=== PATIENT | female | born 1960 | race Caucasian/White ===

== ENCOUNTER → 2019-03-03 13:21 | Outpatient (BNVA) | payer MEDICARE, MEDICAID, SELFPAY | PROVIDERS: Family Provider Nurse Practitioner Family; PCP Nurse Practitioner Family; Visit Provider Specialist | DX: S62.307A Unspecified fracture of fifth metacarpal bone, left hand, initial encounter for closed fracture (principal); X58.XXXA Exposure to other specified factors, initial encounter | CPT/HCPCS: 73130 ==

== ENCOUNTER 2019-10-30 15:08 | Outpatient (CLI) | payer MEDICARE, MEDICAID, SELFPAY ==
--- NOTE | 2019-10-30 15:14 | XR_ITS ---
WS: [id number] Right knee, 3 views, 10/30/2019 Clinical Data: PAIN IN RIGHT KNEE Comparison: Bilateral knees, 01/04/2017 Findings: No fractures or dislocations are seen. The joint spaces are normal. The patella is intact. The soft t issues are unremarkable. XR/XR knee RT 3V* [id number] Impression: Negative right knee.
== END 2019-10-30 15:09 | disposition home or self-care (01) ==
LOC: RAD 15:12
PROVIDERS: PCP Nurse Practitioner Family; Visit Provider Anesthesiology Pain Medicine
DX: M25.561 Pain in right knee (principal)
CPT/HCPCS: 73562

== ENCOUNTER 2020-02-02 09:10 | Outpatient (CLI) | payer MEDICARE, MEDICAID, SELFPAY ==
--- NOTE | 2020-02-02 09:18 | US_ITS ---
WS: [id number] ULTRASOUND ABDOMEN LIMITED CLINICAL INFORMATION: FATTY CHANGE OF LIVER COMPARISON: None. FINDINGS: Liver Size: Normal. Craniocaudal length: 12.6 cm. Echogenicity: Normal. Surface nodularity: None. Mass (size and location): None. Bile ducts Intrahepatic ducts: Normal. Common bile duct diameter: 1.0 cm. Post cholecystectomy physiologic dilatation. Gallbladder Cholecystectomy.. Pancreas Not well visualized Right kidney: Mild dilatation of the right proximal ureter Hydronephrosis: None. Size: 10.1 cm x 4.3 cm x 5.6 cm. Abdominal aorta and IVC Visualized portions are normal. Ascites: None. US/US gall bladder [id number] IMPRESSION: 1. Normal liver. 2. Prior cholecystectomy. 3. Slightly dilated right ureter. CT abdomen and pelvis renal stone protocol c ould be obtained to further evaluate for obstructing calculus if indicated.
[2020-02-02 11:12] LABS: Basophils # 0.1 10^3/uL (0.0-0.1); Basophils % 0.8 %; Eosinophils # 0.3 10^3/uL (0.0-0.8); Eosinophils % 4.3 %; Hemoglobin 12.1 g/dL (11.5-15.3); Lymphocytes # 2.3 10^3/uL (0.8-4.8); Lymphocytes % 28.5 %; Mean Corpuscular HGB Conc 31.8 g/dL (30.0-36.0); Mean Corpuscular Hemoglobin 30.3 pg (28.0-34.0); Mean Platelet Volume 10.5 fL (7.4-10.4); Monocytes # 0.9 10^3/uL (0.2-0.9); Monocytes % 11.3 %; Neutrophils # 4.39 10^3/uL (1.8-7.7); Neutrophils % 54.8 %; Nucleated Red Blood Cells % 0 %; Platelet Count 370 10^3/cmm (130-400); Red Cell Distribution Width 13.9 % (12.1-15.1)
[2020-02-02 11:43] LABS: Alanine Aminotransferase 19 U/L (0-33); Albumin Level 4.3 g/dL (3.5-5.2); Alkaline Phosphatase 113 IU/L (35-105); Anion Gap 12.5 (5-19); Aspartate Amino Transferase 16 U/L (0-32); Blood Urea Nitrogen 5 mg/dL (8-23); Calcium 9.2 mg/dL (8.5-10.5); Carbon Dioxide 27 mmol/L (22-29); Chloride 106 mmol/L (98-107); Chol HDL Ratio 2.58 mg/dL (0.0-4.40); Cholesterol 170 mg/dL (0-200); Ferritin 38 ng/mL (15-150); Globulin 2.9 g/dL (1.3-4.6); Glomerular Filtration Rate 85.1 mL/min (90-130); Glucose 80 mg/dL (65-115); HDL Cholesterol 66 mg/dL (60-100); Iron 65 ug/dL (37-145); LDL Cholesterol Calculated 85 mg/dL (50-129); LDL HDL Ratio 1.29 RATIO (0.00-3.22); Osmolality Calculated 288 mOsm/kg (285-295); Potassium 4.5 mmol/L (3.5-5.1); Sodium 141 mmol/L (136-145); Thyroid Stimulating Hormone 1.34 uIU/mL (0.27-4.20); Total Bilirubin 0.2 mg/dL (0.15-1.2); Total Iron Binding Capacity 361 mcg/dl; Total Protein 7.2 g/dL (6.6-8.7); Transferrin 302 mg/dL (200-360); Triglycerides 95 mg/dL (0-150); Unsaturated Iron Binding 296 ug/dL (112-347)
[2020-02-02 12:52] LABS: Hepatitis A Antibody IgM Non-Reactive (Nonreactive); Hepatitis B Core IgM Non-Reactive (Nonreactive); Hepatitis B Surface Antigen Non-Reactive (Nonreactive); Hepatitis C Virus Antibody Non-Reactive (Nonreactive)
[2020-02-02 13:11] LABS: Tumor Marker Alpha Fetoprotein 3.7 ng/mL (0-8.3)
[2020-02-03 12:03] LABS: Alpha 1 Antitrypsin 151 mg/dL (83-199); Ceruloplasmin 40 mg/dL (18-53)
[2020-02-05 23:08] LABS: Tissue Transglutaminase IgA Ab <1 U/mL; Tissue transglutaminase Ab.IgG 1 U/mL
[2020-02-06 02:44] LABS: Immunoglobulin A 133 mg/dL (70-320)
[2020-02-08 16:13] LABS: Gliadin Ab.IgA 3 U (<20); Gliadin Ab.IgG 2 U (<20)
== END 2020-02-02 09:11 | disposition home or self-care (01) ==
PROVIDERS: PCP Nurse Practitioner Family; Visit Provider Nurse Practitioner
DX: K76.0 Fatty (change of) liver, not elsewhere classified (principal); N28.82 Megaloureter; Z90.49 Acquired absence of other specified parts of digestive tract
CPT/HCPCS: 36415; 76705; 80053; 80061; 80074; 82103; 82105; 82390; 82728; 82784; 83516; 83540; 83550; 84443; 84466; 85025; 85610

== ENCOUNTER 2020-02-10 14:35 | Outpatient (CLI) | payer MEDICARE, MEDICAID, SELFPAY ==
--- NOTE | 2020-02-10 | MR_ITS ---
WS: [id number] MRI RIGHT KNEE NONCONTRAST TECHNIQUE: Axial PD, coronal PD fat sat, coronal PD, sagittal PD, and sagittal PD fat-sat images obta ined. CLINICAL INFORMATION: RT KNEE PAIN COMPARISON: None. FINDINGS: Distal quadriceps and patella tendons are intact. Mild prepatellar soft tissue edema. Normal anterior and posterior cruciate ligaments. Normal medial and lateral meniscus. No acute appearing meniscal te ars. Normal bone marrow signal in the distal femur and tibial plateau. Moderate chondromalacia patella worse in the medial patella facet. Normal popliteal fossa. Mild joint space narrowing medial and lateral joint compartments. Moderate joint space narrowing patellofemoral articulation. Medial and lateral collateral ligaments are intact. MR/MR knee RT wo con* [id number] IMPRESSION: 1. Normal anterior and posterior cruciate ligaments. 2. Normal medial and lateral meniscus. No acute appearing meniscal tears. 3. 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 4. Moderate tricompartmental arthritis worse involving the medial joint compar tment and patellofemoral articulation. 5. Medial and lateral collateral ligaments appear intact.
== END 2020-02-10 14:36 | disposition home or self-care (01) ==
LOC: RADWPI 14:39
PROVIDERS: PCP Nurse Practitioner Family; Visit Provider Anesthesiology Pain Medicine
DX: M25.561 Pain in right knee (principal); M22.41 Chondromalacia patellae, right knee; M13.861 Other specified arthritis, right knee
CPT/HCPCS: 73721

== ENCOUNTER → 2020-03-02 15:31 | Outpatient (BNVA) | payer MEDICARE, MEDICAID, SELFPAY | PROVIDERS: PCP Nurse Practitioner Family; Referring Provider Nurse Practitioner; Visit Provider Orthopaedic Surgery | DX: M17.0 Bilateral primary osteoarthritis of knee (principal); M25.862 Other specified joint disorders, left knee; M25.861 Other specified joint disorders, right knee; M25.562 Pain in left knee; M25.561 Pain in right knee | CPT/HCPCS: 73560; 73565 ==

== ENCOUNTER 2020-08-20 10:43 | Outpatient (CLI) | payer MEDICARE, MEDICAID, SELFPAY ==
--- NOTE | 2020-08-20 10:46 | MM_ITS ---
WS: [id number] Bilateral screening digital mammogram, 08/20/2020 Clinical Data: SCREENING Comparison: 01/04/2016. Findings: The breast parenchymal pattern shows heterogeneous density. No spiculated masses or clustered calcifi cations are seen. There are no secondary signs of carcinoma. MM/[place] [id number] Impression: 1. Negative bilateral mammogram unchanged. 2. Recommend annual screening mammograms. BIRADS: 1-Negative FOLLOW UP: 1 Year Follow-up The CAD maturity checker was used.
== END 2020-08-20 10:44 | disposition home or self-care (01) ==
PROVIDERS: PCP Nurse Practitioner Family; Visit Provider Nurse Practitioner Family
DX: Z12.31 Encounter for screening mammogram for malignant neoplasm of breast (principal)
CPT/HCPCS: 77067

== ENCOUNTER 2020-09-14 09:06 | Outpatient (CLI) | payer MEDICARE, MEDICAID, SELFPAY ==
[2020-09-14 09:37] VITALS: BMI 33.8
--- NOTE | 2020-09-14 09:38 | ECG_ITS ---
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 Interpretive Statements NAME OF STUDY: LEXISCAN SESTAMIBI STRESS TEST INDICATION: Chest Pain PROCEDURE: At the baseline, the EKG revealed normal sinus rhythm with a poor R wave progression. Some nonspecific ST changes. The baseline blood pressure was 173/88 mm Hg with a heart rate of 69 beats/min. Lexiscan was infused over a period of 20 seconds. A total of 0.4 milligrams of Lexiscan was infused. The stress phase was continued for a total of 5 minutes. Heart rate at the end of the stress phase was 86 with a blood pressure 168/81. The EKG at the peak infusion revealed nonspecific ST-T changes.. Sestamibi was injected 20 seconds after the Lexiscan infusion. Blood pressure at the end of the recovery phase was 164/84 with a heart rate of 80 per minute. CONCLUSION: 1. No significant EKG changes with the LexiScan infusion 2. No LexiScan induced chest pain or cardiac arrhythmia 3. Normal blood pressure and heart rate response 4. Sestamibi/sestamibi perfusion scan pending; see separate report. Electronically Signed On 09-14-2020 14:13:46 CDT by Dawn Stacy M.D. [id number]
--- NOTE | 2020-09-14 09:39 | NMCV_ITS ---
NM samuel perf SPECT r/s* [id number] Aziza Katz Age: 60 Gender: F : 1960 Exam Date: 09/14/2020 10:19 Ordering Phys: Nikki Coronado Technologist: [place] Jose Exam Location: [facility] Indications: CHEST PAIN STRESS TEST Please see separate stress test report in [facility] for full findings IMAGE PROTOCOL Rest/Stress 1 Lexiscan Day Radiopharmaceutical Dose (mCi) Administration Site Administered by Rest: Tc-99m 10.9 IV [place] Rendon Sestamibi Stress:Tc-99m 32.8 IV Sestamibi Rest: 14-Sep-2020 60 Discovery 630 Stress: 14-Sep-2020 30 Discovery 630 0.4mg Lexiscan. Images obtained in supine and prone position. SPECT RESULTS Technical Quality: Excellent Raw Data Analysis: Breast attenuation Image Corrections: No attenuation or motion correction applied Summed Stress Score: 0 Summed Rest Score: 3 Summed Difference Score: 0 PERFUSION FINDINGS Fairly uniform myocardial tracer uptake. No significant perfusion abnormalities. FUNCTIONAL RESULTS (calculated via Gated SPECT) Stress Image LV EF (%): 86 Stress EDV (mL):66 TID: 1.03 Stress ESV (mL):9 FUNCTIONAL FINDINGS: Segmental wall motion analysis revealing no gross wall motion normalities IMPRESSIONS 1. Unremarkable myocardial perfusion imaging. 2. Normal LV ejection fraction of 86%. 3. LV wall motion analysis revealing no gross wall motion normalities. 4. Normal LV volume. No significant coronary ischemia, based on the above findings Dr Dawn Stacy MD [facility] (Electronically Signed) Final Date: 14 September 2020 14:03 S
[2020-09-14] MEDS: regadenoson 0.4 Mg/5 ml Syringe IVP (11:07)
[2020-09-14 11:19] VITALS: BP 168/84; PULSE 80
== END 2020-09-14 09:07 | disposition home or self-care (01) ==
LOC: CDL 09:11
PROVIDERS: PCP Nurse Practitioner Family; Visit Provider Nurse Practitioner Family
DX: R07.9 Chest pain, unspecified (principal)
CPT/HCPCS: 78452; 93017; A9500; J2785

== ENCOUNTER 2021-03-08 19:10 | Inpatient (IN) | payer MEDICARE, MEDICAID, SELFPAY ==
[2021-03-08 19:13] VITALS: BP 99/67; PULSE 112; RESP 18; TEMP 38.6; O2SAT 89; BMI 27.4
--- NOTE | 2021-03-08 19:40 | XRR_ITS ---
PROCEDURE INFORMATION: Exam: XR Left Foot Exam date and time: 03/08/2021 7:40 PM Age: 61 years old Clinical indication: Injury or trauma; Fall; Blunt trauma; Foot; Left TECHNIQUE: Imaging protocol: XR Left foot. Views: 3 or more views. COMPARISON: No relevant prior studies available. FINDINGS: Bones/joints: No acute fracture. No dislocation. Normal bone mineralization. No joint effusion. Joint spaces are maintained. Small bunion at the head of the left 1st metatarsal. Soft tissues: No soft tissue swelling. No radiopaque foreign body. Calcification in the soft tissues of the distal lower leg of uncertain etiology. XR/XR foot LT min 3V* [id number] IMPRESSION: 1. No acute fracture. Followup imaging recommended in 7-14 days if clinical concern for fracture persists. 2. Small bunion at the head of the left 1st metatarsal.
--- NOTE | 2021-03-08 19:40 | XRR_ITS ---
PROCEDURE INFORMATION: Exam: XR Right Foot Exam date and time: 03/08/2021 7:40 PM Age: 61 years old Clinical indication: Injury or trauma; Fall; Blunt trauma; Foot; Right TECHNIQUE: Imaging protocol: XR Right foot. Views: 3 or more views. COMPARISON: CR XR knees AP WB w RT lmt ORTH 03/02/2020 3:37 PM FINDINGS: Bones/joints: Mild soft tissue swelling medial to the navicular bone and talus. No acute fracture. No dislocation. Normal bone mineralization. No joint effusion. Joint spaces are maintained. Soft tissues: No radiopaque foreign body. Few calcifications in the soft tissues of the soft tissues of the distal lower leg of uncertain etiology. XR/XR foot RT min 3V* [id number] IMPRESSION: 1. No acute fracture. Followup imaging recommended in 7-14 days if clinical concern for fracture persists. 2. Mild soft tissue swelling medial to the navicular bone and talus.
--- NOTE | 2021-03-08 19:40 | XRR_ITS ---
PROCEDURE INFORMATION: Exam: XR Right Ankle Exam date and time: 03/08/2021 7:40 PM Age: 61 years old Clinical indication: Injury or trauma; Fall; Blunt trauma; Ankle; Right TECHNIQUE: Imaging protocol: XR Right ankle. Views: 3 or more views. COMPARISON: No relevant prior studies available. FINDINGS: Bones/joints: No acute fracture. No dislocation. Normal bone mineralization. No joint effusion. Joint spaces are maintained. Soft tissues: No soft tissue swelling. No radiopaque foreign body. Few calcifications in the soft tissues of the soft tissues of the distal lower leg of uncertain etiology. XR/XR ankle RT min 3V* [id number] IMPRESSION: No acute fracture. Followup imaging recommended in 7-14 days if clinical concern for fracture persists.
--- NOTE | 2021-03-08 19:40 | XRR_ITS ---
PROCEDURE INFORMATION: Exam: XR Chest Exam date and time: 03/08/2021 7:40 PM Age: 61 years old Clinical indication: Shortness of breath; Additional info: SOB fall TECHNIQUE: Imaging protocol: XR of the chest. Views: 1 view. COMPARISON: CT abdomen pelvis wo con [id number] 11/14/2018 10:55 AM FINDINGS: Lungs: Interval development of right upper lobe and right lower lobe alveolar airspace disease. Findings are most suspicious for pneumonia. Pulmonary contusion is considered less likely but not completely ruled out given history of trauma. Pleural spaces: No pleural effusion. No pneumothorax. Heart/Mediastinum: The cardiac silhouette and mediastinal contours are unremarkable. Vasculature: Vascular calcifications in the aorta. Bones/joints: Degenerative changes in the spine and shoulders. No acute fracture. XR/XR chest 1V portable [id number] IMPRESSION: 1. Interval development of right upper lobe and right lower lobe alveolar airspace disease. Findings are most suspicious for pneumonia. Pulmonary contusion is considered less likely but not completely ruled out given history of trauma. Recommend clinical correlation. CT scan of the chest with contrast may be obtained for further evaluation if it will change clinical management. Follow-up chest imaging recommended in 4 weeks to ensure resolution of these findings. 2. Incidental/nonacute findings are listed in the report.
--- NOTE | 2021-03-08 20:29 | CTR_ITS ---
PROCEDURE INFORMATION: Exam: CTA Chest With Contrast Exam date and time: 03/08/2021 8:29 PM Age: 61 years old Clinical indication: Fever and other: Hypoxia; Additional info: Hypoxia fever TECHNIQUE: Imaging protocol: Computed tomographic angiography of the chest with contrast. 3D rendering (Not supervised by radiologist): MIP and/or 3D reconstructed images were created by the technologist. Radiation optimization: All CT scans at this facility use at least one of these dose optimization techniques: automated exposure control; mA and/or kV adjustment per patient size (includes targeted exams where dose is matched to clinical indication); or iterative reconstruction. Contrast material: OMNI 350; Contrast volume: 65 ml; Contrast route: INTRAVENOUS (IV); COMPARISON: 1. CR (CHEST, ) 03/08/2021 7:[address] abdomen pelvis wo con [id number] 11/14/2018 10:55 AM RADIATION DOSE METRICS: Total DLP (mGy-cm): 512.07 FINDINGS: Pulmonary arteries: No filling defects in the pulmonary arteries to suggest pulmonary embolism. Aorta: Moderate atherosclerotic changes in the visualized arteries. No evidence for aortic aneurysm or aortic dissection. Great vessels off aortic arch: Noncalcified plaque with 80% stenosis at the origin of the left common carotid artery. Trachea: Tracheobronchial structures are patent. Lungs: Dense alveolar opacification in the central right upper lobe and right middle lobe and in the central and peripheral right lower lobe suspicious for pneumonia. Findings are most pronounced in the right upper lobe. No pulmonary parenchymal nodules or masses. Pleural spaces: No pneumothorax. No pleural effusion. Heart: The heart is normal in size. Mild atherosclerotic calcification in the coronary arteries. Esophagus: The esophagus is unremarkable. Mediastinal space: No mediastinal hematoma. No pneumomediastinum. Lymph nodes: No lymphadenopathy. Liver: The visualized liver is unremarkable. Gallbladder and bile ducts: Stable findings consistent with a previous cholecystectomy. Stable dilatation of the visualized biliary ducts, not unexpected in a patient who has had a prior cholecystectomy. Pancreas: The visualized pancreas is unremarkable. No pancreatic ductal dilatation. Spleen: The visualized spleen is unremarkable. Adrenal glands: The visualized right and left adrenal glands are unremarkable. Kidneys and ureters: The visualized left kidney is unremarkable. Bones/joints: Multilevel degenerative changes of varying severity in the visualized spine. Soft tissues: No acute abnormality in the extrathoracic soft tissues. CT/CT angio chest PE protcl [id number] IMPRESSION: 1. Dense alveolar opacification in the central right upper lobe and right middle lobe and in the central and peripheral right lower lobe suspicious for pneumonia. Findings are most pronounced in the right upper lobe. Recommend followup chest imaging to insure resolution of these findings. 2. No evidence for pulmonary embolism. 3. Atherosclerotic disease. 80% stenosis at the origin of the left common carotid artery. 4. Incidental/nonacute findings are listed in the report.
[2021-03-08 20:30] VITALS: RESP 22; O2SAT 92
[2021-03-08] MEDS: ondansetron 2 mg/ML SDV 2 mL 4 MG IVP (20:30)
[2021-03-08] MEDS: morphine 4 mg/mL SDV 1 mL IVP ×2 (20:30→21:47)
--- NOTE | 2021-03-08 20:53 | ED_ITS ---
HPI - Fall General: Chief Complaint: Fall Stated Complaint: FALL Time Seen by Provider: 03/08/21 19:16 History of Present Illness: HPI Narrative: 61-year-old female comes in with bilateral foot and ankle pain. She notes that she tripped out of the door of her camper night before last, catching her big left toe and entrapping her right ankle in the step. She has pain, significantly decreased ability to bear weight, some swelling and bruising to her left foot and right ankle and foot. Of note as she presents, she is febrile, and on oxygen as she was found to have a low pulse ox by EMS. She had exposure to 2 family members with COVID-19 this past weekend. She denies shortness of breath. She has had a bit of a cough. MD complaint: fall Onset (ago): day(s) Fall from: down stairs (#) Fall witnessed: no Place fall occurred: home and other Loss of consciousness: None Prolonged down time: no Symptoms prior to fall: none Context: tripped/slipped Location of injury - extremities: Left: ankle and Bilateral: foot Severity: moderate Quality: stabbing and aching Associated symptoms-after fall: Reports difficulty walking, neck pain and weakness; Denies abdominal pain, chest pain, confusion, headache(s), lightheadedness or short of breath Review of Systems Card: Denies: chest pain or lightheadedness GI: Denies: abdominal pain Musc: Reports: neck pain Neuro: Reports: difficulty walking; Denies: headache(s) or confusion PFS ED PFSH: Social History Smoking and tobacco status: current every day smoker cigarettes Packs smoked per day: 0.5 Years cigarettes smoked: 30 Alcohol intake: never Physical Exam Const: COMMON NORMALS: patient oriented x3 and alert GENERAL APPEARANCE: cooperative and ill appearing Eye: COMMON NORMALS: Equal, round and reactive pupils present and EOMs intact bilaterally PUPIL: Yes Equal, round and reactive pupils present Chest: COMMONS NORMALS: normal inspection of the chest Resp: COMMON NORMALS: clear to auscultation bilaterally EFFORT & INSPECTION: Yes tachypneic and No respiratory distress AUSCULTATION: clear to auscultation bilaterally and diminished lung sounds Cardio: COMMON NORMALS: regular rhythm RATE: tachycardic RHYTHM: regular rhythm GI: COMMON NORMALS: Normal to inspection, nondistended, normoactive bowel sounds present and Soft to palpation PALPATION: Yes Soft to palpation Extremity: NARRATIVE EXTREMITY EXAM: Exam of the right lower extremity reveals ecchymosis to the right ankle and inferiorly to the hindfoot. There is minimal swelling. There is tenderness over the medial and lateral malleoli as well as the base of the fifth metatarsal. Examination the left lower extremity reveals forefoot tenderness, medially, along the MTP. There is mild discoloration with minimal swelling present Neuro: COMMON NORMALS: patient oriented x3 SENSORIUM/ORIENTATION: Yes alert Course Consultations: Consultation #1: [email or web address] Vital Signs: Vital signs: Vital Signs Temperature 101.4 F H 03/08/21 19:13 Pulse Rate 112 H 03/08/21 19:13 Respiratory Rate 22 H 03/08/21 21:47 Blood Pressure 99/67 03/08/21 19:13 Pulse Oximetry 96 03/08/21 21:47 MDM - Fall MDM Narrative: Medical decision making narrative: X-rays are negative for fracture. However, the patient is tachycardic, mildly hypotensive now, and requiring oxygen at 3 L satting 92 to 94%. Chest x-ray shows right upper lobe and lower lobe pneumonia. She has had contact with COVID-19 positive family members, and is febrile here. CTA of the chest has been ordered along with laboratory, and fluid bolus. Fluid bolus nears 30 mg/kg, but is not overdone due to problems with fluid overload and hypoxia iin COVID patients. She will be admitted for hypoxic respiratory failure with COVID-19 and pneumonia. She has been given Levaquin after blood cultures for the pneumonia, given its more one-sided denser appearance. Lab Data: Labs: Lab Results 03/08/21 03/08/21 03/08/21 20:15 20:15 20:50 WBC 28.6 10^3/uL H 10 ^3/uL (4.0-10.0) RBC 4.30 10^6/uL 10^6 /uL (4.1-5.3) Hgb 13.0 g/dL g/dL (11.5-15.3) Hct 38.4 % % (37.0-47.0) MCV 89.3 fl fl (81-99) MCH 30.2 pg pg (28.0-34.0) MCHC 33.9 g/dL g/dL (30.0-36.0) RDW 13.4 % % (12.1-15.1) Plt Count 227 10^3/cmm 10^3 /cmm (130-400) MPV 11.4 fL H fL (7.4-10.4) Lymph % (Auto) Not Reportable Humphreys % (Auto) Not Reportable Lymph # (Auto) Not Reportable Humphreys # (Auto) Not Reportable Total Counted 100 (0-100) Atypical Lymphs % 0.0 % % (0-5) Absolute Neutrophi ls 24.9 10^3/cmm H 1 0^3/cmm (1.4-6.5) Segmented Neutroph ils 54 % % Abs Segm Neuts (Ma n) 15.4 10/cmm H 10/ cmm (1.6-7.1) Band Neutrophils 33.0 % % Abs Band Neuts (Ma n) 9.4 10^3/cmm H 10 ^3/cmm (0.0-1.2) Absolute Lymphocyt es 1.7 10^3/cmm 10^3 /cmm (1.2-3.4) Lymphocytes (Manua l) 6 % % Monocytes (Manual) 0.0 % % Absolute Monocytes 0.0 10^3/cmm L 10 ^3/cmm (0.1-0.6) Eosinophils (Manua l) 0 % % Absolute Eosinophi ls 0.0 10^3/cmm 10^3 /cmm (0.0-0.7) Basophils (Manual) 0.0 % % Absolute Basophils 0.0 10^3/cmm 10^3 /cmm (0.0-0.2) Metamyelocytes 7.0 % % Platelet Estimate Normal (Normal) Target Cells Trace D-Dimer Sodium Potassium Chloride Carbon Dioxide Anion Gap BUN Creatinine GFR Calculation Glucose Calculated Osmolal ity Lactic Acid Calcium Total Bilirubin AST ALT Alkaline Phosphata se C-Reactive Protein NT-Pro-B Natriuret Pep Total Protein Albumin Globulin Procalcitonin Coronavirus 229E ( PCR) Not detected (NOT DETECT) SARS-CoV-2 (PCR) Detected A (NOT DETECT) SARS-CoV-2 Ag (Rap id) Positive H (Negative) 03/08/21 03/08/21 03/08/21 20:50 20:50 20:50 WBC RBC Hgb Hct MCV MCH MCHC RDW Plt Count MPV Lymph % (Auto) Humphreys % (Auto) Lymph # (Auto) Humphreys # (Auto) Total Counted Atypical Lymphs % Absolute Neutrophi ls Segmented Neutroph ils Abs Segm Neuts (Ma n) Band Neutrophils Abs Band Neuts (Ma n) Absolute Lymphocyt es Lymphocytes (Manua l) Monocytes (Manual) Absolute Monocytes Eosinophils (Manua l) Absolute Eosinophi ls Basophils (Manual) Absolute Basophils Metamyelocytes Platelet Estimate Target Cells D-Dimer 3.49 ug/mIFEU H u g/mIFEU (0-0.59) Sodium 132 mmol/L L mmol /L (136-145) Potassium 4.4 mmol/L mmol/L (3.5-5.1) Chloride 96 mmol/L L mmol/ L (98-107) Carbon Dioxide 20 mmol/L L mmol/ L (22-29) Anion Gap 20.4 H (5-19) BUN 26 mg/dL H mg/dL (8-23) Creatinine 2.0 mg/dL H mg/dL (0.5-0.9) GFR Calculation 25.2 mL/min L mL/ min (90-130) Glucose 102 mg/dL mg/dL (65-115) Calculated Osmolal ity 279 mOsm/kg L mOs m/kg (285-295) Lactic Acid 2.0 mmol/L mmol/L (0.5-2.2) Calcium 8.4 mg/dL L mg/dL (8.5-10.5) Total Bilirubin 0.5 mg/dL mg/dL (0.15-1.2) AST 61 U/L H U/L (0-32) ALT 73 U/L H U/L (0-33) Alkaline Phosphata se 201 IU/L H IU/L (35-105) C-Reactive Protein 509.2 mg/L H mg/L (0.0-4.9) NT-Pro-B Natriuret Pep 528 pg/mL H pg/mL (0-125) Total Protein 7.0 g/dL g/dL (6.6-8.7) Albumin 3.7 g/dL g/dL (3.5-5.2) Globulin 3.3 g/dL g/dL (1.3-4.6) Procalcitonin 25.34 ng/mL H ng/ mL (0-0.5) Coronavirus 229E ( PCR) SARS-CoV-2 (PCR) SARS-CoV-2 Ag (Rap id) Discharge Plan Discharge Patient Disposition: Admitted As Inpatient Clinical Impression: Acute hypoxemic respiratory failure, COVID-19 Pneumonia Qualifiers: Pneumonia type: due to unspecified organism Laterality: right Condition: Stable Coding Level of Care Code ED [employer] for [employer] Fwd Exam Detailed
[2021-03-08 21:11] LABS: SARS Covid-2 Antigen Positive (Negative)
[2021-03-08 21:15] LABS: Hematocrit 38.4 % (37.0-47.0); Mean Corpuscular HGB Conc 33.9 g/dL (30.0-36.0); Mean Corpuscular Hemoglobin 30.2 pg (28.0-34.0); Mean Corpuscular Volume 89.3 fl (81-99); Mean Platelet Volume 11.4 fL (7.4-10.4); Platelet Count 227 10^3/cmm (130-400); Red Cell Distribution Width 13.4 % (12.1-15.1); White Blood Count 28.6 10^3/uL (4.0-10.0)
[2021-03-08] MEDS: dexamethasone 4 mg/mL INJ 6 MG IVP (21:15)
[2021-03-08] MEDS: levofloxacin-dextrose 5 % 750 MG/150 ML PREMIX 100 MG IV (21:15)
[2021-03-08] MEDS: sodium chloride 0.9% 1,000 ML 999 ML IV ×2 (21:16→23:00)
[2021-03-08 21:28] LABS: D Dimer 3.49 ug/mIFEU (0-0.59)
[2021-03-08 21:31] LABS: Absolute Neutrophil 24.9 10^3/cmm (1.4-6.5); Absolute Segmented Neutrophil 15.4 10/cmm (1.6-7.1); Band Neutrophils Absolute 9.4 10^3/cmm (0.0-1.2); Eosinophils 0 %; Lymphocytes 6 %; Lymphocytes Absolute 1.7 10^3/cmm (1.2-3.4); Platelet Estimate Normal (Normal); Segmented Neutrophils 54 %; Slide Review Slide Review Perform; Target Cells Trace; Total Cells Counted 100 (0-100)
[2021-03-08 21:44] LABS: NT Pro B Type Natriuretic Pept 528 pg/mL (0-125); Procalcitonin 25.34 ng/mL (0-0.5)
[2021-03-08 21:47] VITALS: RESP 22; O2SAT 96
[2021-03-08 21:55] LABS: Alanine Aminotransferase 73 U/L (0-33); Albumin Level 3.7 g/dL (3.5-5.2); Alkaline Phosphatase 201 IU/L (35-105); Anion Gap 20.4 (5-19); Aspartate Amino Transferase 61 U/L (0-32); Blood Urea Nitrogen 26 mg/dL (8-23); Calcium 8.4 mg/dL (8.5-10.5); Carbon Dioxide 20 mmol/L (22-29); Chloride 96 mmol/L (98-107); Globulin 3.3 g/dL (1.3-4.6); Glomerular Filtration Rate 25.2 mL/min (90-130); Glucose 102 mg/dL (65-115); Osmolality Calculated 279 mOsm/kg (285-295); Potassium 4.4 mmol/L (3.5-5.1); Sodium 132 mmol/L (136-145); Total Bilirubin 0.5 mg/dL (0.15-1.2)
[2021-03-08 22:07] LABS: C Reactive Protein 509.2 mg/L (0.0-4.9)
[2021-03-08 22:11] LABS: Adenovirus Not Detected (NOT DETECT); Chlamydia Pneumoniae Not Detected (NOT DETECT); Coronavirus 229E,HKU1,NL63,OC4 Not Detected (NOT DETECT); Human Metapneumovirus Not Detected (NOT DETECT); Human Rhinovirus/Enterovirus Not Detected (NOT DETECT); Influenza A Not Detected (NOT DETECT); Influenza A H1 Not Detected (NOT DETECT); Influenza A H1-2009 Not Detected (NOT DETECT); Influenza A H3 Not Detected (NOT DETECT); Influenza B Not Detected (NOT DETECT); Mycoplasma Pneumoniae Not Detected (NOT DETECT); Parainfluenza Virus Type 1 Not Detected (NOT DETECT); Parainfluenza Virus Type 2 Not Detected (NOT DETECT); Parainfluenza Virus Type 3 Not Detected (NOT DETECT); Parainfluenza Virus Type 4 Not Detected (NOT DETECT); Respiratory Syncytial Virus A Not Detected (NOT DETECT); Respiratory Syncytial Virus B Not Detected (NOT DETECT); SARS-COV-2 Detected (NOT DETECT)
[2021-03-08 23:02] VITALS: PULSE 83; PULSE 84; RESP 16; O2SAT 95; O2SAT 97
--- NOTE | 2021-03-08 23:09 | PM.HP ---
Providers/Chief Complaint Primary Care Provider: Nikki CoronadoP-C Chief Complaint: FALL History of Present Illness Aziza Katz is a 61 year old female with no significant past medical history came in with chief complaint of bilateral bilateral foot and ankle pain, after she tripped out of the door of her camper night before last. She was also complaining of fever , shortness of breath as well as nonproductive cough for the last 2 days, denies any nausea , vomiting, dizziness, palpitation, chest pain..She has exposure to COVID-19 in the last few days. Upon arrival in the ER she was worked up for above-mentioned complaint. Pertinent imaging studies: CTA chest: No PE, Dense alveolar opacification in the central right upper lobe and right middle lobe and in the central and peripheral right lower lobe suspicious for pneumonia. Findings are most pronounced in the right upper lobe. XR foot RT: No acute fracture,Mild soft tissue swelling medial to the navicular bone and talus. XR foot LT : No acute fracture. XR chest: Interval development of right upper lobe and right lower lobe alveolar airspace disease. Findings are most suspicious for pneumonia. Pertinent labs: WBC:28.6, H&H13/38 , plt : 227 , serum sodium 132 serum potassium 4.4 BUN / serum creatinine: 26/2, AST 61 ALT 73 ALP 201 D-dimer 3.49, CRP:509 , Pro-Travis:25.34 , proBNP 528 Rapid COVID and COVID PCR positive. Patient was given 2 L normal saline IV fluid in the ER, as well as dexamethasone and levofloxacin. Review of Systems Const: Denies: change in appetite or diaphoresis Card: Denies: palpitations or edema Resp: Denies: wheezing or pain on inspiration GI: Denies: abdominal pain, nausea, vomiting, diarrhea or constipation : Denies: flank pain Musc: Denies: back pain or extremity swelling Neuro: Denies: headache(s) or confusion Medications/Allergies Home Medications Medication Instructions Recorded Confirmed Last Taken Type buspirone 30 mg tablet mg PO 03/03/19 03/02/20 Unknown History hydrocodone 10 mg-acetaminophen 1 tab PO BID PRN 03/03/19 03/02/20 Unknown History 325 mg tablet sertraline 100 mg tablet 100 mg PO Q24H 03/03/19 03/02/20 Unknown History albuterol sulfate 90 mcg/actuation 2 puff INHALATION QID 09/27/20 09/27/20 Unknown History aerosol inhaler aspirin-caffeine 500 mg-32.5 mg tab PO .bedtime tab 09/27/20 09/27/20 Unknown History tablet budesonide 90 mcg/actuation breath 2 inh INHALATION BID 09/27/20 09/27/20 Unknown History activated powder inhaler dexlansoprazole 60 mg 60 mg PO DAILY 09/27/20 09/27/20 Unknown History capsule,biphase delayed release ergocalciferol (vitamin D2) 1,250 1,250 mcg PO .the 1st and 15th cap 09/27/20 09/27/20 Unknown History mcg (50,000 unit) capsule famotidine 20 mg tablet 20 mg PO BID 09/27/20 09/27/20 Unknown History fluticasone propionate 50 1 spray INTRANASAL DAILY 09/27/20 09/27/20 Unknown History mcg/actuation nasal spray,suspension glycopyrrolate 9 mcg-formoterol 2 puff INHALATION BID 09/27/20 09/27/20 Unknown History 4.8 mcg HFA aerosol inhaler montelukast 10 mg tablet 10 mg PO DAILY 09/27/20 09/27/20 Unknown History plecanatide 3 mg tablet 3 mg PO DAILY 09/27/20 09/27/20 Unknown History quetiapine 50 mg tablet 50 mg PO DAILY 09/27/20 09/27/20 Unknown History ropinirole 2 mg tablet 2 mg PO DAILY 09/27/20 09/27/20 Unknown History tizanidine 4 mg capsule 4 mg PO DAILY PRN cap 09/27/20 09/27/20 Unknown History Allergies Allergy/AdvReac Type Severity Reaction Status Date / Time duloxetine [From Cymbalta] Allergy headaches Verified 09/14/20 09:50 Penicillins Allergy respiratory Verified 09/14/20 09:50 issues PFSH Acute PFSH: Social History Smoking and tobacco status: current every day smoker cigarettes Packs smoked per day: 0.5 Years cigarettes smoked: 30 Alcohol intake: never Vitals/I&O/Wt Last Vital Signs Temp 101.4 F H 03/08/21 19:13 Pulse 112 H 01/18/22 19:13 Resp 22 H 03/08/21 21:47 BP 99/67 03/08/21 19:13 Pulse Ox 96 03/08/21 21:47 Weight last 48 hrs Weight 68.039 kg Physical Exam Const: COMMON NORMALS: patient oriented x3 HENMT: COMMON NORMALS: normocephalic and atraumatic HEAD & SCALP: normocephalic and atraumatic Resp: OTHER: Diminished air entry bilaterally Cardio: COMMON NORMALS: regular rate, regular rhythm, S1 normal heart sound present, S2 normal heart sound present, No gallops present (Cardio), No murmurs present (Cardio), No rub (Cardio) and Peripheral pulses 2+ throughout RATE: regular rate RHYTHM: regular rhythm HEART SOUNDS: S1 normal heart sound present and S2 normal heart sound present PERIPHERAL PULSES: Peripheral pulses 2+ throughout GI: COMMON NORMALS: Normal to inspection, nondistended, normoactive bowel sounds present, Soft to palpation, non-tender, No hepatosplenomegaly present and no masses AUSCULTATION: Yes normoactive bowel sounds PALPATION: Yes Soft to palpation and Yes No hepatosplenomegaly present RECTAL EXAM: deferred Extremity: COMMON NORMALS: no clubbing, cyanosis or edema Neuro: COMMON NORMALS: patient oriented x3 Data : 03/08/21 20:50 03/08/21 20:50 Micro: Microbiology 03/08/21 21:00 Blood Culture - Preliminary Blood SPECIMEN COLLECTED 03/08/21 20:50 Blood Culture - Preliminary Blood SPECIMEN COLLECTED A&P Assessment and plan (1) Sepsis: Status: Acute (2) Pneumonia: Status: Acute (3) Acute respiratory failure with hypoxia: Status: Acute (4) Acute kidney injury: Status: Acute (5) Hyponatremia: Status: Acute (6) Transaminitis: Status: Acute Additional A&P Information Aziza Katz is a 61 year old female with no significant past medical history came in with chief complaint of bilateral bilateral foot and ankle pain, after she tripped out of the door of her camper night before last. She was also complaining of fever , shortness of breath as well as nonproductive cough for the last 2 days, denies any nausea , vomiting, dizziness, palpitation, chest pain..She has exposure to COVID-19 in the last few days. #Sepsis secondary to pneumonia: Patient presented with fever, hypotensive, elevated procalcitonin, has VIRI, has a source. Has received 2 L IV fluid normal saline bolus. In the ER with improvement in blood pressure. Follow-up blood culture Follow urine culture Sputum culture Urine Legionella antigen Bacterial antigen panel Lactic acid: Monitor procalcitonin Monitor inflammatory markers (ESR CRP D-dimer ferritin LDH) DuoNebs Incentive spirometer flutter valve Supplemental oxygen as needed Continue ceftriaxone azithromycin for now. Dexamethasone 6 mg IV daily Remdesivir for 5 days Ascorbic acid , zinc. #COVID-19 pneumonia with superimposed bacterial pneumonia: Plan as above #VIRI: Likely prerenal with contribution from sepsis: Current serum creatinine is 2 Baseline serum creatinine is not known Monitor BMP Has received 2 L normal saline Follow urine electrolytes Intake output charting Avoid nephrotoxic's #Hypovolemic hyponatremia: #Acute respiratory failure with hypoxia: Secondary to -pneumonia. Patient came in tachypneic, has new supplemental oxygen requirement of 3Ls, complaining of worsening shortness of breath. #Transaminitis: Denies any abdominal pain nausea vomiting. Continue to monitor CMP, may need ultrasound abdomen and hepatitis and HIV investigation #CODE STATUS: Full code #DVT prophylaxis: On heparin Attestations Medical Necessity Statement*: Patient is in hospital management of sepsis secondary to pneumonia. Anticipated length of stay greater than 2 midnights Time Spent in Patient Care: Greater than 35 minutes (>than 50% of time spent in counselling and/or direct pt care on unit). 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
[2021-03-09] VITALS (97 sets, daily range): BP systolic 70–148; BP diastolic 43–78; PULSE 60–93; RESP 13–27; TEMP 36.4; O2SAT 85–100
[2021-03-09] MEDS: ipratropium-albuterol 3 mL Neb INHALATION ×5 (00:17→20:01)
[2021-03-09] MEDS: remdesivir 200 MG in sodium chloride 0.9% (100 ml) 100 ML 100 MG IV (00:56)
[2021-03-09] MEDS: azithromycin 500 MG in sodium chloride 0.9% 250 ML 250 MG IV (01:13)
[2021-03-09] MEDS: heparin 5,000 unit/mL INJ 1 mL 5000 UNIT SUBCUT ×3 (01:14→22:14)
--- NOTE | 2021-03-09 01:25 | PC.NURSE ---
vo obtained from hospitalist to adm 2L of NS IV bolus and to cancel 3rd L
[2021-03-09] MEDS: acetaminophen 325 mg Tablet 650 MG PO ×2 (02:20→22:13)
--- NOTE | 2021-03-09 05:23 | PC.PHAR ---
pt states she takes the medications entered-ext med history shows abilify 5mg daily filled on 02/28/21 30d/s pt states she does not take and hasnt taken for 2-3 months states she didnt pick it up from the pharmacy-ext med history shows dexilant 60mg daily filled on 03/04/21 30d/s pt states she doesnt take that medication states she hasnt taken in at least 6 months
[2021-03-09 05:27] LABS: Basophils # 0.1 10^3/uL (0.0-0.1); Basophils % 0.3 %; Eosinophils # 0.2 10^3/uL (0.0-0.8); Hematocrit 33.6 % (37.0-47.0); Hemoglobin 10.9 g/dL (11.5-15.3); Lymphocytes # 0.4 10^3/uL (0.8-4.8); Lymphocytes % 1.7 %; Mean Corpuscular HGB Conc 32.4 g/dL (30.0-36.0); Mean Corpuscular Hemoglobin 30.5 pg (28.0-34.0); Mean Corpuscular Volume 94.1 fl (81-99); Mean Platelet Volume 11.9 fL (7.4-10.4); Monocytes # 0.4 10^3/uL (0.2-0.9); Monocytes % 1.7 %; Neutrophils # 19.93 10^3/uL (1.8-7.7); Neutrophils % 91.6 %; Nucleated Red Blood Cells % 0 %; Platelet Count 160 10^3/cmm (130-400); Red Blood Count 3.57 10^6/uL (4.1-5.3); Red Cell Distribution Width 14.1 % (12.1-15.1); White Blood Count 21.8 10^3/uL (4.0-10.0)
[2021-03-09 05:55] LABS: Slide Review Slide Review Perform
--- NOTE | 2021-03-09 06:28 | ECG_ITS ---
[facility] Test Date: 2021-03-09 Pat Name: Aziza Katz Department: Room: ED Gender: Female Machine Iii Coremaker: : 1960 Requested By: Jarvis Short Order Number: [id number] Angelia MD: Roula Duckworth M.D. Measurements Intervals Cash Rate: 62 P: 16 CT: 126 QRS: 47 QRSD: 90 T: 17 QT: 404 QTc: 411 Interpretive Statements SINUS RHYTHM NON SPECIFIC T WAVE ABNORMALITY No previous ECG available for comparison Electronically Signed On 03-10-2021 19:26:50 PATENT CLERK by Roula Duckworth M.D. [id number]
[2021-03-09 07:19] LABS: Alanine Aminotransferase 49 U/L (0-33); Alkaline Phosphatase 144 IU/L (35-105); Anion Gap 20.5 (5-19); Aspartate Amino Transferase 37 U/L (0-32); Blood Urea Nitrogen 27 mg/dL (8-23); Calcium 8.2 mg/dL (8.5-10.5); Carbon Dioxide 16 mmol/L (22-29); Chloride 100 mmol/L (98-107); Globulin 3.1 g/dL (1.3-4.6); Glomerular Filtration Rate 30.5 mL/min (90-130); Glucose 184 mg/dL (65-115); Osmolality Calculated 284 mOsm/kg (285-295); Potassium 4.5 mmol/L (3.5-5.1); Sodium 132 mmol/L (136-145); Total Bilirubin 0.2 mg/dL (0.15-1.2); Total Protein 6.1 g/dL (6.6-8.7)
[2021-03-09] MEDS: zinc gluconate 50 mg Tablet PO (09:29)
[2021-03-09] MEDS: ascorbic acid 500 mg Tablet 1000 MG PO ×2 (09:29→18:16)
[2021-03-09] MEDS: cefepime 2,000 MG in sodium chloride 0.9% (plus) 50 ML 100 MG IV ×2 (09:29→20:11)
[2021-03-09] MEDS: vancomycin 750 MG in sodium chloride 0.9% 250 ML 250 MG IV (09:30)
--- NOTE | 2021-03-09 11:02 | PM.PN ---
Subjective Subjective: Interval history: Emotionally labile Patient was updated about her COVID and superimposed infection Called her son to update as well She is currently doing well on 2 L nasal cannula Very anxious Vitals/I&O/Wt Last Vital Signs Temp 101.4 F H 03/08/21 19:13 Pulse 83 03/09/21 09:49 Resp 18 03/09/21 09:49 BP 99/67 03/08/21 19:13 Pulse Ox 98 03/09/21 09:49 03/08/21 03/09/21 03/09/21 22:59 06:59 14:59 Intake Total 1000 / 1000 1350 / 2350 Balance 1000 / 1000 1350 / 2350 Weight last 48 hrs Weight 68.039 kg Physical Exam Narrative: EXAM NARRATIVE: Patient is very emotionally labile in the ER Currently on 2 L nasal cannula Bilateral breath sound with mild rhonchi at the bases No acute respite distress No conversational dyspnea S1, S2 Abdomen soft She does have mild coarse tremors Swelling of right foot noted no active signs cellulitis Awake and alert Nonfocal neuro exam Data : 03/09/21 05:10 03/09/21 06:40 Micro: Microbiology 03/08/21 21:00 Blood Culture - Preliminary Blood SPECIMEN COLLECTED 03/08/21 20:50 Blood Culture - Preliminary Blood SPECIMEN COLLECTED A&P Assessment and plan (1) Acute kidney injury: Status: Acute (2) Hyponatremia: Status: Acute (3) Hypoxia: Status: Acute (4) Pneumonia: Status: Acute (5) Sepsis: Status: Acute (6) COVID-19: Status: Acute (7) Osteoarthritis of right knee: Status: Acute Additional A&P Information Sepsis due to COVID-19 with superimposed bacterial infection Acute hypoxia, no conversational dyspnea No respiratory failure No signs of pulmonary embolism Continue remdesivir, steroids and DuoNeb treatment Currently doing well on 2 L nasal cannula Considering worsening leukocytosis vascular antibiotics to cefepime and Levaquin Family updated Currently doing well on 2 L nasal cannula Regular diet Full code DVT prophylaxis:. VIRI related to dehydration received 2 L in the ER, monitor creatinine for now, creatinine trending down Right foot pain, no signs of fracture Attestations Medical Necessity Statement*: Continue medical management Time Spent in Patient Care: 16 - 35 minutes Coding Level of Care Code Acute Counter Dish Carrier for [facility] Juan Diagnoses Acute kidney injury N17.9 Hyponatremia E87.1 Hypoxia R09.02 Pneumonia J18.9 Sepsis A41.9 COVID-19 U07.1 Osteoarthritis of right knee M17.11
[2021-03-09] MEDS: LORazepam 2 mg/mL INJ 1 mL 0.5 MG IVP (11:37)
[2021-03-09] MEDS: morphine 4 mg/mL SDV 1 mL 2 MG IVP ×2 (13:47→20:11)
[2021-03-09] MEDS: remdesivir 100 MG in sodium chloride 0.9% (100 ml) 100 ML IV (18:16)
[2021-03-09] MEDS: dexamethasone 4 mg/mL INJ 6 MG IVP (18:16)
--- NOTE | 2021-03-09 20:20 | PC.NURSE ---
i reported low temp 97.5 and high reps 20 to nurse
[2021-03-10] VITALS (18 sets, daily range): BP systolic 126–174; BP diastolic 68–92; PULSE 51–81; RESP 16–22; TEMP 36.5–37.1; O2SAT 90–99
[2021-03-10] MEDS: morphine 4 mg/mL SDV 1 mL 2 MG IVP ×4 (00:07→21:45)
[2021-03-10] MEDS: ipratropium-albuterol 3 mL Neb INHALATION ×4 (03:03→21:09)
[2021-03-10 05:45] LABS: Basophils % 0.2 %; Hematocrit 30.7 % (37.0-47.0); Hemoglobin 10.3 g/dL (11.5-15.3); Lymphocytes # 0.5 10^3/uL (0.8-4.8); Mean Corpuscular HGB Conc 33.6 g/dL (30.0-36.0); Mean Corpuscular Volume 89.5 fl (81-99); Mean Platelet Volume 12.1 fL (7.4-10.4); Monocytes # 0.4 10^3/uL (0.2-0.9); Monocytes % 2.1 %; Neutrophils # 16.76 10^3/uL (1.8-7.7); Neutrophils % 94.1 %; Nucleated Red Blood Cells % 0 %; Platelet Count 207 10^3/cmm (130-400); Red Blood Count 3.43 10^6/uL (4.1-5.3); White Blood Count 17.8 10^3/uL (4.0-10.0)
[2021-03-10 06:00] LABS: Alanine Aminotransferase 35 U/L (0-33); Albumin Level 3.3 g/dL (3.5-5.2); Alkaline Phosphatase 167 IU/L (35-105); Anion Gap 18.5 (5-19); Aspartate Amino Transferase 23 U/L (0-32); Blood Urea Nitrogen 22 mg/dL (8-23); C Reactive Protein 308.4 mg/L (0.0-4.9); Calcium 8.5 mg/dL (8.5-10.5); Carbon Dioxide 18 mmol/L (22-29); Chloride 104 mmol/L (98-107); Creatine Phosphokinase 97 U/L (26-192); Globulin 2.9 g/dL (1.3-4.6); Glomerular Filtration Rate 63.4 mL/min (90-130); Glucose 160 mg/dL (65-115); INR 1.03 (0.8-1.2); Lactate Dehydrogenase 277 U/L (135-214); Osmolality Calculated 289 mOsm/kg (285-295); Potassium 4.5 mmol/L (3.5-5.1); Sodium 136 mmol/L (136-145); Total Bilirubin 0.3 mg/dL (0.15-1.2); Total Protein 6.2 g/dL (6.6-8.7)
[2021-03-10 06:02] LABS: Fibrinogen 544 mg/dL (174-498)
[2021-03-10 06:04] LABS: Erythrocyte Sedimentation Rate 67 mm/hr (0-15)
[2021-03-10 06:05] LABS: D Dimer 1.89 ug/mIFEU (0-0.59)
[2021-03-10 06:07] LABS: Procalcitonin 7.19 ng/mL (0-0.5)
[2021-03-10] MEDS: ascorbic acid 500 mg Tablet 1000 MG PO ×2 (07:37→17:02)
[2021-03-10] MEDS: zinc gluconate 50 mg Tablet PO (07:37)
[2021-03-10] MEDS: cefepime 2,000 MG in sodium chloride 0.9% (plus) 50 ML 100 MG IV ×2 (07:37→22:03)
--- NOTE | 2021-03-10 08:59 | PM.PN ---
Subjective Subjective: Interval history: Patient is endorsing feeling better today, She was saturating well on room air No overnight events Cough slightly better Vitals/I&O/Wt Last Vital Signs Temp 97.8 F 03/10/21 03:55 Pulse 55 L 03/10/21 08:04 Resp 18 03/10/21 07:57 BP 126/68 03/10/21 03:55 Pulse Ox 98 03/10/21 07:57 03/09/21 03/10/21 03/10/21 22:59 06:59 14:59 Intake Total 530 / 580 480 / 1060 Output Total 660 / 660 Balance 530 / 580 -180 / 400 Weight last 48 hrs Weight 68.039 kg Physical Exam Narrative: EXAM NARRATIVE: Patient was laying in right lateral position Bilateral basilar with mild rhonchi at the bases S1, S2 sinus bradycardia Abdomen soft Nonfocal neuro exam No active chest pain No use of respiratory safety admin assistant muscles Data : 03/10/21 04:43 03/10/21 04:43 Micro: Microbiology 03/08/21 21:00 Blood Culture - Preliminary Blood NEGATIVE TO DATE 03/08/21 20:50 Blood Culture - Preliminary Blood NEGATIVE TO DATE A&P Additional A&P Information Acute hypoxia related to COVID-19 with superimposed bacterial infection CRP and leukocytosis trending down CTA ruled out pulmonary embolism For now we will continue cefepime and Levaquin, discontinue vancomycin Continue Decadron and remdesivir for COVID-19 infection I am hopeful patient will be able to go home by this weekend Poor appetite, regular diet DVT prophylaxis on board: Heparin Attestations Medical Necessity Statement*: Continue medical management Time Spent in Patient Care: less than 15 minutes Coding Level of Care Code Acute 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
[2021-03-10] MEDS: heparin 5,000 unit/mL INJ 1 mL 5000 UNIT SUBCUT ×2 (13:42→22:02)
[2021-03-10] MEDS: levoFLOXacin 750 mg Tablet PO (13:42)
[2021-03-10] MEDS: remdesivir 100 MG in sodium chloride 0.9% (100 ml) 100 ML IV (17:02)
[2021-03-10] MEDS: dexamethasone 4 mg/mL INJ 6 MG IVP (17:02)
[2021-03-10 21:19] LABS: Influenza A by IFA Negative (Negative); Influenza B by IFA Negative (Negative)
[2021-03-11] VITALS (11 sets, daily range): BP systolic 101–164; BP diastolic 66–92; PULSE 60–98; RESP 18–20; TEMP 36.4–37.1; O2SAT 92–98
[2021-03-11] MEDS: acetaminophen 325 mg Tablet 650 MG PO ×2 (01:00→09:18)
[2021-03-11] MEDS: ipratropium-albuterol 3 mL Neb INHALATION (02:11)
[2021-03-11] MEDS: morphine 4 mg/mL SDV 1 mL 2 MG IVP (03:39)
[2021-03-11 06:02] LABS: Basophils % 0.1 %; Hemoglobin 10.8 g/dL (11.5-15.3); Lymphocytes # 0.6 10^3/uL (0.8-4.8); Lymphocytes % 5.2 %; Mean Corpuscular HGB Conc 33.8 g/dL (30.0-36.0); Mean Corpuscular Hemoglobin 29.8 pg (28.0-34.0); Mean Corpuscular Volume 88.2 fl (81-99); Mean Platelet Volume 12.5 fL (7.4-10.4); Monocytes # 0.7 10^3/uL (0.2-0.9); Monocytes % 6.3 %; Neutrophils # 10.01 10^3/uL (1.8-7.7); Nucleated Red Blood Cells % 0 %; Platelet Count 251 10^3/cmm (130-400); Red Blood Count 3.63 10^6/uL (4.1-5.3); Red Cell Distribution Width 13.9 % (12.1-15.1); White Blood Count 11.4 10^3/uL (4.0-10.0)
[2021-03-11 06:12] LABS: D Dimer 1.63 ug/mIFEU (0-0.59)
[2021-03-11 06:21] LABS: Alanine Aminotransferase 30 U/L (0-33); Albumin Level 3.2 g/dL (3.5-5.2); Alkaline Phosphatase 123 IU/L (35-105); Blood Urea Nitrogen 18 mg/dL (8-23); C Reactive Protein 131.9 mg/L (0.0-4.9); Calcium 8.4 mg/dL (8.5-10.5); Carbon Dioxide 18 mmol/L (22-29); Chloride 101 mmol/L (98-107); Creatine Phosphokinase 52 U/L (26-192); Creatinine Clr Calc Pharmacy 75.3447; Globulin 3.4 g/dL (1.3-4.6); Glomerular Filtration Rate 84.8 mL/min (90-130); Glucose 141 mg/dL (65-115); Osmolality Calculated 282 mOsm/kg (285-295); Sodium 134 mmol/L (136-145); Total Bilirubin 0.3 mg/dL (0.15-1.2); Total Protein 6.6 g/dL (6.6-8.7)
[2021-03-11 06:23] LABS: Erythrocyte Sedimentation Rate 70 mm/hr (0-15)
[2021-03-11 06:26] LABS: Anion Gap 19.2 (5-19); Aspartate Amino Transferase 25 U/L (0-32); Lactate Dehydrogenase 317 U/L (135-214); Potassium 4.2 mmol/L (3.5-5.1)
[2021-03-11] MEDS: zinc gluconate 50 mg Tablet PO (09:18)
[2021-03-11] MEDS: cefepime 2,000 MG in sodium chloride 0.9% (plus) 50 ML 100 MG IV (09:18)
[2021-03-11] MEDS: ascorbic acid 500 mg Tablet 1000 MG PO (09:18)
--- NOTE | 2021-03-11 09:25 | P.DS_ITS ---
Discharge Providers Date of Admission: 03/09/21 04:26 Date of Discharge: March 11, 2021 Attending Provider at Admission: Eliecer Logan MD Attending Provider at Discharge: Ankush Britton MD Primary Care Provider: Nikki Coronado Diagnoses at Discharge Discharge Diagnosis (1) Acute kidney injury: Status: Acute (2) Hyponatremia: Status: Acute (3) Hypoxia: Status: Acute (4) Pneumonia: Status: Acute (5) Sepsis: Status: Acute (6) COVID-19: Status: Acute (7) Osteoarthritis of right knee: Status: Acute Reason for Visit Reason for Visit: FALL Hospital Course Hospital Course 61-year-old female who carries history of nonoxygen pendent COPD presented to hospital for chief complaint of ankle pain, her son has been sick, she presented to the hospital with chief complaint of fever shortness of breath and nonproductive cough. Symptoms started 2 days before her arrival to the ER. CTA ruled out pulmonary embolism however consistent with community-acquired pneumonia. X-ray of foot and ankle did not show any acute fractures. She was given steroids and remdesivir initially she was requiring 3 L of oxygen which was gradually titrated off. Her hypoxia improved she was not requiring oxygen on 03/11. CTA also picked up 80% stenosis of left common carotid, she does not have any neurological signs or symptoms. I have added aspirin. She is already on atorvastatin. I have given her prescription for carotid Dopplers which can be done within a month. Outpatient follow-up with Dr. Kiran. She will need chest x-ray within 6 weeks to see resolution of pneumonia. VIRI resolved with use of IV fluids. Hyponatremia improved. White count at the time of discharge 11,000. On day 1 she received ceftriaxone and azithromycin however I escalated to double antipseudomonal coverage cefepime and Levaquin next day. She remained afebrile. Her p.o. intake has been poor however clinically hydration status improved with IV fluids. Inflammatory markers trending down. Patient will be discharged home on 03/11 on doxy and levaquin( MRSA nares PCR+) Physical Exam Narrative: EXAM NARRATIVE: Patient doing well, saturating well on room air S1, S2 No signs of neurological focal deficits Abdomen soft No audible stridor or wheezing Patient is awake and alert Appropriate mood and affect Discharge Data Data Completed and Pending: Completed Studies During Hospitalization Category Date Time Status CT angio chest PE protcl [id number] Urge nt Cat Scan 03/08/21 20:29 Completed XR ankle RT min 3 V* [id number] Stat Exams 03/08/21 19:40 Completed XR chest 1V yuri ble [id number] Stat Exams 03/08/21 19:40 Completed XR foot LT min 3V * [id number] Stat Exams 03/08/21 19:40 Completed XR foot RT min 3V * [id number] Stat Exams 03/08/21 19:40 Completed Pending at discharge Category Date Time Status Bacterial Antigen AM LABS Lab 03/09/21 04:00 Uncollected Blood Culture Sta t Lab 03/08/21 21:00 Results C Reactive Protei n AM LABS Lab 03/12/21 04:00 Ordered Creatine Phosphok inase AM LABS Lab 03/12/21 04:00 Ordered D Dimer AM LABS Lab 03/12/21 04:00 Ordered Erythrocyte Sedim entation Rate AM L ABS Lab 03/12/21 04:00 Ordered Lactate Dehydroge nase AM LABS Lab 03/12/21 04:00 Ordered Legionella Antige n STAT Routine Lab 03/09/21 00:14 Uncollected MRSA by PCR [place] ne Lab 03/10/21 15:00 Received Sputum Culture an d Gram Stain Routi ne Lab 03/08/21 23:02 Uncollected Urinalysis Routin e Lab 03/08/21 22:58 Uncollected Labs from last 24 hours 03/11/21 03/11/21 03/11/21 05:09 05:09 05:09 WBC RBC Hgb Hct MCV MCH MCHC RDW Plt Count MPV Neut % (Auto) Lymph % (Auto) [place] % (Auto) Eos % (Auto) Baso % (Auto) Neut # (Auto) Lymph # (Auto) [place] # (Auto) Eos # (Auto) Baso # (Auto) Nucleated RBC % (a uto) Nucleated RBCs # ESR D-Dimer 1.63 H Sodium 134 L Potassium 4.2 Chloride 101 Carbon Dioxide 18 L Anion Gap 19.2 H BUN 18 Creatinine 0.7 GFR Calculation 84.8 L Glucose 141 H Calculated Osmolal ity 282 L Calcium 8.4 L Total Bilirubin 0.3 AST 25 ALT 30 Alkaline Phosphata se 123 H Lactate Dehydrogen ase 317 H Creatine Kinase 52 C-Reactive Protein 131.9 H Total Protein 6.6 Albumin 3.2 L Globulin 3.4 Procalcitonin 3.10 H Influenza Type A A g Influenza Type B A g 03/11/21 03/10/21 05:09 15:40 WBC 11.4 H RBC 3.63 L Hgb 10.8 L Hct 32.0 L MCV 88.2 MCH 29.8 MCHC 33.8 RDW 13.9 Plt Count 251 MPV 12.5 H Neut % (Auto) 88.0 Lymph % (Auto) 5.2 [place] % (Auto) 6.3 Eos % (Auto) 0.0 Baso % (Auto) 0.1 Neut # (Auto) 10.01 H Lymph # (Auto) 0.6 L [place] # (Auto) 0.7 Eos # (Auto) 0.0 Baso # (Auto) 0.0 Nucleated RBC % (a uto) 0 Nucleated RBCs # 0.0 ESR 70 H D-Dimer Sodium Potassium Chloride Carbon Dioxide Anion Gap BUN Creatinine GFR Calculation Glucose Calculated Osmolal ity Calcium Total Bilirubin AST ALT Alkaline Phosphata se Lactate Dehydrogen ase Creatine Kinase C-Reactive Protein Total Protein Albumin Globulin Procalcitonin Influenza Type A A g Negative Influenza Type B A g Negative Vitals: Last Vital Signs Temp 97.6 F 03/11/21 08:00 Pulse 61 03/11/21 08:00 Resp 18 03/11/21 08:00 BP 144/77 03/11/21 08:00 Pulse Ox 97 03/11/21 08:00 Discharge Plan Discharge Patient Disposition: Home Condition: Stable Prescriptions: New levofloxacin 750 mg Tablet 750 mg PO Q24H Qty: 10 RF: 0 (DME) SHANTA Ankle Brace Misc See Rx Instructions .Route Qty: 1 RF: 0 (DME) SHANTA Ankle Brace Misc See Rx Instructions .Route Qty: 1 RF: 0 Aspirin Low Dose 81 mg tablet,delayed release (DR/EC) 81 mg PO DAILY Qty: 60 RF: 2 albuterol sulfate 90 mcg/actuation HFA aerosol inhaler 2 inh inhalation Q4H PRN (Reason: shortness of breath or wheezing) Qty: 8.5 RF: 3 doxycycline hyclate 100 mg tablet 100 mg PO BID 5 Days Qty: 10 RF: 0 Continued hydrocodone-acetaminophen 10-325 mg tablet 1 - 2 tab PO QID MDD 8 tabs PRN (Reason: Pain) RF: 0 ergocalciferol (vitamin D2) 1,250 mcg (50,000 unit) capsule 1,250 mcg PO .the and 15th RF: 0 montelukast 10 mg tablet 10 mg PO QAM RF: 0 ropinirole 2 mg tablet 2 mg PO BEDTIME RF: 0 Trulance 3 mg tablet 3 mg PO QAM RF: 0 quetiapine 25 mg tablet 25 mg PO BEDTIME RF: 0 atorvastatin 20 mg tablet 20 mg PO BEDTIME RF: 0 tizanidine 4 mg tablet 4 mg PO DAILY PRN (Reason: Muscle Spasm) RF: 0 famotidine 40 mg tablet 40 mg PO BID RF: 0 hydroxyzine pamoate 50 mg capsule 50 mg PO QID PRN (Reason: Anxiety) RF: 0 Vitamin C 500 mg Tablet 500 mg PO DAILY RF: 0 buspirone 10 mg tablet 10 mg PO BID RF: 0 zinc 50 mg Tablet 50 mg PO DAILY RF: 0 Vitamin B-12 1 tab PO DAILY RF: 0 albuterol sulfate 90 mcg/actuation HFA aerosol inhaler 2 puff inhalation Q4H PRN (Reason: Shortness Of Breath) Qty: 1 RF: 3 fluticasone propionate 50 mcg/actuation spray,suspension 1 spray intranasal DAILY Qty: 0 RF: 3 Pulmicort Flexhaler 90 mcg/actuation aerosol powdr breath activated 2 inh inhalation BID Qty: 1 RF: 3 Bevespi Aerosphere 9-4.8 mcg HFA aerosol inhaler 2 puff inhalation BID Qty: 1 RF: 3 Discontinued Back and Body Pain Reliever 500-32.5 mg tablet 1 tab PO QID PRN (Reason: takes in between the norco) RF: 0 Discharge Orders: Discharge Order (Routine); Ordered 03/11/21 Ordered By: Ankush Britton Other Ambulatory Orders: CV carotid duplex BI* [id number] (Routine) Timeframe: 1 Month Facility: [facility] - Location: Radiology [facility] Ordered By: Ankush Britton XR chest 2V insp/exp [id number] (Routine) Timeframe: 6 Weeks Facility: [facility] - Location: Radiology [facility] Ordered By: Ankush Britton Referrals: Silvestre Kiran MD [Physician] - 05/12/21 8:45 am (Carotid stenosis) Nikki Coronado FNP-C [Primary Care Provider] - 03/22/21 10:30 am Discharge Activity: Increase activity as tolerated Patient Instructions: Albuterol (By breathing) (ProAir, AccuNeb, Proventil, Proventil..., Aspirin (By mouth), Levofloxacin (By mouth), Hyponatremia (DC), Carotid Artery Disease (DC), Sepsis (GEN), Opioid Safety Activity Restrictions/Additional Instructions: Stenosis of carotid vessels left common carotid, that is why you will need aspirin and atorvastatin that left common carotid stenosis puts you at risk of stroke You will need to see Dr. Kiran in 2 months, I am giving you carotid Doppler study For COVID hypoxia please quarantine for 20 days, x-ray to be done after 6 weeks Discharge Attestations Time Spent in Discharge Care*: less than 30 min Quality Metrics Clinical Quality Measures During this hospital stay, did patient experience: None Coding Level of Care Code Acute Chg FW DC note Diagnoses Acute kidney injury N17.9 Hyponatremia E87.1 Hypoxia R09.02 Pneumonia J18.9 Sepsis A41.9 COVID-19 U07.1 Osteoarthritis of right knee M17.11
--- NOTE | 2021-03-11 10:01 | USCV_ITS ---
SterlingAziza ordoñez Age: 61 Gender: F : 1960 Exam Date: 03/11/2021 10:40 Ordering Phys: Ankush Britton MD Technologist: YINKA Exam Location: [facility] [place] Indication: HIGH D DIMER PROCEDURES: Venous duplex imaging was performed in bilateral lower extremities. The following venous structures were evaluated: common femoral vein, profunda vein, proximal portion of the greater saphenous vein, superficial femoral vein, and the popliteal vein. In addition, the posterior tibial and peroneal trunk were evaluated. Serial compression, augmentation maneuvers, and spectral Doppler flow evaluation were performed. FINDINGS: Normal 2-D Doppler and augmentation and compressibility throughout the lower extremity venous structures. Additional imaging through the proximal calf veins also reveals no thrombus. Limited evaluation of the greater saphenous vein is patent with no thrombus. Incidental Finding: The left CHEMIST INORGANIC appears to have no flow at this time. CONCLUSIONS No DVT bilateral lower extremities. Occluded left posterior tibial artery. Age indeterminate correlate with symptoms of distal arterial occlusion. Dr. Jessica Balderrama DO (Electronically Signed) Final Date: 11 March 2021 13:32 S
--- NOTE | 2021-03-11 15:13 | PC.CHAP ---
Pastoral Care Encounter/Spiritual Assessment Type of Contact [] Declined voice writing reporter visit [] Patient/Family/Request visit [] Outpatient visit [] Follow-up visit [] Physician referral [] Code/Alert [] Routine visit [] Staff referral [] Actively dying [] Patient sleeping [] Family support [] [] Out of room [] Palliative care [] [] Receiving care in room [] Pre-surgical visit [] Trauma [] Long length of stay [] ICU visit [xx] Other: Covid-19 Relational/Emotional Strength [] Patient feels connected with others/family/visitors/staff [] Distress [] Loneliness/isolation [] Abandonment Spirituality of Patient [] Person of Shahnaz [] Attends Voodoo of their Shahnaz [] Believes in Prayer [] Reads Bible or Zoroastrian materials [] There are Spiritual issues to be addressed Profile Saw Operator Interventions [] Prayer [] Active listening [] Non-anxious presence [] Spiritual/emotional support [] Crisis/trauma care [] Spiritual counseling [] Bereavement support [] Provided bereavement packet [] Provided Bible/devotional materials [] Provided toy/stuffed animal, coloring book to patient or family member [] Provided Communion [] Anointing/[place] [] Salvation [] Completed spiritual assessment [] Other: Impact on Illness or Injury [] Angry [] Fearful [] Anxious [] Often cries [] Exhaustion [] Unable to work [] Unable to attend yarsanism [] Unable to walk/stand [] Unable to read [] Unable to drive [] Unable to eat/drink [] Unable to sleep [] Unable to be with family [] Patient intubated [] Other: Summary Time spent with patient
--- NOTE | 2021-03-11 16:43 | PC.SOCIAL ---
Dr Britton indicates results returned showing occlusion in popliteal artery and will need further testing. Patient was discharged. Order placed for CT Angio Abd aorta runoff and this nurse called Marlene in [facility]. CT was to be down on Sunday to prepare for move but later Marlene called and said they will work this patient in on Sunday.
--- NOTE | 2021-04-18 12:42 | PC.SOCIAL ---
Addendum entered by Kathleen Bacon, RN 04/18/21 13:19: pt scheduled for 04/22/2021 at 1500 and [facility] has notified patient. Original Note: Discussed with Dr Britton that he does want CTA abd aorta with runoff ordered. Order placed and DR Britton signed. Sent order to [facility] dept.
--- NOTE | 2021-05-17 14:18 | PC.SOCIAL ---
Addendum entered by Kathleen Bacon, RN 05/17/21 14:40: Radha Salgado responded from [facility] and indicates pt was originally scheduled for 05/12/21 but was moved to a new appt date of 05/20/2021. She will make sure Dr Luque and his nurse Nikki are aware of the information and tests that have been done. Original Note: Called by Yulisa at PCP office Dr Nikki Coronado. They received the CTA report completed on 04/22/2021. Pt was to follow up today with Nikki Coronado but was a no call no show for the fourth time today. Called [facility] to see if she attended the appt with Dr Luque for 05/12/2021 at 8:45am and was told by Elizabeth there was not an appt at this time but has one at 05/20/2021 at 10am. There are some concerns related to the report received. Tried calling patient and contacts unable to reach. Sent Dr Luque an email to be sure he reviews the reports and hopefully she will attend the appt on 05/20/2021. Copied Radha Salgado over [facility] and also Dr Britton who discharged the patient in Feb and originally ordered the tests.
== END 2021-03-11 12:55 | disposition home or self-care (01) | DRG 871 ==
LOC: ER 23:09 → ER IP 03-09 04:31 → MEDSURG 03-09 14:58
PROVIDERS: Admitting Provider Internal Medicine; Emergency Provider Emergency Medicine; PCP Nurse Practitioner Family; Visit Provider Internal Medicine
DX: A41.9 Sepsis, unspecified organism (principal); J18.9 Pneumonia, unspecified organism; U07.1 COVID-19; J12.82 Pneumonia due to coronavirus disease 2019; J96.01 Acute respiratory failure with hypoxia; N17.9 Acute kidney failure, unspecified; E87.1 Hypo-osmolality and hyponatremia; I95.9 Hypotension, unspecified; E86.0 Dehydration; R74.01 Elevation of levels of liver transaminase levels; M25.572 Pain in left ankle and joints of left foot; M25.571 Pain in right ankle and joints of right foot; W01.0XXA Fall on same level from slipping, tripping and stumbling without subsequent striking against object, initial encounter; I77.9 Disorder of arteries and arterioles, unspecified; F17.210 Nicotine dependence, cigarettes, uncomplicated; I65.22 Occlusion and stenosis of left carotid artery; Z22.322 Carrier or suspected carrier of Methicillin resistant Staphylococcus aureus
CPT/HCPCS: 36415; 71045; 71275; 73610; 73630; 80053; 82550; 83605; 83615; 83880; 84145; 85007; 85025; 85378; 85384; 85610; 85651; 86140; 87040; 87426; 87635; 87641; 87804; 93005; 93970; 94640; 94664; 96365; 96366; 96367; 96372; 96375; 96376; 99285; J0456; J0692; J1100; J1644; J1956; J2060; J2270; J2405; J3370; J7030; J7050; Q9967

== ENCOUNTER 2021-04-20 12:53 | Outpatient (CLI) | payer MEDICARE, MEDICAID, SELFPAY ==
--- NOTE | 2021-04-20 13:50 | CT_ITS ---
WS: [id number] LDCT LUNG CANCER SCREENING TECHNIQUE: Noncontrast CT of the chest with coronal and sagittal reformatted images. CLINICAL INFORMATION: NICOTINE DEPENDENCE, CIGARETTES COMPARISON: CTA chest March 08, 2021 DLP: 70.02 mGy.cm DIvol: Mean CTDIvol: 1.60 (mGy) All CT scans at [facility] use at least one of these dose optimization techniques: automat ed exposure control; mA and/or kV adjustment per patient size (includes targeted exams where dose is matched to clinical indication); or iterative reconstruction. FINDINGS: Previously described pulmonary infiltrates seen on the recent CT March 08, 2021 significantly impro gabby and nearly resolved. Small amount of residual parenchymal infiltrate in the RIGHT upper lobe abou t the RIGHT hilum and inferior segment of the RIGHT upper lobe along the fissure and RIGHT middle lob e. Lung bases are well aerated. LEFT upper lobe is well aerated. No new infiltrates. Tiny 3 mm noncal cified nodule RIGHT upper lobe. No other suspicious pulmonary parenchymal opacities Aortic calcification. No mediastinal or hilar lymphadenopathy. Adrenal glands are normal. Cholecystec jh clips. Normal GE junction. No axillary lymphadenopathy. CT/CT lung screening [id number] IMPRESSION: LUNG-RADS: 2-Benign Appearance or Behavior FOLLOW UP: 12 Month: Continue annual screening with LDCT
== END 2021-04-20 12:54 | disposition home or self-care (01) ==
PROVIDERS: PCP Nurse Practitioner Family; Visit Provider Internal Medicine
DX: Z12.2 Encounter for screening for malignant neoplasm of respiratory organs (principal); F17.210 Nicotine dependence, cigarettes, uncomplicated
CPT/HCPCS: 71271

== ENCOUNTER 2021-04-22 14:51 | Outpatient (CLI) | payer MEDICARE, MEDICAID, SELFPAY ==
--- NOTE | 2021-04-22 15:00 | CT_ITS ---
WS: [id number] CT ANGIOGRAPHY OF THE ABDOMINAL AORTA WITH RUNOFF TO THE ANKLES HISTORY: occlusion left popliteal artery TECHNIQUE: Arterial injection is performed during imaging to evaluate the aorta and runoff vessels to the ankles. MIP and volume rendering imaging has also been performed. All images are reviewed. All C T scans at [facility] use at least one of these dose optimization techniques: automated exposu re control; mA and/or kV adjustment per patient size (includes targeted exams where dose is matched t o clinical indication); or iterative reconstruction. Contrast: Omnipaque 350; 95 mL IV. DLP: 873.90 mGy.cm COMPARISON: None available. Lung bases are clear. Normal size heart. Small hiatal hernia. Early arterial enhancement through the liver and spleen are negative. Prior cholecystectomy. Main portal vein is patent. There is mixed cont rast opacification near the SMV confluence. Atrophic pancreas. Common bile duct 6 mm at the pancreati c head. No renal mass or occlusion. The RIGHT ureter is mildly prominent but similar to prior studies . Nonobstructing calcification. 1 cm cyst upper pole LEFT kidney. No hydronephrosis. Abdominal aorta: Normal size aorta. No aneurysm. Moderate amount of irregular soft plaque and calcifi cation within the aorta. Normal SMA and celiac axis. No occlusions. Both renal arteries are small ariella iber. High-grade stenosis and irregularity involving the proximal LEFT renal artery. The LEFT kidney remains normal size with no ischemia. Normal enhancement of the cortex. RIGHT lower extremity arterial system: Heavy calcified plaque and intimal thickening continues into t he proximal RIGHT common iliac artery. Stenosis near 50%. Areas of stenosis and plaque continues thro ugh the external and internal iliac arteries. The distal internal iliac artery may be occluded. Multi focal areas of stenosis in the external iliac artery to the femoral artery. Multifocal areas of steno sis 50-60%. 50% stenosis proximal RIGHT SFA. Profunda is enhancing. Very small caliber RIGHT SFA with calcified plaque. 50% stenosis popliteal artery. Posterior tibial artery is poorly visualized throug hout its entire knee. The anterior tibial artery and peroneal arteries are very small caliber. Limit ed runoff to the ankles. LEFT lower extremity arterial system: Calcified plaque throughout the common iliac artery extending i nto the internal and external iliac arteries. Severe atherosclerosis internal iliac artery. 50% steno sis near the origin of the SFA. Very small caliber SFA throughout its course. 50% stenosis beginning in the distal SFA to Andreas's canal. Small caliber popliteal artery but it is patent. 50% stenosis in volving the proximal peroneal artery. Posterior tibial arteries not visualized. Anterior tibial arter y is small caliber. No ascites or adenopathy. No GI tract obstruction. Lytic area in the LEFT femoral head may be early d eveloping avascular necrosis. CT/CT angio abd aorta runof [id number] IMPRESSION: 1. There are significant multilevel areas of atherosclerotic disease and steno ses throughout the lower extremity arteries. 2. Multifocal areas of stenoses from 50-60% beginning at the origin of the RIG HT common iliac artery through the external iliac artery, SFA and popliteal art landen. 3. Small caliber RIGHT SFA and popliteal artery. 4. Very small caliber and intermittently visualized RIGHT posterior tibial ar bradley. Probably occluded with attempt at reconstitution. Small caliber peroneal and anterior tibial artery. 5. 50% stenosis origin of the LEFT SFA and in the distal SFA through Andreas's canal. 6. Small caliber LEFT SFA and popliteal artery. 7. Posterior tibial artery is not visualized throughout the course, probably c ompletely occluded. 8. The LEFT peroneal artery and anterior tibial arteries are small caliber wit h limited runoff to the ankles. 9. Moderate atherosclerotic plaque within the abdominal aorta with no aneurysm . 10. Suspect a high-grade stenosis involving the proximal LEFT renal artery. 11. Prior cholecystectomy.
[2021-04-22 15:30] LABS: Blood Urea Nitrogen 7 mg/dL (8-23); Glomerular Filtration Rate 56.2 mL/min (90-130)
[2021-04-22] MEDS: iohexol 350 mg/mL 100 mL Btl IV (15:49)
== END 2021-04-22 14:52 | disposition home or self-care (01) ==
LOC: RAD 14:55
PROVIDERS: PCP Nurse Practitioner Family; Visit Provider Internal Medicine
DX: I70.8 Atherosclerosis of other arteries (principal); Z90.49 Acquired absence of other specified parts of digestive tract; I70.0 Atherosclerosis of aorta
CPT/HCPCS: 75635; 82565; 84520

== ENCOUNTER → 2021-05-20 09:58 | Outpatient (BNVA) | payer MEDICARE, MEDICAID, SELFPAY | PROVIDERS: PCP Nurse Practitioner Family; Visit Provider Thoracic Surgery (Cardiothoracic Vascular Surgery) | DX: I70.202 Unspecified atherosclerosis of native arteries of extremities, left leg (principal); I77.9 Disorder of arteries and arterioles, unspecified; F17.210 Nicotine dependence, cigarettes, uncomplicated; Z79.82 Long term (current) use of aspirin | CPT/HCPCS: 99203 ==

== ENCOUNTER 2021-06-07 11:22 | Outpatient (CLI) | payer MEDICARE, MEDICAID, SELFPAY ==
--- NOTE | 2021-06-07 11:15 | USCV_ITS ---
SterlingAziza ordoñez Age: 61 Gender: F : 1960 Exam Date: 06/07/2021 11:43 Ordering Phys: Silvestre Kiran MD (Andy) [email or web address] [place] Technologist: Sameer Xavier Exam Location: [facility] [place] Indication: carotid stenosis Risk Factors: Previous Vascular Surgery: Right Brachial BP: / Left Brachial BP: / Right Left Velocity (cm/s) Spectral Plaque Velocity (cm/s) Spectral Plaque Syst/Diast Broadening Syst/Diast Broadening 63.60/ 13.80 Prox CCA 172.20/ 26.30 76.60/ 15.30 Mid CCA 71.00 / 24.30 94.80/ 28.70 Distal CCA 66.40 / 29.60 80.40/ 27.00 Prox ICA 162.10/ 67.30 79.60/ 32.10 Mid ICA 219.10/ 73.00 76.80/ 25.40 Distal ICA 60.20 / 28.70 95.70 ECA 91.70 1.04 ICA/CCA 3.09 Antegrade Vertebral Antegrade 26.90/ 9.20 cm/s 68.40/ 20.90 cm/s Tri Subclavian Tri 96.60 174.0 0 FINDINGS Comparison: none available. Mild right carotid atherosclerosis. No stenosis on the right. Moderate stenosis with tortuosity and turbulence left ICA. Mixed plaque in the left ICA. Bilateral antegrade vertebral arteries. CONCLUSIONS Left ICA stenosis 50-69%. Right ICA stenosis < 50%. Dr. Jessica Balderrama DO (Electronically Signed) Final Date: 07 June 2021 15:26 S
== END 2021-06-07 11:23 | disposition home or self-care (01) ==
LOC: RAD 11:24
PROVIDERS: PCP Nurse Practitioner Family; Visit Provider Thoracic Surgery (Cardiothoracic Vascular Surgery)
DX: I65.23 Occlusion and stenosis of bilateral carotid arteries (principal)
CPT/HCPCS: 93880

== ENCOUNTER → 2021-07-14 14:13 | Outpatient (BNVA) | payer MEDICARE, MEDICAID, SELFPAY | PROVIDERS: PCP Nurse Practitioner Family; Visit Provider Internal Medicine | DX: I65.29 Occlusion and stenosis of unspecified carotid artery (principal); I73.9 Peripheral vascular disease, unspecified; F17.210 Nicotine dependence, cigarettes, uncomplicated | CPT/HCPCS: 99204; 99205 ==

== ENCOUNTER 2021-10-03 08:56 | Outpatient (CLI) | payer MEDICARE, MEDICAID, SELFPAY ==
[2021-10-03 09:21] LABS: Basophils % 0.4 %; Eosinophils # 0.2 10^3/uL (0.0-0.8); Eosinophils % 2.1 %; Hematocrit 39.1 % (37.0-47.0); Hemoglobin 13.1 g/dL (11.5-15.3); Lymphocytes # 2.3 10^3/uL (0.8-4.8); Mean Corpuscular HGB Conc 33.5 g/dL (30.0-36.0); Mean Corpuscular Hemoglobin 31.2 pg (28.0-34.0); Mean Corpuscular Volume 93.1 fl (81-99); Mean Platelet Volume 10.8 fL (7.4-10.4); Monocytes # 1.1 10^3/uL (0.2-0.9); Monocytes % 9.3 %; Neutrophils # 7.74 10^3/uL (1.8-7.7); Nucleated Red Blood Cells % 0 %; Platelet Count 327 10^3/cmm (130-400); Red Cell Distribution Width 14.3 % (12.1-15.1); White Blood Count 11.4 10^3/uL (4.0-10.0)
[2021-10-03 09:33] LABS: Prothrombin Time (Patient) 12.5 Seconds (12.0-15.1)
[2021-10-03 09:53] LABS: Anion Gap 17.6 (5-19); Blood Urea Nitrogen 6 mg/dL (8-23); Calcium 9.1 mg/dL (8.5-10.5); Carbon Dioxide 24 mmol/L (22-29); Chloride 100 mmol/L (98-107); Glomerular Filtration Rate 63.4 mL/min (90-130); Glucose 100 mg/dL (65-115); Osmolality Calculated 284 mOsm/kg (285-295); Potassium 3.6 mmol/L (3.5-5.1); Sodium 138 mmol/L (136-145)
== END 2021-10-03 08:57 | disposition home or self-care (01) ==
LOC: LAB 08:59
PROVIDERS: PCP Nurse Practitioner Family; Visit Provider Internal Medicine
DX: I70.202 Unspecified atherosclerosis of native arteries of extremities, left leg (principal); I65.29 Occlusion and stenosis of unspecified carotid artery; R58 Hemorrhage, not elsewhere classified
CPT/HCPCS: 36415; 80048; 85025; 85610

== ENCOUNTER 2021-11-16 09:36 | Observation (INO) | payer MEDICARE, MEDICAID, SELFPAY ==
[2021-11-16] VITALS (12 sets, daily range): BP systolic 134–166; BP diastolic 71–112; PULSE 69–92; RESP 12–21; TEMP 36.4–37.2; O2SAT 92–99; BMI 27.8
--- NOTE | 2021-11-16 07:15 | XACV_ITS ---
Ht: 160 cm Wt: 71 kg BSA: 1.80 m2 Any Known Allergies: Other Gender: Female : 1960 Exam Type: Invasive Peripheral Vascular Procedure(s): Procedure Description: Peripheral Cath Diagnostic Procedure Procedure Description: Abdominal aortic angiography Procedure Description: Lower extremities' angiography Procedure Description: Peripheral vascular Intervention Procedure Description: PV Balloon Exam Priority: Routine Abdominal Diagnostic Findings Distal abdominal aorta: Patent Left renal artery: Has proximal severe 80 to 90% stenosis. Lower Extremity Diagnostic Findings INDICATION: 61-year-old woman with past medical history of carotid artery stenosis and smoking was referred for evaluation of peripheral artery disease. Patient has worsening, significant lifestyle limiting claudication symptoms. Unable to walk significant distance. They are in both legs. CTA showed moderate to severe disease in the iliac arteries. Plan for peripheral angiogram with possible intervention. Medical therapy discussed with the patient. Exercise also discussed already. Right lower extremity Right common iliac artery: Has significant 80% stenosis Right external iliac artery: Patent Right common femoral artery: Patent Right profunda: Patent Right SFA: Patent Right popliteal artery: Patent Right TP segment: Patent Right anterior tibial artery: Patent Right peroneal artery: Patent Right posterior tibial artery: Occluded Left lower extremity: Left common iliac artery: Patent Left external iliac artery: Patent Left common femoral artery: Patent Left profunda artery: Patent Left SFA: Has ostial 90% stenosis and after that it is severely diseased throughout the vessel reconstitutes in the distal vessel. Left popliteal artery: Patent Left anterior tibial artery: Patent Left TP segment: Has 70% stenosis Left peroneal artery: Is occluded in the midsegment Left posterior tibial artery: Occluded. Right Common Iliac Artery: 70% stenosis. Lower Extremity Interventional Findings Right Common Iliac Artery: 80 % stenosis treated with AB ARMADA 35 OTW [id number]. Procedure detail: We obtained access in right common femoral artery. Using Glidewire we crossed the stenotic lesion. Using 6.0 x 100 mm balloon we performed angioplasty of the common iliac artery. IV heparin was administered. Final angiogram showed excellent vessel expansion with no significant residual stenosis. 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 Conclusions Severe right common iliac artery stenosis status post successful revascularization with balloon angioplasty. Critical left SFA stenosis. Right Common Iliac Artery was treated with Balloon. Recommendations Continue aspirin and Plavix. High intensity statin therapy. Patient will need staged procedure of revascularization of left SFA in 6 to 8 weeks. Outpatient cardiology follow-up in 2-4 weeks. Hemodynamic Data Phase:Rest AO : 89.0 / 53.0 ( 70.0 ) @ 9:36:00 AM 113.0 / 55.0 ( 78.0 ) @ 9:36:00 AM Access Site Site: Left Femoral artery Sheath Size: 6 Fr Hemost... Method: Suture Hemost... Success: Successful Site: Right Femoral artery Sheath Size: 6 Fr Hemost... Method: Suture Hemost... Success: Successful Procedure Details Findings Procedure Consent Obtained. Admit Source: Out Patient. Pre-Procedure Time Out. Identified patient by full name and date of as verbalized by the patient/guarantor. Does the consent match the physician's order: Yes. Accurate & Complete Informed Consent: Yes. Inpatient/Outpatient History & Physical on Chart: Yes. If H&P is completed, is and addenduem needed: No; If yes, is the addendum complete: N/A. Visualize and Verify Site with Patient/Guarantor: N/A. Relevant Radiology Images available: N/A. The risks, benefits, and alternatives of sedation and/or procedure were discussed by physician. The patient agrees to continue. Procedure started. Current diagnosis: Intermittent Claudication. PERRLA. 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 Lungs clear x 5 lobes. IV Site on Arrival: 20 gauge in the left anticubital. IV Fluids: 0.9% NaCl at KVO. 0 mL infused prior to physical laboratory assistant. Pre Procedural Pulses: bilateral posterior tibial was Doppled. Pre Procedural Pulses: bilateral dorsalis pedis was Doppled. Pre Procedural Pulses: bilateral radial was 3+. Oxygen started at 2liters/min via nasal canula. bilateral groins was prepped with chloroprep then draped in the usual sterile fashion. Physician notified. Baseline sample Acquired. HR: 72 BPM. Physician arrived. Physician scrubbed in. Time out performed with cath team. Ultrasound obtained to assist with arterial access. Lidocaine 1% infiltrated to the left groin. Arterial access obtained with micropuncture set. A 5Fr UF catheter in over the standard wire. Wire out. Abdominal aortogram performed in AP @ 10 mL/sec for a total of 30 mL. Glidewire advanced through the UF catheter. Glidewire out. Right common iliac selected and arteriogram with runoff performed @ 10 mL/sec for a total of 30 mL. DSA 6f/s performed below the right popliteal. Digital Angiography performed of right common iliac performed 10ml/sec for a total of 10ml. Glidewire advanced through the UF catheter. UF catheter out over glidewire. 6fr short sheath exchanged for 6fr 45cm flexor sheath. Glidewire out. Glidewire in through 6fr 45cm sheath. 6fr 45cm sheath exchanged for 6fr short sheath over wire. Glidewire out. Sheath injected in Left common femoral artery and runoff performed of left leg 10ml/sec for a total of 30ml. DSA performed of below the knee on left leg. Lidocaine 1% infiltrated to the right groin. Arterial access obtained with micropuncture set. Glidewire advanced through right groin 6fr sheath. Balloon inserted over the wire to the right common iliac. Inflation number : 1 A ARMKRYSTINA 35 OTW [id number] was prepped and advanced across the Common Iliac, Right , then inflated to 6 ANSHU for 1:31 seconds. Balloon and wire out. Angiography performed, checking results. Post Procedure: Pulses reassessed and unchanged. PERRLA. 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 No VTE prophylaxis required. Post-op diagnosis: Severe right common iliac stenosis status post angioplasty, critical left SFA stenosis. Complications: None. Estimated blood loss: 5mL-10mL. Responsiveness - Normal response to verbal stimuli; alert and oriented, PERRLA. Airway - Unaffected, no intervention required; spontaneous ventilation. Circulation: W/N/L, pulses unchanged. Nausea/Vomiting: N/A. Medication's Wasted: Heparin = 4000 unit. Medication's Wasted: Other = Fentanyl 100 mcg. Medication's Wasted: Other = Versed 1 mg. Total IV fluids: 61 mL. A Suture was successful obtaining hemostatsis at the Right Femoral artery insertion site. A Suture was successful obtaining hemostatsis at the Left Femoral artery insertion site. Sheath(s) sutured into position with 2-0 silk and sterile 4x4's and Op-site applied over the site. No oozing or signs and symptoms of hematoma noted. Arterial sheath flushed and connected to tranducer and pressure bag with heparinized saline. Procedure completed. Patient transferred by bed to [facility]. Vital chart was stopped. Procedure Medications Start: 8:13 AM Stop: 8:13 AM Medication: Versed Amount: 1 mg Route: I.V. Start: 8:13 AM Stop: 8:13 AM Medication: Fentanyl Amount: 50 mcg Route: I.V. Start: 8:22 AM Stop: 8:22 AM Medication: Versed 1 mg and Fentanyl 25 mcg Route: I.V. Start: 8:37 AM Stop: 8:37 AM Medication: Fentanyl Amount: 25 mcg Route: I.V. Start: 8:45 AM Stop: 8:45 AM Medication: Versed Amount: 1 mg Route: I.V. Start: 8:53 AM Stop: 8:53 AM Medication: Heparin Amount: 5000 units Route: I.V. I, the attending physician, have reviewed and verified all procedure medications. Yes, all medications given per verbal order History/Risk Factors Hypertension: No Dyslipidemia: Yes Peripheral Arterial Disease (PAD): Yes Obesity: No Renal Disease: No Tobacco Use: Current/Recent(w/in 1 year) Prior Interventions PCI: No CABG: No Valve Surgery: No Report Signatures Finalized by Fernie Alexandra MD on 11/20/2021 01:02 PM
[2021-11-16 07:24] LABS: Basophils # 0.1 10^3/uL (0.0-0.1); Basophils % 0.9 %; Eosinophils # 0.4 10^3/uL (0.0-0.8); Eosinophils % 4.7 %; Hematocrit 44.3 % (37.0-47.0); Hemoglobin 14.8 g/dL (11.5-15.3); Lymphocytes # 3.9 10^3/uL (0.8-4.8); Lymphocytes % 48.1 %; Mean Corpuscular HGB Conc 33.4 g/dL (30.0-36.0); Mean Corpuscular Hemoglobin 30.9 pg (28.0-34.0); Mean Corpuscular Volume 92.5 fl (81-99); Mean Platelet Volume 10.5 fL (7.4-10.4); Monocytes # 0.6 10^3/uL (0.2-0.9); Monocytes % 7.8 %; Neutrophils # 3.11 10^3/uL (1.8-7.7); Neutrophils % 38.4 %; Nucleated Red Blood Cells % 0 %; Platelet Count 398 10^3/cmm (130-400); Red Blood Count 4.79 10^6/uL (4.1-5.3); White Blood Count 8.1 10^3/uL (4.0-10.0)
[2021-11-16 07:37] LABS: INR 0.91 (0.8-1.2)
[2021-11-16 07:41] LABS: Anion Gap 15.6 (5-19); Blood Urea Nitrogen 4 mg/dL (8-23); Calcium 9.6 mg/dL (8.5-10.5); Carbon Dioxide 27 mmol/L (22-29); Chloride 97 mmol/L (98-107); Glomerular Filtration Rate 63.4 mL/min (90-130); Glucose 77 mg/dL (65-115); Osmolality Calculated 278 mOsm/kg (285-295); Potassium 3.6 mmol/L (3.5-5.1); Sodium 136 mmol/L (136-145)
[2021-11-16] MEDS: diphenhydrAMINE 50 mg Capsule PO (07:48)
--- NOTE | 2021-11-16 08:14 | W.PM.OPSFHP ---
Same Day Surgery H&P Indication for Procedure/HPI DATE OF PROCEDURE: November 16, 2021 CHIEF COMPLAINT/INDICATIONFOR SURGICAL PROCEDURE: Severe lifestyle limiting claudication PREOP DIAGNOSIS: Severe lifestyle limiting claudication PLANNED PROCEDURE: Operation Date: 11/16/21 08:30 Proposed Procedures p Peripheral Diagnostic(Bilateral) - Fernie Alexandra M.D Possible peripheral intervention 61-year-old woman with past medical history of carotid artery stenosis and smoking was referred for evaluation of peripheral artery disease.? Patient has worsening, significant lifestyle limiting claudication symptoms. Unable to walk significant distance. They are in both legs. CTA showed moderate to severe disease in the iliac arteries. Plan for peripheral angiogram with possible intervention. Medical therapy discussed with the patient. Exercise also discussed already. ROS CONSTITUTIONAL: No fever chills weight loss or gain or night sweats. [] HEENT: Normocephalic, atraumatic.[] RESPIRATORY: No cough, sputum, hemoptysis or wheezing.[] CARDIOVASCULAR: No shortness of breath, chest pain, PND, orthopnea, lower extremity edema, presyncope or syncope. [] GI: no nausea vomiting diarrhea. 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 [] MUSCULOSKELETAL:Bilateral leg pains on walking Medications/Allergies* Home Medications Medication Instructions Recorded Confirmed Type hydrocodone 10 mg-acetaminophen 1 - 2 tab PO QID PRN Pain 03/03/19 11/16/21 History 325 mg tablet ergocalciferol (vitamin D2) 1,250 1,250 mcg PO .the 1st and 15th pt 09/27/20 11/16/21 History mcg (50,000 unit) capsule states still takes ext med history shows last filled 11/16/20 28d/s montelukast 10 mg tablet 10 mg PO QAM 09/27/20 11/16/21 History plecanatide 3 mg tablet (Trulance) 3 mg PO QAM 09/27/20 11/16/21 History ropinirole 2 mg tablet 2 mg PO BEDTIME 09/27/20 11/16/21 History ascorbic acid (vitamin C) 500 mg 500 mg PO DAILY 03/09/21 11/16/21 History tablet (Vitamin C) hydroxyzine pamoate 50 mg capsule 50 mg PO QID PRN Anxiety 03/09/21 11/16/21 History quetiapine 25 mg tablet 25 mg PO BEDTIME 03/09/21 11/16/21 History tizanidine 4 mg tablet 4 mg PO DAILY PRN Muscle Spasm 03/09/21 11/16/21 History famotidine 40 mg tablet 40 mg PO BID 05/20/21 11/16/21 History Allergies/Adverse Reactions Allergy/AdvReac Type Severity Reaction Status Date / Time duloxetine [From Cymbalta] Allergy headaches Verified 11/16/21 06:57 Penicillins Allergy respiratory Verified 11/16/21 06:57 issues Current Medications: Generic Name Dose Route Start Last Admin Trade Name Freq PRN Reason Stop Dose Admin Sodium Chloride 1,000 mls @ 50 mls/hr 11/16/21 07:15 11/16/21 07:48 Sodium Chloride 0.9% IV 11/17/21 03:14 Not Given .Q20H ONE Pertinent History/Comorbid Conditions* Medical History (Updated 07/18/21 @ 22:37 by Fernie Alexandra M.D) Osteoarthritis of right knee Surgical History (Updated 03/09/21 @ 11:04 by Ankush Britton MD) H/O decompression of ulnar nerve H/O: hysterectomy Hx of cholecystectomy Social History Smoking and tobacco status: current every day smoker cigarettes Packs smoked per day: 0.5 Years cigarettes smoked: 30 Alcohol intake: never Lives independently: Yes Household members: none Housing: House Marital status: Number of children: 2 Pets and animals: Yes Pets & animals: cat(s) and dog(s) Pertinent Exam Findings alert, oriented x 3, clear to auscultation bilaterally and regular rate & rhythm Difficult to palpate pulses bilaterally Conscious Sedation Assessment PATIENT ASSESSED PRIOR TO SEDATION, WITH NO CHANGE NOTED: Yes AIRWAY EVAL/ANESTHESIA PLAN: normal airway, ASA III, Local Anesthesia, Risks, benefits & alternatives of sedation and/or procedure discussed and Patient agrees to continue as planned ADDITIONAL INFORMATION: Moderate sedation Recommendations Surgery/Procedure today (Peripheral angiogram with possible intervention) Coding Level of Care Code Acute Sugar Cane Grower for Clay Martinez
[2021-11-16] MEDS: sodium chloride 0.9% 1,000 ML 100 ML IV ×2 (10:10→19:20)
--- NOTE | 2021-11-16 10:44 | PC.NURSE ---
This nurse has reviewed agrees with assessments made by nursing admin Kasey
[2021-11-16] MEDS: acetaminophen 325 mg Tablet 650 MG PO ×2 (11:12→19:26)
[2021-11-16 14:13] LABS: Partial Thromboplastin Time 34.9 SECONDS (23.9-36.7)
[2021-11-16] MEDS: fentaNYL 50 mcg/mL INJ 2mL IVP (16:24)
[2021-11-17 01:04] VITALS: BP 159/78; PULSE 70; RESP 20; TEMP 36.4; O2SAT 99
[2021-11-17] MEDS: acetaminophen 325 mg Tablet 650 MG PO (03:15)
[2021-11-17 05:44] LABS: Basophils % 0.4 %; Eosinophils # 0.2 10^3/uL (0.0-0.8); Eosinophils % 2.4 %; Lymphocytes # 1.7 10^3/uL (0.8-4.8); Lymphocytes % 20.4 %; Mean Corpuscular HGB Conc 33.3 g/dL (30.0-36.0); Mean Corpuscular Hemoglobin 31.5 pg (28.0-34.0); Mean Corpuscular Volume 94.5 fl (81-99); Mean Platelet Volume 10.7 fL (7.4-10.4); Monocytes # 0.8 10^3/uL (0.2-0.9); Monocytes % 9.4 %; Neutrophils # 5.42 10^3/uL (1.8-7.7); Neutrophils % 67.2 %; Nucleated Red Blood Cells % 0 %; Platelet Count 291 10^3/cmm (130-400); Red Blood Count 3.81 10^6/uL (4.1-5.3); Red Cell Distribution Width 13.3 % (12.1-15.1); White Blood Count 8.1 10^3/uL (4.0-10.0)
[2021-11-17 06:00] VITALS: PULSE 64
[2021-11-17 06:10] LABS: Blood Urea Nitrogen 9 mg/dL (8-23); Calcium 8.8 mg/dL (8.5-10.5); Carbon Dioxide 24 mmol/L (22-29); Chloride 106 mmol/L (98-107); Glomerular Filtration Rate 72.7 mL/min (90-130); Glucose 106 mg/dL (65-115); Osmolality Calculated 287 mOsm/kg (285-295); Sodium 139 mmol/L (136-145)
[2021-11-17 08:14] VITALS: BP 120/83; PULSE 73; RESP 16; TEMP 36.5; O2SAT 99
--- NOTE | 2021-11-17 08:32 | P.DS_ITS ---
Discharge Providers Date of Admission: 11/16/21 09:36 Date of Discharge: November 17, 2021 Attending Provider at Admission: Fernie Alexandra M.D Attending Provider at Discharge: Fernie Alexandra M.D Primary Care Provider: Nikki Coronado-C Reason for Visit Reason for Visit: PAD/ Peripheral angiogram Brief History: 61-year-old woman with past medical history of carotid artery stenosis and smoking was referred for evaluation of peripheral artery disease.? Patient has worsening, significant lifestyle limiting claudication symptoms.? Unable to walk significant distance.? They are in both legs.? CTA showed moderate to severe disease in the iliac arteries.? Plan for peripheral angiogram with possible intervention.? Medical therapy discussed with the patient.? Exercise also dis cussed already. Hospital Course Hospital Course Peripheral angiogram showed severe right common iliac artery stenosis. Status post successful revascularization with balloon angioplasty. Patient was observed overnight. She did develop a hematoma of left groin. However it improved with holding pressure. She stayed stable and was discharged home in a stable condition. Plan for staged revascularization of left SFA as a staged procedure. Physical Exam Narrative: GENERAL: Patient is alert, awake and oriented x3. [] NECK: No jugular vein distension. [] HEENT: No cyanosis. No icterus. No pallor. [] HEART: Regular S1 and S2. No murmur, rub or gallop. [] LUNGS: Clear to auscultate bilaterally. [] ABDOMEN: Soft, nontender and nondistended. Positive bowel sounds. No guarding, rebound or tenderness. [] CENTRAL NERVOUS SYSTEM: Grossly nonfocal. [] EXTREMITIES: Lower extremities with 1+ edema bilaterally. Pulses palpable in the lower extremities, both dorsalis pedis and posterior tibial. 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4 % 11/17/21 05:16 Eos % (Auto) 2.4 % 11/17/21 05:16 Baso % (Auto) 0.4 % 11/17/21 05:16 Neut # (Auto) 5.42 10^3/uL (1.8-7.7) 11/17/21 05:16 Lymph # (Auto) 1.7 10^3/uL (0.8-4.8) 11/17/21 05:16 [place] # (Auto) 0.8 10^3/uL (0.2-0.9) 11/17/21 05:16 Eos # (Auto) 0.2 10^3/uL (0.0-0.8) 11/17/21 05:16 Baso # (Auto) 0.0 10^3/uL (0.0-0.1) 11/17/21 05:16 Nucleated RBC % (auto) 0 % 11/17/21 05:16 Nucleated RBCs # 0.0 /100WBC 11/17/21 05:16 PT 12.60 SECONDS (12.1-14.9) 11/16/21 07:15 INR 0.91 (0.8-1.2) 11/16/21 07:15 APTT 34.9 SECONDS (23.9-36.7) 11/16/21 13:56 Sodium 139 mmol/L (136-145) 11/17/21 05:16 Potassium 4.0 mmol/L (3.5-5.1) 11/17/21 05:16 Chloride 106 mmol/L (98-107) 11/17/21 05:16 Carbon Dioxide 24 mmol/L (22-29) 11/17/21 05:16 Anion Gap 13.0 (5-19) 11/17/21 05:16 BUN 9 mg/dL (8-23) 11/17/21 05:16 Creatinine 0.8 mg/dL (0.5-0.9) 11/17/21 05:16 GFR Calculation 72.7 mL/min (90-130) L 11/17/21 05:16 Glucose 106 mg/dL (65-115) 11/17/21 05:16 Calculated Osmolality 287 mOsm/kg (285-295) 11/17/21 05:16 Calcium 8.8 mg/dL (8.5-10.5) 11/17/21 05:16 Vitals Last Vital Signs Temp 97.7 F 11/17/21 08:14 Pulse 73 11/17/21 08:14 Resp 16 11/17/21 08:14 BP 120/83 11/17/21 08:14 Pulse Ox 99 11/17/21 08:14 O2 Del Method 11/17/21 08:14 O2 Flow Rate 2 11/16/21 16:00 Discharge Plan Discharge Patient Disposition: Home Condition: Stable Prescriptions: New clopidogrel 75 mg Tablet 75 mg PO DAILY Qty: 90 1RF Continued hydrocodone-acetaminophen 10-325 mg tablet 1 - 2 tab PO QID MDD 8 tabs PRN (Reason: Pain) ergocalciferol (vitamin D2) 1,250 mcg (50,000 unit) capsule 1,250 mcg PO .the and montelukast 10 mg tablet 10 mg PO QAM ropinirole 2 mg tablet 2 mg PO BEDTIME Trulance 3 mg tablet 3 mg PO QAM quetiapine 25 mg tablet 25 mg PO BEDTIME tizanidine 4 mg tablet 4 mg PO DAILY PRN (Reason: Muscle Spasm) hydroxyzine pamoate 50 mg capsule 50 mg PO QID PRN (Reason: Anxiety) ascorbic acid (vitamin C) [Vitamin C] 500 mg Tablet 500 mg PO DAILY albuterol sulfate 90 mcg/actuation HFA aerosol inhaler 2 puff inhalation Q4H PRN (Reason: Shortness Of Breath) Qty: 1 3RF fluticasone propionate 50 mcg/actuation spray,suspension 1 spray intranasal DAILY Qty: 0 3RF Rx Instructions: administer into each nostril (DME) SHANTA Ankle Brace Misc See Rx Instructions .Route Qty: 1 0RF Rx Instructions: As directed (DME) SHANTA Ankle Brace Misc See Rx Instructions .Route Qty: 1 0RF Rx Instructions: As directed aspirin [[place] Low Dose Aspirin] 81 mg tablet,delayed release (DR/EC) 81 mg PO DAILY Qty: 60 2RF famotidine 40 mg tablet 40 mg PO BID Discharge Orders: Discharge Order (Routine); Ordered 11/17/21 Ordered By: Fernie Alexandra Referrals: Fernie Alexandra M.D [Physician] - 6 Weeks (Your follow up with Dr. Alexandra will be scheduled following your appointment with Leidy Lewis.) Leidy Lewis FNP [Nurse Practitioner] - 11/24/21 9:45 am Discharge Diet: Cardiac Patient Instructions: Clopidogrel (By mouth) (Plavix), Peripheral Vascular Angioplasty (DC), Opioid Safety, Post Angiogram Home Care Instructions Activity Restrictions/Additional Instructions: Please do not lift more than10 pounds of weight for the next 5 days Discharge Attestations Time Spent in Discharge Care*: greater than 30 min Quality Metrics Clinical Quality Measures [ No reported AMI, CVA or VTE this stay] Coding Level of Care Code Acute Chg FW DC note
[2021-11-17] MEDS: clopidogrel 75 mg Tablet PO (08:47)
[2021-11-17] MEDS: aspirin 81 mg EC Tablet PO (08:47)
[2021-11-17 10:00] VITALS: BP 120/83; PULSE 73; RESP 16; TEMP 36.5; O2SAT 99
--- NOTE | 2021-11-17 10:38 | PC.NURSE ---
Discharge Note Patient discharged to home via private vehicle accompanied by family. Discharge instructions reviewed with patient and/or uniforms sales representative. Mobile pharmacy medications and/or prescriptions provided. Belongings/home medications returned.
== END 2021-11-17 10:38 | disposition home or self-care (01) ==
LOC: MEDSURG 09:37
PROVIDERS: Admitting Provider Internal Medicine; PCP Nurse Practitioner Family; Visit Provider Internal Medicine
DX: I70.223 Atherosclerosis of native arteries of extremities with rest pain, bilateral legs (principal); I10 Essential (primary) hypertension; E78.5 Hyperlipidemia, unspecified; I25.10 Atherosclerotic heart disease of native coronary artery without angina pectoris; F17.210 Nicotine dependence, cigarettes, uncomplicated
CPT/HCPCS: 36415; 37220; 51702; 75625; 75716; 80048; 85025; 85610; 85730; 96360; 99152; 99153; C1725; C1769; C1887; C1894; G0378; J1644; J2250; J3010; J7030; Q0163; Q9967

== ENCOUNTER → 2021-11-24 09:36 | Outpatient (BNVA) | payer MEDICARE, MEDICAID, SELFPAY | PROVIDERS: PCP Registered Nurse; Visit Provider Nurse Practitioner Family | DX: I73.9 Peripheral vascular disease, unspecified (principal) | CPT/HCPCS: 80048; 99213; 99214 ==

== ENCOUNTER → 2022-01-25 12:04 | Outpatient (BNVA) | payer MEDICARE, MEDICAID, SELFPAY | PROVIDERS: PCP Registered Nurse; Visit Provider Internal Medicine | DX: I65.29 Occlusion and stenosis of unspecified carotid artery (principal); I73.9 Peripheral vascular disease, unspecified; F17.210 Nicotine dependence, cigarettes, uncomplicated | CPT/HCPCS: 99214 ==

== ENCOUNTER 2022-03-02 07:04 | Outpatient (CLI) | payer MEDICARE, MEDICAID, SELFPAY ==
[2022-03-02] VITALS (28 sets, daily range): BP systolic 95–155; BP diastolic 61–123; PULSE 72–95; RESP 14–25; TEMP 36.3–36.9; O2SAT 63–100; BMI 27.3
--- NOTE | 2022-03-02 07:30 | XACV_ITS ---
Wt: 70 kg BSA: 1.78 m2 Any Known Allergies: Other Gender: Female : 1960 Exam Type: Invasive Peripheral Vascular Procedure(s): Procedure Description: Diagnostic procedure Procedure Description: Peripheral Cath Diagnostic Procedure Procedure Description: Abdominal aortic angiography Procedure Description: Lower extremities' angiography Procedure Description: Peripheral vascular Intervention Procedure Description: PV Balloon Procedure Description: PV Atherectomy Procedure Description: Miscellaneous Procedure Description: ACT Exam Priority: Routine Abdominal Diagnostic Findings Distal abdominal aorta: Patent. Lower Extremity Diagnostic Findings INDICATION: 62-year-old woman with past medical history of carotid artery stenosis and smoking has been having severe lifestyle limiting claudication. She underwent successful revascularization of right iliac artery with balloon angioplasty in October 2021 and is here for staged revascularization of left SFA. Left lower extremity findings: Left common iliac artery: Patent. Left external iliac artery: Patent. Left profunda artery: Patent. Left SFA: Ostially occluded. Reconstitutes in the distal segment. Left popliteal artery: Patent. LeftTP segment: Patent. Left anterior tibial artery: Patent Left peroneal artery: Patent Left posterior tibial artery: Occluded. Lower Extremity Interventional Findings Left ostial to mid Superficial Femoral Artery: 100% stenosis treated with Lutonix 5.0 x 150 mm and Lutonix 5.0 x 100 mm. 0% residual stenosis. Procedure detail: After obtaining abdominal angiogram, we advanced a Glidewire from right common femoral artery access to left lower extremity to popliteal artery. Short sheath was switched to 45 cm flexor sheath. Using Glidewire and seeker support catheter we advanced Glidewire into distal SFA crossing totally occluded segment. This was followed by switching to a Viper wire. IV heparin was administered to maintain ACT above 250 S. orbital arthrectomy was performed. This was followed by balloon angioplasty with 5.0x150 mm Lutonix drug coated balloon. We then performed balloon angioplasty with a 5.0 x 100 mm Lutonix drug-coated balloon. Stent final angiogram was performed. It showed excellent expansion of the vessel and no residual stenosis. Some haziness was noted in the ostial SFA however it was nonflow limiting and vessel had brisk flow. No stent was placed given location at the hip joint. Long sheath was switched to short sheath. 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 . Conclusions Totally occluded ostial to distal SFA s/p successful revascularization with orbital arthrectomy and balloon angioplasty with drug-coated balloons.. Recommendations Continue current medical management and risk factor modification. Follow up with PCP as directed. Hemodynamic Data Phase:Rest AO : 1.0 / -1.0 ( 0.0 ) @ 9:04:00 AM 146.0 / 63.0 ( 92.0 ) @ 9:06:00 AM -4.0 / -10.0 ( -7.0 ) @ 9:12:00 AM 90.0 / 59.0 ( 75.0 ) @ 9:17:00 AM 85.0 / 55.0 ( 70.0 ) @ 9:29:00 AM 94.0 / 62.0 ( 77.0 ) @ 9:44:00 AM 103.0 / 64.0 ( 82.0 ) @ 9:53:00 AM 101.0 / 61.0 ( 80.0 ) @ 10:01:00 AM 103.0 / 62.0 ( 82.0 ) @ 10:03:00 AM 122.0 / 58.0 ( 86.0 ) @ 10:16:00 AM Access Site Site: Right Femoral artery Sheath Size: 6 Fr Hemost... Method: Suture Hemost... Success: Successful Procedure Details Findings Pre-Procedure Time Out. Identified patient by full name and date of as verbalized by the patient/guarantor. Does the consent match the physician's order: Yes. Accurate & Complete Informed Consent: Yes. Inpatient/Outpatient History & Physical on Chart: Yes. If H&P is completed, is and addenduem needed: Yes; If yes, is the addendum complete: Yes. Visualize and Verify Site with Patient/Guarantor: N/A. Relevant Radiology Images available: N/A. Pre-op teaching completed and patient verbalized understanding. The risks, benefits, and alternatives of sedation and/or procedure were discussed by physician. The patient agrees to continue. Procedure started. Family updated prior to arrival. Physician arrived. Equipment: 6F - Femoral. Cardiac Cath Pack. ACIST Manifold Kit Model BT 2000. Heparinized Saline (2 units/mL), 1000 mL bag. Physician scrubbed in. Immediate Pre-Procedure Time Out. Correct Patient: Yes; Correct Procedure: Yes; Correct Site: Yes; Correct Patient Position: Yes; Correct Supplies: Yes; Dried Flammable Prep: Yes; Blood Products Available: N/A;. Physician scrubbed in. bilateral groins was prepped with chloroprep then draped in the usual sterile fashion. Lidocaine 1% infiltrated to the right groin. Admit Source: Out Patient. Current diagnosis: Lifestyle Limiting Claudication; PVD. PERRLA. Strong, equal hand hand stone polisher bilaterally. Lungs clear x 5 lobes. IV Site on Arrival: 20 gauge in the left anticubital. IV Fluids: 0.9% NaCl at KVO. 0 mL infused prior to labor union business representative. Pre Procedural Pulses: left dorsalis pedis was Doppled. Pre Procedural Pulses: left posterior tibial was Absent. Pre Procedural Pulses: right dorsalis pedis was Doppled. Pre Procedural Pulses: right posterior tibial was Absent. Oxygen started at 3liters/min via nasal canula. Baseline sample Acquired. HR: 70 BPM. Arterial access obtained with micropuncture set. A 5FrFr UF catheter in over glide wire. Glidewire out. Abdominal aortogram with runoff performed in AP @ 10 mL/sec for a total of 30 mL. Glidewire inserted and advanced down the left profunda. UF catheter out. Sheath exchanged for a 6 FR 45 cm flexor sheath. Left common femoral selected and arteriogram performed using DSA 10 ml/sec for a total of 10 ml. Seeker inserted over the glidewire as support catheter to cross into Left SFA. seeker/glidewire advanced to the popliteal left. Glidewire removed. Hand Injection performed thru the seeker catheter using digital subtraction. Seeker pulled back to the distal SFA left. Hand Injection performed thru the seeker catheter. Glidewire inserted. seeker/glidewire advanced to the Tibial peroneal trunk, left side. Glidewire out. Hand Injection performed thru the seeker catheter using digital subtraction. Viperwire inserted and parked in the Peroneal, Left side. Seeker out. 1.5 CSI diego inserted over the viper wire. Atherectomy of the left sfa performed. 2nd run perfomed. Same location. 3rd run performed. Same location. Diego advanced down the left SFA. Atherectomy of the left sfa performed. 2nd run perfomed. Same location. Diego advanced down the left SFA. Atherectomy of the left sfa performed. 2nd run perfomed. Same location. Diego out over the wire. Seeker inserted over viper wire. Wire out. Glidewire inserted and advanced through the seeker catheter. Seeker catheter out OTW. Inflation number : 1 A Lutonix 5.0 x 150 mm was prepped and advanced across the Superficial Femoral, Left , then inflated to 6 ANSHU for 2:03 seconds. Lot # [id number] EXPIRATION: 08/13/23. Inflation number: 2 The Lutonix 5.0 x 150 mm was reinflated across the Superficial Femoral, Left, to 6 ANSHU for 1:33 seconds. Inflation number: 3 The Lutonix 5.0 x 150 mm was reinflated across the Superficial Femoral, Left, to 6 ANSHU for 1:31 seconds. Balloon out over the glidewire. Inflation number : 4 A Lutonix 5.0 x 100 mm was prepped and advanced across the Superficial Femoral, Left , then inflated to 6 ANSHU for 2:00 seconds. LOT # [id number] EXPIRATION: 03/12/22. Inflation number: 5 The Lutonix 5.0 x 100 mm was reinflated across the Superficial Femoral, Left, to 6 ANSHU for 1:30 seconds. Balloon out over the wire. Sheath injected in Left common femoral artery and runoff performed using 10 ml/sec for a total of 30 ml, of the left lower extremity. Physician review of films. Hand injection using digital subtraction of the left common femoral. Sheath exchanged back to a 6fr shorth sheath over the glidewire. Glidewire removed. Right common ilac injection performed at 10 ml/sec for a total for 20 ml using digital subtraction. Physician review of films. A Right femoral angiogram was performed to determine safe placement of closure device. A Suture was successful obtaining hemostatsis at the Right Femoral artery insertion site. Sheath(s) sutured into position with 2-0 silk and sterile 4x4's and Op-site applied over the site. No oozing or signs and symptoms of hematoma noted. Arterial sheath flushed and connected to tranducer and pressure bag with heparinized saline. ACT drawn. Results 191 seconds. Therapeutic limits - pre-heparin administration 90-150 seconds and monitoring heparin during a vascular procedure >250 seconds. Post Procedure: Pulses reassessed and unchanged. PERRLA. Strong, equal hand hand stone polisher bilaterally. No VTE prophylaxis required. Medication's Wasted: Lidocaine 1% = 2 mL. Medication's Wasted: Nitro = 49.8 mg. Total IV fluids: 107 mL. Fluoro: 248:00. Contrast type used: Omnipaque 300 mgI/mL, 500 mL bottle. [id number]. Post-op diagnosis: Totally occluded SFA; s/p atherectomy and drug coated ballooning of the left sfa. Complications: None. Estimated blood loss: 5mL-10mL. Responsiveness - Normal response to verbal stimuli; alert and oriented, PERRLA. Airway - Unaffected, no intervention required; spontaneous ventilation. Circulation: W/N/L, pulses unchanged. Nausea/Vomiting: No. Medication's Wasted: Heparin = 4000 units. Procedure completed. Patient transferred by bed to CPRU. Procedure Medications Start: 8:45 AM Stop: 8:45 AM Medication: Versed Amount: 1 mg Route: I.V. Start: 8:45 AM Stop: 8:45 AM Medication: Fentanyl Amount: 50 mcg Route: I.V. Start: 8:48 AM Stop: 8:48 AM Medication: Versed Amount: 1 mg Route: I.V. Start: 8:48 AM Stop: 8:48 AM Medication: Fentanyl Amount: 50 mcg Route: I.V. Start: 9:19 AM Stop: 9:19 AM Medication: Versed Amount: 1 mg Route: I.V. Start: 9:19 AM Stop: 9:19 AM Medication: Fentanyl Amount: 50 mcg Route: I.V. Start: 9:29 AM Stop: 9:29 AM Medication: Heparin Amount: 5000 units Route: I.V. Start: 9:38 AM Stop: 9:38 AM Medication: Versed Amount: 1 mg Route: I.V. Start: 9:56 AM Stop: 9:56 AM Medication: Heparin Amount: 1000 units Route: I.V. Start: 10:09 AM Stop: 10:09 AM Medication: Heparin Amount: 1000 units Route: I.V. Start: 10:09 AM Stop: 10:09 AM Medication: Nitrogylcerin Amount: 200 mcg Route: I.A. Start: 10:12 AM Stop: 10:12 AM Medication: Versed Amount: 1 mg Route: I.V. Start: 10:12 AM Stop: 10:12 AM Medication: Fentanyl Amount: 50 mcg Route: I.V. Start: 10:15 AM Stop: 10:15 AM Medication: Versed Amount: 1 mg Route: I.V. Start: 10:24 AM Stop: 10:24 AM Medication: Heparin Amount: 1000 units Route: I.V. I, the attending physician, have reviewed and verified all procedure medications. Yes, all medications given per verbal order History/Risk Factors Hypertension: No Dyslipidemia: No Peripheral Arterial Disease (PAD): Yes Obesity: No Renal Disease: No Tobacco Use: Current/Recent(w/in 1 year) Prior Interventions PCI: No CABG: No Valve Surgery: No Report Signatures Finalized by Fernie Alexandra MD on 03/11/2022 09:51 PM
[2022-03-02 07:50] LABS: Basophils # 0.1 10^3/uL (0.0-0.1); Basophils % 0.5 %; Eosinophils # 0.2 10^3/uL (0.0-0.8); Eosinophils % 1.9 %; Hematocrit 39.8 % (37.0-47.0); Hemoglobin 12.9 g/dL (11.5-15.3); Lymphocytes # 2.4 10^3/uL (0.8-4.8); Lymphocytes % 20.2 %; Mean Corpuscular HGB Conc 32.4 g/dL (30.0-36.0); Mean Corpuscular Hemoglobin 29.7 pg (28.0-34.0); Mean Corpuscular Volume 91.5 fl (81-99); Mean Platelet Volume 10.4 fL (7.4-10.4); Monocytes # 1.1 10^3/uL (0.2-0.9); Monocytes % 9.2 %; Neutrophils # 8.14 10^3/uL (1.8-7.7); Neutrophils % 67.8 %; Nucleated Red Blood Cells % 0 %; Platelet Count 395 10^3/cmm (130-400); Red Blood Count 4.35 10^6/uL (4.1-5.3); Red Cell Distribution Width 13.8 % (12.1-15.1)
[2022-03-02 08:06] LABS: INR 1.02 (0.8-1.2)
[2022-03-02 08:10] LABS: Anion Gap 15.3 (5-19); Blood Urea Nitrogen 5 mg/dL (8-23); Calcium 9.2 mg/dL (8.5-10.5); Carbon Dioxide 25 mmol/L (22-29); Chloride 102 mmol/L (98-107); Glomerular Filtration Rate 84.5 mL/min (90-130); Glucose 64 mg/dL (65-115); Osmolality Calculated 283 mOsm/kg (285-295); Potassium 3.3 mmol/L (3.5-5.1); Sodium 139 mmol/L (136-145)
[2022-03-02] MEDS: diphenhydrAMINE 50 mg Capsule PO (08:15)
--- NOTE | 2022-03-02 08:40 | P.HP_ITS ---
Same Day Surgery H&P Indication for Procedure/HPI DATE OF PROCEDURE: March 02, 2022 CHIEF COMPLAINT/INDICATIONFOR SURGICAL PROCEDURE: Severe lifestyle limiting claudication PREOP DIAGNOSIS: Severe lifestyle limiting claudication PLANNED PROCEDURE: Operation Date: 03/02/22 08:30 Proposed Procedures p Periph Angiogram LLE 15124,I73.9,I70.202(Not Applicable) - Fernie Alexandra M.D Staged peripheral intervention 62-year-old woman with past medical history of carotid artery stenosis and smoking has been having severe lifestyle limiting claudication. She underwent successful revascularization of right coronary artery with balloon angioplasty in October 2021 and is here for staged revascularization of left SFA. Medications/Allergies* Home Medications Medication Instructions Recorded Confirmed Type hydrocodone 10 mg-acetaminophen 1 - 2 tab PO QID PRN Pain 03/03/19 03/01/22 History 325 mg tablet ergocalciferol (vitamin D2) 1,250 1,250 mcg PO .the 1st and 15th pt 09/27/20 03/02/22 History mcg (50,000 unit) capsule states still takes ext med history shows last filled 11/16/20 28d/s montelukast 10 mg tablet 10 mg PO QAM 09/27/20 03/02/22 History plecanatide 3 mg tablet (Trulance) 3 mg PO QAM 09/27/20 03/01/22 History ropinirole 2 mg tablet 2 mg PO BEDTIME 09/27/20 03/01/22 History ascorbic acid (vitamin C) 500 mg 500 mg PO DAILY 03/09/21 03/01/22 History tablet (Vitamin C) hydroxyzine pamoate 50 mg capsule 50 mg PO QID PRN Anxiety 03/09/21 03/02/22 History quetiapine 25 mg tablet 25 mg PO BEDTIME 03/09/21 03/02/22 History famotidine 40 mg tablet 40 mg PO BID 05/20/21 03/01/22 History Allergies/Adverse Reactions Allergy/AdvReac Type Severity Reaction Status Date / Time duloxetine [From Cymbalta] Allergy headaches Verified 03/01/22 12:37 Penicillins Allergy respiratory Verified 03/01/22 12:37 issues Pertinent History/Comorbid Conditions* Medical History (Updated 07/18/21 @ 22:37 by Fernie Alexandra M.D) Osteoarthritis of right knee Surgical History (Updated 03/09/21 @ 11:04 by Ankush Britton MD) H/O decompression of ulnar nerve H/O: hysterectomy Hx of cholecystectomy Social History Smoking and tobacco status: current every day smoker cigarettes Packs smoked per day: 0.5 Years cigarettes smoked: 30 Alcohol intake: never Lives independently: Yes Household members: none Housing: House Marital status: Number of children: 2 Pets and animals: Yes Pets & animals: cat(s) and dog(s) Pertinent Exam Findings alert, oriented x 3, clear to auscultation bilaterally and regular rate & rhythm Conscious Sedation Assessment PATIENT ASSESSED PRIOR TO SEDATION, WITH NO CHANGE NOTED: Yes AIRWAY EVAL/ANESTHESIA PLAN: normal airway, see other exam findings, ASA III, Monitored Anesthesia, Local Anesthesia, Risks, benefits & alternatives of sedation and/or procedure discussed and Patient agrees to continue as planned ADDITIONAL INFORMATION: Moderate sedation Recommendations Surgery/Procedure today (Peripheral angiogram with staged peripheral intervention) Coding Level of Care Code Acute Clinical Education Academic Coordinator for Clay Martinez
--- NOTE | 2022-03-02 10:37 | PC.NURSE ---
received pt from medical laboratory technicians post atherectomy and ballooning of left sfa. pt complains of no pain. pt right femoral site with sheath sutured in connected to pressure bag. no bruising or hematoma noted. pt to be transferred to CSU for recovery. pt placedon monitor and will be monitored per protocol.
[2022-03-02] MEDS: clopidogrel 300 mg Tablet PO (11:16)
--- NOTE | 2022-03-02 11:45 | PC.NURSE ---
received pt from labor relations specialist pt is alert, oriented. 6 fr sheath to right groin attached to pressure bag. no hematoma,swelling or bleeding noted. pedal pulses on right foot is very faint,unable to find pulses via doppler. pt denies any unusual pain, pt stated she has chronic leg pain. left DP is palpable+3, left PT is palpable +2. Dr Alexandra notified of the faints pulses on right foot. will monitor for any worsening.
--- NOTE | 2022-03-02 12:30 | PC.NURSE ---
refrigeration tech could not get any blood another freelance programmer/app developer will do it she stated. we are waiting for ptt.
[2022-03-02] MEDS: HYDROcodone-acetaminophen 10-325 mg Tablet 1 TAB PO ×3 (13:43→22:08)
[2022-03-02] MEDS: ALPRAZolam 0.5 mg Tablet 0.25 MG PO (13:43)
[2022-03-02] MEDS: sodium chloride 0.9% 1,000 ML 100 ML IV (13:55)
[2022-03-02 14:45] LABS: Partial Thromboplastin Time 82.3 SECONDS (23.9-36.7)
[2022-03-02 16:52] LABS: Partial Thromboplastin Time 35.2 SECONDS (23.9-36.7)
--- NOTE | 2022-03-02 18:00 | PC.NURSE ---
sheath pulled explained procedure to pt. premedicated w/pain med. right femoral artery palpated. 6 fr sheath pulled from right groin. manual pressure held for 20 mins. no hematoma, bleeding, swelling noted. 6 fr sheath cath tip intact. pedal pulses are diminished to palpated, dopplerable pulses. activity restrictions discuss to pt such as bedrest for 6 hrs and keep right leg from bending or raising. to call nurse stat for any unusual pain/pressure, burning sensation or wetness to right groin. dressing applied to right groin.call light provided to pt.
[2022-03-02] MEDS: quetiapine 25 mg Tablet PO (20:38)
[2022-03-02] MEDS: ropinirole 2 mg Tablet PO (20:38)
[2022-03-03 00:52] VITALS: BP 143/81; PULSE 81; RESP 16; TEMP 36.6; O2SAT 94
[2022-03-03 04:22] VITALS: BP 117/67; PULSE 79; RESP 15; TEMP 36.7; O2SAT 91
[2022-03-03] MEDS: acetaminophen 325 mg Tablet 650 MG PO (05:45)
[2022-03-03] MEDS: montelukast sodium 10 mg Tablet PO (05:46)
[2022-03-03 06:00] VITALS: PULSE 78
[2022-03-03 07:55] VITALS: BP 105/74; PULSE 78; RESP 20; TEMP 36.9; O2SAT 92
[2022-03-03 08:03] VITALS: PULSE 80; RESP 16; O2SAT 96
--- NOTE | 2022-03-03 08:47 | P.DS_ITS ---
Discharge Providers Date of Admission: 03/02/22 11:35 Date of Discharge: March 03, 2022 Attending Provider at Admission: Fernie Alexandra M.D Attending Provider at Discharge: Fernie Alexandra M.D Primary Care Provider: KATIE Clements Reason for Visit Reason for Visit: I73.9 Brief History: 62-year-old woman with past medical history of carotid artery stenosis and smoking has been having severe lifestyle limiting claudication.? She underwent successful revascularization of right iliac artery with balloon angioplasty in October 2021 and is here for staged revascularization of left SFA. Hospital Course Hospital Course She underwent successful revascularization of totally occluded ostial to distal SFA with orbital arthrectomy and balloon angioplasty with drug coated balloons. She was observed overnight. She did not have any complications and was discharged home in a stable condition. Physical Exam Narrative: GENERAL: Patient is alert, awake and oriented x3. [] NECK: No jugular vein distension. [] HEENT: No cyanosis. No icterus. No pallor. [] HEART: Regular S1 and S2. No murmur, rub or gallop. [] LUNGS: Clear to auscultate bilaterally. [] ABDOMEN: Soft, nontender and nondistended. Positive bowel sounds. No guarding, rebound or tenderness. [] CENTRAL NERVOUS SYSTEM: Grossly nonfocal. [] EXTREMITIES: Lower extremities with 1+ edema bilaterally. DP is strong in left lower extremity. Discharge Data Studies Completed and Pending Pending at discharge Category Date Time Status DIRECTOR OF PEDIATRIC REHABILITATION request for service Routine Exams 03/02/22 07:30 Taken Laboratory Results WBC 12.0 10^3/uL (4.0-10.0) H 03/02/22 07:44 RBC 4.35 10^6/uL (4.1-5.3) 03/02/22 07:44 Hgb 12.9 g/dL (11.5-15.3) 03/02/22 07:44 Hct 39.8 % (37.0-47.0) 03/02/22 07:44 MCV 91.5 fl (81-99) 03/02/22 07:44 MCH 29.7 pg (28.0-34.0) 03/02/22 07:44 MCHC 32.4 g/dL (30.0-36.0) 03/02/22 07:44 RDW 13.8 % (12.1-15.1) 03/02/22 07:44 Plt Count 395 10^3/cmm (130-400) 03/02/22 07:44 MPV 10.4 fL (7.4-10.4) 03/02/22 07:44 Neut % (Auto) 67.8 % 03/02/22 07:44 Lymph % (Auto) 20.2 % 03/02/22 07:44 [place] % (Auto) 9.2 % 03/02/22 07:44 Eos % (Auto) 1.9 % 03/02/22 07:44 Baso % (Auto) 0.5 % 03/02/22 07:44 Neut # (Auto) 8.14 10^3/uL (1.8-7.7) H 03/02/22 07:44 Lymph # (Auto) 2.4 10^3/uL (0.8-4.8) 03/02/22 07:44 [place] # (Auto) 1.1 10^3/uL (0.2-0.9) H 03/02/22 07:44 Eos # (Auto) 0.2 10^3/uL (0.0-0.8) 03/02/22 07:44 Baso # (Auto) 0.1 10^3/uL (0.0-0.1) 03/02/22 07:44 Nucleated RBC % (auto) 0 % 03/02/22 07:44 Nucleated RBCs # 0.0 /100WBC 03/02/22 07:44 PT 13.70 SECONDS (12.1-14.9) 03/02/22 07:44 INR 1.02 (0.8-1.2) 03/02/22 07:44 APTT 35.2 SECONDS (23.9-36.7) D 03/02/22 16:05 Sodium 139 mmol/L (136-145) 03/02/22 07:44 Potassium 3.3 mmol/L (3.5-5.1) L 03/02/22 07:44 Chloride 102 mmol/L (98-107) 03/02/22 07:44 Carbon Dioxide 25 mmol/L (22-29) 03/02/22 07:44 Anion Gap 15.3 (5-19) 03/02/22 07:44 BUN 5 mg/dL (8-23) L 03/02/22 07:44 Creatinine 0.7 mg/dL (0.5-0.9) 03/02/22 07:44 GFR Calculation 84.5 mL/min (90-130) L 03/02/22 07:44 Glucose 64 mg/dL (65-115) L 03/02/22 07:44 Calculated Osmolality 283 mOsm/kg (285-295) L 03/02/22 07:44 Calcium 9.2 mg/dL (8.5-10.5) 03/02/22 07:44 Vitals Last Vital Signs Temp 98.5 F 03/03/22 07:55 Pulse 80 03/03/22 08:03 Resp 16 03/03/22 08:03 BP 105/74 03/03/22 07:55 Pulse Ox 96 03/03/22 08:03 O2 Del Method 03/03/22 08:03 Discharge Plan Discharge Patient Disposition: Home Condition: Stable Prescriptions: Continued hydrocodone-acetaminophen 10-325 mg tablet 1 - 2 tab PO QID MDD 8 tabs PRN (Reason: Pain) ergocalciferol (vitamin D2) 1,250 mcg (50,000 unit) capsule 1,250 mcg PO .the 1st and 15th montelukast 10 mg tablet 10 mg PO QAM ropinirole 2 mg tablet 2 mg PO BEDTIME Trulance 3 mg tablet 3 mg PO QAM quetiapine 25 mg tablet 25 mg PO BEDTIME hydroxyzine pamoate 50 mg capsule 50 mg PO QID PRN (Reason: Anxiety) ascorbic acid (vitamin C) [Vitamin C] 500 mg Tablet 500 mg PO DAILY albuterol sulfate 90 mcg/actuation HFA aerosol inhaler 2 puff inhalation Q4H PRN (Reason: Shortness Of Breath) Qty: 1 3RF fluticasone propionate 50 mcg/actuation spray,suspension 1 spray intranasal DAILY Qty: 0 3RF Rx Instructions: administer into each nostril aspirin [[place] Low Dose Aspirin] 81 mg tablet,delayed release (DR/EC) 81 mg PO DAILY Qty: 60 2RF famotidine 40 mg tablet 40 mg PO BID clopidogrel 75 mg Tablet 75 mg PO DAILY Qty: 90 1RF Discharge Orders: Discharge Order (Routine); Ordered 01/13/23 Ordered By: Fernie Alexandra Referrals: Fernie Alexandra M.D [Physician] - 2 months (The follow up appointment for Dr. Alexandra will be made at your 03-15-22 appointment with Leidy Lewis. Please call [phone] if you have any questions or concerns. Thank you.) Leidy Lewis FNP [Nurse Practitioner] - 03/15/22 10:00 am Discharge Diet: Cardiac Discharge Activity: Increase activity as tolerated Patient Instructions: Peripheral Vascular Disease (DC), Peripheral Artery Disease (DC), Peripheral Vascular Angioplasty (DC), Opioid Safety, Post Angiogram Home Care Instructions Discharge Attestations Time Spent in Discharge Care*: less than 30 min Quality Metrics Clinical Quality Measures [ No reported AMI, CVA or VTE this stay] Coding Level of Care Code Acute Chg FW DC note
[2022-03-03] MEDS: clopidogrel 75 mg Tablet PO (08:48)
[2022-03-03] MEDS: aspirin 81 mg EC Tablet PO (08:48)
[2022-03-03] MEDS: ascorbic acid 500 mg Tablet PO (08:48)
[2022-03-03] MEDS: HYDROcodone-acetaminophen 10-325 mg Tablet 1 TAB PO (08:48)
--- NOTE | 2022-03-03 10:00 | PC.NURSE ---
Ambulation to hallways pt is up and ambulating down hallways. Denies any unusual pain, chronic leg pain and soreness post pci. dressing change to right groin. small bruise noted around punture site. no hematoma, bleeding noted during ambulation. pedal pulses are palpable.
[2022-03-03 10:17] VITALS: BP 105/74; PULSE 80; RESP 16; O2SAT 96
== END 2022-03-03 10:34 | disposition home or self-care (01) ==
LOC: CCL 07:11 → CSU 11:37
PROVIDERS: PCP Registered Nurse; Visit Provider Internal Medicine
DX: I70.202 Unspecified atherosclerosis of native arteries of extremities, left leg (principal); Z79.01 Long term (current) use of anticoagulants; I25.10 Atherosclerotic heart disease of native coronary artery without angina pectoris; F17.210 Nicotine dependence, cigarettes, uncomplicated
CPT/HCPCS: 36415; 37224; 37225; 75625; 75716; 80048; 85025; 85347; 85610; 85730; 96361; 96365; 99152; 99153; C1724; C1769; C1887; C1894; C2623; G0378; J1644; J2250; J3010; J3490; J7030; Q0163; Q9967

== ENCOUNTER → 2022-04-07 09:32 | Outpatient (BNVA) | payer MEDICARE, MEDICAID, SELFPAY | PROVIDERS: PCP Registered Nurse; Visit Provider Nurse Practitioner Family | DX: I73.9 Peripheral vascular disease, unspecified (principal); F17.210 Nicotine dependence, cigarettes, uncomplicated | CPT/HCPCS: 99213 ==

== ENCOUNTER → 2022-06-08 13:32 | Outpatient (BNVA) | payer MEDICARE, MEDICAID, SELFPAY | PROVIDERS: Visit Provider Internal Medicine | DX: I65.29 Occlusion and stenosis of unspecified carotid artery (principal); I73.9 Peripheral vascular disease, unspecified; I25.10 Atherosclerotic heart disease of native coronary artery without angina pectoris; F17.210 Nicotine dependence, cigarettes, uncomplicated; Z79.82 Long term (current) use of aspirin | CPT/HCPCS: 99214 ==

== ENCOUNTER 2023-04-25 13:56 | Outpatient (CLI) | payer MEDICARE, MEDICAID, SELFPAY ==
--- NOTE | 2023-04-25 14:30 | MM_ITS ---
WS: [id number] BILATERAL 3D TOMOSYNTHESIS DIGITAL SCREENING MAMMOGRAPHY WITH CAD CLINICAL INFORMATION: SCREENING HISTORY: Screening mammogram. No current complaints. COMPARISON: 2020 TECHNIQUE: Bilateral CC and MLO views. FINDINGS: The breasts are composed of heterogeneous fibroglandular density tissue, which can limit the detectio n of small underlying mass lesions. No suspicious mass, asymmetry, calcifications, or architectural d istortion. No evidence of malignancy. IMPRESSION: MM/[place] [id number] BI-RADS: 1-Negative FOLLOW UP: 1 Year Follow-up Recommend return to annual screening mammography.
== END 2023-04-25 13:57 | disposition home or self-care (01) ==
LOC: MOBLMAM 14:01
PROVIDERS: PCP Nurse Practitioner Family; Visit Provider Nurse Practitioner Family
DX: Z12.31 Encounter for screening mammogram for malignant neoplasm of breast (principal)
CPT/HCPCS: 77063; 77067

== ENCOUNTER 2023-10-15 12:07 | Outpatient (CLI) | payer MEDICARE, MEDICAID, SELFPAY ==
--- NOTE | 2023-10-15 12:27 | USCV_ITS ---
SterlingAziza ordoñez Age: 63 Gender: F : 1960 Exam Date: 10/15/2023 12:31 Ordering Phys: Eliana Christianson PLATE FINISHER Technologist: CT Exam Location: [facility] – [place]_ Indication: PROCEDURES: The venous duplex Doppler examination of both lower extremities was performed in the standard fashion. FINDINGS: Normal 2-D Doppler and augmentation and compressibility throughout the lower extremity venous structures. Additional imaging through the proximal calf veins also reveals no thrombus. Limited evaluation of the greater saphenous vein is patent with no thrombus. CONCLUSIONS No DVT bilateral lower extremities. Dr. Jessica Balderrama DO (Electronically Signed) Final Date: 16 October 2023 07:32 S
== END 2023-10-15 12:08 | disposition home or self-care (01) ==
LOC: RAD 12:07
PROVIDERS: PCP Nurse Practitioner Family; Visit Provider Nurse Practitioner Family
DX: M79.604 Pain in right leg (principal)
CPT/HCPCS: 93970

== ENCOUNTER → 2023-10-23 14:50 | Outpatient (BNVA) | payer MEDICARE, MEDICAID, SELFPAY | PROVIDERS: PCP Nurse Practitioner Family; Referring Provider Nurse Practitioner Family; Visit Provider Internal Medicine | DX: I25.10 Atherosclerotic heart disease of native coronary artery without angina pectoris (principal); R06.02 Shortness of breath; I65.29 Occlusion and stenosis of unspecified carotid artery; M54.2 Cervicalgia; I73.9 Peripheral vascular disease, unspecified; F17.210 Nicotine dependence, cigarettes, uncomplicated | CPT/HCPCS: 99214 ==

== ENCOUNTER 2023-10-25 12:03 | Outpatient (CLI) | payer MEDICARE, MEDICAID, SELFPAY ==
--- NOTE | 2023-10-25 12:26 | USCV_ITS ---
SterlingAziza ordoñez Age: 63 Gender: F : 1960 Exam Date: 10/25/2023 12:33 Ordering Phys: Eliana Christianson NP Technologist: Exam Location: [facility] [place] Indication: LT FOOT COLD AND PAIN RIGHT LEFT Brachial 97.00 mmHg Brachial 102.00 mmHg Pressure (mmHg) Waveform Pressure (mmHg) Waveform 93.00 DEVELOPMENT AND HOUSING DIRECTOR 47.00 84.00 DPA 41.00 0.91 Ankle/Brachial Index 0.46 53.00 Pre-Exercise Toe Pressure FINDINGS ABNORMAL LT CHRISTINE AND NO FLOW IN LT TOE Resting CHRISTINE of 0.91 on the right side and 0.46 on the left side Resting TBI of 0.52 on the right and 0 on the left No flow was detected in the left digit CONCLUSIONS 1. Features of severe peripheral artery disease on the left side, possibly multisegmental, with a resting CHRISTINE of 0.46 and no detectable flow in the left big toe. 2. Features of mild peripheral artery disease in the right side No similar previous studies are available for comparison Dr Dawn Stacy MD [facility] (Electronically Signed) Final Date: 25 October 2023 21:48 S
== END 2023-10-25 12:04 | disposition home or self-care (01) ==
LOC: RAD 12:04
PROVIDERS: PCP Nurse Practitioner Family; Visit Provider Nurse Practitioner Family
DX: M79.605 Pain in left leg (principal); M79.604 Pain in right leg; I73.9 Peripheral vascular disease, unspecified
CPT/HCPCS: 93922

== ENCOUNTER 2023-10-30 14:49 | Outpatient (CLI) | payer MEDICARE, MEDICAID, SELFPAY ==
--- NOTE | 2023-10-30 14:54 | MR_ITS ---
WS: [id number] MRI LUMBAR SPINE NONCONTRAST HISTORY: LUMBAR DDD COMPARISON: None available. TECHNIQUE: Sagittal and axial multisequence imaging is submitted. Moderate increase in thoracic kyphosis. Very mild anterior wedging of T7. Slight increase in the lumbar lordosis. 2 mm anterolisthesis of L3. Moderate disc space narrowing at L4-5. No acute fracture. Disc spaces and vertebral body heights are well-preserved. Conus terminates normally at L1-2 disc level. L1-L2: Normal. L2-L3: Mild facet arthritis. No stenosis. L3-L4: Mild annular disc bulging. Very slight encroachment upon the subarticular recesses. Moderate l igamentum flavum hypertrophy. Mild LEFT foraminal encroachment. L4-L5: Osteophytic ridging with annular disc bulging. Annular fissure centrally. Ligamentum flavum an d facet arthritis. Mild central, bilateral subarticular recess and foraminal stenosis. L5-S1: Mild annular disc bulging. Mild bilateral foraminal stenosis. Paravertebral soft tissues are negative. Mild atherosclerosis aorta. MR/MR lumbar spine wo con* [id number] IMPRESSION: 1. No acute fracture. 2. L3 anterolisthesis by 2 mm. 3. L4-5: Mild central, bilateral subarticular recess and foraminal stenosis. N o disc protrusion. 4. L5-S1: Mild bilateral foraminal stenosis.
== END 2023-10-30 14:50 | disposition home or self-care (01) ==
LOC: RAD 14:50
PROVIDERS: PCP Nurse Practitioner Family; Visit Provider General Practice
DX: M51.36 Other intervertebral disc degeneration, lumbar region (principal); M48.07 Spinal stenosis, lumbosacral region
CPT/HCPCS: 72148

== ENCOUNTER 2023-11-05 11:40 | Inpatient (IN) | payer MEDICARE, MEDICAID, SELFPAY ==
[2023-11-05] VITALS (8 sets, daily range): BP systolic 110–147; BP diastolic 58–86; PULSE 62–75; RESP 15–16; TEMP 36.4; O2SAT 95–99; BMI 28.3
--- NOTE | 2023-11-05 12:04 | USR_ITS ---
PROCEDURE INFORMATION: Exam: US Duplex Left Lower Extremity Arteries Or Arterial Bypass Grafts Exam date and time: 11/05/2023 12:38 PM Age: 63 years old Clinical indication: Pain; Leg, lower; Left; Additional info: Cold/painful foot; Known pad TECHNIQUE: Imaging protocol: Left Real-time duplex scan of the arteries or arterial bypass grafts of the left lower extremity with 2-D champagne scale, color Doppler flow and spectral waveform analysis. Images documented and saved. COMPARISON: 1. [place] [id number] 10/15/2023 12:[address] angio abd aorta runof [id number] 04/22/2021 3:02 PM FINDINGS: Left external iliac artery: The visualized portions of the left iliac arteries are patent but there appears to be at least a moderate stenosis proximally with peaked high velocity biphasic waveforms (196 cm/s). Left common femoral artery: No occlusion or significant stenosis. Normal waveform. Left superficial femoral artery: Complete occlusion of the left SFA which was previously patent on the April 2021 exam. There is distal reconstitution of the left SFA with a lobe amplitude broadened monophasic waveform. Left popliteal artery: No occlusion or significant stenosis. Broadened low amplitude monophasic waveform secondary to reconstitution Left calf/foot arteries: The previous CT angiogram of the lower extremities these demonstrated chronic occlusion of the left posterior tibial artery. The current study demonstrates that there is reconstituted flow in the left posterior tibial artery at the level of the ankle with a monophasic low amplitude waveform measuring about 12 cm/s the dominant vessel to the left ankle is the anterior tibial artery/dorsalis pedis artery. The left lower extremity ankle-brachial index measures about 0.46 (abnormal). US/[place] [id number] IMPRESSION: 1. Suspected moderate stenosis in the left external iliac artery. 2. 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 3. Reconstituted flow in the distal left SFA, left popliteal artery and tibial arteries as above. 4. Abnormal left CHRISTINE = 0.46.
--- NOTE | 2023-11-05 16:09 | CTR_ITS ---
PROCEDURE INFORMATION: Exam: CTA Abdominal Aorta and Bilateral Lower Extremities (Run-off) With Contrast Exam date and time: 11/05/2023 5:22 PM Age: 63 years old Clinical indication: Other: Claudication; Additional info: Claudication, abnromal US TECHNIQUE: Imaging protocol: Computed tomographic angiography of the of the abdominal aorta, pelvis and bilateral lower extremities with contrast. 3D rendering (Not supervised by radiologist): MIP and/or 3D reconstructed images were created by the technologist. Radiation optimization: All CT scans at this facility use at least one of these dose optimization techniques: automated exposure control; mA and/or kV adjustment per patient size (includes targeted exams where dose is matched to clinical indication); or iterative reconstruction. Contrast material: OMNI 350; Contrast volume: 100 ml; Contrast route: INTRAVENOUS (IV); COMPARISON: CT angio abd aorta runof [id number] 04/22/2021 3:02 PM RADIATION DOSE METRICS: Total DLP (mGy-cm): 893 FINDINGS: Aorta: Calcified and noncalcified plaque. No aneurysm or dissection. Mild luminal narrowing in the mid aorta. Celiac trunk and mesenteric arteries: Mild kinking and narrowing in the proximal celiac artery. No stenosis in the superior mesenteric artery. Renal arteries: No occlusion or significant stenosis. Right iliac arteries: Plaque with severe segmental stenosis throughout the right common iliac artery. Plaque with very severe segmental stenosis throughout the right external iliac artery. Right femoral/popliteal arteries: Severe stenosis in the right common femoral artery. Severe multifocal stenoses throughout the right superficial femoral artery. The right popliteal artery is small in size with moderate focal stenosis. Right infrapopliteal arteries: Severe disease in the right posterior tibial artery which is occluded proximally, with reconstituted flow in the very distal artery. Mild disease in the right anterior tibial and peroneal arteries. The anterior tibial artery is located in the lateral foot with no dorsalis pedis artery visualized. This is likely a congenital variant. Left iliac arteries: Calcified plaque with moderate stenosis in the left common iliac artery. Calcified plaque with multifocal moderate and severe stenoses in the mid and distal left external iliac artery. Left femoral/popliteal arteries: Severe stenosis in the left common femoral artery. Severe disease in the left superficial femoral artery with occlusion of the proximal and mid artery. Reconstituted flow in the distal left superficial femoral artery via collaterals. The left popliteal artery is small in size with mild disease. Left infrapopliteal arteries: Mild disease in the left anterior tibial artery with visible runoff to the foot. Severe disease in the left tibioperoneal trunk. Severe disease in the left posterior tibial artery which is completely occluded. Severe disease in the left peroneal artery which is faintly visualized to the lower leg. Liver: No mass. Gallbladder and biliary ducts: Cholecystectomy. Prominence of the bile ducts is most likely chronic reservoir effect. Pancreas: Unremarkable. No mass. No ductal dilation. Spleen: Normal. No splenomegaly. Adrenal glands: Normal. No mass. Kidneys and ureters: 1.3 cm cortical lesion in the superior left kidney, Hounsfield units 31. The kidneys are otherwise unremarkable. No calculus or hydronephrosis. Stomach and bowel: Mucosal enhancement in the stomach and duodenum without wall thickening. The small bowel and colon are unremarkable. No wall thickening or obstruction. No active GI hemorrhage. Appendix: Appendectomy. Urinary bladder: Unremarkable. No mass. Reproductive: Hysterectomy and oophorectomy. Intraperitoneal space: Unremarkable. No free air. No significant fluid collection. Lymph nodes: No lymphadenopathy. Bones/joints: Median sternotomy changes. Mild degenerative changes in the spine. Stable minimal T12 compression. No acute fracture. Soft tissues: Small fat containing umbilical hernia. CT/CT angio abd aorta runof [id number] IMPRESSION: 1. Severe stenosis throughout the right common iliac artery and very severe stenosis throughout the right external iliac artery. 2. Severe stenoses in the right common femoral and superficial femoral arteries. 3. Occlusion of the right posterior tibial artery, with reconstituted flow distally. 4. Moderate and severe stenoses in the left external iliac artery. 5. Severe stenosis in the left common femoral artery with occlusion of the left superficial femoral artery. Reconstituted flow in the distal superficial femoral artery. 6. Complete occlusion of the left posterior tibial artery with severe disease in the left tibioperoneal trunk and peroneal artery. 7. 1.3 cm indeterminate lesion in the left kidney. Recommend non-emergent MRI without and with contrast or non-emergent CT without and with contrast. MRI is preferred for masses under 1.5 cm.
--- NOTE | 2023-11-05 16:29 | W.ED.EXTPRO ---
HPI - Extremity Problem General: Chief complaint: Extremity Problem,Nontraumatic Stated complaint: Left foot pain/ has blockage Time Seen by Provider: 11/05/23 16:02 History of Present Illness: 63-year-old female who presents to the emergency room with claudication symptoms. Apparently she had a ultrasound done recently that showed some blockages. She never had any interventions for this. She quit smoking 3 days ago. Pain is worse when she walks but at this point has been hurting when she was at rest. Also much worse with certain positions. No chest pain. No shortness of breath. No altered mental status. No focal motor deficits. No nausea or vomiting. No abdominal pain. Related Data Home Medications Medication Instructions Recorded Confirmed hydrocodone 10 mg-acetaminophen 1 - 2 tab PO QID PRN Pain 03/03/19 10/23/23 325 mg tablet ergocalciferol (vitamin D2) 1,250 1,250 mcg PO .the 1st and 15th pt 09/27/20 10/23/23 mcg (50,000 unit) capsule states still takes ext med history shows last filled 11/16/20 28d/s montelukast 10 mg tablet 10 mg PO QAM 09/27/20 10/23/23 plecanatide 3 mg tablet (Trulance) 3 mg PO QAM 09/27/20 10/23/23 ropinirole 2 mg tablet 2 mg PO BEDTIME 09/27/20 10/23/23 ascorbic acid (vitamin C) 500 mg 500 mg PO DAILY 03/09/21 10/23/23 tablet (Vitamin C) hydroxyzine pamoate 50 mg capsule 50 mg PO QID PRN Anxiety 03/09/21 10/23/23 quetiapine 25 mg tablet 25 mg PO BEDTIME 03/09/21 10/23/23 famotidine 40 mg tablet 40 mg PO BID 05/20/21 10/23/23 furosemide 20 mg tablet (Lasix) 20 mg PO DAILY 06/08/22 10/23/23 potassium gluconate 500 mg (83 mg) 1,000 mg PO DAILY 06/08/22 10/23/23 tablet pregabalin 25 mg capsule (Lyrica) 25 mg PO DAILY 10/23/23 10/23/23 Previous Rx's Medication Instructions Recorded albuterol sulfate 90 mcg/actuation 2 puff inhalation Q4H PRN 03/11/21 aerosol inhaler Shortness Of Breath #1 g aspirin 81 mg tablet,delayed 81 mg PO DAILY #60 tabs 03/11/21 release ([place] Low Dose Aspirin) fluticasone propionate 50 1 spray intranasal DAILY #0 grams 03/11/21 mcg/actuation nasal spray,suspension metoprolol tartrate 25 mg tablet 25 mg PO BID #180 tabs 06/08/22 clopidogrel 75 mg tablet 75 mg PO DAILY #90 tabs 12/05/22 Allergies Allergy/AdvReac Type Severity Reaction Status Date / Time duloxetine [From Cymbalta] Allergy headaches Verified 11/05/23 11:54 Penicillins Allergy respiratory Verified 11/05/23 11:54 issues Review of Systems Narrative: Constitutional symptoms: Negative except as documented in HPI. Skin symptoms: Negative except as documented in HPI. Eye symptoms: Negative except as documented in HPI. ENMT symptoms: Negative except as documented in HPI. Respiratory symptoms: Negative except as documented in HPI. Cardiovascular symptoms: Negative except as documented in HPI. Gastrointestinal symptoms: Negative except as documented in HPI. Genitourinary symptoms: Negative except as documented in HPI. Musculoskeletal symptoms: Negative except as documented in HPI. Neurologic symptoms: Negative except as documented in HPI. Psychiatric symptoms: Negative except as documented in HPI. Endocrine symptoms: Negative except as documented in HPI. PFSH ED PFSH: Medical History Osteoarthritis of right knee Surgical History Hx of cholecystectomy H/O: hysterectomy H/O decompression of ulnar nerve Social History Smoking and tobacco/nicotine status: current every day tobacco/nicotine user cigarettes Packs smoked per day: 0.5 Years cigarettes smoked: 30 Alcohol intake: never Substance/Drug Use: never Lives independently: Yes Household members: none Housing: House Marital status: Number of children: 2 Pets and animals: Yes Pets & animals: cat(s) and dog(s) Physical Exam Narrative: EXAM NARRATIVE: General: Alert, no acute distress. Skin: Warm, dry. Head: Normocephalic, atraumatic. Neck: Supple, trachea midline. Eye: Extraocular movements are intact. Ears, nose, mouth and throat: mucosa moist. Cardiovascular: Regular, Normal peripheral perfusion. Respiratory: Lungs are clear to auscultation, respirations are non-labored, breath sounds are equal, Symmetrical chest wall expansion. Gastrointestinal: Soft, Nontender, Non distended Musculoskeletal: Normal ROM, no deformity. I am unable to palpate pulses distally but patient does have good perfusion. Foot is warm. Cap refill is brisk. Neurological: Alert and oriented, No focal neurological deficit observed. Psychiatric: Cooperative, appropriate mood & affect. Course Vital Signs: Vital signs: Vital Signs Temperature 97.6 F 11/05/23 11:51 Pulse Rate 70 11/05/23 11:51 Blood Pressure 147/86 11/05/23 11:51 Pulse Oximetry 96 11/05/23 11:51 Oxygen Delivery Me thod Room Air 11/05/23 11:51 MDM - Extremity (Nontraumatic) Medical Decision Making Medical decision making: Differential diagnosis including but not limited to and based on the above HPI, review of systems and physical exam: Concern for claudication and peripheral vascular disease. Orders placed to evaluate differential diagnosis based on the above differential, HPI and physical exam Consultation: I spoke with Dr. Monet with cardiology. Given the patient's symptoms and desire to be treated he agrees to consult. He recommends CT angio runoff of the aorta and a heparin drip. Duplex scan left lower extremity. Ultrasound shows suspected moderate stenosis in the left external iliac artery. 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 Reconstituted flow in the distal left SFA. Left popliteal artery and tibial arteries as above. CHRISTINE 0.46. Lab Review: Laboratory results were reviewed and interpreted by myself the emergency room physician. Lab work is unremarkable. No leukocytosis. No anemia. No renal failure. I reviewed the patient's medical record. Reexamination: Patient remained stable. No increased work of breathing. No altered mental status. No focal motor deficits. Unable to find distal pulses with Doppler as well. Consultation: I spoke with Dr. Jo with the hospitalist group who agrees to admission. Assessment and plan: Peripheral vascular disease Claudication -IV morphine, IV Zofran, heparin bolus and heparin drip. ?CTA runoff ordered and pending. -I discussed the patient with the hospitalist on-call who is admitting the patient. - Discussed findings and plan with patient. Answered any questions. - All laboratory values were reviewed and interpreted personally by myself, the ER physician - All imaging was reviewed and interpreted personally by myself, the ER physician. - Evaluation and treatment of this problem were appropriate in the emergency setting Lab Data 11/05/23 16:27 11/05/23 16:27 Radiology Impressions Duplex Scan Lower Extremity Artery 11/05/23 12:04 IMPRESSION: 1. Suspected moderate stenosis in the left external iliac artery. 2. 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 3. Reconstituted flow in the distal left SFA, left popliteal artery and tibial arteries as above. 4. Abnormal left CHRISTINE = 0.46. Laboratory Results WBC 7.84 10^3/uL (3.29-11.43) 11/05/23 16: RBC 4.11 10^6/uL (3.85-5.65) 11/05/23: Hgb 11.90 g/dL (11.27-16.99) 11/05/23 16: Hct 37.4 % (36-47) 11/05/23 16: MCV 91.0 fl (85-98) 11/05/23: MCH 29.0 pg (27-33) 11/05/23: MCHC 31.8 g/dL (30-55) 11/05/23 16: RDW 15.0 % (12.1-15.1) 11/05/23: Plt Count 278 10^3/cmm (157-399) 11/05/23 16: MPV 11.5 fL (7.4-10.4) H 11/05/23 16: Neut % (Auto) 50.8 % 11/05/23: Lymph % (Auto) 37.0 % 11/05/23: [place] % (Auto) 8.5 % 11/05/23 16: Eos % (Auto) 2.9 % 11/05/23 16: Baso % (Auto) 0.5 % 11/05/23: Neut # (Auto) 3.98 10^3/uL (1.8-7.7) 11/05/23: Lymph # (Auto) 2.9 10^3/uL (0.8-4.8) 11/05/23: [place] # (Auto) 0.7 10^3/uL (0.2-0.9) 11/05/23 16: Eos # (Auto) 0.2 10^3/uL (0.0-0.8) 11/05/23: Baso # (Auto) 0.0 10^3/uL (0.0-0.1) 11/05/23 16: Nucleated RBC % (auto) 0 % 11/05/23 Nucleated RBCs # 0.0 /100WBC 11/05/23: PT 13.00 SECONDS (12.1-14.9) 11/05/23: INR 0.95 (0.8-1.2) 11/05/23: APTT 33.8 SECONDS (23.9-36.7) 11/05/23: Sodium 140 mmol/L (136-145) 11/05/23 16: Potassium 4.2 mmol/L (3.5-5.1) 11/05/23: Chloride 105 mmol/L (98-107) 11/05/23: Carbon Dioxide 26 mmol/L (22-29) 11/05/23: Anion Gap 13.2 (5-19) 11/05/23: BUN 7 mg/dL (8-23) L 11/05/23: Creatinine 1.1 mg/dL (0.5-0.9) H 11/05/23: GFR Calculation 50.0 mL/min (90-130) L 11/05/23: Glucose 106 mg/dL (65-115) 11/05/23: Calculated Osmolality 288 mOsm/kg (285-295) 11/05/23: Lactic Acid 1.9 mmol/L (0.5-2.2) 11/05/23: Calcium 8.5 mg/dL (8.5-10.5) 11/05/23: Total Bilirubin 0.2 mg/dL (0.15-1.2) 09/16/24 16:27 AST 15 U/L (0-32) 11/05/23 16:27 ALT 6 U/L (0-33) 11/05/23 16:27 Alkaline Phosphatase 120 U/L (35-105) H 11/05/23 16:27 Total Protein 6.6 g/dL (6.6-8.7) 11/05/23 16:27 Albumin 3.6 g/dL (3.5-5.2) 11/05/23 16:27 Globulin 3.0 g/dL (1.3-4.6) 11/05/23 16:27 All radiology interpretation(s) finalized by discharge Discharge Plan Discharge Patient Disposition: Admitted As Inpatient Clinical Impression: PVD (peripheral vascular disease), Claudication Condition: Stable Coding Level of Care Code 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
[2023-11-05 16:43] LABS: Basophils % 0.5 %; Eosinophils # 0.2 10^3/uL (0.0-0.8); Eosinophils % 2.9 %; Hematocrit 37.4 % (36-47); Lymphocytes # 2.9 10^3/uL (0.8-4.8); Mean Corpuscular HGB Conc 31.8 g/dL (30-55); Mean Platelet Volume 11.5 fL (7.4-10.4); Monocytes # 0.7 10^3/uL (0.2-0.9); Monocytes % 8.5 %; Neutrophils # 3.98 10^3/uL (1.8-7.7); Neutrophils % 50.8 %; Nucleated Red Blood Cells % 0 %; Platelet Count 278 10^3/cmm (157-399); Red Blood Count 4.11 10^6/uL (3.85-5.65); White Blood Count 7.84 10^3/uL (3.29-11.43)
[2023-11-05 16:53] LABS: INR 0.95 (0.8-1.2)
[2023-11-05 16:54] LABS: Partial Thromboplastin Time 33.8 SECONDS (23.9-36.7)
[2023-11-05 16:57] LABS: Alanine Aminotransferase 6 U/L (0-33); Albumin Level 3.6 g/dL (3.5-5.2); Alkaline Phosphatase 120 U/L (35-105); Anion Gap 13.2 (5-19); Aspartate Amino Transferase 15 U/L (0-32); Blood Urea Nitrogen 7 mg/dL (8-23); Calcium 8.5 mg/dL (8.5-10.5); Carbon Dioxide 26 mmol/L (22-29); Chloride 105 mmol/L (98-107); Creatinine Clr Calc Pharmacy 49.3228; Glucose 106 mg/dL (65-115); Osmolality Calculated 288 mOsm/kg (285-295); Potassium 4.2 mmol/L (3.5-5.1); Sodium 140 mmol/L (136-145); Total Bilirubin 0.2 mg/dL (0.15-1.2); Total Protein 6.6 g/dL (6.6-8.7)
[2023-11-05 16:58] LABS: Lactic Sepsis W/Reflex 1.9 mmol/L (0.5-2.2)
[2023-11-05] MEDS: ondansetron 2 mg/ML SDV 2 mL 4 MG IVP (17:00)
[2023-11-05] MEDS: morphine 4 mg/mL SDV 1 mL IVP (17:01)
[2023-11-05] MEDS: heparin 5,000 unit/mL INJ 1 mL 4000 UNIT IVP (17:02)
[2023-11-05] MEDS: iohexol 350 mg/mL 500 mL Btl (per mL) IV (17:29)
--- NOTE | 2023-11-05 17:40 | PC.NURSE ---
UNABLE TO PALPATE OR DOPPLER PEDAL PULSES BILATERALLY. DR. FERNANDEZ NOTIFIED OF FINDINGS.
--- NOTE | 2023-11-05 18:21 | P.HP_ITS ---
Providers/Chief Complaint 2 Primary Care Provider: Eliana Christianson NP Chief Complaint: Left foot pain/ has blockage History of Present Illness Aziza Katz is a 63 year old female with past medical history of peripheral vascular disease post peripheral angiogram in 2022, carotid artery stenosis. To the ER because of left foot pain which was previously on exertion getting worse over last few months but for last few days she started having pain even at rest. She had lower limb arterial duplex on 10/24 which showed CHRISTINE of 0.46. As the pain was getting worse she presented to the ER. In the ER repeat RLE duplex was done which again showed severe pericardial disease. Cardiology was consulted who requested patient to be admitted for possible peripheral angiography and plasty. She denies ANY RECENT TRAUMA, COUGH, NAUSEA, VOMITING, HEADACHE, DYSURIA, DIARRHEA, CHANGES IN MEDICATIONS. STATES SHE HAS BEEN COMPLIANT WITH HER MEDICATIONS. Patient is history of smoking but states has quit 3 days ago and does not want to continue any further. Review of Systems 2 General: Reports: 10 or more systems reviewed and unremarkable except in HPI and below Const: Denies: fever(s), chills, body aches, change in appetite, change in weight, malaise, night sweats, diaphoresis, change in sleep pattern, daytime sleepiness or snoring Eyes: Denies: change in vision, blurry vision, photophobia, eye discomfort or eye discharge ENMT: Denies: throat pain, enlarged tonsils, hoarseness, mouth pain, oral sores, dry mouth, tinnitus, nasal congestion or post nasal drip Card: Denies: chest pain, palpitations, irregular heart rhythm, edema, swelling of feet/ankles, lightheadedness, syncope, pre-syncope, dyspnea on exertion, orthopnea, leg pain with exertion or acrocyanosis Resp: Denies: dyspnea, productive cough, non-productive cough, wheezing, stridor, pain on inspiration, change in phlegm color, hemoptysis or chest congestion GI: Denies: abdominal pain, nausea, vomiting, hematemesis, coffee ground emesis, dysphagia, heartburn, diarrhea, constipation, bloating, GI cramping, change in bowel habits, pain on defecation, hematochezia or melena : Denies: flank pain, dysuria, urinary frequency, urinary urgency, urinary hesitancy, nocturia or hematuria Musc: Denies: neck pain, back pain, extremity pain, joint pain, joint swelling, joint redness, joint stiffness or limited range of motion Neuro: Denies: headache(s), numbness in extremities, weakness in extremities, sensory changes, lack of coordination, difficulty walking, frequent falls, dizziness, vertigo, confusion, Slurred speech present, difficulty communicating thoughts or seizure-like activity Psych: Denies: anxiety, depression, mood swings, panic attacks, hopelessness or irritability Endo: Denies: polyuria, polydipsia, tired all the time, cold intolerance, excessive sweating, flushing or heat intolerance Seng/Lymph: Denies: easy bruising or easy bleeding All/Imm: Denies: tongue swelling, facial swelling or acute wheezing Medications/Allergies Home Medications Medication Instructions Recorded Confirmed Last Taken Type hydrocodone 10 mg-acetaminophen 1 - 2 tab PO QID PRN Pain 03/03/19 10/23/23 03/02/22 06:00 History 325 mg tablet ergocalciferol (vitamin D2) 1,250 1,250 mcg PO .the 1st and 15th pt 09/27/20 10/23/23 02/19/22 History mcg (50,000 unit) capsule states still takes ext med history shows last filled 11/16/20 28d/s montelukast 10 mg tablet 10 mg PO QAM 09/27/20 10/23/23 03/02/22 06:00 History plecanatide 3 mg tablet (Trulance) 3 mg PO QAM 09/27/20 10/23/23 03/01/22 06:00 History ropinirole 2 mg tablet 2 mg PO BEDTIME 09/27/20 10/23/23 11/15/21 21:00 History ascorbic acid (vitamin C) 500 mg 500 mg PO DAILY 03/09/21 10/23/23 03/01/22 06:00 History tablet (Vitamin C) hydroxyzine pamoate 50 mg capsule 50 mg PO QID PRN Anxiety 03/09/21 10/23/23 03/01/22 20:00 History quetiapine 25 mg tablet 25 mg PO BEDTIME 03/09/21 10/23/23 03/01/22 20:00 History albuterol sulfate 90 mcg/actuation 2 puff inhalation Q4H PRN 01/10/23/23 03/01/22 06:00 Rx aerosol inhaler Shortness Of Breath #1 g aspirin 81 mg tablet,delayed 81 mg PO DAILY #60 tabs 03/11/21 10/23/23 03/02/22 06:00 Rx release ([place] Low Dose Aspirin) fluticasone propionate 50 1 spray intranasal DAILY #0 grams 03/11/21 10/23/23 03/01/22 06:00 Rx mcg/actuation nasal spray,suspension famotidine 40 mg tablet 40 mg PO BID 05/20/21 10/23/23 03/02/22 06:00 History furosemide 20 mg tablet (Lasix) 20 mg PO DAILY 06/08/22 10/23/23 Unknown History metoprolol tartrate 25 mg tablet 25 mg PO BID #180 tabs 06/08/22 10/23/23 Unknown Rx potassium gluconate 500 mg (83 mg) 1,000 mg PO DAILY 06/08/22 10/23/23 Unknown History tablet clopidogrel 75 mg tablet 75 mg PO DAILY #90 tabs 12/05/22 10/23/23 Unknown Rx pregabalin 25 mg capsule (Lyrica) 25 mg PO DAILY 10/23/23 10/23/23 Unknown History Allergies Allergy/AdvReac Type Severity Reaction Status Date / Time duloxetine [From Cymbalta] Allergy headaches Verified 11/05/23 11:54 Penicillins Allergy respiratory Verified 11/05/23 11:54 issues PFSH Acute 2 PFSH: Medical History (Updated 11/05/23 @ 20:21 by Avery Jo MD) PVD (peripheral vascular disease) CAD (coronary artery disease) Carotid stenosis Osteoarthritis of right knee Surgical History Hx of cholecystectomy H/O: hysterectomy H/O decompression of ulnar nerve Social History Smoking and tobacco/nicotine status: current every day tobacco/nicotine user cigarettes Packs smoked per day: 0.5 Years cigarettes smoked: 30 Alcohol intake: never Substance/Drug Use: never Lives independently: Yes Household members: none Housing: House Marital status: Number of children: 2 Pets and animals: Yes Pets & animals: cat(s) and dog(s) Vitals/I&O/Wt Last Vital Signs Temp 97.6 F 11/05/23 11:51 Pulse 67 11/05/23 17:44 BP 147/86 11/05/23 11:51 Pulse Ox 98 11/05/23 17:44 O2 Del Method Room Air 11/05/23 17:44 Weight last 48 hrs Weight 72.575 kg Physical Exam 2 Narrative: General: No acute distress, AO x3 HEENT: PERRLA, pupils bilaterally equal and reactive Chest: Normal vesicular breath sounds, no added sounds, equal good air entry bilaterally CVS: S1-S2 regular, no murmurs, no tachycardia, no gallops, no rubs Abdomen: Soft, nontender, no organomegaly, bowel sounds present Neuro: No focal deficits, no facial deformity, AO x3, power 5/5 in all limbs Extremity: Bilateral limbs and feet are warm to touch, pulses peripherally not palpable but dopplerable, left worse than right Data 11/05/23 16:27 11/05/23 16:27 A&P Assessment and plan (1) Claudication: (2) PVD (peripheral vascular disease): With claudication. Pain worsening at rest now. Continue dual antiplatelet therapy and statins. Hold off on beta-blockers for now. Start on heparin drip. Patient already getting CTA with aortic runoff in ER. Start on normal saline at 75 cc/h to avoid [place]. [place] every 6 hours as needed for pain control. Cardiology consulted from the ER for possible need of peripheral angiogram. N.p.o. after midnight. Neurovascular checks every 4 hours. Plan Smoker: Patient planning to quit smoking. Counseled in detail. CODE STATUS: Full code Cardiac diet, n.p.o. after midnight. Heparin drip with suspicion for DVT prophylaxis Protonix for PUD prophylaxis. Attestations 2 Medical Necessity Statement*: Admission for more than 2 midnights for management of peripheral vascular disease with claudication with concerns for severe left-sided peripheral vascular compromise requiring heparin drip and possible angioplasty Diagnoses Claudication I73.9 PVD (peripheral vascular disease) I73.9
[2023-11-05 19:19] LABS: Procalcitonin 0.04 ng/mL (0-0.5)
[2023-11-05] MEDS: heparin drip 25,000 UNIT/500 ML PREMIX 20.32 UNIT IV (19:36)
--- NOTE | 2023-11-05 20:37 | P.CONIM_ITS ---
Providers/Reason For Consult 2 Consulting Physician/Specialty*: Ankush Monet MD/interventional cardiology Reason for Consult*: Critical limb ischemia of left leg with lifestyle limiting claudication of right lower extremity Abnormal vascular study Abnormal CTA of aorta with runoff suggestive of bilateral iliac superficial femoral and below the knee disease Requesting Physician: Dr. Karla Lovelace Primary Care Provider: Eliana Christianson NP History of Present Illness History of Present Illness Aziza Katz is a 63 year old female past medical history significant for coronary artery disease hypertension hyperlipidemia severe peripheral vascular disease prior right common iliac and left SFA intervention presented with worsening of pain aches cramps on mild exertion and now even at rest to the extent the patient cannot touch her foot on the ground. She has intact motor and sensory sensation. CTA with runoff confirmed high-grade severe stenosis as below. CT/CT angio abd aorta runof [id number] IMPRESSION: 1. Severe stenosis throughout the right common iliac artery and very severe stenosis throughout the right external iliac artery. 2. Severe stenoses in the right common femoral and superficial femoral arteries. 3. Occlusion of the right posterior tibial artery, with reconstituted flow distally. 4. Moderate and severe stenoses in the left external iliac artery. 5. Severe stenosis in the left common femoral artery with occlusion of the left superficial femoral artery. Reconstituted flow in the distal superficial femoral artery. 6. Complete occlusion of the left posterior tibial artery with severe disease in the left tibioperoneal trunk and peroneal artery. 7. 1.3 cm indeterminate lesion in the left kidney. Recommend non-emergent MRI without and with contrast or non-emergent CT without and with contrast. MRI is preferred for masses under 1.5 cm. Medications/Allergies Home Medications Medication Instructions Recorded Confirmed Last Taken Type hydrocodone 10 mg-acetaminophen 1 - 2 tab PO QID PRN Pain 03/03/19 10/23/23 03/02/22 06:00 History 325 mg tablet ergocalciferol (vitamin D2) 1,250 1,250 mcg PO .the 1st and 15th pt 09/27/20 10/23/23 02/19/22 History mcg (50,000 unit) capsule states still takes ext med history shows last filled 11/16/20 28d/s montelukast 10 mg tablet 10 mg PO QAM 09/27/20 10/23/23 03/02/22 06:00 History plecanatide 3 mg tablet (Trulance) 3 mg PO QAM 09/27/20 10/23/23 03/01/22 06:00 History ropinirole 2 mg tablet 2 mg PO BEDTIME 09/27/20 10/23/23 11/15/21 21:00 History ascorbic acid (vitamin C) 500 mg 500 mg PO DAILY 03/09/21 10/23/23 03/01/22 06:00 History tablet (Vitamin C) hydroxyzine pamoate 50 mg capsule 50 mg PO QID PRN Anxiety 03/09/21 10/23/23 03/01/22 20:00 History quetiapine 25 mg tablet 25 mg PO BEDTIME 03/09/21 10/23/23 03/01/22 20:00 History albuterol sulfate 90 mcg/actuation 2 puff inhalation Q4H PRN 03/11/21 10/23/23 03/01/22 06:00 Rx aerosol inhaler Shortness Of Breath #1 g aspirin 81 mg tablet,delayed 81 mg PO DAILY #60 tabs 03/11/21 10/23/23 03/02/22 06:00 Rx release ([place] Low Dose Aspirin) fluticasone propionate 50 1 spray intranasal DAILY #0 grams 03/11/21 10/23/23 03/01/22 06:00 Rx mcg/actuation nasal spray,suspension famotidine 40 mg tablet 40 mg PO BID 05/20/21 10/23/23 03/02/22 06:00 History furosemide 20 mg tablet (Lasix) 20 mg PO DAILY 06/08/22 10/23/23 Unknown History metoprolol tartrate 25 mg tablet 25 mg PO BID #180 tabs 06/08/22 10/23/23 Unknown Rx potassium gluconate 500 mg (83 mg) 1,000 mg PO DAILY 06/08/22 10/23/23 Unknown History tablet clopidogrel 75 mg tablet 75 mg PO DAILY #90 tabs 12/05/22 10/23/23 Unknown Rx pregabalin 25 mg capsule (Lyrica) 25 mg PO DAILY 10/23/23 10/23/23 Unknown History Allergies Allergy/AdvReac Type Severity Reaction Status Date / Time duloxetine [From Cymbalta] Allergy headaches Verified 11/05/23 11:54 Penicillins Allergy respiratory Verified 11/05/23 11:54 issues Current Medications Generic Name Dose Route Start Last Admin Trade Name Nina PRN Reason Stop Dose Admin Heparin Sodium/Sodium Chloride 25,000 unit in 500 mls @ 0 mls/hr 11/05/23 18:30 11/05/23 19:36 Heparin Drip IV 14 unit/kg/hr CONT LAZARO 20.32 mls/hr Administration Protocol Per Protocol PFSH Acute 2 PFSH: Medical History (Updated 11/05/23 @ 21:07 by Ankush Monet MD) PVD (peripheral vascular disease) CAD (coronary artery disease) Carotid stenosis Osteoarthritis of right knee Surgical History Hx of cholecystectomy H/O: hysterectomy H/O decompression of ulnar nerve Social History Smoking and tobacco/nicotine status: current every day tobacco/nicotine user cigarettes Packs smoked per day: 0.5 Years cigarettes smoked: 30 Alcohol intake: never Substance/Drug Use: never Lives independently: Yes Household members: none Housing: House Marital status: Number of children: 2 Pets and animals: Yes Pets & animals: cat(s) and dog(s) Vitals/I&O/Wt Last Vital Signs Temp 97.6 F 11/05/23 11:51 Pulse 66 11/05/23 18:47 BP 147/86 11/05/23 11:51 Pulse Ox 95 11/05/23 18:47 O2 Del Method Room Air 11/05/23 18:47 Weight last 48 hrs Weight 160 lb Physical Exam 2 Const: OTHER: GENERAL: Patient is alert, awake and oriented x3. Evidently not in acute distress on rest HEART: Regular S1 and S2. No murmur, rub or gallop. LUNGS: Clear to auscultate bilaterally. CENTRAL NERVOUS SYSTEM: Grossly nonfocal. EXTREMITIES: Lower extremities without edema bilaterally. Both feet are cold but not icy cold good capillary refill, motor and sensory intact no obvious ulceration no AT PT Data 11/05/23 16:27 11/05/23 16:27 A&P Assessment and plan (1) Critical lower limb ischemia: Worsening of symptoms of claudication or to the extent that patient feels pain at rest is suggestive of critical limb ischemia. CTA confirmed severe peripheral vascular disease, we will therefore proceed with peripheral angiogram and intervention. Continue aspirin and statin pain control, physical examination is not consistent with acute limb ischemia we will therefore proceed with peripheral angiogram over next 48 hours. (2) CAD (coronary artery disease): Denies any complaint continue current regimen Qualifiers: [place] vs. transplanted heart: [place] heart Associated angina: without angina Consult Attestations 2 Medical Necessity Statement: Patient require continuation hospitalization for above defined care. Patient will be undergoing peripheral angiogram and intervention Coding Level of Care Code Acute Code for [facility] Diagnoses Critical lower limb ischemia I70.229 CAD (coronary artery disease) I25.10 [place] vs. transplanted heart: [place] heart Associated angina: without angina
[2023-11-05] MEDS: ropinirole 2 mg Tablet PO (22:15)
[2023-11-05] MEDS: HYDROcodone-acetaminophen 10-325 mg Tablet 1 TAB PO (22:15)
[2023-11-05] MEDS: quetiapine 25 mg Tablet PO (22:15)
[2023-11-05 22:38] LABS: Iron 29 ug/dL (37-145); Percent Saturation 9.7 % (20-50); Thyroid Stimulating Hormone 1.19 uIU/mL (0.27-4.20); Total Iron Binding Capacity 297 mcg/dl; Unsaturated Iron Binding 268 ug/dL (112-347); Vitamin B12 600 pg/mL (232-1245)
[2023-11-05] MEDS: sodium chloride 0.9% 1,000 ML 75 ML IV (23:52)
[2023-11-06] VITALS (11 sets, daily range): BP systolic 79–135; BP diastolic 50–76; PULSE 59–66; RESP 13–20; TEMP 36.3–36.9; O2SAT 90–93; BMI 28.7
[2023-11-06] MEDS: morphine 4 mg/mL SDV 1 mL 2 MG IVP ×3 (00:05→21:52)
[2023-11-06 01:49] LABS: Basophils # 0.1 10^3/uL (0.0-0.1); Basophils % 0.6 %; Eosinophils # 0.3 10^3/uL (0.0-0.8); Eosinophils % 3.5 %; Lymphocytes # 4.1 10^3/uL (0.8-4.8); Lymphocytes % 50.9 %; Mean Corpuscular HGB Conc 32.4 g/dL (30-55); Mean Corpuscular Hemoglobin 29.3 pg (27-33); Mean Corpuscular Volume 90.7 fl (85-98); Mean Platelet Volume 11.2 fL (7.4-10.4); Monocytes # 0.7 10^3/uL (0.2-0.9); Monocytes % 9.1 %; Neutrophils # 2.84 10^3/uL (1.8-7.7); Neutrophils % 35.6 %; Nucleated Red Blood Cells % 0 %; Platelet Count 256 10^3/cmm (157-399); Red Blood Count 3.75 10^6/uL (3.85-5.65); Red Cell Distribution Width 15.1 % (12.1-15.1); White Blood Count 7.98 10^3/uL (3.29-11.43)
[2023-11-06 02:05] LABS: Alanine Aminotransferase 6 U/L (0-33); Albumin Level 3.3 g/dL (3.5-5.2); Alkaline Phosphatase 106 U/L (35-105); Anion Gap 9.4 (5-19); Aspartate Amino Transferase 15 U/L (0-32); Blood Urea Nitrogen 7 mg/dL (8-23); Calcium 8.4 mg/dL (8.5-10.5); Carbon Dioxide 31 mmol/L (22-29); Chloride 106 mmol/L (98-107); Chol HDL Ratio 2.65 mg/dL (0.0-4.40); Cholesterol 138 mg/dL (0-200); Globulin 2.5 g/dL (1.3-4.6); Glomerular Filtration Rate 55.8 mL/min (90-130); Glucose 114 mg/dL (65-115); HDL Cholesterol 52 mg/dL (60-100); LDL Cholesterol Calculated 66 mg/dL (50-129); LDL HDL Ratio 1.27 RATIO (0.00-3.22); Magnesium 1.7 mg/dL (1.7-2.3); Osmolality Calculated 293 mOsm/kg (285-295); Phosphorus 4.2 mg/dL (2.5-4.5); Potassium 4.4 mmol/L (3.5-5.1); Sodium 142 mmol/L (136-145); Total Bilirubin 0.2 mg/dL (0.15-1.2); Total Protein 5.8 g/dL (6.6-8.7); Triglycerides 100 mg/dL (0-150)
[2023-11-06 02:10] LABS: Estmated Average Glucose 123; Hemoglobin A1C 5.9 % (4.0-6.0)
[2023-11-06 02:39] LABS: Slide Review Slide Review Perform
[2023-11-06 02:45] LABS: Folate Level 5.5 ng/mL (4.8-37.3)
--- NOTE | 2023-11-06 04:19 | PC.NURSE ---
patient reporting 9/10 pin in bilateral legs blood pressure low at this time morphine contraindicated at this time educated patient on v/s and potential adverse reaction if given more pain medications at this time patient verbalized understanding
[2023-11-06 05:07] LABS: Partial Thromboplastin Time 48.5 SECONDS (23.9-36.7)
[2023-11-06 06:09] LABS: Add Urine Microscopic? NO
[2023-11-06 06:14] LABS: Bilirubin Urine Neg (Negative); Blood Urine Neg (Negative); Glucose Urine UA Norm (Normal); Ketones Urine Negative (Negative); Leukocyte Esterase Urine Negative (Negative); Nitrate Urine Negative (Negative); Protein Urine Neg (Negative); Specific Gravity, Urine 1.005 (1.005-1.030); Urine Appearance Clear (CLEAR); Urine Color Yellow (Yellow); Urobilinogen Urine Neg (Negative); pH Urine 6.5 (5-7)
[2023-11-06 06:15] LABS: Charge for UA Resulting for Rev
[2023-11-06] MEDS: aspirin 81 mg EC Tablet PO (07:42)
[2023-11-06] MEDS: clopidogrel 75 mg Tablet PO (07:42)
[2023-11-06] MEDS: pantoprazole DR 40 mg Tablet PO (07:42)
[2023-11-06] MEDS: pregabalin 25 mg Capsule PO (07:43)
[2023-11-06] MEDS: HYDROcodone-acetaminophen 10-325 mg Tablet 1 TAB PO ×4 (07:48→20:21)
--- NOTE | 2023-11-06 08:42 | USCV_ITS ---
Aziza Katz Age: 63 Gender: F : 1960 Exam Date: 11/06/2023 09:31 Ordering Phys: Avery Jo MD Technologist: Exam Location: [facility] [place] Indication: cp sob BP: 104 / 57 HR: 60 Rhythm: Sinus Technical Quality: Adequate MEASUREMENTS (Male / Female) Normal Values 2D ECHO LV Diastolic Diameter PLAX 3.6 cm 4.2 - 5.9 / 3.9 - 5.3 cm IVS Diastolic Thickness 0.9 cm 0.6 - 1.0 / 0.6 - 0.9 cm IVS Systolic Thickness 1.4 cm LVPW Diastolic Thickness 1.1 cm 0.6 - 1.0 / 0.6 - 0.9 cm LVPW Systolic Thickness 1.3 cm LVOT Diameter 2.0 cm LV Ejection Fraction 2D Teich 63.1 % LV Ejection Fraction MOD 4C 65.6 % LV Ejection Fraction MOD 2C 64.4 % LV Ejection Fraction 2C AL 65.6 % LA Diameter 2.9 cm RA Systolic Volume 4C AL 23.7 ml RA Systolic Volume 4C MOD 22.8 ml LA Sys Volume AL 36.9 cm cubed LA Sys Volume Index AL 20.3 cm cubed/m squared Aorta at Sinotubular Diameter 2.6 cm M-MODE LA Ao Ratio MM 1.2 AV Cusp Separation MM 1.5 cm DOPPLER AV Peak Velocity 138.0 cm/s LVOT Peak Velocity 120.0 cm/s AV Area Cont Eq vti 2.9 cm squared AV Area Cont Eq pk 2.8 cm squared MV Area PHT 3.7 cm squared Mitral E to A Ratio 1.3 TV Peak Velocity 228.5 cm/s TR Peak Velocity 237.0 cm/s TR Peak Gradient 22.5 mmHg TV Peak E Velocity 75.0 cm/s Right Atrial Pressure 3.0 mmHg Pulmonary Artery Systolic Pressu 25.5 mmHg PV Peak Velocity 88.0 cm/s FINDINGS Left Ventricle Left ventricle is normal in size. LV systolic function is normal with EF of 60 to 65%. No regional wall motion abnormalities are seen. Right Ventricle Normal in size and function Right Atrium Normal in size Left Atrium Normal in size Mitral Valve Structurally normal mitral valve. Mild mitral regurgitation. Aortic Valve Structurally normal aortic valve. No significant stenosis or regurgitation. Tricuspid Valve Mild tricuspid regurgitation. Pulmonary artery systolic pressure is normal Pulmonic Valve Not well visualized. Pericardium Normal Aorta Normal in size IVC Appears to be normal CONCLUSIONS LV systolic function is normal with EF of 60-65% Mild mitral regurgitation Mild tricuspid regurgitation No comparison studies are available. Fernie Alexandra MD (Electronically Signed) Final Date: 06 November 2023 15:24 S
--- NOTE | 2023-11-06 09:23 | PC.CHAP ---
Pastoral Care Encounter/Spiritual Assessment Type of Contact [] Declined clutch rebuilder visit [] Patient/Family/Request visit [] Outpatient visit [] Follow-up visit [] Physician referral [] Code/Alert [] Routine visit [] Staff referral [] Actively dying [] Patient sleeping [] Family support [] [] Out of room [] Palliative care [] [x] Receiving care in room [] Pre-surgical visit [] Trauma [] Long length of stay [] ICU visit [] Other: Relational/Emotional Strength [] Patient feels connected with others/family/visitors/staff [] Distress [] Loneliness/isolation [] Abandonment Spirituality of Patient [] Person of Shahnaz [] Attends Scientology of their Shahnaz [] Believes in Prayer [] Reads Bible or Methodist materials [] There are Spiritual issues to be addressed Set Making Machine Operator Interventions [] Prayer [] Active listening [] Non-anxious presence [] Spiritual/emotional support [] Crisis/trauma care [] Spiritual counseling [] Bereavement support [] Provided bereavement packet [] Provided Bible/devotional materials [] Provided toy/stuffed animal, coloring book to patient or family member [] Provided Communion [] Anointing/[place] [] Salvation [] Completed spiritual assessment [] Other: Impact on Illness or Injury [] Angry [] Fearful [] Anxious [] Often cries [] Exhaustion [] Unable to work [] Unable to attend congregational [] Unable to walk/stand [] Unable to read [] Unable to drive [] Unable to eat/drink [] Unable to sleep [] Unable to be with family [] Patient intubated [] Other: Summary Time spent with patient
[2023-11-06 10:00] LABS: Partial Thromboplastin Time 72.2 SECONDS (23.9-36.7)
[2023-11-06] MEDS: sodium chloride 0.9% 1,000 ML 75 ML IV (13:01)
--- NOTE | 2023-11-06 13:29 | P.PN_ITS ---
Subjective 2 Subjective: No acute vents overnight. Has remained medically stable and afebrile. Denies any changes in symptoms. Denies any nausea, vomiting, headache. Vitals/I&O/Wt Last Vital Signs Temp 97.3 F L 11/06/23 12:00 Pulse 60 11/06/23 12:00 Resp 18 11/06/23 12:00 BP 135/75 11/06/23 12:00 Pulse Ox 90 11/06/23 12:00 O2 Del Method Room Air 11/06/23 12:00 11/05/23 11/06/23 11/06/23 22:59 06:59 14:59 Intake Total 250 / 250 381.901 / 045.181 3335.917 / 1916.917 Balance 250 / 250 381.901 / 102.496 9680.917 / 1915.917 Weight last 48 hrs Weight 73.5 kg Weight 73.5 kg Weight 73.5 kg Weight 72.575 kg Weight 72.575 kg Physical Exam 2 Narrative: General: No acute distress, AO x3 HEENT: PERRLA, pupils bilaterally equal and reactive Chest: Normal vesicular breath sounds, no added sounds, equal good air entry bilaterally CVS: S1-S2 regular, no murmurs, no tachycardia, no gallops, no rubs Abdomen: Soft, nontender, no organomegaly, bowel sounds present Neuro: No focal deficits, no facial deformity, AO x3, power 5/5 in all limbs Extremity: Bilateral limbs and feet are warm to touch, pulses peripherally not palpable but dopplerable, left worse than right Data 11/06/23 01:34 11/06/23 01:34 A&P Assessment and plan (1) Claudication: (2) PVD (peripheral vascular disease): With claudication. Pain worsening at rest now. Continue dual antiplatelet therapy and statins. Continue with heparin drip. Hold off on beta-blockers for now. Appreciate CTA aortic runoff. Continue with normal saline 75 cc/h. Plan for peripheral angiogram in AM. N.p.o. after midnight. Start on heparin drip. [place] every 6 hours as needed for pain control. Neurovascular checks every 4 hours. Monitor PTT Plan Smoker: Patient planning to quit smoking. Counseled in detail. Continue other chronic medications including pregabalin, Seroquel, Requip. CODE STATUS: Full code Cardiac diet, n.p.o. after midnight. Heparin drip will be sufficient for DVT prophylaxis Protonix for PUD prophylaxis. Attestations 2 Medical Necessity Statement*: Requires further hospitalization for management of peripheral vascular disease with claudication with concerns for acute limb ischemia requiring peripheral angiogram Diagnoses Claudication I73.9 PVD (peripheral vascular disease) I73.9
[2023-11-06 17:06] LABS: Partial Thromboplastin Time 84.6 SECONDS (23.9-36.7)
--- NOTE | 2023-11-06 19:40 | P.PN_ITS ---
Subjective 2 Subjective: Patient feel pain in the left leg whenever trying to put her foot down, otherwise no significant event. Continue pain management continue to optimize medications for possible peripheral angiogram tomorrow Vitals/I&O/Wt Last Vital Signs Temp 98.1 F 11/06/23 16:00 Pulse 66 11/06/23 16:00 Resp 13 11/06/23 16:00 BP 97/58 11/06/23 16:00 Pulse Ox 90 11/06/23 16:00 O2 Del Method Room Air 11/06/23 16:00 11/06/23 11/06/23 11/06/23 06:59 14:59 22:59 Intake Total 381.901 / 092.046 5792.917 / 1916.917 127.733 / 2044.650 Balance 381.901 / 711.509 9383.917 / 1916.917 127.733 / 2044.650 Weight last 48 hrs Weight 162 lb 0.636 oz Weight 162 lb 0.636 oz Weight 162 lb 0.636 oz Weight 160 lb Weight 160 lb Physical Exam 2 Const: OTHER: GENERAL: Patient is alert, awake and oriented x3. Denies any pain at rest now HEART: Regular S1 and S2. No murmur, rub or gallop. LUNGS: Clear to auscultate bilaterally. CENTRAL NERVOUS SYSTEM: Grossly nonfocal. EXTREMITIES: Lower extremities without edema bilaterally. no PT AT bilaterally, patient has intact motor and sensory, Data 11/06/23 01:34 11/06/23 01:34 A&P Assessment and plan (1) Critical lower limb ischemia: Worsening of symptoms of claudication or to the extent that patient feels pain at rest is suggestive of critical limb ischemia. CTA confirmed severe peripheral vascular disease, we will therefore proceed with peripheral angiogram and intervention. Continue aspirin and statin pain control, physical examination is not consistent with acute limb ischemia we will therefore proceed with peripheral angiogram over next 48 hours. On today's visit patient continues to not do worse and appear to be stable now. Medicine and optimized we will proceed with peripheral angiogram tomorrow (2) CAD (coronary artery disease): Denies any complaint continue current regimen Medication echocardiogram was performed showed normal ejection fraction no significant wall motion abnormality with Qualifiers: [place] vs. transplanted heart: [place] heart Associated angina: without angina Plan Patient require continuation hospitalization for peripheral catheterization Attestations 2 Medical Necessity Statement*: Patient require continuation hospitalization for optimization medicine and preparation before proceeding peripheral angiogram tomorrow morning Coding Level of Care Code Acute Code for g Fwd Diagnoses Critical lower limb ischemia I70.229 CAD (coronary artery disease) I25.10 [place] vs. transplanted heart: [place] Associated angina: without angina
[2023-11-06] MEDS: quetiapine 25 mg Tablet PO (20:21)
[2023-11-06] MEDS: ropinirole 2 mg Tablet PO (20:21)
[2023-11-07] VITALS (13 sets, daily range): BP systolic 101–154; BP diastolic 60–88; PULSE 55–74; RESP 14–21; TEMP 36.2–37.1; O2SAT 88–95
[2023-11-07 00:28] LABS: Partial Thromboplastin Time 87.8 SECONDS (23.9-36.7)
[2023-11-07] MEDS: sodium chloride 0.9% 1,000 ML 75 ML IV (01:37)
[2023-11-07] MEDS: HYDROcodone-acetaminophen 10-325 mg Tablet 1 TAB PO ×4 (02:11→20:56)
[2023-11-07] MEDS: diphenhydrAMINE 50 mg Capsule PO (06:14)
--- NOTE | 2023-11-07 07:43 | XACV_ITS ---
Ht: 160 cm Wt: 73 kg BSA: 1.83 m2 Any Known Allergies: Other Gender: Female : 1960 Exam Type: Invasive Peripheral Vascular Procedure(s): Procedure Description: Peripheral Cath Diagnostic Procedure Procedure Description: Abdominal aortic angiography Procedure Description: Lower extremities' angiography Exam Priority: Routine KHAMU2, Monet; Conclusions Indication for peripheral angiogram: Critical limb ischemiaPlease note that patient has history of right common femoral lesion, right radial artery was not palpable therefore we used left radial artery. Through the left radial artery pigtail catheter was placed in the abdominal aorta and renal artery level, peripheral angiogram with runoff was performed.Left renal artery has moderate to significant stenosis Right renal artery is patentAbdominal aortogramAbdominal aorta has diffuse luminal irregularities without significant stenosis it appeared to be mildly aneurysmalIliac arteries Right iliac artery: Right common iliac artery has diffuse luminal irregularities Right external iliac artery has ostial moderate lesion Right internal artery has diffuse luminal irregularity Right common iliac has eccentric high-grade severe stenosis right profunda femoral artery is patent Right SFA is patent with diffuse luminal irregularity Right popliteal artery is patent with diffuse luminal irregularity Right tibioperoneal trunk is patent with diffuse luminal irregularities Right posterior tibial artery appeared to be chronically occluded Right anterior tibial artery was visualized and proximal course may be due to running out of contrast we were not able to see the rest, right peroneal artery appeared to be patent.Left common iliac artery has diffuse luminal irregularity, left external iliac artery has moderate lesion Left common femoral is patent with mild luminal irregularities Left profundofemoral artery has diffuse luminal irregularity without significant stenosis Left SFA is 100% chronically occluded at the ostium, it reconstitute at the beginning of popliteal artery near Andreas's canal through collaterals Left popliteal artery is patent Left tibioperoneal trunk is patent Left anterior tibial has diffuse luminal irregularity but patent and is entire course Left peroneal and posterior tibial arteries are chronically occluded. Recommendations Usual post cath care. Refer to vascular surgery for aorto popliteal left side and aorto femoral right side bypass. Hemodynamic Data Phase:Rest AO : 140.0 / 57.0 ( 83.0 ) @ 10:23:00 AM 138.0 / 59.0 ( 84.0 ) @ 10:25:00 AM 99.0 / 64.0 ( 81.0 ) @ 10:29:00 AM 120.0 / 74.0 ( 96.0 ) @ 10:36:00 AM 127.0 / 78.0 ( 102.0 ) @ 10:42:00 AM Access Site Site: Left Radial artery Sheath Size: 6 Fr Hemost... Method: TR Band Hemost... Success: Successful Procedure Details Findings Pre-Procedure Time Out. Identified patient by full name and date of as verbalized by the patient/guarantor. Does the consent match the physician's order: Yes. Accurate & Complete Informed Consent: Yes. Inpatient/Outpatient History & Physical on Chart: Yes. If H&P is completed, is and addenduem needed: No; If yes, is the addendum complete: N/A. Visualize and Verify Site with Patient/Guarantor: N/A. Relevant Radiology Images available: Yes. Pre-op teaching completed and patient verbalized understanding. The risks, benefits, and alternatives of sedation and/or procedure were discussed by physician. The patient agrees to continue. Procedure started. Correct patient, site and procedure confirmed by cath team. PERRLA. Strong, equal hand pierce and shave press operator bilaterally. Lungs clear x 5 lobes. IV Site on Arrival: 18 gauge in the left anticubital. IV Fluids: 0.9% NaCl at KVO. 400 mL infused prior to garage laborer. Pre Procedural Pulses: bilateral dorsalis pedis was Doppled. Pre Procedural Pulses: bilateral posterior tibial was Doppled. Oxygen started at 2liters/min via nasal canula. bilateral groins was prepped with chloroprep then draped in the usual sterile fashion. Baseline sample Acquired. HR: 65 BPM. Physician arrived. Physician scrubbed in. Immediate Pre-Procedure Time Out. Correct Patient: Yes; Correct Procedure: Yes; Correct Site: Yes; Correct Patient Position: Yes; Correct Supplies: Yes; Dried Flammable Prep: Yes; Blood Products Available: N/A;. Lidocaine 1% infiltrated to the right groin. Lidocaine 1% infiltrated to the right groin. Venous access obtained with a micropuncture set. Wire and needle removed. An attempt to gain access to the right femoral artery was unsuccessful. right radial was prepped with chloroprep then draped in the usual sterile fashion. Lidocaine 1% infiltrated to the right radial. Ultrasound being used to obtain access. Unable to obtain radial access. MD attempting to gain access in the left radial artery. Lidocaine 1% infiltrated to the left radial. Arterial access obtained. A 5 cuban 125cm Straight Pig catheter in over the exchange wire. Catheter removed over the exchange wire. A 5 cuban JR4 catheter in over wire. Catheter removed over the exchange wire. A 5 cuban 125cm Straight Pig catheter in over wire. Pigtail postioned above the bifurcation of the iliacs. Aortagram with runoff performed @ 10 mL/sec for a total of 30 mL. Physician review of cine films. Left leg runoff performed. Right leg runoff performed. Right common femoral selected and arteriogram performed. Physician review of cine films. Left common femoral selected and arteriogram performed. Catheter removed over the exchange wire. A TR Band was successful obtaining hemostatsis at the Left Radial artery insertion site. Post Procedure: Pulses reassessed and unchanged. PERRLA. Strong, equal hand pierce and shave press operator bilaterally. No VTE prophylaxis required. Medication's Wasted: Nitro = 49.75 mcg. Medication's Wasted: Heparin = 1000 units. Medication's Wasted: Lidocaine 1% = 10 mL. Medication's Wasted: Other = Fentanyl 25mcg Versed 1 mg. Total IV fluids: 156 mL. Vital chart was stopped. Post-op diagnosis: PAD. Complications: None. Estimated blood loss: 5mL-10mL. Responsiveness - Normal response to verbal stimuli; alert and oriented, PERRLA. Airway - Unaffected, no intervention required; spontaneous ventilation. Circulation: W/N/L, pulses unchanged. Nausea/Vomiting: No. Procedure completed. Patient transferred by bed to CPRU. Procedure Medications Start: 8:22 AM Stop: 8: AM Medication: Versed Amount: 1 mg Route: I.V. Start: 8:23 AM Stop: 8:23 AM Medication: Fentanyl Amount: 50 mcg Route: I.V. Start: 8:31 AM Stop: 8:31 AM Medication: Versed Amount: 1 mg Route: I.V. Start: 9:07 AM Stop: 9:07 AM Medication: Versed 1 mg and Fentanyl 25 mcg Amount: 1 Route: I.V. Start: 9:09 AM Stop: 9:09 AM Medication: Nitrogylcerin Amount: 50 mcg Route: S.Q. Start: 9:12 AM Stop: 9:12 AM Medication: Nitrogylcerin Amount: 200 mcg Route: I.A. Start: 9:19 AM Stop: 9:19 AM Medication: Heparin Amount: 5000 units Route: I.V. I, the attending physician, have reviewed and verified all procedure medications. Yes, all medications given per verbal order History/Risk Factors Hypertension: No Dyslipidemia: No Peripheral Arterial Disease (PAD): Yes Obesity: No Renal Disease: No Tobacco Use: Current/Recent(w/in 1 year) Prior Interventions PCI: No CABG: No Valve Surgery: No Report Signatures Finalized by Ankush Monet MD on 11/11/2023 07:06 PM
[2023-11-07 08:00] LABS: Basophils # 0.1 10^3/uL (0.0-0.1); Basophils % 0.6 %; Eosinophils # 0.4 10^3/uL (0.0-0.8); Eosinophils % 4.1 %; Hematocrit 33.9 % (36-47); Lymphocytes # 3.6 10^3/uL (0.8-4.8); Lymphocytes % 40.2 %; Mean Corpuscular Hemoglobin 28.7 pg (27-33); Mean Corpuscular Volume 92.6 fl (85-98); Mean Platelet Volume 11.9 fL (7.4-10.4); Monocytes # 0.8 10^3/uL (0.2-0.9); Monocytes % 8.5 %; Neutrophils # 4.12 10^3/uL (1.8-7.7); Neutrophils % 46.3 %; Nucleated Red Blood Cells % 0 %; Platelet Count 228 10^3/cmm (157-399); Red Blood Count 3.66 10^6/uL (3.85-5.65); Red Cell Distribution Width 15.3 % (12.1-15.1); White Blood Count 8.92 10^3/uL (3.29-11.43)
--- NOTE | 2023-11-07 08:00 | W.PM.OPSUD ---
Surgery/Procedure H&P Update DATE OF PROCEDURE: November 07, 2023 DATE H&P PERFORMED: 11/05/23 H&P UPDATE INFORMATION: I have reviewed H&P completed within last 30 days, I have examined patient prior to procedure and No changes to prior documentation PREOP DIAGNOSIS: critical limb ischemia of left leg and foot, sever PAD with caludication PATIENT REASSESSED PRIOR TO SEDATION, WITH NO CHANGE NOTED: Yes PHYSICAL EXAM: alert, oriented x 3, clear to auscultation bilaterally, regular rate & rhythm and operative site marked AIRWAY EVAL/ANESTHESIA PLAN: ASA III, Local Anesthesia, Risks, benefits & alternatives of sedation and/or procedure discussed and Patient agrees to continue as planned ADDITIONAL INFORMATION: Concious sedation Mallapati 2
[2023-11-07 08:24] LABS: Alanine Aminotransferase 6 U/L (0-33); Albumin Level 3.1 g/dL (3.5-5.2); Alkaline Phosphatase 92 U/L (35-105); Anion Gap 13.4 (5-19); Aspartate Amino Transferase 13 U/L (0-32); Blood Urea Nitrogen 7 mg/dL (8-23); Calcium 8.4 mg/dL (8.5-10.5); Carbon Dioxide 25 mmol/L (22-29); Chloride 108 mmol/L (98-107); Creatinine Clr Calc Pharmacy 60.6522; Globulin 2.6 g/dL (1.3-4.6); Glucose 82 mg/dL (65-115); Osmolality Calculated 291 mOsm/kg (285-295); Potassium 4.4 mmol/L (3.5-5.1); Sodium 142 mmol/L (136-145); Total Bilirubin 0.2 mg/dL (0.15-1.2); Total Protein 5.7 g/dL (6.6-8.7)
[2023-11-07 08:26] LABS: Magnesium 1.7 mg/dL (1.7-2.3)
[2023-11-07 08:45] LABS: Partial Thromboplastin Time 75.1 SECONDS (23.9-36.7)
--- NOTE | 2023-11-07 09:10 | PC.CHAP ---
Pastoral Care Encounter/Spiritual Assessment Type of Contact [] Declined scleroscope tester visit [] Patient/Family/Request visit [] Outpatient visit [] Follow-up visit [] Physician referral [] Code/Alert [] Routine visit [] Staff referral [] Actively dying [] Patient sleeping [] Family support [] [x] Out of room [] Palliative care [] [] Receiving care in room [] Pre-surgical visit [] Trauma [] Long length of stay [] ICU visit [] Other: Relational/Emotional Strength [] Patient feels connected with others/family/visitors/staff [] Distress [] Loneliness/isolation [] Abandonment Spirituality of Patient [] Person of Shahnaz [] Attends Congregational of their Shahnaz [] Believes in Prayer [] Reads Bible or Judaism materials [] There are Spiritual issues to be addressed [employer] Specialist Interventions [] Prayer [] Active listening [] Non-anxious presence [] Spiritual/emotional support [] Crisis/trauma care [] Spiritual counseling [] Bereavement support [] Provided bereavement packet [] Provided Bible/devotional materials [] Provided toy/stuffed animal, coloring book to patient or family member [] Provided Communion [] Anointing/[place] [] Salvation [] Completed spiritual assessment [] Other: Impact on Illness or Injury [] Angry [] Fearful [] Anxious [] Often cries [] Exhaustion [] Unable to work [] Unable to attend quaker [] Unable to walk/stand [] Unable to read [] Unable to drive [] Unable to eat/drink [] Unable to sleep [] Unable to be with family [] Patient intubated [] Other: Summary Time spent with patient
--- NOTE | 2023-11-07 10:00 | PC.NURSE ---
report from laborer ammunition assembly Verified to laborer ammunition assembly staff when to restart heparin drip. aLyla RN asked Dr Monet via telephone to not restart the heparin drip. TR band intact on left wrist.
--- NOTE | 2023-11-07 10:03 | P.PN_ITS ---
Subjective 2 Subjective: Patient underwent peripheral angiogram this morning. Noted to have high-grade calcified right common femoral stenosis with diffuse disease of right external and common iliac, high-grade left external iliac, 100% chronically occluded left SFA at the ostium reconstitute around Andreas's canal with single-vessel runoff to left foot. Patient does not have right radial access we therefore have to rely on left radial, at this point I will ask for surgical consult first if she is not a good candidate then my option is to proceed with R2 P sheath from left radial approach or through left popliteal and then bring her back for right common femoral angioplasty through left common femoral approach in 2 to 3 weeks. Vitals/I&O/Wt Last Vital Signs Temp 98.1 F 11/07/23 07:04 Pulse 62 11/07/23 07:04 Resp 19 H 11/07/23 07:04 BP 101/63 11/07/23 07:04 Pulse Ox 89 L 11/07/23 07:04 O2 Del Method Room Air 11/07/23 07:04 11/06/23 11/07/23 11/07/23 22:59 06:59 14:59 Intake Total 127.733 / 2044.650 1447.75 / 3492.400 59.449 / 59.449 Output Total 600 / 600 Balance 127.733 / 2044.650 847.75 / 2892.400 59.449 / 59.449 Weight last 48 hrs Weight 162 lb 0.636 oz Weight 162 lb 0.636 oz Weight 162 lb 0.636 oz Weight 162 lb 0.636 oz Weight 160 lb Weight 160 lb Physical Exam 2 Const: COMMON NORMALS: alert OTHER: GENERAL: Patient is alert, awake and oriented x3. Denies any pain HEART: Regular S1 and S2. No murmur, rub or gallop. LUNGS: Clear to auscultate bilaterally. CENTRAL NERVOUS SYSTEM: Grossly nonfocal. EXTREMITIES: Lower extremities without edema bilaterally. no PT AT bilaterally, patient has intact motor and sensory, Resp: COMMON NORMALS: clear to auscultation bilaterally AUSCULTATION: clear to auscultation bilaterally Neuro: SENSORIUM/ORIENTATION: Yes alert Data 11/07/23 07:32 11/07/23 07:32 A&P Assessment and plan (1) Critical lower limb ischemia: Worsening of symptoms of claudication or to the extent that patient feels pain at rest is suggestive of critical limb ischemia. CTA confirmed severe peripheral vascular disease, we will therefore proceed with peripheral angiogram and intervention. Continue aspirin and statin pain control, physical examination is not consistent with acute limb ischemia we will therefore proceed with peripheral angiogram over next 48 hours. On today's visit patient continues to not do worse and appear to be stable now. Medicine and optimized we will proceed with peripheral angiogram tomorrow On today's visit dated 11/07/2023 patient underwent peripheral angiogram through left radial approach,Noted to have high-grade calcified right common femoral stenosis with diffuse disease of right external and common iliac, high-grade left external iliac, 100% chronically occluded left SFA at the ostium reconstitute around Andreas's canal with single-vessel runoff to left foot. Patient does not have right radial access we therefore have to rely on left radial, at this point I will ask for surgical consult first if she is not a good candidate then my option is to proceed with R2 P sheath from left radial approach or through left popliteal and then bring her back for right common femoral angioplasty through left common femoral approach in 2 to 3 weeks. Left TR band is in place continue to monitor. Will discuss with the patient in detail again once she is over fentanyl and Versed conscious sedation currently she appeared to be comprehending however would like to repeat discussion again. IV fluid 100 mL/h for 1 L (2) CAD (coronary artery disease): Denies any complaint continue current regimen Medication echocardiogram was performed showed normal ejection fraction no significant wall motion abnormality with On today's visit dated 11/07/2023 patient denies any complaint. Continue current management Qualifiers: [place] vs. transplanted heart: [place] heart Associated angina: without angina Plan Patient require continuation hospitalization for peripheral catheterization Attestations 2 Medical Necessity Statement*: patient require continuation hospitalization for above defined care Coding Level of Care Code Acute Code for [facility] Diagnoses Critical lower limb ischemia I70.229 CAD (coronary artery disease) I25.10 [place] vs. transplanted heart: [place] heart Associated angina: without angina
[2023-11-07] MEDS: pregabalin 25 mg Capsule PO (11:04)
[2023-11-07] MEDS: clopidogrel 75 mg Tablet PO (11:04)
[2023-11-07] MEDS: pantoprazole DR 40 mg Tablet PO (11:04)
[2023-11-07] MEDS: aspirin 81 mg EC Tablet PO (11:04)
--- NOTE | 2023-11-07 14:03 | P.PN_ITS ---
Subjective 2 Subjective: No acute vents overnight. Planned for peripheral angiogram today. Patient denies any nausea, vomiting, headache. Leg pain is stable. Has remained on heparin drip. Denies any difficulty breathing. Vitals/I&O/Wt Last Vital Signs Temp 97.2 F L 11/07/23 11:13 Pulse 74 11/07/23 11:13 Resp 18 11/07/23 11:13 BP 141/86 11/07/23 11:13 Pulse Ox 95 11/07/23 11:13 O2 Del Method Room Air 11/07/23 12:43 O2 Flow Rate 3 11/07/23 10:30 11/06/23 11/07/23 11/07/23 22:59 06:59 14:59 Intake Total 127.733 / 2044.650 1447.75 / 3492.400 59.449 / 59.449 Output Total 600 / 600 Balance 127.733 / 2044.650 847.75 / 2892.400 59.449 / 59.449 Weight last 48 hrs Weight 73.5 kg Weight 73.5 kg Weight 73.5 kg Weight 73.5 kg Weight 72.575 kg Physical Exam 2 Narrative: General: No acute distress, AO x3 HEENT: PERRLA, pupils bilaterally equal and reactive Chest: Normal vesicular breath sounds, no added sounds, equal good air entry bilaterally CVS: S1-S2 regular, no murmurs, no tachycardia, no gallops, no rubs Abdomen: Soft, nontender, no organomegaly, bowel sounds present Neuro: No focal deficits, no facial deformity, AO x3, power 5/5 in all limbs Extremity: Bilateral limbs and feet are warm to touch, pulses peripherally not palpable but dopplerable, left worse than right Data 11/07/23 07:32 11/07/23 07:32 A&P Assessment and plan (1) Claudication: (2) PVD (peripheral vascular disease): With claudication. Pain worsening at rest now. Continue dual antiplatelet therapy and statins. Continue with heparin drip. Hold off on beta-blockers for now. Appreciate CTA aortic runoff. Continue with normal saline 75 cc/h. Monitor BMP. No signs of fluid overload. Patient remains on room air. Plan for peripheral angiogram today. Continue NPO. Cardiac diet post procedure. [place] every 6 hours as needed for pain control. Neurovascular checks every 4 hours. Monitor PTT Plan Smoker: Patient planning to quit smoking. Counseled in detail. Continue other chronic medications including pregabalin, Seroquel, Requip. CODE STATUS: Full code NPO. Cardiac diet postprocedure. Heparin drip will be sufficient for DVT prophylaxis Protonix for PUD prophylaxis. Attestations 2 Medical Necessity Statement*: Requires further hospitalization for management of severe peripheral vascular disease with concerns for claudication of the foot in setting of limb ischemia Diagnoses Claudication I73.9 PVD (peripheral vascular disease) I73.9
--- NOTE | 2023-11-07 14:37 | PC.SOCIAL ---
IMM Update pg 2 of IMM updated and reviewed w/ patient. Copy provided and copy dated, initialed and placed in chart.
[2023-11-07] MEDS: sodium chloride 0.9% 1,000 ML 50 ML IV (16:11)
[2023-11-07] MEDS: acetaminophen 325 mg Tablet 650 MG PO (17:04)
[2023-11-07] MEDS: ropinirole 2 mg Tablet PO (20:44)
[2023-11-07] MEDS: temazepam 15 mg Capsule PO (20:44)
[2023-11-07] MEDS: quetiapine 25 mg Tablet PO (20:44)
--- NOTE | 2023-11-07 23:26 | PC.NURSE ---
this nurse called tele-pharmacy to adjust the pre-cath meds to appropriate time of 0730 on 11/07. Tele-pharmacy moved the NS and the Benadryl to appropriate time, This nurse also asked for the 325mg aspirin to be moved to the same time, pharmacy did not, instead they moved the patients scheduled dose of 81mg aspirin to 0730 on 11/06, making the dose Syed MOSQUERA scanned not appearing anymore and showing not done, the med was given by Syed MOSQUERA at 1104 on 11/06. This nurse readjusted that schedule to be back at 0900 starting on 11/07.
[2023-11-08] VITALS: BP 112/84; PULSE 74; RESP 15; O2SAT 98
[2023-11-08] MEDS: HYDROcodone-acetaminophen 5-325 mg Tablet 1 TAB PO ×2 (01:18→05:23)
[2023-11-08 04:00] VITALS: BP 114/78; PULSE 60; RESP 13; TEMP 36.6; O2SAT 98
[2023-11-08 04:09] LABS: Basophils % 0.5 %; Eosinophils # 0.3 10^3/uL (0.0-0.8); Eosinophils % 4.9 %; Hematocrit 33.1 % (36-47); Lymphocytes % 30.2 %; Mean Corpuscular HGB Conc 31.7 g/dL (30-55); Mean Corpuscular Hemoglobin 28.9 pg (27-33); Mean Corpuscular Volume 91.2 fl (85-98); Mean Platelet Volume 11.2 fL (7.4-10.4); Monocytes # 0.7 10^3/uL (0.2-0.9); Monocytes % 11.1 %; Neutrophils # 3.48 10^3/uL (1.8-7.7); Neutrophils % 53.1 %; Nucleated Red Blood Cells % 0 %; Platelet Count 219 10^3/cmm (157-399); Red Blood Count 3.63 10^6/uL (3.85-5.65); Red Cell Distribution Width 14.9 % (12.1-15.1); White Blood Count 6.55 10^3/uL (3.29-11.43)
[2023-11-08 04:57] LABS: Magnesium 1.6 mg/dL (1.7-2.3)
[2023-11-08 04:59] LABS: Alanine Aminotransferase 7 U/L (0-33); Albumin Level 3.3 g/dL (3.5-5.2); Alkaline Phosphatase 96 U/L (35-105); Anion Gap 12.8 (5-19); Aspartate Amino Transferase 12 U/L (0-32); Blood Urea Nitrogen 7 mg/dL (8-23); Calcium 8.5 mg/dL (8.5-10.5); Carbon Dioxide 27 mmol/L (22-29); Chloride 108 mmol/L (98-107); Creatinine Clr Calc Pharmacy 60.6522; Globulin 2.6 g/dL (1.3-4.6); Glucose 88 mg/dL (65-115); Osmolality Calculated 293 mOsm/kg (285-295); Potassium 4.8 mmol/L (3.5-5.1); Sodium 143 mmol/L (136-145); Total Bilirubin 0.2 mg/dL (0.15-1.2); Total Protein 5.9 g/dL (6.6-8.7)
[2023-11-08] MEDS: sodium chloride 0.9% 1,000 ML 75 ML IV (05:22)
[2023-11-08 06:00] VITALS: PULSE 59
[2023-11-08 07:22] VITALS: BP 114/67; PULSE 64; RESP 16; TEMP 36.9; O2SAT 97
[2023-11-08] MEDS: aspirin 81 mg EC Tablet PO (09:19)
[2023-11-08] MEDS: clopidogrel 75 mg Tablet PO (09:19)
[2023-11-08] MEDS: pantoprazole DR 40 mg Tablet PO (09:19)
[2023-11-08] MEDS: pregabalin 25 mg Capsule PO (09:19)
[2023-11-08] MEDS: HYDROcodone-acetaminophen 10-325 mg Tablet 1 TAB PO (09:32)
--- NOTE | 2023-11-08 10:19 | PM.DCS ---
Discharge Providers Date of Admission: 11/05/23 21:27 Date of Discharge: November 08, 2023 Attending Provider at Admission: Avery Jo MD Attending Provider at Discharge: Avery oJ MD Consults: Cardiology: Dr. Monet Primary Care Provider: Eliana Christianson NP Diagnoses at Discharge Discharge Diagnosis (1) Claudication: Status: Acute (2) PVD (peripheral vascular disease): Status: Acute Reason for Visit Reason for Visit: Left foot pain/ has blockage Hospital Course Hospital Course Aziza Katz is a 63 year old female past medical history significant for coronary artery disease hypertension hyperlipidemia severe peripheral vascular disease prior right common iliac and left SFA intervention presented with worsening of pain aches cramps on mild exertion and now even at rest to the extent the patient cannot touch her foot on the ground. She has intact motor and sensory sensation. CTA with runoff confirmed high-grade severe stenosis as below. She was started on heparin drip with concerns for limb ischemia. Cardiology was consulted. She underwent peripheral angiogram where she was noted to have high-grade calcified right common femoral stenosis with diffuse disease of right external and common iliac, high-grade left external iliac, 100% chronically occluded left SFA at the ostium reconstitute around Andreas's canal with single-vessel runoff to left foot. Patient does not have right radial access we therefore have to rely on left radial. Further treatment plan of possible bypass surgery versus R2 P sheath from left radial approach or left popliteal for possible right femoral angioplasty was discussed in detail with the patient and she wanted to go ahead with angioplasty. She has been discharged in hemodynamically stable condition on full dose aspirin, cilostazol twice daily with advised to follow-up with cardiology office in next 2 weeks for a possible peripheral angioplasty next 2 to 3 weeks. Her hospitalization was otherwise unremarkable. Plavix and metoprolol have been discontinued. Physical Exam Narrative: General: No acute distress, AO x3 HEENT: PERRLA, pupils bilaterally equal and reactive Chest: Normal vesicular breath sounds, no added sounds, equal good air entry bilaterally CVS: S1-S2 regular, no murmurs, no tachycardia, no gallops, no rubs Abdomen: Soft, nontender, no organomegaly, bowel sounds present Neuro: No focal deficits, no facial deformity, AO x3, power 5/5 in all limbs Extremity: Bilateral limbs and feet are warm to touch, pulses peripherally not palpable but dopplerable, left worse than right Discharge Data Studies Completed and Pending Completed Studies During Hospitalization Category Date Time Status CTA runoff [CT angio abd aorta runof [id number]] Stat Cat Scan 11/05/23 16:09 Completed CV. 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 Suspected moderate stenosis in the left external iliac artery. 2. 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 3. Reconstituted flow in the distal left SFA, left popliteal artery and tibial arteries as above. 4. Abnormal left CHRISTINE = 0.46. Aorta w/Runoff CTA 11/05/23 16:09 IMPRESSION: 1. Severe stenosis throughout the right common iliac artery and very severe stenosis throughout the right external iliac artery. 2. Severe stenoses in the right common femoral and superficial femoral arteries. 3. Occlusion of the right posterior tibial artery, with reconstituted flow distally. 4. Moderate and severe stenoses in the left external iliac artery. 5. Severe stenosis in the left common femoral artery with occlusion of the left superficial femoral artery. Reconstituted flow in the distal superficial femoral artery. 6. Complete occlusion of the left posterior tibial artery with severe disease in the left tibioperoneal trunk and peroneal artery. 7. 1.3 cm indeterminate lesion in the left kidney. Recommend non-emergent MRI without and with contrast or non-emergent CT without and with contrast. MRI is preferred for masses under 1.5 cm. Echocardiogram: CONCLUSIONS LV systolic function is normal with EF of 60-65% Mild mitral regurgitation Mild tricuspid regurgitation No comparison studies are available. Fernie Alexandra MD (Electronically Signed) Final Date: 06 November 2023 Laboratory Results WBC 6.55 10^3/uL (3.29-11.43) 11/08/23 03:57 RBC 3.63 10^6/uL (3.85-5.65) L 11/08/23 03:57 Hgb 10.50 g/dL (11.27-16.99) L 11/08/23 03:57 Hct 33.1 % (36-47) L 11/08/23 03:57 MCV 91.2 fl (85-98) 11/08/23 03:57 MCH 28.9 pg (27-33) 11/08/23 03:57 MCHC 31.7 g/dL (30-55) 11/08/23 03:57 RDW 14.9 % (12.1-15.1) 11/08/23 03:57 Plt Count 219 10^3/cmm (157-399) 11/08/23 03:57 MPV 11.2 fL (7.4-10.4) H 11/08/23 03:57 Neut % (Auto) 53.1 % 11/08/23 03:57 Lymph % (Auto) 30.2 % 11/08/23 03:57 [place] % (Auto) 11.1 % 11/08/23 03:57 Eos % (Auto) 4.9 % 11/08/23 03:57 Baso % (Auto) 0.5 % 11/08/23 03:57 Neut # (Auto) 3.48 10^3/uL (1.8-7.7) 11/08/23 03:57 Lymph # (Auto) 2.0 10^3/uL (0.8-4.8) 11/08/23 03:57 [place] # (Auto) 0.7 10^3/uL (0.2-0.9) 11/08/23 03:57 Eos # (Auto) 0.3 10^3/uL (0.0-0.8) 11/08/23 03:57 Baso # (Auto) 0.0 10^3/uL (0.0-0.1) 11/08/23 03:57 Nucleated RBC % (auto) 0 % 11/08/23 03:57 Nucleated RBCs # 0.0 /100WBC 11/08/23 03:57 PT 13.00 SECONDS (12.1-14.9) 11/05/23 16:27 INR 0.95 (0.8-1.2) 11/05/23 16:27 APTT 75.1 SECONDS (23.9-36.7) H 11/07/23 07:32 Sodium 143 mmol/L (136-145) 11/08/23 03:57 Potassium 4.8 mmol/L (3.5-5.1) 11/08/23 03:57 Chloride 108 mmol/L (98-107) H 11/08/23 03:57 Carbon Dioxide 27 mmol/L (22-29) 11/08/23 03:57 Anion Gap 12.8 (5-19) 11/08/23 03:57 BUN 7 mg/dL (8-23) L 11/08/23 03:57 Creatinine 0.9 mg/dL (0.5-0.9) 11/08/23 03:57 GFR Calculation 63.0 mL/min (90-130) L 11/08/23 03:57 Glucose 88 mg/dL (65-115) 11/08/23 03:57 Estimat Average Glucose 123 11/06/23 01:34 Hemoglobin A1c 5.9 % (4.0-6.0) 11/06/23 01:34 Calculated Osmolality 293 mOsm/kg (285-295) 11/08/23 03:57 Lactic Acid 1.9 mmol/L (0.5-2.2) 11/05/23 16:27 Calcium 8.5 mg/dL (8.5-10.5) 11/08/23 03:57 Phosphorus 4.2 mg/dL (2.5-4.5) 11/06/23 01:34 Magnesium 1.6 mg/dL (1.7-2.3) L 11/08/23 03:57 Iron 29 ug/dL (37-145) L 11/05/23 16:27 TIBC 297 mcg/dl 11/05/23 16:27 % Saturation 9.7 % (20-50) L 11/05/23 16:27 Unsat Iron Binding 268 ug/dL (112-347) 11/05/23 16:27 Total Bilirubin 0.2 mg/dL (0.15-1.2) 11/08/23 03:57 AST 12 U/L (0-32) 11/08/23 03:57 ALT 7 U/L (0-33) 11/08/23 03:57 Alkaline Phosphatase 96 U/L (35-105) 11/08/23 03:57 Total Protein 5.9 g/dL (6.6-8.7) L 11/08/23 03:57 Albumin 3.3 g/dL (3.5-5.2) L 11/08/23 03:57 Globulin 2.6 g/dL (1.3-4.6) 11/08/23 03:57 Triglycerides 100 mg/dL (0-150) 11/06/23 01:34 Cholesterol 138 mg/dL (0-200) 11/06/23 01:34 LDL Cholesterol, Calc 66 mg/dL (50-129) 11/06/23 01:34 HDL Cholesterol 52 mg/dL (60-100) L 11/06/23 01:34 LDL/HDL Ratio 1.27 RATIO (0.00-3.22) 11/06/23 01:34 Cholesterol/HDL Ratio 2.65 mg/dL (0.0-4.40) 11/06/23 01:34 Vitamin B12 600 pg/mL (232-1245) 11/05/23 16:27 Folate 5.5 ng/mL (4.8-37.3) 11/06/23 01:34 Procalcitonin 0.04 ng/mL (0-0.5) 11/05/23 16:27 TSH 1.19 uIU/mL (0.27-4.20) 11/05/23 16:27 Urine Color Yellow (Yellow) 11/06/23 04:30 Urine Appearance Clear (CLEAR) 11/06/23 04:30 Urine pH 6.5 (5-7) 11/06/23 04:30 Ur Specific [place] 1.005 (1.005-1.030) 11/06/23 04:30 Urine Protein Neg (Negative) 11/06/23 04:30 Urine Glucose (UA) Norm (Normal) 11/06/23 04:30 Urine Ketones Negative (Negative) 11/06/23 04:30 Urine Blood Neg (Negative) 11/06/23 04:30 Urine Nitrate Negative (Negative) 11/06/23 04:30 Urine Bilirubin Neg (Negative) 11/06/23 04:30 Urine Urobilinogen Neg mg/dL (Negative) 11/06/23 04:30 Ur Leukocyte Esterase Negative (Negative) 11/06/23 04:30 Amorphous Sediment Not Reportable 11/06/23 04:30 Vitals Last Vital Signs Temp 98.5 F 11/08/23 07:22 Pulse 64 11/08/23 07:22 Resp 16 11/08/23 07:22 BP 114/67 11/08/23 07:22 Pulse Ox 97 11/08/23 07:22 O2 Del Method Nasal Cannula 11/08/23 07:22 O2 Flow Rate 2 11/08/23 07:22 Discharge Plan Discharge Patient Disposition: Home Condition: Stable Prescriptions: New aspirin 325 mg capsule 325 mg PO DAILY Qty: 30 0RF cilostazol 50 mg tablet 50 mg PO BID Qty: 60 0RF Continued hydrocodone-acetaminophen 10-325 mg tablet 1 - 2 tab PO QID MDD 8 tabs PRN (Reason: Pain) ergocalciferol (vitamin D2) 1,250 mcg (50,000 unit) capsule 1,250 mcg PO .the 1st and 15th montelukast 10 mg tablet 10 mg PO QAM Trulance 3 mg tablet 3 mg PO QAM furosemide [Lasix] 20 mg tablet 20 mg PO DAILY potassium gluconate 500 mg (83 mg) tablet 1,000 mg PO PRN PRN (Reason: unknown ) hydroxyzine pamoate 50 mg capsule 50 mg PO QID PRN (Reason: Anxiety) fluticasone propionate 50 mcg/actuation spray,suspension 1 spray intranasal DAILY Qty: 0 3RF Rx Instructions: administer into each nostril famotidine 40 mg tablet 40 mg PO BID ropinirole 4 mg Tablet 4 mg PO DAILY pregabalin 75 mg Capsule 75 mg PO DAILY quetiapine 50 mg Tablet 50 mg PO DAILY Discontinued metoprolol tartrate 25 mg tablet 25 mg PO BID Qty: 180 3RF clopidogrel 75 mg tablet 75 mg PO DAILY Qty: 90 1RF aspirin [[place] Low Dose Aspirin] 81 mg tablet,delayed release (DR/EC) 81 mg PO DAILY Qty: 60 2RF Discharge Orders: Discharge Order (Routine); Ordered 11/08/23 Ordered By: Avery Jo Referrals: Eliana Christianson NP [Primary Care Provider] - 11/20/23 10:30 am (Follow up with Eliana Christianson on at 1030am) Leidy Lewis FNP [Nurse Practitioner] - 11/22/23 12:45 pm (Follow up with Leidy MUÑIZ on with a check in time of 12:45pm) Discharge Diet: Cardiac Discharge Activity: Resume usual activity and Increase activity as tolerated Patient Instructions: Opioid Safety Activity Restrictions/Additional Instructions: Dose of aspirin has been changed to 325 mg oral daily. Plavix has been stopped. Take cilostazol twice daily instead of Plavix. Metoprolol 25 mg twice daily has been stopped. Continue to hold off on smoking. Follow-up with cardiology team in 2 weeks for possible peripheral angiogram as an outpatient. Discharge Attestations Time Spent in Discharge Care*: greater than 30 min Specific Discharge Activities: educating patient, educating and/or supporting family/caregiver, discussing with pcp/other providers, discussing with nurse case manager/social workers/dc planners, documenting/other paperwork and evaluating patient/reviewing data Status at Discharge: Cognitive status at discharge: cognitively intact, Behavioral status at discharge: cooperative, Functional status at discharge: independent ambulation, Overall status at discharge: patient is not back to baseline Quality Metrics Clinical Quality Measures [ No reported AMI, CVA or VTE this stay] Coding Level of Care Code 70613 Total time (in minutes) for Discharge: 60 Diagnoses Claudication I73.9 PVD (peripheral vascular disease) I73.9
[2023-11-08 11:52] VITALS: BP 130/82; PULSE 70; RESP 16; TEMP 36.7; O2SAT 93
== END 2023-11-08 13:21 | disposition home or self-care (01) | DRG 300 ==
LOC: ER 17:10 → CSU 21:27
PROVIDERS: Internal Medicine Cardiovascular Disease; Admitting Provider Student in an Organized Health Care Education/Training Program; Emergency Provider Emergency Medicine; PCP Nurse Practitioner Family; Visit Provider Student in an Organized Health Care Education/Training Program
PROC: B41FYZZ Fluoroscopy of Right Lower Extremity Arteries using Other Contrast (ICD-10-PCS; principal; 2023-11-07 10:00)
DX: I70.213 Atherosclerosis of native arteries of extremities with intermittent claudication, bilateral legs (principal); I31.9 Disease of pericardium, unspecified; I10 Essential (primary) hypertension; I25.10 Atherosclerotic heart disease of native coronary artery without angina pectoris; E78.5 Hyperlipidemia, unspecified; I70.1 Atherosclerosis of renal artery; F17.210 Nicotine dependence, cigarettes, uncomplicated; Z79.82 Long term (current) use of aspirin; Z79.899 Other long term (current) drug therapy; Z88.0 Allergy status to penicillin; Z88.8 Allergy status to other drugs, medicaments and biological substances; Z90.710 Acquired absence of both cervix and uterus; Z90.49 Acquired absence of other specified parts of digestive tract
CPT/HCPCS: 36415; 75625; 75635; 75716; 80053; 80061; 81003; 82607; 82746; 83036; 83540; 83550; 83605; 83735; 84100; 84145; 84443; 85025; 85610; 85730; 93306; 93926; 94664; 96365; 96374; 96375; 96376; 99152; 99153; 99285; C1769; C1887; C1894; J1644; J2250; J2270; J2405; J3010; J3490; J7030; Q0163; Q9967

== ENCOUNTER → 2023-11-22 11:03 | Outpatient (BNVA) | payer MEDICARE, MEDICAID, SELFPAY | PROVIDERS: PCP Nurse Practitioner Family; Visit Provider Nurse Practitioner Family | DX: I70.229 Atherosclerosis of native arteries of extremities with rest pain, unspecified extremity (principal); I25.10 Atherosclerotic heart disease of native coronary artery without angina pectoris; Z87.891 Personal history of nicotine dependence | CPT/HCPCS: 36415; 80048; 83880; 85025; 85610; 99214 ==

== ENCOUNTER 2023-11-26 12:29 | Outpatient (CLI) | payer MEDICARE, MEDICAID, SELFPAY ==
--- NOTE | 2023-11-26 13:30 | USCV_ITS ---
SterlingAziza ordoñez Age: 63 Gender: F : 1960 Exam Date: 11/26/2023 12:54 Ordering Phys: Fernie Alexandra M.D ([email or web address]) Technologist: VALENTÍN Exam Location: [facility] [place] Indication: Dizziness. Pre op Risk Factors: Previous Vascular Surgery: Right Brachial BP: / Left Brachial BP: / Right Left Velocity (cm/s) Spectral Plaque Velocity (cm/s) Spectral Plaque Syst/Diast Broadening Syst/Diast Broadening 79.90/ 17.80 Prox CCA 83.80 / 23.50 91.40/ 20.90 Mid CCA 83.80 / 32.70 93.00/ 25.70 Distal CCA 59.80 / 19.80 57.70/ 15.80 Prox ICA 96.70 / 33.30 82.70/ 29.30 Mid ICA 137.20/ 46.90 64.70/ 21.10 Distal ICA 47.60 / 19.20 59.90 ECA 118.80 0.90 ICA/CCA 2.30 Antegrade Vertebral Antegrade 25.20/ 6.00 cm/s 59.10/ 17.00 cm/s Tri Subclavian Bi 217.8 118.8 0 0 FINDINGS Comparison:. 06/07/21 Bilateral diffuse scattered plaque in the carotid arteries. Left ICA velocity is not as elevated as on the prior exam. Antegrade vertebral arteries. CONCLUSIONS Left ICA stenosis 50-69%. No progression of stenosis. Right ICA stenosis < 50%. Dr. Jessica Balderrama DO (Electronically Signed) Final Date: 26 November 2023 16:14 S
--- NOTE | 2023-11-26 14:00 | USCV_ITS ---
Aziza Katz Age: 63 Gender: F : 1960 Exam Date: 11/26/2023 13:30 Ordering Phys: Fernie Alexandra M.D ([email or web address]) Technologist: CT Exam Location: [facility] [place] Indication: cad BP: 127 / 79 HR: 66 Rhythm: Sinus Technical Quality: Adequate MEASUREMENTS (Male / Female) Normal Values 2D ECHO LVOT Diameter 2.0 cm LV Ejection Fraction MOD 4C 60.4 % LV Ejection Fraction MOD 2C 64.8 % LV Ejection Fraction 2C AL 66.7 % LA Diameter 3.0 cm RA Systolic Volume 4C AL 24.6 ml RA Systolic Volume 4C MOD 24.5 ml LA Sys Volume AL 36.4 cm cubed LA Sys Volume Index AL 20.0 cm cubed/m squared Aorta at Sinotubular Diameter 2.6 cm IVC Diameter 2.0 cm M-MODE LA Ao Ratio MM 1.3 AV Cusp Separation MM 1.6 cm DOPPLER AV Peak Velocity 137.0 cm/s LVOT Peak Velocity 146.0 cm/s AV Area Cont Eq vti 3.9 cm squared AV Area Cont Eq pk 3.3 cm squared MV Peak Velocity 84.0 cm/s MV Area PHT 3.3 cm squared Mitral E to A Ratio 1.1 TR Peak Velocity 256.0 cm/s TR Peak Gradient 26.2 mmHg TV Peak E Velocity 72.0 cm/s Right Atrial Pressure 3.0 mmHg Pulmonary Artery Systolic Pressu 29.2 mmHg PV Peak Velocity 102.5 cm/s FINDINGS Left Ventricle Normal left ventricular size, systolic function and wall thickness, with no regional wall motion abnormalities. Left ventricular ejection fraction is estimated at 65 %. Grade I/IV diastolic dysfunction (abnormal relaxation filling pattern), normal to mildly elevated filling pressures. Right Ventricle The right ventricle is normal in size and function. Right Atrium The right atrium is normal in size. Left Atrium The left atrium is normal in size. Mitral Valve Structurally normal mitral valve without significant stenosis or prolapse. There is no mitral regurgitation. Aortic Valve Structurally normal aortic valve without significant sclerosis or stenosis. There is no aortic regurgitation. Tricuspid Valve Mild tricuspid valve regurgitation. Pulmonic Valve Structurally normal pulmonic valve without significant stenosis. There is no pulmonic regurgitation. Pericardium Normal pericardium without effusion. Aorta Normal ascending aorta dimension. IVC The inferior vena cava appears normal. CONCLUSIONS Normal left ventricular size, systolic function and wall thickness, with no regional wall motion abnormalities. Left ventricular ejection fraction is estimated at 65 %. Grade I/IV diastolic dysfunction (abnormal relaxation filling pattern), normal to mildly elevated filling pressures. No significant valve abnormalities. There is no pericardial effusion. Pulmonary artery systolic pressure is within normal limits. Right atrial pressure is around 5 mm of mercury. Ankush Monet MD (Electronically Signed) Final Date: 27 November 2023 12:34 S
== END 2023-11-26 12:30 | disposition home or self-care (01) ==
LOC: RAD 12:29
PROVIDERS: PCP Nurse Practitioner Family; Visit Provider Internal Medicine
DX: I65.22 Occlusion and stenosis of left carotid artery (principal); I50.30 Unspecified diastolic (congestive) heart failure; M54.2 Cervicalgia; R07.9 Chest pain, unspecified; R06.02 Shortness of breath
CPT/HCPCS: 93306; 93880

== ENCOUNTER 2023-12-03 09:44 | Outpatient (CLI) | payer MEDICARE, MEDICAID, SELFPAY ==
[2023-12-03 10:06] VITALS: BMI 29.2
--- NOTE | 2023-12-03 10:07 | NMCV_ITS ---
NM samuel perf SPECT r/s* [id number] Aziza Katz Age: 63 Gender: F : 1960 Exam Date: 12/03/2023 10:07 Ordering Phys: Fernie Alexandra M.D ([email or web address]) Technologist: CHINA Longoria Exam Location: [facility] Indications: cp STRESS TEST Please see separate stress test report in [facility] for full findings IMAGE PROTOCOL Rest/Stress 1 Lexiscan Day Radiopharmaceutical Dose (mCi) Administration Site Administered by Rest: Tc-99m 10.8 IV Kay Valenzuela, COLLAR SEPARATOR Sestamibi Stress:Tc-99m 33 IV Kay Blantongle, COLLAR SEPARATOR Sestamibi Rest: 03-Dec-2023 60 Discovery 630 Stress: 03-Dec-2023 30 Discovery 630 0.4mg Lexiscan. Images obtained in supine and prone position. SPECT RESULTS Technical Quality: Good Raw Data Analysis: Normal Image Corrections: No attenuation or motion correction applied Summed Stress Score: 1 Summed Rest Score: 0 Summed Difference Score: 1 PERFUSION FINDINGS SPECT images demonstrate homogeneous tracer distribution throughout the myocardium. FUNCTIONAL RESULTS (calculated via Gated SPECT) Stress Image LV EF (%): 94 Stress EDV (mL):36 TID: 0.69 Stress ESV (mL):2 Rest Image LV EF (%): 75 FUNCTIONAL FINDINGS: There is normal left ventricular systolic function. IMPRESSIONS Myocardial perfusion imaging is normal. EKG segment will be documented separately. Ankush Monet MD (Electronically Signed) Final Date: 03 December 2023 13:15 S
--- NOTE | 2023-12-03 10:07 | ECG_ITS ---
[facility] Date: 2023-12-03 Pat Name: Aziza Katz Department: Room: Gender: Female Cage Clerk: : 1960 Requested By: Fernie Alexandra Order Number: [id number] Angelia MD: Fernie Alexandra M.D. Interpretive Statements LEXISCAN SESTAMIBI STRESS TEST Procedure: At the baseline, the blood pressure was 151/76 mmHg with a heart rate of 76 bpm. The electrocardiogram showed normal sinus rhythm, normal axis with normal ST and T's. The Lexiscan was infused over a period of 20 seconds. A total of 0.4 mg of Lexiscan was infused. The stress phase was continued for a total of 5 minutes. Heart rate was at the end of stress phase was 84 bpm and a blood pressure of 135/68 mmHg. The EKG at the peak infusion revealed normal sinus rhythm with no significant ST-T wave changes. Sestamibi was injected 20 seconds after the Lexiscan infusion. Blood pressure at the end of recovery phase was 145/81 mmHg with a heart rate of 85 bpm. Conclusion: 1. Normal EKG response to Lexiscan infusion 2. No Lexiscan induced chest pain or cardiac arrhythmia. 3. Normal blood pressure and heart rate response. 4. Sestamibi/sestamibi perfusion scan pending; see separate report. Electronically Signed On 12-06-2023 10:38:41 CDT by Fernie Alexadnra M.D. [email or web address]
[2023-12-03] MEDS: regadenoson 0.4 Mg/5 ml Syringe IVP (11:26)
[2023-12-03 12:00] VITALS: BP 156/88; PULSE 62
== END 2023-12-03 09:45 | disposition home or self-care (01) ==
PROVIDERS: PCP Nurse Practitioner Family; Visit Provider Internal Medicine
DX: R07.9 Chest pain, unspecified (principal); R06.02 Shortness of breath
CPT/HCPCS: 36415; 78452; 93017; 96374; A9500; J2785

== ENCOUNTER 2023-12-17 05:59 | Outpatient (CLI) | payer MEDICARE, MEDICAID, SELFPAY ==
[2023-12-17] VITALS (36 sets, daily range): BP systolic 66–142; BP diastolic 52–111; PULSE 72–100; RESP 13–24; TEMP 37–37.1; O2SAT 96–99; BMI 29.2
[2023-12-17] MEDS: diphenhydrAMINE 50 mg Capsule PO (06:39)
[2023-12-17 06:47] LABS: Basophils # 0.1 10^3/uL (0.0-0.1); Basophils % 0.7 %; Eosinophils # 0.5 10^3/uL (0.0-0.8); Eosinophils % 5.4 %; Hematocrit 36.1 % (36-47); Lymphocytes % 33.9 %; Mean Corpuscular HGB Conc 31.9 g/dL (30-55); Mean Corpuscular Hemoglobin 29.1 pg (27-33); Mean Corpuscular Volume 91.4 fl (85-98); Mean Platelet Volume 10.1 fL (7.4-10.4); Monocytes # 0.7 10^3/uL (0.2-0.9); Monocytes % 7.7 %; Neutrophils % 51.8 %; Nucleated Red Blood Cells % 0 %; Platelet Count 445 10^3/cmm (157-399); Red Blood Count 3.95 10^6/uL (3.85-5.65); Red Cell Distribution Width 13.2 % (12.1-15.1); White Blood Count 8.86 10^3/uL (3.29-11.43)
[2023-12-17 07:00] LABS: Anion Gap 16.3 (5-19); Blood Urea Nitrogen 5 mg/dL (8-23); Calcium 8.7 mg/dL (8.5-10.5); Carbon Dioxide 23 mmol/L (22-29); Chloride 103 mmol/L (98-107); Creatinine Clr Calc Pharmacy 58.9076; Glucose 125 mg/dL (65-115); Osmolality Calculated 287 mOsm/kg (285-295); Potassium 3.3 mmol/L (3.5-5.1); Sodium 139 mmol/L (136-145)
--- NOTE | 2023-12-17 07:00 | XACV_ITS ---
Exam Room: 2 Ht: 157 cm Wt: 73 kg BSA: 1.81 m2 Gender: Female : 1960 Any Known Allergies: Other Exam Priority: Routine Procedure(s): Procedure Description: Diagnostic procedure Procedure Description: Peripheral Cath Diagnostic Procedure Procedure Description: Peripheral vascular Intervention Procedure Description: PV Balloon Procedure Description: PV Atherectomy Procedure Description: Miscellaneous Procedure Description: ACT KHAMU2, Monet; Diagnostic Cath Status: Elective Diagnostic Findings * Indication: Critical limb ischemia of left leg with pain at rest and left foot, lifestyle limiting claudication of right leg, abnormal CTA with runoff, unsuccessful attempt to revascularize left leg in the past. Left radial approach and right common femoral approach was adopted. Through radial to peripheral long sheath peripheral angiogram with runoff was performed. . * Indication for peripheral angiogram: Catheters used: Long radial to peripheral 6 Guamanian sheath, short 6 Guamanian common femoral sheath used in right common femoral artery, Glidewire, seeker catheter, JR4 catheter, CSI atherectomy, Lutonix drug-coated balloon, Kennedy compliant balloon for details please see inventory. To destination long sheath from right common femoral to distal left external iliac was placed over the wire. Left side peripheral angiogram was performed through long destination 6 Guamanian sheath while right lower extremity peripheral angiogram was performed with the help of right common femoral short sheath with runoff. Right common iliac artery angiogram was performed through left radial to peripheral sheath placed through left radial artery. Abdominal aortogram: Not performed Right renal artery not visualized Left renal artery not visualized Right common iliac distal segment has high-grade significant stenosis Right external iliac mild luminal irregularity without significant stenosis Right internal iliac luminal irregularity without significant stenosis Right common femoral artery mild to moderate eccentric stenosis in the distal segment Right profundofemoral artery, luminal irregularity without significant stenosis Right SFA mild to moderate mid segment lesion without significant stenosis Right popliteal artery luminal irregularity without significant stenosis Left tibioperoneal trunk luminal irregularities without significant stenosis Left anterior tibial artery not well-visualized due to running out of contrast Right anterior tibial artery not well-visualized due to running out of contrast Right peroneal artery not well-visualized due to running out of contrast Left common iliac artery diffuse luminal irregularity without significant stenosis Left external iliac artery luminal irregularity without significant stenosis Left internal iliac artery luminal irregularity without significant stenosis 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 Lower Extremity Interventional Findings Through right common femoral artery with the help of Glidewire and JR catheter we were able to cross into left common iliac external iliac artery. Wire was passed into profundofemoral on the left side. Over the wire we exchanged the short sheath for a long sheath which was placed in the distal left external iliac artery. With the help of Glidewire and seeker after somewhat difficulty we were able to cross into left SFA to proximal mid and distal lesions, wire was then placed in the left anterior tibial with the help of seeker we were able to cross all the way into the left distal anterior tibial. With the help of cecal we exchanged the Viper wire which was placed in the anterior tibial, using 2.0 above multiple passes were performed at low and mid speed from proximal to distal left SFA. Viper wire was then exchanged with Glidewire through seeker, balloon angioplasty using 2.0, 5.0 x 250 Kennedy balloons was performed at nominal atmospheres for 2 minutes each in distal to proximal segment. We then used lutonix drug-coated balloon applied and mid and proximal segment of the left SFA at nominal ANSHU for 2 minutes each. Excellent angiographic result was noted at the end of the case starting from left common iliac, internal iliac, external iliac, left common femoral artery, left SFA, left popliteal artery, tibioperoneal trunk, anterior tibial and posterior tibial arteries all the way to the left foot, anterior arch was visualized. No significant residual stenosis was noted. At the end of the case a good anterior posterior tibial pulse was felt, left posterior tibial artery appeared to be chronically occluded however it constitute through collaterals as evident by feeling of the pulse manually.. Right high-grade common iliac artery stenosis may need to be addressed if patient continues to have lifestyle limiting claudication despite of optimization of medicine and exercise. Conclusions Indication for peripheral angiogram: Catheters used: Long radial to peripheral 6 Guamanian sheath, short 6 Guamanian common femoral sheath used in right common femoral artery, Glidewire, seeker catheter, JR4 catheter, CSI atherectomy, Lutonix drug-coated balloon, Kennedy compliant balloon for details please see inventory. To destination long sheath from right common femoral to distal left external iliac was placed over the wire. Left side peripheral angiogram was performed through long destination 6 Guamanian sheath while right lower extremity peripheral angiogram was performed with the help of right common femoral short sheath with runoff. Right common iliac artery angiogram was performed through left radial to peripheral sheath placed through left radial artery. Abdominal aortogram: Not performed Right renal artery not visualized Left renal artery not visualized Right common iliac distal segment has high-grade significant stenosis Right external iliac mild luminal irregularity without significant stenosis Right internal iliac luminal irregularity without significant stenosis Right common femoral artery mild to moderate eccentric stenosis in the distal segment Right profundofemoral artery, luminal irregularity without significant stenosis Right SFA mild to moderate mid segment lesion without significant stenosis Right popliteal artery luminal irregularity without significant stenosis Left tibioperoneal trunk luminal irregularities without significant stenosis Left anterior tibial artery not well-visualized due to running out of contrast Right anterior tibial artery not well-visualized due to running out of contrast Right peroneal artery not well-visualized due to running out of contrast Left common iliac artery diffuse luminal irregularity without significant stenosis Left external iliac artery luminal irregularity without significant stenosis Left internal iliac artery luminal irregularity without significant stenosis 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 Recommendations 1-Return to inpatient for close monitoring and routine cath care 2-Risk factor modification for secondary prevention 3-Statin and aspirin 81 mg life-long, if tolerated 4-Continue Plavix 75mg p.o. daily for three months. 5-Continue optimal medical management 6-Follow up with Dr. Monet in four weeks and your primary care in 10 days . Pressures Phase:Rest AO : 163 / 85 ( 114 ) @ 9:09:00 AM 154 / 53 ( 86 ) @ 9:18:00 AM 127 / 74 ( 97 ) @ 9:59:00 AM 86 / 64 ( 75 ) @ 10:14:00 AM 163 / 75 ( 108 ) @ 10:14:00 AM 183 / 74 ( 114 ) @ 10:18:00 AM 146 / 61 ( 90 ) @ 10:41:00 AM 165 / 64 ( 95 ) @ 11:03:00 AM 158 / 61 ( 88 ) @ 11:13:00 AM 176 / 73 ( 107 ) @ 11:34:00 AM 72 / 61 ( 67 ) @ 12:02:00 PM 117 / 73 ( 91 ) @ 12:02:00 PM 128 / 79 ( 100 ) @ 12:15:00 PM Hemodynamic Data Phase:Rest AO : 163.0 / 85.0 ( 114.0 ) @ 9:09:00 AM 154.0 / 53.0 ( 86.0 ) @ 9:18:00 AM 127.0 / 74.0 ( 97.0 ) @ 9:59:00 AM 86.0 / 64.0 ( 75.0 ) @ 10:14:00 AM 163.0 / 75.0 ( 108.0 ) @ 10:14:00 AM 183.0 / 74.0 ( 114.0 ) @ 10:18:00 AM 146.0 / 61.0 ( 90.0 ) @ 10:41:00 AM 165.0 / 64.0 ( 95.0 ) @ 11:03:00 AM 158.0 / 61.0 ( 88.0 ) @ 11:13:00 AM 176.0 / 73.0 ( 107.0 ) @ 11:34:00 AM 72.0 / 61.0 ( 67.0 ) @ 12:02:00 PM 117.0 / 73.0 ( 91.0 ) @ 12:02:00 PM 128.0 / 79.0 ( 100.0 ) @ 12:15:00 PM Clinical Evaluation EBL: 5mL-10mL Procedural Details Pre-Procedure Time Out. Identified patient by full name and date of as verbalized by the patient/guarantor. Does the consent match the physician's order: Yes. Accurate & Complete Informed Consent: Yes. Inpatient/Outpatient History & Physical on Chart: Yes. If H&P is completed, is and addenduem needed: No. Visualize and Verify Site with Patient/Guarantor: N/A. Relevant Radiology Images available: Yes. Pre-op teaching completed and patient verbalized understanding. The risks, benefits, and alternatives of sedation and/or procedure were discussed by physician. The patient agrees to continue. Procedure started. Current diagnosis: PVD. PERRLA. Strong, equal hand vice president risk management bilaterally. Lungs clear x 5 lobes. IV Site on Arrival: 20 gauge in the left anticubital. IV Fluids: 0.9% NaCl at KVO. 0 mL infused prior to cardiac cath lab radiology technologist. Pre Procedural Pulses: bilateral posterior tibial was Doppled. Pre Procedural Pulses: bilateral dorsalis pedis was Doppled. Pre Procedural Pulses: bilateral radial was 1+. Oxygen started at 2liters/min via nasal canula. left radial was prepped with chloroprep then draped in the usual sterile fashion. Physician notified. Baseline sample Acquired. HR: 68 BPM. Patient's family unavailable. Equipment: 6F - Radial. Cardiac Cath Pack. ACIST Manifold Kit Model BT 2000. Heparinized Saline (2 units/mL), 1000 mL bag. Physician arrived. Physician scrubbed in. Immediate Pre-Procedure Time Out. Correct Patient: Yes; Correct Procedure: Yes; Correct Site: Yes; Correct Patient Position: Yes; Correct Supplies: Yes; Dried Flammable Prep: Yes; Blood Products Available: N/A;. Lidocaine 1% infiltrated to the left radial. Arterial access obtained. Lidocaine 1% infiltrated to the left groin. Exchange J wire in through the sheath. A 5 nigerien JR4 catheter in over the exchange J wire. Exchange J wire out. Hand injection performed through the JR 4. 260cm Stiff angled glidewire in through the JR 4. JR 4 catheter out OTW. A 5 nigerien JR4 catheter in over the glidewire. Glidewire out. Hand injection performed through the JR 4. Glidewire in. Glidewire out. Glidewire Advantage in. Catheter removed over the glidewire advantage. A 20 gauge IV was started in the right anticubital using aseptic technique. Levophed off. Sheath upsized to a 6 Fr. Left common femoral selected and arteriogram with runoff performed @ 10 mL/sec for a total of 20 mL. Seeker support catheter inserted over the wire. Seeker support catheter out OTW. Terumo R2P Metacross RX 4.0mm x 60mm x 200cm Balloon in OTW to use as support. Terumo R2P Metacross RX 4.0mm x 60mm x 200cm Balloon out OTW. Seeker catheter inserted over the wire. Glidewire advantage guidewire out. 300cm Runthrough guidewire in through the Seeker support catheter. Seeker catheter inserted out the wire. Kennedy 14 2.0 mm x 80 mm x 150 cm Balloon in to use as support. ACT drawn. Results 284 seconds. Therapeutic limits - pre-heparin administration 90-150 seconds and monitoring heparin during a vascular procedure >250 seconds. Side port of sheath attached to Normal Saline flush at KVO to maintain patency. Inflation number : 1 A AB ARMADA 14 OTW [id number] was prepped and advanced across the Superficial Femoral, Left , then inflated to 16 ANSHU for 2:02 seconds. Inflation number: 2 The AB ARMADA 14 OTW [id number] was reinflated across the Superficial Femoral, Left, to 17 ANSHU for 2:01 seconds. Inflation number: 3 The AB ARMADA 14 OTW [id number] was reinflated across the Superficial Femoral, Left, to 17 ANSHU for 1:03 seconds. Balloon out. Left common femoral selected and arteriogram with runoff performed @ 10 mL/sec for a total of 20 mL. Runthrough guidewire out. Glidewire Advantage in and advanced down the right SFA. ACT drawn. Results 313 seconds. Therapeutic limits - pre-heparin administration 90-150 seconds and monitoring heparin during a vascular procedure >250 seconds. Glidewire Advantage out. Right common femoral selected and arteriogram with runoff performed @ 10 mL/sec for a total of 20 mL. right groin was prepped with chloroprep then draped in the usual sterile fashion. Lidocaine 1% infiltrated to the right groin. Arterial access obtained with micropuncture set. R2P sheath pulled back into the aorta from the left radial access. A 5Fr RIM catheter in over the glidewire and advanced to the left Common femoral. Glidewire advanced to the left profunda. RIM catheter out OTW. Sheath upsized to a 6 Fr. Flushing the sheath on the left radial periodically with heparinized saline. Side port of sheath on the right femoral attached to Normal Saline flush at KVO to maintain patency. Seeker support catheter in OTW on the right and advanced down the left SFA. ACT drawn. Results 224 seconds. Therapeutic limits - pre-heparin administration 90-150 seconds and monitoring heparin during a vascular procedure >250 seconds. Unable to advance the glidewire down the left SFA. Glidewire out. 300cm Runthrough Guidewire in through the Seeker support catheter and advanced down the left SFA. 300cm Runthrough Guidewire out. Hand injection of the left SFA performed through the Seeker support catheter. 300cm Runthrough Guidewire in through the Seeker support catheter and advanced down to the left TP trunk. 300cm Runthrough Guidewire out. Hand injection of the left SFA performed through the Seeker support catheter. A new 300cm Runthrough Guidewire in through the Seeker support catheter and advanced down to the left AT. Seeker support catheter advanced down to the AT. 300cm Runthrough Guidewire out. Viperwire in through the seeker support catheter. Seeker Support catheter out. 2.00 mm x 145 cm Diamondback 360 orbital atherectomy system in over the Viperwire and advanced to the lesion in the left SFA. Orbital atherectomy of the left SFA performed. Orbital atherectomy system out. Seeker Support catheter in. Viperwire out. Glidewrie advantage in through the Seeker support catheter. Seeker Support catheter out. Inflation number : 4 A AB Kennedy 35 TAB CARD PRESS OPERATOR Catheter [id number] was prepped and advanced across the Superficial Femoral, Left , then inflated to 8 ANSHU for 2:01 seconds. Inflation number: 5 The AB Kennedy 35 TAB CARD PRESS OPERATOR Catheter [id number] was reinflated across the Superficial Femoral, Left, to 8 ANSHU for 2:04 seconds. balloon out. Results checked. ACT drawn. Results 249 seconds. Therapeutic limits - pre-heparin administration 90-150 seconds and monitoring heparin during a vascular procedure >250 seconds. Inflation number : 6 A BARD 5FR Lutinox [id number] drug coated balloon was prepped and advanced across the Superficial Femoral, Left , then inflated to 4 ANSHU for 1:07 seconds. Lot # [id number]. Exp. 7.04.25. Inflation number: 7 The BARD 5FR Lutinox [id number] drug coated balloon was reinflated across the Superficial Femoral, Left, to 6 ANSHU for 1:07 seconds. Inflation number: 8 The BARD 5FR Lutinox [id number] drug coated balloon was reinflated across the Superficial Femoral, Left, to 8 ANSHU for 1:04 seconds. Inflation number: 9 The BARD 5FR Lutinox [id number] drug coated balloon was reinflated across the Superficial Femoral, Left, to 8 ANSHU for 1:31 seconds. Balloon out. Results checked. Left common iliac selected and arteriogram with runoff performed @ 10 mL/sec for a total of 20 mL in DSA. Sheath upsized to a 6 Fr. Levophed drip off. A Right femoral angiogram was performed to determine safe placement of closure device. A 2nd Right femoral angiogram was performed to determine safe placement of closure device. Glidewire Advantage in through the left radial access site and advanced down to the right profunda. The 119 cm Terumo sheath is advanced over the glidewire advantage to the right iliac. Right common iliac selected and arteriogram with runoff performed @ 10 mL/sec for a total of 30 mL. Glidewire Advantage out. Dr. Monet scrubbed out. A TR Band was successful obtaining hemostatsis at the Left Radial artery insertion site. A Suture was successful obtaining hemostatsis at the Right Femoral artery insertion site. ACT drawn. Results 300 seconds. Therapeutic limits - pre-heparin administration 90-150 seconds and monitoring heparin during a vascular procedure >250 seconds. Sheath(s) sutured into position with 2-0 silk and sterile 4x4's and Op-site applied over the site. No oozing or signs and symptoms of hematoma noted. A 16Fr farrar catheter was inserted without resistance maintaining sterile technique. Bag to gravity with clear urine returning. Arterial sheath flushed and connected to tranducer and pressure bag with heparinized saline. Post Procedure: Pulses reassessed and unchanged. PERRLA. Strong, equal hand vice president risk management bilaterally. No VTE prophylaxis required. Medication's Wasted: Other = Versed 1 mg. Medication's Wasted: Heparin = 3000 Units. Medication's Wasted: Nitro = 97.8 mg. Total IV fluids: 600 mL. Post-op diagnosis: Orbital atherectomy and drug coated ballooning of the left SFA. Complications: none. Estimated blood loss: 5mL-10mL. Responsiveness - Normal response to verbal stimuli; alert and oriented, PERRLA. Airway - Unaffected, no intervention required; spontaneous ventilation. Circulation: W/N/L, pulses unchanged. Nausea/Vomiting: No. Procedure completed. Patient transferred by bed to 1st floor. Access Site Site: Left Radial artery Sheath Size: 6 Fr Hemostasis Method: TR Band Hemostasis Success: Successful Site: Right Femoral artery Sheath Size: 6 Fr Hemostasis Method: Suture Hemostasis Success: Successful Procedure Medications Start: 7:28 AM Stop: 7:28 AM Medication: Versed Amount: 1 mg Route: I.V. Start: 7:29 AM Stop: 7:29 AM Medication: Fentanyl Amount: 50 mcg Route: I.V. Start: 7:34 AM Stop: 7:34 AM Medication: Versed Amount: 1 mg Route: I.V. Start: 7:47 AM Stop: 7:47 AM Medication: Versed Amount: 1 mg Route: I.V. Start: 8:04 AM Stop: 8:04 AM Medication: Levophed (norepinephrine) Amount: 8 mcg/min Route: I.V. drip Start: 8:05 AM Stop: 8:05 AM Medication: Nitrogylcerin Amount: 200 mcg Route: I.A. Start: 8:09 AM Stop: 8:09 AM Medication: Levophed (norepinephrine) Amount: 4 mcg/min Route: I.V. drip Start: 8:11 AM Stop: 8:11 AM Medication: Levophed (norepinephrine) Amount: 2 mcg/min Route: I.V. drip Start: 8:14 AM Stop: 8:14 AM Medication: Fentanyl Amount: 50 mcg Route: I.V. Start: 8:15 AM Stop: 8:15 AM Medication: Versed Amount: 1 mg Route: I.V. Start: 8:17 AM Stop: 8:17 AM Medication: Heparin Amount: 5000 units Route: I.V. Start: 8:41 AM Stop: 8:41 AM Medication: Versed Amount: 1 mg Route: I.V. Start: 8:41 AM Stop: 8:41 AM Medication: Fentanyl Amount: 25 mcg Route: I.V. Start: 8:48 AM Stop: 8:48 AM Medication: Levophed (norepinephrine) Amount: 4 mcg/min Route: I.V. drip Start: 8:59 AM Stop: 8:59 AM Medication: Levophed (norepinephrine) Amount: 2 mcg/min Route: I.V. drip Start: 8:59 AM Stop: 8:59 AM Medication: Fentanyl Amount: 50 mcg Route: I.V. Start: 9:11 AM Stop: 9:11 AM Medication: Versed Amount: 1 mg Route: I.V. Start: 9:12 AM Stop: 9:12 AM Medication: Levophed (norepinephrine) Amount: 4 mcg/min Route: I.V. drip Start: 9:12 AM Stop: 9:12 AM Medication: Nitrogylcerin Amount: 200 mcg Route: I.A. Start: 9:21 AM Stop: 9:21 AM Medication: Levophed (norepinephrine) Amount: 2 mcg/min Route: I.V. drip Start: 9:23 AM Stop: 9:23 AM Medication: Fentanyl Amount: 25 mcg Route: I.V. Start: 9:31 AM Stop: 9:31 AM Medication: Versed Amount: 1 mg Route: I.V. Start: 9:55 AM Stop: 9:55 AM Medication: Heparin Amount: 3000 units Route: I.V. Start: 10:05 AM Stop: 10:05 AM Medication: Fentanyl Amount: 25 mcg Route: I.V. Start: 10:19 AM Stop: 10:19 AM Medication: Versed Amount: 1 mg Route: I.V. Start: 10:23 AM Stop: 10:23 AM Medication: Fentanyl Amount: 25 mcg Route: I.V. Start: 10:39 AM Stop: 10:39 AM Medication: Fentanyl Amount: 25 mcg Route: I.V. Start: 10:40 AM Stop: 10:40 AM Medication: Fentanyl Amount: 25 mcg Route: I.V. Start: 10:42 AM Stop: 10:42 AM Medication: Nitrogylcerin Amount: 400 mcg Route: I.A. Start: 10:55 AM Stop: 10:55 AM Medication: Versed Amount: 1 mg Route: I.V. Start: 10:56 AM Stop: 10:56 AM Medication: Heparin Amount: 3000 units Route: I.V. Start: 10:58 AM Stop: 10:58 AM Medication: Nitrogylcerin Amount: 400 mcg Route: I.A. Start: 11:35 AM Stop: 11:35 AM Medication: Plavix Amount: 300 mg Route: P.O. I, the attending physician, have reviewed and verified all procedure medications. Yes, all medications given per verbal order History/Risk Factors Hypertension: No Dyslipidemia: No Peripheral Arterial Disease (PAD): Yes Myocardial Infarction (TN): No Obesity: Yes Renal Disease: No Tobacco Use: Former Prior Interventions PCI: No CABG: No Valve Surgery: No Report Signatures Finalized by Ankush Monet MD on 01/13/2024 10:54 PM
--- NOTE | 2023-12-17 07:29 | W.PM.OPSFHP ---
Same Day Surgery H&P Indication for Procedure/HPI DATE OF PROCEDURE: December 17, 2023 CHIEF COMPLAINT/INDICATIONFOR SURGICAL PROCEDURE: Critical limb ischemia of left foot and leg PREOP DIAGNOSIS: Critical limb ischemia of left foot and leg PLANNED PROCEDURE: Operation Date: 12/17/23 07:00 Proposed Procedures p Peripheral Diagnostic - peripheral angio(Not Applicable) - Ankush Monet MD 63-year-old female past medical history significant hypertension hyperlipidemia severe peripheral vascular disease with prior previous intervention she is here for peripheral angiogram and percutaneous intervention of chronically occluded left SFA and proximal common left iliac which is severely diseased. Patient denies chest pain PND orthopnea presyncope syncope ROS Admits to resting pain of the left foot and upon mild exertion Medications/Allergies* Home Medications Medication Instructions Recorded Confirmed Type hydrocodone 10 mg-acetaminophen 1 - 2 tab PO QID PRN Pain 03/03/19 12/17/23 History 325 mg tablet montelukast 10 mg tablet 10 mg PO QAM 09/27/20 12/17/23 History plecanatide 3 mg tablet (Trulance) 3 mg PO QAM 09/27/20 12/17/23 History hydroxyzine pamoate 50 mg capsule 50 mg PO QID PRN Anxiety 03/09/21 12/17/23 History famotidine 40 mg tablet 40 mg PO BID 05/20/21 12/17/23 History furosemide 20 mg tablet (Lasix) 20 mg PO DAILY 06/08/22 12/17/23 History potassium gluconate 500 mg (83 mg) 1,000 mg PO PRN PRN unknown 06/08/22 12/17/23 History tablet pregabalin 75 mg capsule 75 mg PO DAILY 11/06/23 12/17/23 History quetiapine 50 mg tablet 50 mg PO DAILY 11/06/23 12/17/23 History ropinirole 4 mg tablet 4 mg PO DAILY 11/06/23 12/17/23 History Allergies/Adverse Reactions Allergy/AdvReac Type Severity Reaction Status Date / Time duloxetine [From Cymbalta] Allergy headaches Verified 12/07/23 08:11 Penicillins Allergy respiratory Verified 12/07/23 08:11 issues Current Medications: Generic Name Dose Route Start Last Admin Trade Name Freq PRN Reason Stop Dose Admin Sodium Chloride 1,000 mls @ 50 mls/hr 12/17/23 06:00 12/17/23 06:39 Sodium Chloride 0.9% IV 12/18/23 01:59 Not Given .Q20H ONE Pertinent History/Comorbid Conditions* Medical History (Updated 11/09/23 @ 00:01 by LULA Juarez) Claudication PVD (peripheral vascular disease) CAD (coronary artery disease) Carotid stenosis Osteoarthritis of right knee Surgical History (Updated 03/09/21 @ 11:04 by Ankush Britton MD) Hx of cholecystectomy H/O: hysterectomy H/O decompression of ulnar nerve Social History Smoking and tobacco/nicotine status: former use of tobacco/nicotine Alcohol intake: never Substance/Drug Use: never Lives independently: Yes Household members: none Housing: House Marital status: Number of children: 2 Pets and animals: Yes Pets & animals: cat(s) and dog(s) Pertinent Exam Findings alert, oriented x 3, clear to auscultation bilaterally, regular rate & rhythm and operative site marked Conscious Sedation Assessment PATIENT ASSESSED PRIOR TO SEDATION, WITH NO CHANGE NOTED: Yes AIRWAY EVAL/ANESTHESIA PLAN: ASA II, Risks, benefits & alternatives of sedation and/or procedure discussed and Patient agrees to continue as planned ADDITIONAL INFORMATION: Mallampati 2 Patient has been explained all risk-benefit and alternative for the procedure she understand risk of stroke major minor bleed urgent or emergent vascular surgery risk of acute leg ischemia leading to amputation, she understand risk of contrast-induced nephropathy hematoma bruising pseudoaneurysm radial artery occlusion and ischemia. She would like to proceed with it. Recommendations Surgery/Procedure today Coding Level of Care Code Acute Code for Clay Martinez
[2023-12-17] MEDS: sodium chloride 0.9% 1,000 ML 100 ML IV (12:51)
[2023-12-17 15:12] LABS: Partial Thromboplastin Time 142.5 SECONDS (23.9-36.7)
[2023-12-17] MEDS: HYDROcodone-acetaminophen 5-325 mg Tablet 1 TAB PO (18:20)
[2023-12-17 18:47] LABS: Partial Thromboplastin Time 35.7 SECONDS (23.9-36.7)
[2023-12-17] MEDS: fentaNYL 50 mcg/mL INJ 2mL IVP (19:58)
--- NOTE | 2023-12-17 19:59 | PC.NURSE ---
Fentanyl 50mcg given during minx deploy. Wasted with tori, RN
--- NOTE | 2023-12-17 20:56 | PC.NURSE ---
dr hooper asked nurse for pain meds while he deployed mynx device. nurse pulled meds up an gave pt. nurse threw vial in sharps container before scanned.
--- NOTE | 2023-12-17 22:05 | PC.NURSE ---
[employer]ynx closure device lot number [id number] place by Dr Monet at 1950. Ambulation time at 0000
[2023-12-18] VITALS (11 sets, daily range): BP systolic 70–108; BP diastolic 53–71; PULSE 63–85; RESP 12–20; TEMP 36.4–37; O2SAT 97–100
[2023-12-18] MEDS: morphine 4 mg/mL SDV 1 mL 2 MG IVP (00:21)
[2023-12-18] MEDS: HYDROcodone-acetaminophen 5-325 mg Tablet 1 TAB PO ×3 (01:33→12:15)
[2023-12-18] MEDS: sodium chloride 0.9% 1,000 ML 100 ML IV (03:00)
[2023-12-18 04:06] LABS: Basophils % 0.4 %; Eosinophils # 0.3 10^3/uL (0.0-0.8); Eosinophils % 2.7 %; Lymphocytes # 1.7 10^3/uL (0.8-4.8); Lymphocytes % 17.9 %; Mean Corpuscular HGB Conc 32.2 g/dL (30-55); Mean Corpuscular Hemoglobin 28.5 pg (27-33); Mean Corpuscular Volume 88.5 fl (85-98); Mean Platelet Volume 9.9 fL (7.4-10.4); Monocytes # 0.8 10^3/uL (0.2-0.9); Monocytes % 8.6 %; Neutrophils # 6.72 10^3/uL (1.8-7.7); Neutrophils % 70.1 %; Nucleated Red Blood Cells % 0 %; Platelet Count 306 10^3/cmm (157-399); Red Blood Count 3.05 10^6/uL (3.85-5.65); Red Cell Distribution Width 13.4 % (12.1-15.1)
[2023-12-18 04:31] LABS: Anion Gap 12.1 (5-19); Blood Urea Nitrogen 8 mg/dL (8-23); Calcium 8.2 mg/dL (8.5-10.5); Carbon Dioxide 24 mmol/L (22-29); Chloride 107 mmol/L (98-107); Creatinine Clr Calc Pharmacy 66.2711; Glomerular Filtration Rate 72.2 mL/min (90-130); Glucose 100 mg/dL (65-115); Osmolality Calculated 286 mOsm/kg (285-295); Potassium 4.1 mmol/L (3.5-5.1); Sodium 139 mmol/L (136-145)
--- NOTE | 2023-12-18 12:23 | P.DS_ITS ---
Discharge Providers Date of Admission: 12/17/2023 Date of Discharge: December 18, 2023 Attending Provider at Admission: Ankush Monet MD Attending Provider at Discharge: Ankush Monet MD Consults: None Primary Care Provider: Eliana Christianson NP Diagnoses at Discharge Discharge Diagnosis (1) PVD (peripheral vascular disease): Status: Acute Reason for Visit Reason for Visit: I70.229 Brief History: Critical limb ischemia of left foot and leg Hospital Course Hospital Course This is a very pleasant 63-year-old female who has a known history of peripheral arterial disease in bilateral lower extremities. She has a chronically occluded left SFA and proximal common left iliac which was severely diseased. She also has a known moderate lesion of the right external iliac and high-grade severe stenosis of the right common iliac with right posterior tibial being chronically occluded. She underwent left radial stick, which was unable to be ascessed. Right femoral stick was performed with crossover. She underwent CSI atherectomy followed by nondrug-coated and drug-coated balloon angioplasty of the left SFA . Patient tolerated procedure well w/o complications. She had excellent results of the left lower extremity upon finishing procedure. H&H slightly decreased at 8.7/27 w/o evidence of bleeding, most likely due to hemodilution from fluids. Otherwise, patient tolerated well w/o complications. Physical Exam Narrative: General: No apparent distress, healthy appearing, well nourished Muskuloskeletal: Full ROM Lymphatic: no lymphedema noted Respiratory: Normal respiratory effort, clear to auscultation bilaterally throughout all lung chavez, no use of accessory muscles Cardio: No JVD, regular rate, regular rhythm, S1 S2 normal, no murmurs, peripheral pulses 2+ throughout GI: Normal to inspection, nondistended Extremities: Full ROM, normal, normal capillary refill, no cyanosis or edema Pulses: left dp 2+ biphasic and PT 2+ monophasic, right DP 1+ monophasic and DP 2+ monophasic dopplered bilaterally, bilateral radial pulses 2+ Neuro: Alert and oriented x4, no focal motor deficits Psych: Affect normal, denies suicidal ideation, mental status grossly normal Skin: Right groin puncture site and left radial access site clean dry intact no pain on palpation no evidence of hematoma or loss of function Discharge Data Studies Completed and Pending Pending at discharge Category Date Time Status LEGAL SECRETARY request for service Routine Exams 12/17/23 07:00 Taken Laboratory Results WBC 9.60 10^3/uL (3.29-11.43) 12/18/23 03:55 RBC 3.05 10^6/uL (3.85-5.65) L 12/18/23 03:55 Hgb 8.70 g/dL (11.27-16.99) L 12/18/23 03:55 Hct 27.0 % (36-47) L 12/18/23 03:55 MCV 88.5 fl (85-98) 12/18/23 03:55 MCH 28.5 pg (27-33) 12/18/23 03:55 MCHC 32.2 g/dL (30-55) 12/18/23 03:55 RDW 13.4 % (12.1-15.1) 12/18/23 03:55 Plt Count 306 10^3/cmm (157-399) D 12/18/23 03:55 MPV 9.9 fL (7.4-10.4) 12/18/23 03:55 Neut % (Auto) 70.1 % 12/18/23 03:55 Lymph % (Auto) 17.9 % 12/18/23 03:55 [place] % (Auto) 8.6 % 12/18/23 03:55 Eos % (Auto) 2.7 % 12/18/23 03:55 Baso % (Auto) 0.4 % 12/18/23 03:55 Neut # (Auto) 6.72 10^3/uL (1.8-7.7) 12/18/23 03:55 Lymph # (Auto) 1.7 10^3/uL (0.8-4.8) 12/18/23 03:55 [place] # (Auto) 0.8 10^3/uL (0.2-0.9) 12/18/23 03:55 Eos # (Auto) 0.3 10^3/uL (0.0-0.8) 12/18/23 03:55 Baso # (Auto) 0.0 10^3/uL (0.0-0.1) 12/18/23 03:55 Nucleated RBC % (auto) 0 % 12/18/23 03:55 Nucleated RBCs # 0.0 /100WBC 12/18/23 03:55 APTT 35.7 SECONDS (23.9-36.7) D 12/17/23 17:56 Sodium 139 mmol/L (136-145) 12/18/23 03:55 Potassium 4.1 mmol/L (3.5-5.1) 12/18/23 03:55 Chloride 107 mmol/L (98-107) 12/18/23 03:55 Carbon Dioxide 24 mmol/L (22-29) 12/18/23 03:55 Anion Gap 12.1 (5-19) 12/18/23 03:55 BUN 8 mg/dL (8-23) 12/18/23 03:55 Creatinine 0.8 mg/dL (0.5-0.9) 12/18/23 03:55 GFR Calculation 72.2 mL/min (90-130) L 12/18/23 03:55 Glucose 100 mg/dL (65-115) 12/18/23 03:55 Calculated Osmolality 286 mOsm/kg (285-295) 12/18/23 03:55 Calcium 8.2 mg/dL (8.5-10.5) L 12/18/23 03:55 Procedures Performed left radial stick, right femoral stick angiogram, angioplasty, and athrectomy of the left SFA Vitals Last Vital Signs Temp 98.3 F 12/18/23 08:12 Pulse 79 12/18/23 08:12 Resp 16 12/18/23 08:12 BP 108/71 12/18/23 08:12 Pulse Ox 98 12/18/23 08:12 O2 Del Method Nasal Cannula 12/18/23 08:12 O2 Flow Rate 2 12/18/23 04:00 Discharge Plan Discharge Patient Disposition: Home Prescriptions: New pantoprazole [Protonix] 40 mg tablet,delayed release (DR/EC) 40 mg PO DAILY Qty: 30 0RF Xarelto 2.5 mg tablet 2.5 mg PO BID Qty: 90 0RF clopidogrel [Plavix] 75 mg tablet 75 mg PO DAILY 90 Days Qty: 90 3RF Continued hydrocodone-acetaminophen 10-325 mg tablet 1 - 2 tab PO QID MDD 8 tabs PRN (Reason: Pain) montelukast 10 mg tablet 10 mg PO QAM Trulance 3 mg tablet 3 mg PO QAM furosemide [Lasix] 20 mg tablet 20 mg PO DAILY potassium gluconate 500 mg (83 mg) tablet 1,000 mg PO PRN PRN (Reason: unknown ) hydroxyzine pamoate 50 mg capsule 50 mg PO QID PRN (Reason: Anxiety) fluticasone propionate 50 mcg/actuation spray,suspension 1 spray intranasal DAILY Qty: 0 3RF Rx Instructions: administer into each nostril ropinirole 4 mg Tablet 4 mg PO DAILY quetiapine 50 mg Tablet 50 mg PO DAILY Discontinued famotidine 40 mg tablet 40 mg PO BID aspirin 325 mg capsule 325 mg PO DAILY Qty: 30 0RF No Action aspirin 325 mg tablet 325 mg PO DAILY Discharge Orders: Discharge Order (Routine); Ordered 12/18/23 Ordered By: Ankush Monet Referrals: Eliana Christianson NP [Primary Care Provider] - 12/20/23 11:00 am Leidy Lewis FNP [Nurse Practitioner] - 01/01/24 1:30 pm Diet: Advance as tolerated and Usual diet Activity: Increase activity as tolerated and Limit activity as instructed Patient Instructions: Clopidogrel (By mouth) (Plavix), Pantoprazole (By mouth) (Protonix), Rivaroxaban (By mouth) (Xarelto, Xarelto Starter Pack), Peripheral Vascular Angioplasty (DC), Post Angiogram Home Care Instructions Activity Restrictions/Additional Instructions: Please do not lift more than 20 pounds, patient will be scheduled to see cardiology nurse practitioner in [address] Monet in 3 months, Please do not stop Xarelto and statin Plavix and rest of medications. Monitor for and report abnormal bleeding. Patient will need CBC at f/u appointment. Continue Xarelto with Plavix and PPI. If patient develops right lower extremity claudication in the future, intervention may need to be performed on the right iliac artery. Patient has hx of carotid artery stenosis as well. This will need to be monitored on a yearly basis outpatient. Discharge Date/Time: 12/18/23 12:18 Discharge Attestations Time Spent in Discharge Care*: greater than 30 min Status at Discharge: Cognitive status at discharge: cognitively intact , Behavioral status at discharge: cooperative , Quality Metrics Clinical Quality Measures [ No reported AMI, CVA or VTE this stay] Coding Level of Care Code Acute Code for Chg Fwd Diagnoses PVD (peripheral vascular disease) I73.9
--- NOTE | 2023-12-18 12:51 | PC.NURSE ---
Patient discharged to home. Instruction provided regarding follow up appointments and new medications. patient verbalized complete understanding. Patient instructed on site care and restrictions as well. Patient taken by wheelchair to private vehicle. No distress observed.
== END 2023-12-18 12:18 | disposition home or self-care (01) ==
LOC: CCL 06:04 → CSU 11:51
PROVIDERS: PCP Nurse Practitioner Family; Visit Provider Internal Medicine Cardiovascular Disease
DX: I70.222 Atherosclerosis of native arteries of extremities with rest pain, left leg (principal); Z79.01 Long term (current) use of anticoagulants; I10 Essential (primary) hypertension; E78.5 Hyperlipidemia, unspecified; Z87.891 Personal history of nicotine dependence; E66.9 Obesity, unspecified; Z68.29 Body mass index [BMI] 29.0-29.9, adult
CPT/HCPCS: 36415; 37225; 51702; 75710; 80048; 85025; 85347; 85730; 96365; 96367; 96376; 99152; 99153; C1724; C1725; C1760; C1769; C1887; C1894; C2623; G0269; J1644; J2250; J2270; J3010; J3490; J7030; J7050; Q0163; Q9967

== ENCOUNTER → 2024-01-01 13:00 | Outpatient (BNVA) | payer MEDICARE, MEDICAID, SELFPAY | PROVIDERS: PCP Nurse Practitioner Family; Visit Provider Nurse Practitioner Family | DX: I73.9 Peripheral vascular disease, unspecified (principal); D64.9 Anemia, unspecified; Z87.891 Personal history of nicotine dependence | CPT/HCPCS: 36415; 80048; 85025; 99214 ==

== ENCOUNTER 2024-03-27 05:48 | Outpatient (CLI) | payer MEDICARE, MEDICAID, SELFPAY ==
[2024-03-27] VITALS (32 sets, daily range): BP systolic 104–170; BP diastolic 56–96; PULSE 65–90; RESP 12–19; TEMP 36.8–37.1; O2SAT 92–100; BMI 29.2
--- NOTE | 2024-03-27 06:00 | XACV_ITS ---
Exam Room: 2 Ht: 157 cm Wt: 73 kg BSA: 1.81 m2 Gender: Female : 1960 Any Known Allergies: Other Exam Priority: Routine Procedure(s): Procedure Description: Diagnostic procedure Procedure Description: Peripheral Cath Diagnostic Procedure Procedure Description: Iliac arterial aortic angiography Procedure Description: Lower extremities' angiography Procedure Description: Peripheral vascular Intervention Procedure Description: PV Balloon Procedure Description: PV Stent Procedure Description: Miscellaneous Procedure Description: ACT KHAMU2, Monet; Diagnostic Cath Status: Elective Diagnostic Findings * Indication for peripheral angiogram: Critical limb ischemia of the right legCatheters used: Short 6 Australian sheath, long 6 Australian destination sheath, Glidewire, Rim catheterRight lower extremity angiogram was performed after placing rim catheter.Right common iliac, Diffuse luminal irregularities without significant stenosis Right external iliac: High-grade mid eccentric stenosis with significant gradient more than 60 mmHg Right internal iliac: Diffusely disease significant as noted vessel not amenable to intervention Right common femoral artery: Luminal irregularity without significant stenosis Right profundofemoral artery: Diffuse luminal irregularities Right SFA: Diffuse luminal irregularities Right popliteal artery: Diffuse luminal irregularities Right tibioperoneal trunk: Diffuse luminal irregularities Right anterior tibial artery: Diffuse luminal irregularities Right posterior tibial artery: Chronically occluded in the proximal segment fills with collaterals from the anterior tibial in the distal segment Right peroneal artery: Luminal regularitiesThrough left common femoral short sheath and left peripheral lower extremity angiogram was obtainedLeft common iliac artery: Small caliber diffusely disease Left external iliac artery: Small caliber diffusely disease Left internal iliac artery: Small caliber diffusely disease Left common femoral artery: Small caliber diffusely diseased with high-grade stenosis Left profundofemoral artery: Small caliber diffusely disease Left SFA artery: Small caliber with multiple moderate to high-grade stenosis throughout the vessel Left popliteal artery: Diffusely disease with high-grade stenosis Left tibioperoneal artery: Sluggish flow not well-visualized Left anterior tibial artery: Sluggish flow not well-visualized Left posterior tibial artery: Sluggish flow not well-visualized Left peroneal artery: Sluggish flow not well-visualized. PCI Status: Elective Interventional Findings * Peripheral intervention of right external iliac artery with balloon angioplasty followed by covered Lifestream stent placement sparing the internal iliac artery Using long 6 Australian sheath with the help of Glidewire we were able to cross the lesion. Desdemona 4 x 40 mm balloon angioplasty of the right external iliac artery was performed followed by Lifestream covered stent placement 6 x 26 mmHg at optimal atmosphere. Excellent angiographic result with good flow was achieved. No edge dissection or complication noted. Short 6 Australian left common femoral sheath was replaced for long left common femoral sheath and sutured with the intention to achieve manual hemostasis once PTT less than 45. Patient was then transferred to the [facility]. Patient remained stable without any complication. Recommendations Return to inpatient for close monitoring and routine cath care. Risk factor modification for secondary prevention. Statin and aspirin 81mg lifelong, if tolerated. 1-Return to inpatient for close monitoring and routine cath care 2-Risk factor modification for secondary prevention 3-Statin and aspirin 81 mg life-long, if tolerated 4-Patient was pre-loaded with 300 mg of Plavix, continue Plavix 75mg p.o. daily for at least one year. We will assess at the end of one year again to continue if further or not 5-Continue optimal medical management 6-Follow up with Dr. Monet in four weeks and your primary care in 10 days, 7.Stage TIRE MOUNTER of left SFA/Popliteal and below the knee if life style limiting ischemia persist. Pressures Phase:Rest AO : 106 / 78 ( 93 ) @ 8:44:00 AM 115 / 87 ( 102 ) @ 8:46:00 AM 110 / 84 ( 98 ) @ 8:47:00 AM 95 / 54 ( 71 ) @ 8:54:00 AM 132 / 55 ( 79 ) @ 9:07:00 AM 50 / 46 ( 48 ) @ 9:17:00 AM 48 / 44 ( 47 ) @ 9:17:00 AM 100 / 58 ( 77 ) @ 9:18:00 AM 121 / 54 ( 81 ) @ 9:23:00 AM 113 / 54 ( 78 ) @ 9:38:00 AM Hemodynamic Data Phase:Rest AO : 106.0 / 78.0 ( 93.0 ) @ 8:44:00 AM 115.0 / 87.0 ( 102.0 ) @ 8:46:00 AM 110.0 / 84.0 ( 98.0 ) @ 8:47:00 AM 95.0 / 54.0 ( 71.0 ) @ 8:54:00 AM 132.0 / 55.0 ( 79.0 ) @ 9:07:00 AM 50.0 / 46.0 ( 48.0 ) @ 9:17:00 AM 48.0 / 44.0 ( 47.0 ) @ 9:17:00 AM 100.0 / 58.0 ( 77.0 ) @ 9:18:00 AM 121.0 / 54.0 ( 81.0 ) @ 9:23:00 AM 113.0 / 54.0 ( 78.0 ) @ 9:38:00 AM Clinical Evaluation EBL: 5mL-10mL Procedural Details Pre-Procedure Time Out. Identified patient by full name and date of as verbalized by the patient/guarantor. Does the consent match the physician's order: Yes. Accurate & Complete Informed Consent: Yes. Inpatient/Outpatient History & Physical on Chart: Yes. If H&P is completed, is and addenduem needed: No; If yes, is the addendum complete: N/A. Visualize and Verify Site with Patient/Guarantor: N/A. Relevant Radiology Images available: Yes. Pre-op teaching completed and patient verbalized understanding. The risks, benefits, and alternatives of sedation and/or procedure were discussed by physician. The patient agrees to continue. Procedure started. PERRLA. Strong, equal hand waiter/waitress bilaterally. Lungs clear x 5 lobes. IV Site on Arrival: Saline Lock. A 20 gauge IV was started in the right anticubital using aseptic technique. IV Fluids: 0.9% NaCl at KVO. 0 mL infused prior to tender labor. Pre Procedural Pulses: right dorsalis pedis was Absent. Pre Procedural Pulses: left dorsalis pedis was 1+. Pre Procedural Pulses: bilateral posterior tibial was 1+. Pre Procedural Pulses: right radial was 2+. Oxygen started at 2liters/min via nasal canula. bilateral groins was prepped with chloroprep then draped in the usual sterile fashion. Baseline sample Acquired. HR: 70 BPM. Physician arrived. Physician scrubbed in. Immediate Pre-Procedure Time Out. Correct Patient: Yes; Correct Procedure: Yes; Correct Site: Yes; Correct Patient Position: Yes; Correct Supplies: Yes; Dried Flammable Prep: Yes; Blood Products Available: N/A;. Lidocaine 1% infiltrated to the left groin. Lidocaine 1% infiltrated to the left groin. Ultrasound being used to obtain arterial access. Arterial access obtained with micropuncture set. Wire unable to advance. Wire and needle out. Arterial access obtained with micropuncture set. A Left femoral angiogram was performed to determine safe placement of closure device. A 5F RIM catheter in over the glidewire. Wire out. Right internal iliac selected and arteriogram with runoff performed @ 10 mL/sec for a total of 30 mL. Right common iliac selected and DSA performed x2. Physician review of cine films. The 6Fr sheath exchanged over the glidewire for a 45cm Flexor sheath. Glidewire out. 300cm Runthrough wire inserted. IVUS catheter inserted and advanced to the right iliac artery. IVUS measurements obtained. IVUS catheter out OTW. Inflation number : 1 Halie ARMKRYSTINA 14 OTW [id number] was prepped and advanced across the External Iliac, Right , then inflated to 8 ANSHU for 2:00 seconds. Balloon out. Results checked. ACT drawn. Results seconds. Therapeutic limits - pre-heparin administration 90-150 seconds and monitoring heparin during a vascular procedure >250 seconds. ACT drawn. Results 399 seconds. Therapeutic limits - pre-heparin administration 90-150 seconds and monitoring heparin during a vascular procedure >250 seconds. Wire out. Glidewire inserted. ACT drawn. Results 311 seconds. Therapeutic limits - pre-heparin administration 90-150 seconds and monitoring heparin during a vascular procedure >250 seconds. Inflation Number : 2 A 6.0x26mm Lifestream Covered Stent -Lot Number# _[id number] EXP: 01/18/2026 was prepped and advanced across the External Iliac, Right. The stent was deployed at 6 ANSHU for 1:13 seconds. Stent balloon out over wire. Results checked. The long sheath exchanged for a short 6Fr sheath. Sheath injected in Left common femoral artery and runoff performed. Left external iliac selected and arteriogram with runoff performed @ 10 mL/sec for a total of 10 mL. Lidocaine 1% infiltrated to the right groin. Arterial access obtained with micropuncture set. A Suture was successful obtaining hemostatsis at the Left Femoral artery insertion site. 4Fr sheath attempted to be inserted. Unable to advance. 4Fr dilator inserted OTW. Dilator removed. 6Fr dilator inserted. A Right femoral angiogram was performed to determine safe placement of closure device. A Suture was successful obtaining hemostatsis at the Right Femoral artery insertion site. Sheath(s) sutured into position with 2-0 silk and sterile 4x4's and Op-site applied over the site. No oozing or signs and symptoms of hematoma noted. PERRLA. Strong, equal hand waiter/waitress bilaterally. No VTE prophylaxis required. Medication's Wasted: Lidocaine 1% = 10 mL. Medication's Wasted: Heparin = 4000 units. Medication's Wasted: Nitro = 49.6 mcg. Total IV fluids: 118 mL. Vital chart was stopped. Post-op diagnosis: PAD. Complications: None. Estimated blood loss: 5mL-10mL. Responsiveness - Normal response to verbal stimuli; alert and oriented, PERRLA. Airway - Unaffected, no intervention required; spontaneous ventilation. Circulation: W/N/L, pulses unchanged. Nausea/Vomiting: No. Procedure completed. Patient transferred by stretcher to CPRU. Access Site Site: Left Femoral artery Sheath Size: 6 Fr Hemostasis Method: Suture Hemostasis Success: Successful Site: Right Femoral artery Sheath Size: 6 Fr Hemostasis Method: Suture Hemostasis Success: Successful Procedure Medications Start: 8:04 AM Stop: 8:04 AM Medication: Versed Amount: 1 mg Route: I.V. Start: 8:05 AM Stop: 8:05 AM Medication: Fentanyl Amount: 50 mcg Route: I.V. Start: 8:10 AM Stop: 8:10 AM Medication: Versed Amount: 1 mg Route: I.V. Start: 8:10 AM Stop: 8:10 AM Medication: Fentanyl Amount: 50 mcg Route: I.V. Start: 8:22 AM Stop: 8:22 AM Medication: Versed Amount: 1 mg Route: I.V. Start: 8:42 AM Stop: 8:42 AM Medication: Versed Amount: 1 mg Route: I.V. Start: 8:42 AM Stop: 8:42 AM Medication: Fentanyl Amount: 50 mcg Route: I.V. Start: 9:04 AM Stop: 9:04 AM Medication: Heparin Amount: 5000 units Route: I.V. Start: 9:11 AM Stop: 9:11 AM Medication: Nitrogylcerin Amount: 400 mcg Route: I.A. Start: 9:22 AM Stop: 9:22 AM Medication: Versed Amount: 1 mg Route: I.V. Start: 9:22 AM Stop: 9:22 AM Medication: Fentanyl Amount: 50 mcg Route: I.V. Start: 9:35 AM Stop: 9:35 AM Medication: Versed Amount: 1 mg Route: I.V. Start: 9:36 AM Stop: 9:36 AM Medication: Plavix Amount: 300 mg Route: P.O. I, the attending physician, have reviewed and verified all procedure medications. Yes, all medications given per verbal order History/Risk Factors Hypertension: No Dyslipidemia: No Peripheral Arterial Disease (PAD): Yes Myocardial Infarction ([place]): No Obesity: No Renal Disease: No Tobacco Use: Former Prior Interventions PCI: No CABG: No Valve Surgery: No Report Signatures Finalized by Ankush Monet MD on 04/13/2024 10:09 PM
[2024-03-27] MEDS: diphenhydrAMINE 50 mg Capsule PO (06:05)
[2024-03-27] MEDS: aspirin 325 mg Tablet PO (06:05)
[2024-03-27 06:26] LABS: Basophils # 0.1 10^3/uL (0.0-0.1); Basophils % 0.9 %; Eosinophils # 0.5 10^3/uL (0.0-0.8); Hematocrit 32.5 % (36-47); Lymphocytes # 2.6 10^3/uL (0.8-4.8); Lymphocytes % 29.1 %; Mean Corpuscular HGB Conc 31.4 g/dL (30-55); Mean Platelet Volume 10.1 fL (7.4-10.4); Monocytes # 0.8 10^3/uL (0.2-0.9); Monocytes % 9.4 %; Neutrophils # 4.95 10^3/uL (1.8-7.7); Neutrophils % 55.3 %; Nucleated Red Blood Cells % 0 %; Platelet Count 341 10^3/cmm (157-399); Red Blood Count 3.78 10^6/uL (3.85-5.65); Red Cell Distribution Width 13.7 % (12.1-15.1); White Blood Count 8.95 10^3/uL (3.29-11.43)
[2024-03-27 06:44] LABS: Anion Gap 16.7 (5-19); Blood Urea Nitrogen 9 mg/dL (8-23); Calcium 9.2 mg/dL (8.5-10.5); Carbon Dioxide 25 mmol/L (22-29); Chloride 100 mmol/L (98-107); Creatinine Clr Calc Pharmacy 52.3193; Glomerular Filtration Rate 55.6 mL/min (90-130); Glucose 100 mg/dL (65-115); Osmolality Calculated 285 mOsm/kg (285-295); Potassium 3.7 mmol/L (3.5-5.1); Sodium 138 mmol/L (136-145)
--- NOTE | 2024-03-27 08:08 | W.PM.OPSFHP ---
Same Day Surgery H&P Indication for Procedure/HPI DATE OF PROCEDURE: March 27, 2024 CHIEF COMPLAINT/INDICATIONFOR SURGICAL PROCEDURE: Large limiting claudication of the right leg High-grade right common iliac, right femoral and popliteal disease by CTA High-grade lesion of right common iliac by angiogram and moderate to possibly severe lesion of the right SFA noted on the previous angiogram On December 17, 2023 patient underwent peripheral angiogram and intervention of left lower extremity for lifestyle limiting claudication, since her procedure she did fabulous with her left lower extremity she can walk without any interruption for long ways she denies any resting pain, however right lower extremity is bothering her to the extent that she cannot walk more than 100 to 200 feet on good and bad days, she is on rivaroxaban Plavix. Today she is here for right lower extremity intervention. Patient has been explained all risk-benefit and alternative for the procedure she understand risk for urgent or emergent vascular surgery limb threatening ischemia due to thromboembolic phenomena perforation leading to major bleed worst-case scenario , contrast-induced nephropathy, amputation of the limb, hematoma bruising conscious sedation complication and risk for intubation. She understood and would like to proceed with it. PREOP DIAGNOSIS: As above lifestyle limiting claudication of the right leg PLANNED PROCEDURE: Operation Date: 03/27/24 07:00 Proposed Procedures p Peripheral Diagnostic - Periph Amgio Unil(Not Applicable) - Ankush Monet MD We will proceed with right lower extremity angiogram and intervention including if needed balloon angioplasty atherectomy and stent placement Medications/Allergies* Home Medications ?Medication ?Instructions ?Recorded ?Confirmed ?Type hydrocodone 10 mg-acetaminophen 1 - 2 tab PO QID PRN Pain 03/03/19 03/26/24 History 325 mg tablet montelukast 10 mg tablet 10 mg PO QAM 09/27/20 03/27/24 History plecanatide 3 mg tablet (Trulance) 3 mg PO QAM 09/27/20 03/27/24 History hydroxyzine pamoate 50 mg capsule 50 mg PO QID PRN Anxiety 03/09/21 03/27/24 History furosemide 20 mg tablet (Lasix) 20 mg PO DAILY 06/08/22 03/27/24 History potassium gluconate 500 mg (83 mg) 1,000 mg PO PRN PRN unknown 06/08/22 03/27/24 History tablet quetiapine 50 mg tablet 50 mg PO DAILY 11/06/23 03/26/24 History ropinirole 4 mg tablet 4 mg PO DAILY 11/06/23 03/26/24 History aspirin 325 mg tablet 325 mg PO DAILY 01/01/24 03/27/24 History Allergies/Adverse Reactions Allergy/AdvReac Type Severity Reaction Status Date / Time duloxetine (From Cymbalta) Allergy headaches Verified 03/27/24 06:27 Penicillins Allergy respiratory Verified 03/27/24 06:27 issues Current Medications: Generic Name Dose Route Start Last Admin Trade Name Nina PRN Reason Stop Dose Admin Sodium Chloride 1,000 mls @ 50 mls/hr 03/27/24 06:00 03/27/24 06:33 Sodium Chloride 0.9% IV 03/28/24 01:59 Not Given .Q20H ONE Pertinent History/Comorbid Conditions* Medical History (Updated 01/02/24 @ 15:16 by MARY KAY Long) Claudication PVD (peripheral vascular disease) CAD (coronary artery disease) Carotid stenosis Osteoarthritis of right knee Surgical History (Updated 03/09/21 @ 11:04 by Ankush Britton MD) Hx of cholecystectomy H/O: hysterectomy H/O decompression of ulnar nerve Social History Smoking and tobacco/nicotine status: former use of tobacco/nicotine Alcohol intake: never Substance/Drug Use: never Lives independently: Yes Household members: none Housing: House Marital status: Number of children: 2 Pets and animals: Yes Pets & animals: cat(s) and dog(s) Pertinent Exam Findings alert, oriented x 3, clear to auscultation bilaterally, regular rate & rhythm, operative site marked and procedure specific exam findings Conscious Sedation Assessment PATIENT ASSESSED PRIOR TO SEDATION, WITH NO CHANGE NOTED: Yes AIRWAY EVAL/ANESTHESIA PLAN: ASA II, Risks, benefits & alternatives of sedation and/or procedure discussed and Patient agrees to continue as planned Recommendations Surgery/Procedure today Other Plans: Will proceed as above Coding Level of Care Code Acute Code for Deandreg Juan
--- NOTE | 2024-03-27 10:10 | SUR.PHASEI ---
POST CATH NOTE Received patient from slab worker. Status post peripheral angiogram via the right and left common femoral arterial approach. Bilateral pressure lines in place to bilateral femoral access sites. They are hemostatic and free of hematoma formation or s/s of active bleeding. Verbal post cath instructions went over with the patient. She understood well. Call light in reach. Informed to call for needs. Vitals and assessments per flowsheet.
--- NOTE | 2024-03-27 10:15 | SUR.PHASEI ---
IV FLUIDS 0.9% NS IV AT 100 ML/HR post cath. Infusing without difficulty.
--- NOTE | 2024-03-27 10:16 | P.PCN_ITS ---
Procedure Note: Date of procedure: 03/27/24 Post-procedure diagnosis: same Procedure: Peripheral angiogram: Indication: Lifestyle limiting claudication of the right leg. Peripheral angiogram was performed through left common femoral artery in a patient with severe peripheral vascular disease. She was noted to have high- grade proximal right external iliac stenosis with gradient more than 60 mmHg. It was thought to be the culprit lesion was balloon dilated and treated with covered 6.0 [id number] stent with good angiographic result was achieved, please note that patient has severe peripheral vascular disease with left common femoral with high-grade stenosis. Left side stick was on the higher side therefore we took access through the right common femoral artery and a precaution that while pulling out the left common femoral sheath there is chance that patient may can have bleed in that case we should have access through the right common femoral to do balloon tamponade. Plan Both left and right common femoral sheaths are in place, once PTT less than 45 will discontinue left common femoral sheath first with the help of Mynx Bedrest for 4 hours IV fluid 100 mL/h for next 10 hours Continue aspirin and statin reload with 300 mg of Plavix From tomorrow we will start her back on Xarelto. Further plan will be advised as per progress of the patient. Full note to be dictated Coding Level of Care Code Acute Code for Clay Martinez
--- NOTE | 2024-03-27 11:03 | SUR.PHASEI ---
Patient c/o pain in bilateral femoral access sites. Sites are unchanged from inital assessment. contatcted for PO pain medicine. Orders received. Given for C/O.
[2024-03-27] MEDS: oxyCODONE-APAP 5-325 mg Tablet 1 TAB PO ×3 (11:24→22:28)
--- NOTE | 2024-03-27 12:06 | SUR.PHASEI ---
ACT RESULTS ACT currently 201. Results called to Dr Monet. Orders to repeat at 1300 received.
--- NOTE | 2024-03-27 13:02 | SUR.PHASEI ---
ACT RESULT ACT RESULT 170. AWARE. Redraw at 2 pm. Noted.
--- NOTE | 2024-03-27 13:29 | SUR.PHASEI ---
ACT NOTE 3RD ACT DRAW NOT NECESSARY. MD HERE AND STATES ENOUGH TIME HAS PASSED TO CONTINUE WITH MYNX CLOSURE AT BEDSIDE. NOTED. PATIENT PREPPED AND PREMEDICATED WITH 50 MCG FENTANYL IVP FOR SHEATH REMOVAL. MD TO PROCEED WITH REMOVAL. NOTED.
[2024-03-27] MEDS: fentaNYL 50 mcg/mL INJ 2mL IVP ×2 (13:32→13:44)
--- NOTE | 2024-03-27 13:40 | SUR.PHASEI ---
BEDSIDE MYNX CLOSURE MD here to close arterial sheaths. Left side removed 1st. MYNX deployment successful at bedside using sterile prep/technique with Dr Monet and myself assisting. Manual pressure held post closure for 5 minutes. Site is hemostatic. Sterile dressing applied to site. Plan for mynx closure of the right side at 1440 today. Verbal post cath instuctions went over with the patient. She understands well.
--- NOTE | 2024-03-27 14:59 | SUR.PHASEI ---
BEDSIDE MYNX CLOSURE MD here to close Right arterial sheath. MYNX deployment successful at bedside using sterile prep/technique with Dr Monet and myself assisting. Manual pressure held post closure for 5 minutes. Site is hemostatic. Sterile dressing applied to site. Verbal post cath instuctions went over with the patient. She understands well.
--- NOTE | 2024-03-27 17:33 | PC.NURSE ---
arrived from quality assurance qa lab technician approximately 1610, unable to chart or provide ordered care as patient not in chart until now
[2024-03-27] MEDS: sodium chloride 0.9% 1,000 ML 100 ML IV (19:44)
[2024-03-27] MEDS: atorvastatin 40 mg Tablet 20 MG PO (20:58)
[2024-03-28] VITALS (9 sets, daily range): BP systolic 122–133; BP diastolic 64–74; PULSE 72–81; RESP 10–20; TEMP 36.2–36.9; O2SAT 96–100
[2024-03-28] MEDS: oxyCODONE-APAP 5-325 mg Tablet 1 TAB PO ×2 (02:18→06:12)
[2024-03-28 04:47] LABS: Basophils % 0.7 %; Eosinophils # 0.3 10^3/uL (0.0-0.8); Eosinophils % 4.1 %; Hematocrit 28.5 % (36-47); Lymphocytes # 1.7 10^3/uL (0.8-4.8); Lymphocytes % 27.6 %; Mean Corpuscular HGB Conc 30.9 g/dL (30-55); Mean Corpuscular Hemoglobin 27.1 pg (27-33); Mean Corpuscular Volume 87.7 fl (85-98); Mean Platelet Volume 10.7 fL (7.4-10.4); Monocytes # 0.6 10^3/uL (0.2-0.9); Neutrophils % 57.4 %; Nucleated Red Blood Cells % 0 %; Platelet Count 266 10^3/cmm (157-399); Red Blood Count 3.25 10^6/uL (3.85-5.65); Red Cell Distribution Width 13.9 % (12.1-15.1); White Blood Count 6.09 10^3/uL (3.29-11.43)
[2024-03-28] MEDS: sodium chloride 0.9% 1,000 ML 100 ML IV (04:54)
[2024-03-28 05:05] LABS: Anion Gap 13.2 (5-19); Blood Urea Nitrogen 11 mg/dL (8-23); Calcium 8.1 mg/dL (8.5-10.5); Carbon Dioxide 24 mmol/L (22-29); Chloride 107 mmol/L (98-107); Creatinine Clr Calc Pharmacy 52.3193; Glomerular Filtration Rate 55.6 mL/min (90-130); Glucose 98 mg/dL (65-115); Osmolality Calculated 289 mOsm/kg (285-295); Potassium 4.2 mmol/L (3.5-5.1); Sodium 140 mmol/L (136-145)
[2024-03-28] MEDS: clopidogrel 75 mg Tablet PO (08:11)
[2024-03-28] MEDS: aspirin 81 mg EC Tablet PO (08:11)
--- NOTE | 2024-03-28 10:34 | PC.NURSE ---
Gagnon and PIV removed. Patient dressed self, discharge orders in place.
--- NOTE | 2024-03-28 10:54 | PC.NURSE ---
Discharged patient home with brother driving. No reports of pain or discomfort. Bilat groin dressings c/d/i with no swelling, bleeding or hematoma.
--- NOTE | 2024-03-28 13:55 | P.DS_ITS ---
<Statement entered by Ankush Monet MD - 03/28/24 19:15> Patient was evaluated and cared for in conjunction with an advanced practice practitioner. I personally examined the patient and reviewed the chart and all pertinent data including imaging, telemetry, and laboratory results. I discussed the patient in detail with the advanced practice practitioner. Please see their note for complete H&P testing result and agreed upon plan of care for the patient. Patient for lifestyle limiting claudication and underwent peripheral angiogram noted to have proximal high-grade right external iliac stenosis with gradient across more than 60 mmHg. It was treated with balloon angioplasty followed by covered stent. Good angiographic result was noted. During the same angiogram it was learned that patient left lower extremity shows subtotal occlusion of left SFA popliteal and below the knee vessels which had intervention few months ago. Currently she denies any complaint on the left leg. Will continue to optimize medication advise walking exercises he does not get better may need percutaneous intervention of left lower extremity with stent placement as previously balloon angioplasty was used GENERAL: Patient is alert, awake and oriented x3. HEART: Regular S1 and S2. No murmur, rub or gallop. LUNGS: Clear to auscultate bilaterally. CENTRAL NERVOUS SYSTEM: Grossly nonfocal. EXTREMITIES: Right lower extremity anterior posterior pulse palpable with good warm leg Assessment and plan Peripheral arterial disease Status post percutaneous angioplasty and covered stent placement in the proximal right external iliac artery Continue clopidogrel add Xarelto 2.5 mg daily continue statin Follow-up with cardiology clinic in 2 weeks Discharge Providers Date of Admission: 03/27/2024 Date of Discharge: March 28, 2024 Attending Provider at Admission: Ankush Monet MD Attending Provider at Discharge: Ankush Monet MD Primary Care Provider: Eliana Christianson NP Reason for Visit Reason for Visit: I73.9 Brief History: On December 17, 2023 patient underwent peripheral angiogram and intervention of left lower extremity for lifestyle limiting claudication, since her procedure she did fabulous with her left lower extremity she can walk without any interruption for long ways she denies any resting pain, however right lower extremity is bothering her to the extent that she cannot walk more than 100 to 200 feet on good and bad days, she is on rivaroxaban Plavix. Today she is here for right lower extremity intervention. Patient has been explained all risk- benefit and alternative for the procedure she understand risk for urgent or emergent vascular surgery limb threatening ischemia due to thromboembolic phenomena perforation leading to major bleed worst-case scenario , contrast-induced nephropathy, amputation of the limb, hematoma bruising conscious sedation complication and risk for intubation. She understood and would like to proceed with it. Hospital Course Hospital Course Peripheral angiogram was performed through left common femoral artery in a patient with severe peripheral vascular disease. She was noted to have high- grade proximal right external iliac stenosis with gradient more than 60 mmHg. It was thought to be the culprit lesion was balloon dilated and treated with covered 6.0 [id number] stent with good angiographic result was achieved, please note that patient has severe peripheral vascular disease with left common femoral with high-grade stenosis. Physical Exam Narrative: General: No apparent distress, healthy appearing, well nourished Muskuloskeletal: Full ROM Lymphatic: no lymphedema noted Respiratory: Normal respiratory effort, clear to auscultation bilaterally throughout all lung chavez, no use of accessory muscles Cardio: No JVD, regular rate, regular rhythm, S1 S2 normal, no murmurs, peripheral pulses 2+ radial palpated bilaterally GI: Normal to inspection, nondistended Extremities: Full ROM, normal, normal capillary refill, no cyanosis or edema, right lower extremity with 2+ biphasic PT and left palpable pulses, bilateral femorals w/o s/s of hematoma, soft, palpable pulses Neuro: Alert and oriented x4, no focal motor deficits Psych: Affect normal, denies suicidal ideation, mental status grossly normal Skin: bilateral groins as stated above Urinary Catheter Management: Gagnon: Cath Placed During This Visit: yes Reason for Continuing Indwelling Catheter: Accurate Measurement of Urinary Output in Critically Ill Patients Urinary Catheter Date of Insertion: 03/27/24 Urinary Catheter Time of Insertion: 11:31 Discharge Data Studies Completed and Pending Pending at discharge Category Date Time Status DRUG DEPARTMENT WORKER request for service Routine Exams 03/27/24 06:00 Taken Laboratory Results WBC 6.09 10^3/uL (3.29-11.43) 03/28/24 03:41 RBC 3.25 10^6/uL (3.85-5.65) L 03/28/24 03:41 Hgb 8.80 g/dL (11.27-16.99) L 03/28/24 03:41 Hct 28.5 % (36-47) L 03/28/24 03:41 MCV 87.7 fl (85-98) 03/28/24 03:41 MCH 27.1 pg (27-33) 03/28/24 03:41 MCHC 30.9 g/dL (30-55) 03/28/24 03:41 RDW 13.9 % (12.1-15.1) 03/28/24 03:41 Plt Count 266 10^3/cmm (157-399) 03/28/24 03:41 MPV 10.7 fL (7.4-10.4) H 03/28/24 03:41 Neut % (Auto) 57.4 % 03/28/24 03:41 Lymph % (Auto) 27.6 % 03/28/24 03:41 [place] % (Auto) 10.0 % 03/28/24 03:41 Eos % (Auto) 4.1 % 03/28/24 03:41 Baso % (Auto) 0.7 % 03/28/24 03:41 Neut # (Auto) 3.50 10^3/uL (1.8-7.7) 03/28/24 03:41 Lymph # (Auto) 1.7 10^3/uL (0.8-4.8) 03/28/24 03:41 [place] # (Auto) 0.6 10^3/uL (0.2-0.9) 03/28/24 03:41 Eos # (Auto) 0.3 10^3/uL (0.0-0.8) 03/28/24 03:41 Baso # (Auto) 0.0 10^3/uL (0.0-0.1) 03/28/24 03:41 Nucleated RBC % (auto) 0 % 03/28/24 03:41 Nucleated RBCs # 0.0 /100WBC 03/28/24 03:41 Sodium 140 mmol/L (136-145) 03/28/24 03:41 Potassium 4.2 mmol/L (3.5-5.1) 03/28/24 03:41 Chloride 107 mmol/L (98-107) 03/28/24 03:41 Carbon Dioxide 24 mmol/L (22-29) 03/28/24 03:41 Anion Gap 13.2 (5-19) 03/28/24 03:41 BUN 11 mg/dL (8-23) 03/28/24 03:41 Creatinine 1.0 mg/dL (0.5-0.9) H 03/28/24 03:41 GFR Calculation 55.6 mL/min (90-130) L 03/28/24 03:41 Glucose 98 mg/dL (65-115) 03/28/24 03:41 Calculated Osmolality 289 mOsm/kg (285-295) 03/28/24 03:41 Calcium 8.1 mg/dL (8.5-10.5) L 03/28/24 03:41 Procedures Performed Peripheral angiogram was performed through left common femoral artery in a patient with severe peripheral vascular disease. She was noted to have high- grade proximal right external iliac stenosis with gradient more than 60 mmHg. It was thought to be the culprit lesion was balloon dilated and treated with covered 6.0 [id number] stent with good angiographic result was achieved, please note that patient has severe peripheral vascular disease with left common femoral with high-grade stenosis. Left side stick was on the higher side therefore we took access through the right common femoral artery and a precaution that while pulling out the left common femoral sheath there is chance that patient may can have bleed in that case we should have access through the right common femoral to do balloon tamponade. Vitals Last Vital Signs Temp 98.4 F 03/28/24 10:04 Pulse 80 03/28/24 10:04 Resp 14 03/28/24 10:04 BP 132/74 03/28/24 10:04 Pulse Ox 98 03/28/24 10:04 O2 Del Method Room Air 03/28/24 08:00 Discharge Plan Discharge Patient Disposition: Home Prescriptions: New atorvastatin 40 mg Tablet 20 mg PO BEDTIME 30 Days Qty: 30 0RF clopidogrel 75 mg Tablet 75 mg PO DAILY 90 Days Qty: 90 3RF Continued hydrocodone-acetaminophen 10-325 mg tablet 1 - 2 tab PO QID MDD 8 tabs PRN (Reason: Pain) montelukast 10 mg tablet 10 mg PO QAM Trulance 3 mg tablet 3 mg PO QAM furosemide [Lasix] 20 mg tablet 20 mg PO DAILY potassium gluconate 500 mg (83 mg) tablet 1,000 mg PO PRN PRN (Reason: unknown ) hydroxyzine pamoate 50 mg capsule 50 mg PO QID PRN (Reason: Anxiety) fluticasone propionate 50 mcg/actuation spray,suspension 1 spray intranasal DAILY Qty: 0 3RF Rx Instructions: administer into each nostril ropinirole 4 mg Tablet 4 mg PO DAILY quetiapine 50 mg Tablet 50 mg PO DAILY pantoprazole [Protonix] 40 mg tablet,delayed release (DR/EC) 40 mg PO DAILY Qty: 30 0RF Xarelto 2.5 mg tablet See Rx Instructions .ROUTE .COMPLEX Qty: 90 3RF Dose Instruction: TAKE 1 TABLET BY MOUTH TWICE DAILY Rx Instructions: TAKE 1 TABLET BY MOUTH TWICE DAILY Discontinued aspirin 325 mg tablet 325 mg PO DAILY clopidogrel [Plavix] 75 mg tablet 75 mg PO DAILY 90 Days Qty: 90 3RF Discharge Orders: Discharge Order (Routine); Ordered 03/28/24 Ordered By: Meliza Colon Referrals: Eliana Christianson NP [Primary Care Provider] - 4-7 days (We have notified your physician's clinic of the need for a follow-up appointment to be scheduled. If you have not heard from them within the next 2 business days, please call them directly. please call patient with appointment for follow up /office closed on Sunday today,) Ankush Monet MD [Physician] - 04/07/24 4:00 pm (Follow up with Leidy Lewis APRN for post hospital visit then after visit will schedule with .) Diet: Advance as tolerated Activity: Increase activity as tolerated and Limit activity as instructed Patient Instructions: Atorvastatin (By mouth), Clopidogrel (By mouth) (Plavix), Peripheral Vascular Stent Placement (DC), Peripheral Vascular Disease (DC), Peripheral Vascular Angioplasty (DC), Post Angiogram Home Care Instructions Activity Restrictions/Additional Instructions: Discussed with patient no heavy lifting more than a gallon of milk as well as going up or down steps for 3 days. No driving for 3 days. Monitor for and report signs or symptoms of bleeding. Monitor for and report s/s of infection such as fever 101 or greater, swelling, redness or pain to the groin. Continue xarelto and Plavix and statin. Will see in clinic in 7-10 days with f/u appointment Print Language: Slovenian Discharge Date/Time: 03/28/24 10:48 Discharge Attestations Time Spent in Discharge Care*: less than 30 min Status at Discharge: Cognitive status at discharge: cognitively intact , Behavioral status at discharge: cooperative , Quality Metrics Clinical Quality Measures [ No reported AMI, CVA or VTE this stay] Coding Level of Care Code Acute Code for Chg Fwd
== END 2024-03-28 10:48 | disposition home or self-care (01) ==
LOC: CCL 05:49 → ICU 22:02
PROVIDERS: PCP Nurse Practitioner Family; Visit Provider Internal Medicine Cardiovascular Disease
DX: I70.201 Unspecified atherosclerosis of native arteries of extremities, right leg (principal); Z87.891 Personal history of nicotine dependence; Z79.02 Long term (current) use of antithrombotics/antiplatelets; I25.10 Atherosclerotic heart disease of native coronary artery without angina pectoris
CPT/HCPCS: 36415; 37221; 51702; 75625; 75716; 80048; 85025; 85347; 96374; 99152; 99153; C1725; C1753; C1760; C1769; C1874; C1887; C1894; G0269; J1644; J2250; J3010; J3490; J7030; Q0163; Q9967

== ENCOUNTER → 2024-04-07 15:44 | Outpatient (BNVA) | payer MEDICARE, MEDICAID, SELFPAY | PROVIDERS: PCP Nurse Practitioner Family; Visit Provider Nurse Practitioner Family | DX: I73.9 Peripheral vascular disease, unspecified (principal); Z95.820 Peripheral vascular angioplasty status with implants and grafts; Z79.01 Long term (current) use of anticoagulants; Z87.891 Personal history of nicotine dependence | CPT/HCPCS: 99214 ==

== ENCOUNTER → 2024-10-03 10:50 | Outpatient (BNVA) | payer OTHER, MEDICAID, SELFPAY | PROVIDERS: PCP Nurse Practitioner Family; Visit Provider Nurse Practitioner Family | DX: I73.9 Peripheral vascular disease, unspecified (principal); I65.29 Occlusion and stenosis of unspecified carotid artery; I25.10 Atherosclerotic heart disease of native coronary artery without angina pectoris; Z79.01 Long term (current) use of anticoagulants; Z87.891 Personal history of nicotine dependence | CPT/HCPCS: 99214 ==

== ENCOUNTER 2024-10-31 05:32 | Outpatient (CLI) | payer OTHER, MEDICAID, SELFPAY ==
[2024-10-31] VITALS (93 sets, daily range): BP systolic 92–152; BP diastolic 49–85; PULSE 67–105; RESP 10–27; TEMP 36.5–36.8; O2SAT 94–100; BMI 31.8
[2024-10-31 06:35] LABS: Hematocrit 34.9 % (36-47); Hemoglobin 10.70 g/dL (11.27-16.99); Mean Corpuscular HGB Conc 30.7 g/dL (30-55); Mean Corpuscular Hemoglobin 24.5 pg (27-33); Mean Corpuscular Volume 79.9 fl (85-98); Platelet Count 357 10^3/cmm (157-399); Red Blood Count 4.37 10^6/uL (3.85-5.65); White Blood Count 10.57 10^3/uL (3.29-11.43)
[2024-10-31 06:59] LABS: Anion Gap 18.5 (5-19); Blood Urea Nitrogen 6 mg/dL (8-23); Calcium 9.3 mg/dL (8.5-10.5); Carbon Dioxide 25 mmol/L (22-29); Chloride 101 mmol/L (98-107); Glucose 92 mg/dL (65-115); Osmolality Calculated 289 mOsm/kg (285-295); Potassium 3.5 mmol/L (3.5-5.1); Sodium 141 mmol/L (136-145)
--- NOTE | 2024-10-31 07:00 | XACV_ITS ---
Exam Room: 2 Ht: 157 cm Wt: 79 kg BSA: 1.89 m2 Gender: Female : 1960 Any Known Allergies: Other Exam Priority: Routine Procedure(s): Procedure Description: Diagnostic procedure Procedure Description: Aortogram Procedure Description: Peripheral Cath Diagnostic Procedure Procedure Description: Abdominal aortic angiography Procedure Description: Lower extremities' angiography Chiki RAMOS; Diagnostic Cath Status: Elective Conclusions Indication for peripheral angiogram: Lifestyle-limiting claudication of both legs more on left than right Due to inability to cannulate both common femoral arteries and occluded right radial left radial approach was adopted peripheral angiogram was obtained by placing the pigtail catheter in the lower abdominal aortaCatheters used: PigtailAbdominal aortogram: Luminal irregularity with atherosclerotic processRight renal artery: Not engaged Left renal artery: Not engagedRight common iliac: Luminal irregularity without significant stenosis, this small caliber Right external iliac: Luminal irregularity without significant stenosis, small caliber artery Right internal iliac: Luminal irregularity without significant stenosis Right common femoral artery: Eccentric high-grade calcified stenosis, small caliber artery Right profundofemoral artery: Luminal irregularity Right SFA: Small caliber artery without significant note Right Popliteal artery: Small caliber artery without significant stenosis Right tibioperoneal trunk: Luminal irregularity without significant stenosis it is a small caliber arteryLeft anterior tibial artery: Occluded in the proximal segment Right anterior tibial artery: Occluded in the proximal segment Right peroneal artery: OccludedPlease note that it is possible due to timing out of contrast were not able to see below the runoff CTA with runoff should be used to evaluate anatomy and pathology below the knee which has already been done Left common iliac artery, it is a small caliber artery, it has mild to moderate lesion in the distal segment Left external iliac: Luminal irregularity without significant stenosis Left internal iliac artery: Luminal irregularityLeft common femoral artery: Distal segment has moderate calcified eccentric lesion Left profundofemoral artery: Luminal irregularity without significant Left SFA artery: Occluded in the ostial segment reconstitute in the middle with collaterals from profunda Left popliteal artery: High-grade mid segment stenosis Left tibioperoneal artery: Luminal irregularities without significant Left anterior tibial artery: Possible proximal to mid segment occlusion reconstitutes in the distal segment Left posterior tibial artery: Chronic occlusion Left peroneal artery: ChronicallyPlease note that due to timing out of contrast below the knee vessels are not well-visualized therefore CTA with runoff which has already been documented could be used for anatomy and pathology assessment. Recommendations Medical management and defer to vascular surgery to consider bypass graft assessment. Pressures Phase:Rest AO : 161 / 76 ( 109 ) @ 9:56:00 AM 163 / 68 ( 100 ) @ 10:04:00 AM 111 / 73 ( 92 ) @ 10:07:00 AM Hemodynamic Data Phase:Rest AO : 161.0 / 76.0 ( 109.0 ) @ 9:56:00 AM 163.0 / 68.0 ( 100.0 ) @ 10:04:00 AM 111.0 / 73.0 ( 92.0 ) @ 10:07:00 AM Clinical Evaluation EBL: 5mL-10mL Procedural Details Procedure Consent Obtained. Pre-Procedure Time Out. Identified patient by full name and date of as verbalized by the patient/guarantor. Does the consent match the physician's order: Yes. Accurate & Complete Informed Consent: Yes. Inpatient/Outpatient History & Physical on Chart: Yes. If H&P is completed, is and addenduem needed: No. Visualize and Verify Site with Patient/Guarantor: N/A. Relevant Radiology Images available: Yes. The risks, benefits, and alternatives of sedation and/or procedure were discussed by physician. The patient agrees to continue. Procedure started. Correct patient, site and procedure confirmed by cath team. Current diagnosis: PVD. PERRLA. 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 Lungs clear x 5 lobes. IV Site on Arrival: 20 gauge in the left anticubital. IV Fluids: 0.9% NaCl at KVO. 0 mL infused prior to rn labor and delivery. Pre Procedural Pulses: bilateral dorsalis pedis was Doppled. Pre Procedural Pulses: bilateral posterior tibial was Doppled. Pre Procedural Pulses: bilateral radial was 1+. Oxygen started at 2liters/min via nasal canula. bilateral groins was prepped with chloroprep then draped in the usual sterile fashion. Physician notified. Baseline sample Acquired. HR: 74 BPM. Patient's family unavailable. Equipment: 6F - Femoral. Cardiac Cath Pack. ACIST Manifold Kit Model BT 2000. Heparinized Saline (2 units/mL), 1000 mL bag. Kit, Micropuncture. Physician arrived. Physician scrubbed in. Immediate Pre-Procedure Time Out. Correct Patient: Yes; Correct Procedure: Yes; Correct Site: Yes; Correct Patient Position: Yes; Correct Supplies: Yes; Dried Flammable Prep: Yes; Blood Products Available: N/A. Lidocaine 1% infiltrated to the right groin. Ultrasound called to assist with access. Hari Memeo, here to assist with access. Arterial access obtained with micropuncture set. Unable to thread wire, wire and needle out. Dr. Monet holding manual pressure. Lidocaine 1% infiltrated to the right groin. Dr. Alexandra scrubbed in to assist with access. Aborting femoral access, will move to right radial access. Lidocaine 1% infiltrated to the right radial. Aborting right radial access, will move to left radial access. right radial was prepped with chloroprep then draped in the usual sterile fashion. left radial was prepped with chloroprep then draped in the usual sterile fashion. Lidocaine 1% infiltrated to the left radial. Arterial access obtained. Unable to thread wire, wire and needle out. Dr. Monet holding manual pressure. Arterial access obtained. A 6 ethiopian 125cm Straight Pig catheter in over the exchange J wire. Catheter removed over the exchange J wire. A 5 ethiopian Angled Pig catheter in over the exchange J wire. NIPB malfunction, will record aortic BP. Exchange J wire out, 0.035 x 260cm stiff angled glidewire in. Glidewire out. Aortogram performed in AP @ 10 mL/second for a total of 30 mL. Aortogram performed in AP @ 10 mL/second for a total of 30 mL. Pigtail postioned above the bifurcation of the iliacs. Aortagram with left leg runoff performed @ 10 mL/sec for a total of 30 mL. Aortogram performed in AP @ 10 mL/second for a total of 30 mL in DSA. Pigtail postioned above the bifurcation of the iliacs. Aortagram with right leg runoff performed @ 10 mL/sec for a total of 30 mL. Catheter removed over the exchange J wire. Dr. Monet scrubbed out. A TR Band was successful obtaining hemostatsis at the Left Radial artery insertion site. Post Procedure: Pulses reassessed and unchanged. PERRLA. 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 No VTE prophylaxis required. Medication's Wasted: Lidocaine 1% = 10 mL. Medication's Wasted: Nitro = 49.8 mg. Medication's Wasted: Heparin = 1000 units. Medication's Wasted: Other = Versed 1 mg. Medication's Wasted: Other = fentanyl 25 mcg. Total IV fluids: 324 mL. Post-op diagnosis: PVD. Complications: none. Estimated blood loss: 5mL-10mL. Responsiveness - Normal response to verbal stimuli; alert and oriented, PERRLA. Airway - Unaffected, no intervention required; spontaneous ventilation. Circulation: W/N/L, pulses unchanged. Nausea/Vomiting: No. Procedure completed. Patient transferred by bed to 1st floor. Vital chart was stopped. Access Site Site: Left Radial artery Sheath Size: 6 Fr Hemostasis Method: TR Band Hemostasis Success: Successful Procedure Medications Start: 7:34 AM Stop: 7:34 AM Medication: Versed Amount: 1 mg Route: I.V. Start: 7:34 AM Stop: 7:34 AM Medication: Fentanyl Amount: 50 mcg Route: I.V. Start: 7:45 AM Stop: 7:45 AM Medication: Versed Amount: 1 mg Route: I.V. Start: 7:58 AM Stop: 7:58 AM Medication: Neosynephrine Amount: 100 mcg Route: I.V. Start: 8:05 AM Stop: 8:05 AM Medication: Neosynephrine Amount: 200 mcg Route: I.V. Start: 8:07 AM Stop: 8:07 AM Medication: Versed Amount: 1 mg Route: I.V. Start: 8:22 AM Stop: 8:22 AM Medication: Neosynephrine Amount: 100 mcg Route: I.V. Start: 8:35 AM Stop: 8:35 AM Medication: Versed Amount: 1 mg Route: I.V. Start: 8:48 AM Stop: 8:48 AM Medication: Versed Amount: 1 mg Route: I.V. Start: 8:53 AM Stop: 8:53 AM Medication: Nitrogylcerin Amount: 200 mcg Route: I.A. Start: 8:59 AM Stop: 8:59 AM Medication: Fentanyl Amount: 25 mcg Route: I.V. Start: 9:05 AM Stop: 9:05 AM Medication: Heparin Amount: 5000 units Route: I.V. I, the attending physician, have reviewed and verified all procedure medications. Yes, all medications given per verbal order History/Risk Factors Hypertension: No Dyslipidemia: No Peripheral Arterial Disease (PAD): Yes Myocardial Infarction (MD): No Obesity: Yes Renal Disease: No Tobacco Use: Former Prior Interventions PCI: No CABG: No Valve Surgery: No Report Signatures Finalized by Ankush Monet MD on 11/18/2024 08:38 PM
[2024-10-31 07:10] LABS: Creatinine Clr Calc Pharmacy 49.6075
[2024-10-31 07:20] LABS: Absolute Segmented Neutrophil 3.8 10/cmm (1.6-7.1); Atypical Lymphs 24.0 % (0-5); Band Neutrophils Absolute 0.1 10^3/cmm (0.0-1.2); Slide Review Slide Review Perform; Total Cells Counted 100 (0-100)
--- NOTE | 2024-10-31 07:35 | W.PM.OPSUD ---
Surgery/Procedure H&P Update DATE OF PROCEDURE: October 31, 2024 DATE H&P PERFORMED: 10/03/24 H&P UPDATE INFORMATION: I have reviewed H&P completed within last 30 days, I have examined patient prior to procedure and No changes to prior documentation PREOP DIAGNOSIS: Lifestyle-limiting claudication of the left leg PRIMARY INDICATION FOR PROCEDURE: Severe peripheral vascular disease by angiogram Lifestyle-limiting claudication of the left leg despite of exercise and medical management optimal PLANNED PROCEDURE: Operation Date: 10/31/24 07:00 Proposed Procedures p Peripheral Diagnostic - Periphial Angio LEONIDAS(Bilateral) - Ankush Monet MD PATIENT REASSESSED PRIOR TO SEDATION, WITH NO CHANGE NOTED: Yes PHYSICAL EXAM: alert, oriented x 3, clear to auscultation bilaterally and regular rate & rhythm AIRWAY EVAL/ANESTHESIA PLAN: ASA II, Risks, benefits & alternatives of sedation and/or procedure discussed and Patient agrees to continue as planned ADDITIONAL INFORMATION: Patient has been explained all risk-benefit and already for the procedure. Patient understand 2% risk of stroke major bleed. Patient understand 5% risk of acute limb ischemia leading to limb threatening ischemia, urgent or emergent vascular surgery worst-case scenario amputation contrast-induced nephropathy with pseudoaneurysm bruising. Patient agrees to it and would like to proceed with it.
--- NOTE | 2024-10-31 09:22 | PM.PROC ---
Procedure Note: Date of procedure: 10/31/24 Coding Level of Care Code Acute Code for Chg Fwd
--- NOTE | 2024-10-31 09:52 | PC.NURSE ---
received from cardiac medical laboratory manager via bed at 0930,in to room 102.pt is alert and awake and oriented x 4.sr on monitor.denies pain at present.right femoral and right radial attempted access sites with drsgs dry and intact.access site in left radial with tr band on and inflated.left hand is warm to touch and with brisk capillary refill.palpable radial pulse noted distal to tr band.no hematoma noted at all sites.pt instructed in activity restrictions s/p radial artery procedure....and instructed to notify staff for any bleeding,pain,sob,numbness or for any concerns at all.pt verb understanding of instructions
--- NOTE | 2024-10-31 18:39 | PC.NURSE ---
tr band slowly deflated and eventually came off at 1630.pt up and about in room.vss.no hematoma noted.discharge instructions given and explained.pt verb understanding of instructions.discharged via w/c at 1845.brother to drive pt home.
--- NOTE | 2024-10-31 18:47 | PC.NURSE ---
the tr band was slow to come off due to slow ooze when tr volume got down to 2-4 cc of air...then had to be reinflated.pt reminded frequently to not put pressure on hand/arm.
== END 2024-10-31 18:45 | disposition home or self-care (01) ==
LOC: CCL 05:33 → CSU 09:39
PROVIDERS: PCP Nurse Practitioner Family; Visit Provider Internal Medicine Cardiovascular Disease
DX: I70.213 Atherosclerosis of native arteries of extremities with intermittent claudication, bilateral legs (principal); I77.1 Stricture of artery; Z87.891 Personal history of nicotine dependence; K21.9 Gastro-esophageal reflux disease without esophagitis; Z79.891 Long term (current) use of opiate analgesic; I25.10 Atherosclerotic heart disease of native coronary artery without angina pectoris; I65.29 Occlusion and stenosis of unspecified carotid artery
CPT/HCPCS: 36415; 75625; 75716; 80048; 85007; 85025; 96374; 99152; 99153; C1769; C1887; C1894; J1644; J2250; J2371; J3010; J3490; J7030; J7050; J9999; Q0163; Q9967

== ENCOUNTER → 2024-11-12 11:26 | Outpatient (BNVA) | payer OTHER, MEDICAID, SELFPAY | PROVIDERS: PCP Nurse Practitioner Family; Visit Provider Internal Medicine Cardiovascular Disease | DX: Z09 Encounter for follow-up examination after completed treatment for conditions other than malignant neoplasm (principal); I73.9 Peripheral vascular disease, unspecified; I25.10 Atherosclerotic heart disease of native coronary artery without angina pectoris; Z79.01 Long term (current) use of anticoagulants; Z87.891 Personal history of nicotine dependence | CPT/HCPCS: 99214 ==

== ENCOUNTER 2024-12-01 22:29 | Inpatient (IN) | payer OTHER, MEDICAID, SELFPAY ==
--- OUTSIDE RECORDS SUMMARY | 2024-12-01 14:12 | XMS_ITS | Encounter Summary ---
Author Organization [employer] [facility] Address 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 INDEPENDENCE CASE MANAGER Primary Care Provider [phone] Reason for Visit * Reason Comments Wound Infection Encounter Details Date Type Department Care Team (Late st Contact Info) Description 12/01/2024 2:12 PM CDT - 12/01/2024 9:51 PM CDT Emergency [facility] Emergency Medicine [address] [address] Ivy Ferguson MD [address] [address] Pito Nassar MD [address] [place] [phone] Phlegmon (Primary Dx) Discharge Disposition: Acute Care Hospital Social History Tobacco Use Types Packs/Day Years Used Date Smoking Tobacco: Former Cigarettes Smokeless Tobacco: Never Tobacco Cessation:Counseling Given: Not Answered Alcohol Use Standard Drinks/Week Comments Not Currently 0 (1 standard drink = 0.6 oz pur e alcohol) Food Insecurity Answer Date Recorded Do you find you are eating l ess than you should because you can t pay for food? No 12/01/2024 Transportation Needs Answer Date Record ed Have you gone without health care because you didn t have a way to get there? Or worry about transportation for future doctor visits, brain picker medication, etc.? No 2024 Housing Stability Answer Date Recorded Do you worry you won t have a steady place to sleep or struggle to pay rent or mortgage? No 12/01/2024 Utility Needs Answer Date Recorded Do you have difficulty payin g for utility costs (electric, water or gas bills)? No 12/01/2024 Medication Needs Answer Date Recorded Have you skipped taking medi cation due to cost or worry you can t afford new medications? No 12/01/2024 Feeling Safe Answer Date Recorded Are you in a relationship wi th someone who hurts you emotionally and/or physically? 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 Gender Identity Not on file Sexual Orientation Not on file documented as of this encounter Last Filed Vital Signs Vital Sign Reading Time Taken Comments Blood Pressure 82/63 12/01/2024 9:30 PM CDT Pulse 77 12/01/2024 9:30 PM CDT Temperature 36.1 C (96.9 F) 12/01/2024 2:14 PM CDT Respiratory Rate 21 12/01/2024 9:30 PM CDT Oxygen Saturation 89% 12/01/2024 9:30 PM CDT Inhaled Oxygen Concentration - - Weight 82.2 kg (181 lb 3.2 oz) 12/01/2024 2:14 P M CDT Height 160 cm (5' 3 ) 12/01/2024 2:14 PM CDT Body Mass Index 32.1 12/01/2024 2:14 PM CDT documented in this encounter Medications at Time of Discharge cilostazoL (PLETAL) 50 mg Tablet Take 50 mg by mouth 2 times daily before meals. famotidine (PEPCID) 40 mg tablet Take 40 mg by mouth 2 times daily. fluticasone propion-salmeter oL (ADVAIR DISKUS,WIXELA INHUB) 500-50 mcg/dose disk inhaler Take 1 Puff by inhalation 2 times daily. hydrOXYzine pamoate (VISTARIL) 50 mg capsule Take 50 mg by mouth 3 times daily as needed for Itching. metFORMIN (GLUCOPHAGE XR) 500 mg Extended Release 24 hour tablet Take 500 mg by mouth 2 times daily with meals. pantoprazole (PROTONIX) 40 mg Tablet, Delayed Release (E.C.) Take 40 mg by mouth daily. pregabalin (LYRICA) 75 mg Capsule Take 75 mg by mouth daily at bedtime. QUEtiapine (SEROquel) 50 mg tablet Take 50 mg by mouth daily. rOPINIRole (REQUIP) 4 mg Tablet Take 4 mg by mouth daily at bedtime. sulfamethoxazole -trimethoprim (BACTRIM DS) 800-160 mg tablet Take 1 Tablet by mouth 2 times daily. venlafaxine 75 mg Extended Release 24 hour tablet Take 75 mg by mouth daily with breakfast. rivaroxaban (Xarelto) 2.5 mg Tablet Take 2.5 mg by mouth 2 times daily. furosemide (LASIX) 20 mg tabletIndication s:ASHD (arterioscleroti c heart disease) Take 1 Tablet (20 mg) by mouth daily. 90 Tablet 12/05/2023 potassium chloride (KLOR-CON) 10 mEq Extended Release tabletIndication s:ASHD (arterioscleroti c heart disease) TAKE ONE TABLET BY MOUTH DAILY WITH FUROSEMIDE 90 Tablet 12/05/2023 omeprazole (PriLOSEC) 40 mg Capsule, Delayed Release(E.C.) Take 40 mg by mouth daily. QUEtiapine (Seroquel) 25 mg tablet Take 25 mg by mouth daily. metoprolol tartrate (LOPRESSOR) 25 mg tablet Take 0.5 Tablets (12.5 mg) by mouth 2 times daily. 60 Tablet 11 05/09/2022 atorvastatin (LIPITOR) 20 mg tablet Take 1 Tablet (20 mg) by mouth daily at bedtime. 30 Tablet 4 05/09/2022 methocarbamoL (ROBAXIN) 500 mg tablet Take 1 Tablet (500 mg) by mouth 4 times daily as needed for Spasm. 30 Tablet 05/09/2022 ARIPiprazole (ABILIFY) 5 mg tablet 10 mg. 12/26/2021 clopidogreL (PLAVIX) 75 mg Tablet Take 75 mg by mouth daily. 11/17/2021 Trulance 3 mg Tablet 12/26/2021 montelukast (SINGULAIR) 10 mg tablet Take 10 mg by mouth daily at bedtime. 08/14/2017 mupirocin calcium (BACTROBAN) 2 % Cream Apply to affected area 3 times daily. semaglutide (Ozempic) 0.25 mg or 0.5 mg(2 mg/1.5 mL) Pen Injector Inject 2 mg by subcutaneous injection every 7 days. HYDROcodone-acet aminophen (NORCO) 10-325 mg Tablet 1 time daily as needed. 05/26/2022 oxyCODONE (ROXICODONE) 5 mg tabletIndication s:S/P CABG x 3 Take 1 Tablet (5 mg) by mouth every 4 hours as needed for Pain. Max Daily Amount: 30 mg 45 Tablet 05/09/2022 acetaminophen (TYLENOL) 325 mg tablet Take 2 Tablets (650 mg) by mouth every 6 hours as needed for Other (See Comment) (See admin instructions). 05/09/2022 VENTOLIN HFA 90 mcg/actuation inhaler USE 2 INHALATIONS BY MOUTH EVERY 4 HOURS NEEDED 11/21/2021 hydrOXYzine HCL (ATARAX) 25 mg tablet Take 25 mg by mouth daily at bedtime. aspirin 81 mg tablet,delayed release Take 81 mg by mouth daily. documented as of this encounter ED Notes * Alexus Sargent RN - 12/01/2024 9:50 PM CDT Patient left facility with [facility] for transfer to [facility] * Ayde Serrato RN - 12/01/2024 5:06 PM CDT B/P 79/64. Dr. Ferguson to bedside. Pt denies dizziness. Resting in room. * Ayde Serrato RN - 12/01/2024 2:18 PM CDT Pt arrived via pov. Pt sent by [facility] for a wound. Open wound noted to rightmid back. Pt reports she was bit by what she thinks was a brown recluse spider, last Sunday. Pt states she has 5 different bites. She was placed on Bactrim one week ago. All bites heeled except to her right back and left hip. Drainage noted to both wounds. Pt reports pain. Fever last week, nausea and vomiting. documented in this encounter Plan of Treatment Pending Results Name Type Priority Associated Diagnoses Date /Time CT FEMUR W CONTRAST LEFT Imaging Stat 12/01/2024 5:39 PM CDT ANAEROBIC/AEROBIC CULTURE W GRAM STAIN Microbiology Stat 12/01/2024 7:14 PM CDT Scheduled Orders Name Type Priority Associated Diagnoses Orde r Schedule CT FEMUR W CONTRAST LEFT Imaging Routine Rad Once for 1 Occurrences starting 12/01/2024 until 12/01/2024 ANAEROBIC/AEROBIC CULTURE W GRAM STAIN Microbiology Routine ONE TIME fo r 1 Occurrences starting 12/01/2024 until 12/01/2024 documented as of this encounter Procedures Procedure Name Priority Date/Time Associated Diagnosis Comments CT CHEST W CONTRAST Stat 12/01/2024 5 :00 PM CDT CBC WITH DIFFERENTIAL Stat 12/01/2024 3:55 PM CDT SEDIMENTATION RATE Stat 12/01/2024 3: 55 PM CDT C-REACTIVE PROTEIN Stat 12/01/2024 3: 55 PM CDT COMPREHENSIVE METABOLIC PANEL Stat 12/01/2024 3:55 PM CDT documented in this encounter Results * CT CHEST W CONTRAST (12/01/2024 5:00 PM CDT) Anatomical Region Laterality Modality Chest Computed Tomogra phy 12/01/2024 4:36 PM CDT Impressions 12/01/2024 5:39 PM CDT IMPRESSION: Cellulitis/soft tissue infection along the lateral right chest wall without associated abscess. Narrative 12/01/2024 5:39 PM CDT EXAM: CT scan of the chest with IV contrast. Contrast: IOPAMIDOL 61 % INTRAVENOUS SOLUTION (SINGLE USE VIAL) Given:50 mL One or more of the following dose reduction techniques were utilized: automated exposure control[AEC], adjustment of mA and/or KV according to patient size, use of iterative reconstruction technique, CT scan done according to ALARA or ALARA image gently. HISTORY: right lateral chest wall abscess COMPARISON: CT scan dated 05/03/2022 FINDINGS: Subcutaneous fat stranding with overlying skin thickening along the lateral right chest wall. No associated fluid collection, abscess or soft tissue emphysema. No acute airspace opacities. No pneumothorax. No pleural effusion. No acute fractures. No central or segmental pulmonary emboli. No aortic dissection. No concerning pulmonary nodules. No definite lymphadenopathy chest. Small amount of scarring in the right midlung. 2 to 3 mm solid right upper lobe pulmonary nodule. Sternotomy. Small to moderate sized esophageal hiatal hernia. Coronary atherosclerotic calcifications. Remainder unremarkable. Procedure Note Peterson Landin MD - 12/01/2024 EXAM: CT scan of the chest with IV contrast. Contrast: IOPAMIDOL 61 % INTRAVENOUS SOLUTION (SINGLE USE VIAL) Given:50 mL One or more of the following dose reduction techniques were utilized: automated exposure control[AEC], adjustment of mA and/or KV according to patient size, use of iterative reconstruction technique, CT scan done according to ALARA or ALARA image gently. HISTORY: right lateral chest wall abscess COMPARISON: CT scan dated 05/03/2022 FINDINGS: Subcutaneous fat stranding with overlying skin thickening along the lateral right chest wall. No associated fluid collection, abscess or soft tissue emphysema. No acute airspace opacities. No pneumothorax. No pleural effusion. No acute fractures. No central or segmental pulmonary emboli. No aortic dissection. No concerning pulmonary nodules. No definite lymphadenopathy chest. Small amount of scarring in the right midlung. 2 to 3 mm solid right upper lobe pulmonary nodule. Sternotomy. Small to moderate sized esophageal hiatal hernia. Coronary atherosclerotic calcifications. Remainder unremarkable. IMPRESSION: Cellulitis/soft tissue infection along the lateral right chest wall without associated abscess. Ivy Ferguson MD CT ORDERABLES Final Result * (ABNORMAL) C-REACTIVE PROTEIN (12/01/2024 3:55 PM CDT) CRP 30.4(H) <5.0 mg/L 12/01/2024 4:29 PM CDT [facility] Blood BLOOD SPECIMEN / Unknown Venipuncture / Unknown 12/01/2024 3:55 PM CDT 12/01/2024 3:58 PM CDT Ivy Ferguson MD CHEMISTRY ORDERABLES [id number] [address] [place] [id number] * (ABNORMAL) SEDIMENTATION RATE (12/01/2024 3:55 PM CDT) ESR (SEDIMENTATION RATE) 73(H) 0 - 30 mm/Hr 12/01/2024 4:30 PM CDT [facility] Blood BLOOD SPECIMEN / Unknown Venipuncture / Unknown 12/01/2024 3:55 PM CDT 12/01/2024 3:58 PM CDT Narrative [facility] - 12/01/2024 4:30 PM CDT Tube Lot: #[id number] Exp Date: 02/18/2026 QC1 LOT [id number] EXP.02/23/2025 QC2 LOT [id number] EXP.02/23/2025 us Ivy Ferguson MD HEMATOLOGY ORDERABLES Final Res ult [facility] [id number] [address] [place] [id number] * (ABNORMAL) COMPREHENSIVE METABOLIC PANEL (12/01/2024 3:55 PM CDT) Pathologist [facility] SODIUM 136 136 - 145 mmol/L 12/01/2024 4:28 PM CDT [facility] POTASSIUM 3.6 3.5 - 5.1 mmol/L 12/01/2024 4:28 PM CDT [facility] CHLORIDE 99 98 - 107 mmol/L 12/01/2024 4:28 PM CDT [facility] CO2 23 22 - 29 mmol/L 12/01/2024 4:28 PM [facility] CALCIUM 10.2 8.8 - 10.2 mg/dL 12/01/2024 4:28 PM [facility] BUN 6(L) 8 - 23 mg/dL 12/01/2024 4:28 PM [facility] CREATININE 1.26(H) 0.51 - 0.95 mg/dL 12/01/2024 4:28 PM [facility] GLUCOSE 93 74 - 99 mg/dL 12/01/2024 4:28 PM [facility] TOTAL PROTEIN 7.9 6.6 - 8.7 g/dL 12/01/2024 4:28 PM [facility] ALBUMIN 4.0 3.5 - 5.2 g/dL 12/01/2024 4:28 PM [facility] BILIRUBIN TOTAL 0.2 0.0 - 1.2 mg/dL 12/01/2024 4:28 PM [facility] ALKALINE PHOSPHATASE 383(H) 35 - 104 U/L 12/01/2024 4:28 PM [facility] AST 20 0 - 35 U/L 12/01/2024 4:28 PM [facility] ALT 21 0 - 35 U/L 12/01/2024 4:28 PM [facility] GFR 47(L) >=60 mL/min/1.7 3 sq meter 12/01/2024 4:28 PM [facility] Comment:eGFR calculated with 2020 CKD-EPI equation. Vegetarian diet, extremely high or low muscle mass, and may affect results. Cystatin C with Glomerular Filtration Rate is a suitable alternative for these patients. ANION GAP 14 5 - 20 mmol/L 12/01/2024 4:28 PM [facility] Blood BLOOD SPECIMEN / Unknown Venipuncture / Unknown 12/01/2024 3:55 PM CDT 12/01/2024 3:58 PM CDT us Ivy Ferguson MD CHEMISTRY ORDERABLES Final Resu lt [facility] CLIA # [id number] [address] [place] [address] * (ABNORMAL) CBC WITH DIFFERENTIAL (12/01/2024 3:55 PM CDT) WBC 9.7 4.0 - 10.0 K/uL 12/01/2024 4:03 PM CDT [facility] RBC 3.83(L) 3.93 - 5.22 M/uL 12/01/2024 4:03 PM [facility] HEMOGLOBIN 9.6(L) 11.2 - 15.7 g/dL 12/01/2024 4:03 PM [facility] HEMATOCRIT 29.5(L) 34.1 - 44.9 % 12/01/2024 4:03 PM [facility] MCV 77.0(L) 79.4 - 94.8 fL 12/01/2024 4:03 PM [facility] MCH 25.1(L) 25.6 - 32.2 pg 12/01/2024 4:03 PM [facility] MCHC 32.5 32.2 - 35.5 g/dL 12/01/2024 4:03 PM [facility] RDW 17.2(H) 11.0 - 14.5 % 12/01/2024 4:03 PM [facility] RDW-STDEV 48.4 36.9 - 56.9 fL 12/01/2024 4:03 PM [facility] PLATELETS 502(H) 163 - 337 K/uL 12/01/2024 4:03 PM [facility] MPV 9.6(L) 10.0 - 14.8 fL 12/01/2024 4:03 PM [facility] NEUTROPHILS 71 34 - 71 % 12/01/2024 4:03 PM [facility] LYMPHOCYTES 21 19 - 52 % 12/01/2024 4:03 PM [facility] MONOCYTES 6 5 - 13 % 12/01/2024 4:03 PM CDT [facility] EOSINOPHILS 1 1 - 6 % 12/01/2024 4:03 PM CDT [facility] BASOPHILS 1 0 - 1 % 12/01/2024 4:03 PM T [facility] IMMATURE GRANULOCYTES 1 % 12/01/2024 4:03 PM T [facility] NEUTROPHIL ABSOLUTE 6.85(H) 1.56 - 6.13 K/uL 12/01/2024 4:03 PM T [facility] LYMPHOCYTE ABSOLUTE 2.00 1.20 - 3.40 K/uL 12/01/2024 4:03 PM CDT [facility] MONOCYTE ABSOLUTE 0.61(H) 0.24 - 0.36 K/uL 12/01/2024 4:03 PM T [facility] EOSINOPHIL ABSOLUTE 0.12 0.04 - 0.36 K/uL 12/01/2024 4:03 PM T [facility] BASOPHILS ABSOLUTE 0.07 0.01 - 0.08 K/uL 12/01/2024 4:03 PM T [facility] IMMATURE GRANULOCYTES ABSOLUTE 0.07 K/uL 12/01/2024 4:03 PM [facility] Blood BLOOD SPECIMEN / Unknown Venipuncture / Unknown 12/01/2024 3:55 PM CDT 12/01/2024 3:58 PM CDT us Ivy Ferguson MD HEMATOLOGY ORDERABLES Final Res ult [id number] [address] [place] [id number] documented in this encounter Visit Diagnoses Diagnosis Phlegmon- Primary Cellulitis and abscess of unspecified site documented in this encounter Administered Medications Active Administered Medications - up to 3 most recent administrations Medication Order MAR Action Action Date Dose Rate Site sodium chloride flush injection 10 mL 10 mL, IV, EVERY 12 HOURS (BlD), First dose on Sun12/01/24 at 2100, Until Discontinued, Routine sodium chloride flush injection 10 mL 10 mL, IV, SEE ADMIN INSTRUCTIONS, Starting on Sun12/01/24 at 1525, Until Discontinued, Routine Inactive Administered Medications - up to 3 most recent administrations Medication Order MAR Action Action Date Dose Rate Site cefePIME (MAXIPIME) 2,000 mg in sodium chloride 0.9 % 50 mL IVPB 2,000 mg, IV, ONE TIME ONLY, 1 dose, On Sun12/01/24 at 1715, Routine, Antibiotic Indication: Wound / Cellulitis / Abscess New Bag 12/01/2024 5:23 PM CDT 2,000 mg 118 mL/hr dexAMETHasone (DECADRON) injection 10 mg 10 mg, IV, ONE TIME ONLY, 1 dose, On Sun12/01/24 at 1715, Routine Given 12/01/2024 5:16 PM CDT 10 mg iopamidoL (ISOVUE-300) 61% injection (single-use vial) 50 mL 50 mL, IV, INTRA-PROCEDURE ONCE, 1 dose, Starting on Sun12/01/24 at 1701, Until Sun12/01/24 at 1701, Routine Contrast Given 12/01/2024 5:01 PM CDT 50 mL iopamidoL (ISOVUE-300) 61% injection (single-use vial) 50 mL 50 mL, IV, INTRA-PROCEDURE ONCE, 1 dose, Starting on Sun12/01/24 at 1702, Until Sun12/01/24 at 1702, Routine Contrast Given 12/01/2024 5:02 PM CDT 50 mL ondansetron (ZOFRAN) 4 mg/2 mL injection 4 mg 4 mg, IV, ONE TIME ONLY, 1 dose, On Sun12/01/24 at 1730, Routine Given 12/01/2024 5:25 PM CDT 4 mg oxyCODONE-acetaminophen (PERCOCET) 5-325 mg per tablet 1 Tablet 1 Tablet, Oral, ONE TIME ONLY, 1 dose, On Sun12/01/24 at 1615, Routine Given 12/01/2024 4:12 PM CDT 1 Tablet sodium chloride 0.9 % bolus solution 1,000 mL 1,000 mL, IV, ONE TIME ONLY, 1 dose, On Sun12/01/24 at 1715, at 2,000 mL/hr, Administer over 30 Minutes, Routine New Bag 12/01/2024 5:16 PM CDT 1,000 mL 2000 mL/hr vancomycin (VANCOCIN) 1,250 mg in sodium chloride 0.9 % 250 mL IVPB 1,250 mg, IV, ONE TIME ONLY, 1 dose, On Sun12/01/24 at 1715, Routine, Antibiotic Indication: Wound / Cellulitis / Abscess New Bag 12/01/2024 5:22 PM CDT 1,250 mg 190 mL/hr documented in this encounter Active and Recently Administered Medications Times are shown in CDT. Scheduled Medication Order 11/29/2024 11/30/2024 12/01/2024 cefePIME (MAXIPIME) 2,000 mg in sodium chloride 0.9 % 50 mL IVPB (COMPLETED) 2,000 mg, IV, ONE TIME ONLY, 1 dose, On 12/01/24 at 1715, Routine, Antibiotic Indication: Wound / Cellulitis / Abscess 1723 (New Bag - Prov ider: Ayde Serrato RN)1753 (Stopped - Provider: Germain Booker RN) dexAMETHasone (DECADRON) injection 10 mg (COMPLETED) 10 mg, IV, ONE TIME ONLY, 1 dose, On Sun12/01/24 at 1715, Routine 1716 (Given - Provid er: Ayde Serrato RN) iopamidoL (ISOVUE-300) 61% injection (single-use vial) 50 mL (COMPLETED) 50 mL, IV, INTRA-PROCEDURE ONCE, 1 dose, Starting on Sun12/01/24 at 1701, Until Sun12/01/24 at 1701, Routine 1701 (Contrast Given - Provider: RT Ysabel) iopamidoL (ISOVUE-300) 61% injection (single-use vial) 50 mL (COMPLETED) 50 mL, IV, INTRA-PROCEDURE ONCE, 1 dose, Starting on Sun12/01/24 at 1702, Until 12/01/24 at 1702, Routine 1702 (Contrast Given - Provider: RT Ysabel) ondansetron (ZOFRAN) 4 mg/2 mL injection 4 mg (COMPLETED) 4 mg, IV, ONE TIME ONLY, 1 dose, On Sun12/01/24 at 1730, Routine 1725 (Given - Provid er: Ayde Serrato RN) oxyCODONE-acetaminophen (PERCOCET) 5-325 mg per tablet 1 Tablet (COMPLETED) 1 Tablet, Oral, ONE TIME ONLY, 1 dose, On Sun12/01/24 at 1615, Routine 1612 (Given - Provid er: Ayde Serrato RN) sodium chloride 0.9 % bolus solution 1,000 mL (COMPLETED) 1,000 mL, IV, ONE TIME ONLY, 1 dose, On Sun12/01/24 at 1715, at 2,000 mL/hr, Administer over 30 Minutes, Routine 1716 (New Bag - Prov ider: Ayde Serrato RN)1746 (Stopped - Provider: Ayde Serrato RN) sodium chloride flush injection 10 mL 10 mL, IV, EVERY 12 HOURS (BlD), First dose on Sun12/01/24 at 2100, Until Discontinued, Routine 2100 (Due) sodium chloride flush injection 10 mL 10 mL, IV, SEE ADMIN INSTRUCTIONS, Starting on Sun12/01/24 at 1525, Until Discontinued, Routine vancomycin (VANCOCIN) 1,250 mg in sodium chloride 0.9 % 250 mL IVPB (COMPLETED) 1,250 mg, IV, ONE TIME ONLY, 1 dose, On Sun12/01/24 at 1715, Routine, Antibiotic Indication: Wound / Cellulitis / Abscess 1722 (New Bag - Prov ider: Ayde Serrato RN)1852 (Stopped - Provider: Ayde Serrato RN) documented in this encounter Care Teams Bat Person Relationship Specialty Start Date End Date Nikki Coronado FNP [address] [place] [address] PCP - General NURSE PRACTITIONER 05/27/14 documented as of this encounter
--- OUTSIDE RECORDS SUMMARY | 2024-12-01 22:33 | XMS_ITS | Encounter Summary ---
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
--- OUTSIDE RECORDS SUMMARY | 2024-12-01 22:34 | XMS_ITS | Clinical Summary ---
Author Organization [employer] Address [address] [facility] Attn: Epic Prelude ADT JACINTA IYER [address] Care Team Providers Care Account Services Specialist Name Role Phone CoronadoNikki martinez Tommy MARINE EXTENSION AGENT Primary Care Provider [phone] Allergies Active Allergy Reactions Criticality Noted Date Comments Duloxetine Anaphylaxis High 05/31/2022 Penicillins Unknown 05/10/2014 Happened as a child Medications VENTOLIN HFA 90 mcg/actuation inhaler USE 2 INHALATIONS BY MOUTH EVERY 4 HOURS NEEDED 2 Active ARIPiprazole (ABILIFY) 5 mg tablet 10 mg. 2 Active clopidogreL (PLAVIX) 75 mg Tablet Take 75 mg by mouth daily. 2 Active hydrOXYzine HCL (ATARAX) 25 mg tablet Take 25 mg by mouth daily at bedtime. Active Trulance 3 mg Tablet 2 Active aspirin 81 mg tablet,delayed release Take 81 mg by mouth daily. Active montelukast (SINGULAIR) 10 mg tablet Take 10 mg by mouth daily at bedtime. 8 Active oxyCODONE (ROXICODONE) 5 mg tabletIndicatio ns:S/P CABG x 3 Take 1 Tablet (5 mg) by mouth every 4 hours as needed for Pain. Max Daily Amount: 30 mg 45 Tablet 3 Active metoprolol tartrate (LOPRESSOR) 25 mg tablet Take 0.5 Tablets (12.5 mg) by mouth 2 times daily. 60 Tablet 11 3 Active acetaminophen (TYLENOL) 325 mg tablet Take 2 Tablets (650 mg) by mouth every 6 hours as needed for Other (See Comment) (See admin instructions). 3 Active atorvastatin (LIPITOR) 20 mg tablet Take 1 Tablet (20 mg) by mouth daily at bedtime. 30 Tablet 4 3 Active methocarbamoL (ROBAXIN) 500 mg tablet Take 1 Tablet (500 mg) by mouth 4 times daily as needed for Spasm. 30 Tablet 3 Active Additional Information Patient taking differently: 1,000 mgOralTWO TIMES DAILY, Reported on 12/01/2024 HYDROcodone-sharath taminophen (NORCO) 10-325 mg Tablet 1 time daily as needed. 3 Active omeprazole (PriLOSEC) 40 mg Capsule, Delayed Release(E.C.) Take 40 mg by mouth daily. Active QUEtiapine (Seroquel) 25 mg tablet Take 25 mg by mouth daily. Active furosemide (LASIX) 20 mg tabletIndicatio ns:ASHD (arteriosclerot ic heart disease) Take 1 Tablet (20 mg) by mouth daily. 90 Tablet 4 Active potassium chloride (KLOR-CON) 10 mEq Extended Release tabletIndicatio ns:ASHD (arteriosclerot ic heart disease) TAKE ONE TABLET BY MOUTH DAILY WITH FUROSEMIDE 90 Tablet 4 Active cilostazoL (PLETAL) 50 mg Tablet Take 50 mg by mouth 2 times daily before meals. Active famotidine (PEPCID) 40 mg tablet Take 40 mg by mouth 2 times daily. Active fluticasone propion-salmete roL (ADVAIR DISKUS,WIXELA INHUB) 500-50 mcg/dose disk inhaler Take 1 Puff by inhalation 2 times daily. Active hydrOXYzine pamoate (VISTARIL) 50 mg capsule Take 50 mg by mouth 3 times daily as needed for Itching. Active metFORMIN (GLUCOPHAGE XR) 500 mg Extended Release 24 hour tablet Take 500 mg by mouth 2 times daily with meals. Active mupirocin calcium (BACTROBAN) 2 % Cream Apply to affected area 3 times daily. Active semaglutide (Ozempic) 0.25 mg or 0.5 mg(2 mg/1.5 mL) Pen Injector Inject 2 mg by subcutaneous injection every 7 days. Active pantoprazole (PROTONIX) 40 mg Tablet, Delayed Release (E.C.) Take 40 mg by mouth daily. Active pregabalin (LYRICA) 75 mg Capsule Take 75 mg by mouth daily at bedtime. Active QUEtiapine (SEROquel) 50 mg tablet Take 50 mg by mouth daily. Active rOPINIRole (REQUIP) 4 mg Tablet Take 4 mg by mouth daily at bedtime. Active sulfamethoxazol e-trimethoprim (BACTRIM DS) 800-160 mg tablet Take 1 Tablet by mouth 2 times daily. Active venlafaxine 75 mg Extended Release 24 hour tablet Take 75 mg by mouth daily with breakfast. Active rivaroxaban (Xarelto) 2.5 mg Tablet Take 2.5 mg by mouth 2 times daily. Active Active Problems Problem Noted Date Diagnosed Date S/P CABG x 3 05/09/2022 Tobacco abuse 05/03/2022 Unstable angina 05/03/2022 ASCVD (arteriosclerotic cardiovascular disease) 01/31/2022 Overview (01/31/2022): Added automatically from request for surgery [id number] Angina, class III 01/31/2022 Overview (01/31/2022): Added automatically from request for surgery [id number] Carotid stenosis, left 01/31/2022 Overview (01/31/2022): Added automatically from request for surgery [id number] Claudication 01/31/2022 Overview (01/31/2022): Added automatically from request for surgery [id number] Encounters Date Type Department Care Team Description 12/01/2024 2:12 PM CDT - 12/01/2024 9:51 PM CDT Emergency [facility] Emergency Medicine [address] [place] [address] Ivy Ferguson MD [place], Pito Rushing MD Phlegmon (Primary Dx) Discharge Disposition: Acute Care Hospital 12/01/2024 Travel from Last 3 Months Immunizations Immunization Administration Dates Next Due (ADACEL/BOOSTRIX)(10 YR UP) TDAP VACCINE, 0.5ML, IM 10/03/2017 Hepatitis B Vaccine 01/18/2005,06/21/2004,2004 Social History Tobacco Use Types Packs/Day Years [...] worry about transportation for future doctor visits, 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 Gender Identity Not on file Sexual Orientation Not on file Last Filed Vital Signs Vital Sign Reading [...] Mass Index 32.1 12/01/2024 2:14 PM CDT Plan of Treatment Health Maintenance Due Date Last Done Comments Pre-Diabetes and Diabetes Screening 1960 BREAST CANCER SCREENING 1999 COLORECTAL SCREENING 01/06/2004 Colorectal Cancer Screening 01/06/2004 FIT-DNA Q 3 years 01/06/2004 FIT/FOBT Q 1 year 01/06/2004 Flex Sig/CT Colonography Q 5 years 01/06/2004 ZOSTER VACCINE (1 of 2) 2009 RSV VACCINE (60+ or ) (1 - Risk 60-74 years 1-dose series) 2019 OSTEOPOROSIS SCREENING 01/06/2024 [place] ([place]) Preventative Visit/Annual Wellness Visit 02/20/2024 INFLUENZA VACCINE (#1) 2024 , 12/08/2019, 11/05/2018, Additional history exists COVID-19 Vaccine (3 - 2024-2 6 season) 2024 07/11/2021, 06/13/2021 DTAP/TDAP/TD VACCINES (2 - T d or Tdap) 10/04/2027 10/03/2017 PNEUMOCOCCAL VACCINE 50+ YEARS Completed 10/23/2024 Medical Devices Implanted Type Area Mule Rider Device Identifier Shelf Expiration Date Model / Serial / Lot Hemostatic Surgifoam [id number] - [id number] Implanted:Qty: 1 on 05/04/2022 by Albino Ferguson MD at [facility] Hemostatic N/A: Chest [employer] 11/14/20251973 / / [id number] Marker Anastomark Coronry Ss Distal W/ Roman Amgm-D - [id number] Implanted:Qty: 1 on 05/04/2022 by Albino Ferguson MD at [facility] Other N/A: Chest [employer] AMGM-D / / [id number] Marker Anastomark Coronry Ss Distal W/ Roman Amgm-D - [id number] Implanted:Qty: 1 on 05/04/2022 by Albino Ferguson MD at [facility] Other N/A: Chest [employer] AMGM-D / / [id number] Procedures Procedure Name Priority Date/Time Associated Diagnosis Comments CT CHEST W CONTRAST Stat 12/01/2024 5 :00 PM CDT C-REACTIVE PROTEIN Stat 12/01/2024 3: 55 PM CDT SEDIMENTATION RATE Stat 12/01/2024 3: 55 PM CDT COMPREHENSIVE METABOLIC PANEL Stat 12/01/2024 3:55 PM CDT CBC WITH DIFFERENTIAL Stat 12/01/2024 3:55 PM CDT from Last 3 Months Results * CT CHEST W CONTRAST (12/01/2024 [...] lateral right chest wall without associated abscess. us Ivy Ferguson MD CT ORDERABLES Final Result * (ABNORMAL) CBC WITH DIFFERENTIAL (12/01/2024 3:55 PM CDT) WBC 9.7 4.0 - 10.0 K/uL 12/01/2024 4:03 PM [facility] RBC 3.83(L) 3.93 - 5.22 M/uL 12/01/2024 4:03 PM [facility] HEMOGLOBIN 9.6(L) 11.2 - 15.7 g/dL 12/01/2024 4:03 PM [facility] HEMATOCRIT 29.5(L) 34.1 - 44.9 % 12/01/2024 4:03 PM [facility] MCV 77.0(L) 79.4 - 94.8 fL 12/01/2024 4:03 PM [facility] MCH 25.1(L) 25.6 - 32.2 pg 12/01/2024 4:03 PM [facility] MCHC 32.5 32.2 - 35.5 g/dL 12/01/2024 4:03 PM [facility] RDW 17.2(H) 11.0 - 14.5 % 12/01/2024 4:03 PM [facility] RDW-STDEV 48.4 36.9 - 56.9 fL 12/01/2024 4:03 PM [facility] PLATELETS 502(H) 163 - 337 K/uL 12/01/2024 4:03 PM [facility] MPV 9.6(L) 10.0 - 14.8 fL 12/01/2024 4:03 PM [facility] NEUTROPHILS 71 34 - 71 % 12/01/2024 4:03 PM [facility] LYMPHOCYTES 21 19 - 52 % 12/01/2024 4:03 PM [facility] MONOCYTES 6 5 - 13 % 12/01/2024 4:03 PM [facility] EOSINOPHILS 1 1 - 6 % 12/01/2024 4:03 PM [facility] BASOPHILS 1 0 - 1 % 12/01/2024 4:03 PM [facility] IMMATURE GRANULOCYTES 1 % 12/01/2024 4:03 PM [facility] NEUTROPHIL ABSOLUTE 6.85(H) 1.56 - 6.13 K/uL 12/01/2024 4:03 PM [facility] LYMPHOCYTE ABSOLUTE 2.00 1.20 - 3.40 K/uL 12/01/2024 4:03 PM [facility] MONOCYTE ABSOLUTE 0.61(H) 0.24 - 0.36 K/uL 12/01/2024 4:03 PM [facility] EOSINOPHIL ABSOLUTE 0.12 0.04 - 0.36 K/uL 12/01/2024 4:03 PM [facility] BASOPHILS ABSOLUTE 0.07 0.01 - 0.08 K/uL 12/01/2024 4:03 PM [facility] IMMATURE GRANULOCYTES ABSOLUTE 0.07 K/uL 12/01/2024 4:03 PM [facility] Blood BLOOD SPECIMEN / Unknown Venipuncture / Unknown 12/01/2024 3:55 PM CDT 12/01/2024 3:58 PM CDT us Ivy Ferguson MD HEMATOLOGY ORDERABLES Final Res ult Performing Organization Address City/[facility]/ZIP Co de Phone Number [facility] CLIA # [id number] [address] [place] [phone] * (ABNORMAL) SEDIMENTATION RATE (12/01/2024 3:55 PM CDT) ESR (SEDIMENTATION RATE) 73(H) 0 - 30 mm/Hr 12/01/2024 4:30 PM CDT [facility] Blood BLOOD SPECIMEN / Unknown Venipuncture / Unknown 12/01/2024 3:55 PM CDT 12/01/2024 3:58 PM CDT Narrative [facility] - 12/01/2024 4:30 PM CDT Tube Lot: #[id number] Exp Date: 02/18/2026 QC1 LOT [id number] EXP.02/23/2025 QC2 LOT [id number] EXP.02/23/2025 us Ivy Ferguson MD HEMATOLOGY ORDERABLES Final Res ult Performing Organization Address [facility]/ZIP Co de Phone Number [facility] CLIA # [id number] [address] [place] [address]40 * (ABNORMAL) C-REACTIVE PROTEIN (12/01/2024 3:55 PM CDT) CRP 30.4(H) <5.0 mg/L 12/01/2024 4:29 PM CDT [facility] Blood BLOOD SPECIMEN / Unknown Venipuncture / Unknown 12/01/2024 3:55 PM CDT 12/01/2024 3:58 PM CDT us Ivy Ferguson MD CHEMISTRY ORDERABLES Final Resu lt [facility] CLIA # [id number] [address] [place] [phone] * (ABNORMAL) COMPREHENSIVE METABOLIC PANEL (12/01/2024 3:55 PM CDT) SODIUM 136 136 - 145 mmol/L 12/01/2024 4:28 PM [facility] POTASSIUM 3.6 3.5 - 5.1 mmol/L 12/01/2024 4:28 PM [facility] CHLORIDE 99 98 - 107 mmol/L 12/01/2024 4:28 PM [facility] CO2 23 22 - 29 mmol/L 12/01/2024 4:28 PM [facility] CALCIUM 10.2 8.8 - 10.2 mg/dL 12/01/2024 4:28 PM [facility] BUN 6(L) 8 - 23 mg/dL 12/01/2024 4:28 PM [facility] CREATININE 1.26(H) 0.51 - 0.95 mg/dL 12/01/2024 4:28 PM [facility] GLUCOSE 93 74 - 99 mg/dL 12/01/2024 4:28 PM [facility] TOTAL PROTEIN 7.9 6.6 - 8.7 g/dL 12/01/2024 4:28 PM [facility] ALBUMIN 4.0 3.5 - 5.2 g/dL 12/01/2024 4:28 PM [facility] BILIRUBIN TOTAL 0.2 0.0 - 1.2 mg/dL 12/01/2024 4:28 PM [facility] ALKALINE PHOSPHATASE 383(H) 35 - 104 U/L 12/01/2024 4:28 PM [facility] AST 20 0 - 35 U/L 12/01/2024 4:28 PM [facility] ALT 21 0 - 35 U/L 12/01/2024 4:28 PM [facility] GFR 47(L) >=60 mL/min/1.7 3 sq meter 12/01/2024 4:28 PM CDT [facility] Comment:eGFR calculated with 2020 CKD-EPI equation. Vegetarian diet, extremely high or low muscle mass, and may affect results. Cystatin C with Glomerular Filtration Rate is a suitable alternative for these patients. ANION GAP 14 5 - 20 mmol/L 12/01/2024 4:28 PM CDT [facility] Blood BLOOD SPECIMEN / Unknown Venipuncture / Unknown 12/01/2024 3:55 PM CDT 12/01/2024 3:58 PM CDT us Ivy Ferguson MD CHEMISTRY ORDERABLES Final Resu lt [facility] CLIA # [id number] [address] [place], [place] [id number] from Last [address] [place], [place] [address] MEDICA[place] DUAL COMPLETE HMO [facility] [address] Advance Directives For more information, please contact: [phone] * Full Code (Latest Code Status on File) Date Activated Date Inactivated Comments 05/04/2022 4:58 PM 05/09/2022 10:49 PM * Full Code Date Activated Date Inactivated Comments 05/03/2022 11:52 AM 05/04/2022 4:58 PM * Full Code Date Activated Date Inactivated Comments 04/28/2022 6:55 AM 04/28/2022 4:20 PM Care Teams Account Services Specialist Relationship Specialty Start Date End Date Nikki Coronado FNP [facility] [place] [address] PCP - General NURSE PRACTITIONER 05/27/14
--- OUTSIDE RECORDS SUMMARY | 2024-12-01 22:34 | XMS_ITS | Encounter Summary ---
Author Organization [facility] Address [address] [place] [address] Care Team Providers Care Overnight Cashier Name Role Phone Nikki Coronado OFFSET PRESS OPERATOR APPRENTICE Primary Care Provider Encounter Details Date Type Department Care Team (Late st Contact Info) Description 06/27/2005 Outpatient Historical HIS RAD [facility] OP Tamie Davila MD [address] [place] [address] Social History Tobacco Use Types Packs/Day Years Used Date Smoking Tobacco: Never Assessed Comments Unknown Sex and Gender Information Value Date Recorded Sex Assigned at Not on file 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 TECHNIQUE: Sagittal T1, sagittal T2, sagittal IR, axial T1, axial T2 images of the lumbar spine were performed. No contrast agents were utilized. FINDINGS: The sagittal images show signal loss and volume loss at the L3-L4 and L4-L5 interspaces. Osteoannular bulge at L3-L4 is present. No collapsed or subluxed vertebral bodies noted. Conus and cauda equina are unremarkable. Neural foramina are widely patent. Sagittal IR sequence shows endplate signal change at L4-L5. Conus and cauda equina are unremarkable. There is endplate change in the superior endplate of L3. The transaxial images demonstrate normal thoracolumbar junction, intervertebral disc spaces. L2-L3 is unremarkable. L3-L4 is unremarkable. L4-L5 shows signal loss, volume loss and osteal annular bulge. L5-S1 shows adequate canal dimensions. No abnormal signal from within the conus or cauda equina is noted. IMPRESSION: Modest changes of aging at L3-L4, L4-L5. sd 52 Dictated By: Ac Rubio M.D. Electronically Signed By: Ac Rubio M.D. Date Signed: 06/27/05 SLD Procedure Note 01/08/2009 MRI EXAMINATION OF LUMBAR SPINE WITHOUT CONTRAST REASON FOR EXAM: Back pain. TECHNIQUE: Sagittal T1, sagittal T2, sagittal IR, axial T1, axial T2 images of thelumbar spine were performed. No contrast agents were utilized. FINDINGS: The sagittal images show signal loss and volume loss at the L3-L4 andL4-L5 interspaces. Osteoannular bulge at L3-L4 is present. No collapsed or subluxedvertebral bodies noted. Conus and cauda equina are unremarkable. Neural foramina are widely patent.Sagittal IR sequence shows endplate signal change at L4-L5. Conus and cauda equina are unremarkable. Thereis endplate change in the superior endplate of L3. The transaxial images demonstrate normal thoracolumbar junction,intervertebral disc spaces. L2-L3 is unremarkable. L3-L4 is unremarkable. L4-L5 shows signal loss, volumeloss and osteal annular bulge. L5-S1 shows adequate canal dimensions. No abnormal signal from within theconus or cauda equina is noted. IMPRESSION: Modest changes of aging at L3-L4, L4-L5. sd [id number] Dictated By: Ac Rubio M.D. Electronically Signed By: Ac Rubio M.D. Date Signed: 06/27/05 SLD us Tamie Davila MD MR ORDERABLES Final Result documented in this encounter Visit Diagnoses Not on filedocumented in this encounter Care Teams Overnight Cashier Relationship Specialty Start Date End Date Nikki Coronado FNP PCP - General NURSE PRACTITIONER 05/27/14 documented as of this encounter
--- OUTSIDE RECORDS SUMMARY | 2024-12-01 22:34 | XMS_ITS | Encounter Summary ---
Author Organization [facility] Address [address] [place] [address] Care Team Providers Care Brick Burner Head Name Role Phone Nikki Coronado Primary Care Provider [phone] Encounter Details Date Type Department Care Team (Latest Contact Info) Description 07/17/2018 Ancillary Orders [facility] Centralized Scheduling [address] [place] [id number] Nikki Coronado FNP [address] [place], [place] [id number] Fatty (change of) liver, not elsewhere classified Social History Tobacco Use Types Packs/Day Years Used Date Smoking Tobacco: Every Day Cigarettes 0.5 20 Smokeless Tobacco: Never Comments No Sex and Gender Information Value Date Recorded Sex Assigned at Not on file 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
--- OUTSIDE RECORDS SUMMARY | 2024-12-01 22:34 | XMS_ITS | Clinical Summary ---
Author Organization [facility] Address [address] [facility] [address] [place] [address] Phone Care Team Providers Care Airport Operations Manager Name Role Phone Nikki Coronado JAPANESE TUTOR Primary Care Provider [phone] Allergies Active Allergy Reactions Criticality Noted Date Comments Penicillins Unknown 05/10/2014 Happened as a child Medications HYDROcodone-sharath taminophen (NORCO) 10-325 mg Tablet Take 1 Tab by mouth every 6 hours as needed for Pain, Moderate. Active ibuprofen (MOTRIN) 800 mg tablet Take 800 mg by mouth every 6 hours as needed for Pain, Mild. Active ranitidine (ZANTAC) 150 mg tablet Take 150 mg by mouth daily at bedtime. Active lisinopril (PRINIVIL) 10 mg tablet Take 10 mg by mouth daily. Active sertraline (ZOLOFT) 50 mg tablet Take 50 mg by mouth daily. Active montelukast (SINGULAIR) 10 mg tablet Take 10 mg by mouth daily at bedtime. Active busPIRone (BUSPAR) 10 mg tablet Take 10 mg by mouth daily. Active cephALEXin (KEFLEX) 500 mg capsule Take 1 Capsule (500 mg) by mouth 4 times daily. 30 Capsule None 10/03/2017 Active oxyCODONE-aceta minophen (PERCOCET) 5-325 mg tabletIndicatio ns:Closed displaced fracture of neck of fifth metacarpal bone of left hand, initial encounter,Accid ental fall involving sidewalk curb, initial encounter Take 1 Tablet by mouth every 4 hours as needed for Pain, Moderate. 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 Gender Identity Not on file Sexual Orientation Not on file Last Filed Vital Signs Vital Sign Reading Time Taken Comments Blood Pressure 118/84 12/30/2018 1:36 PM NETWORK CONTRACT MANAGER Pulse 87 05/10/2014 6:10 PM CDT Temperature 37.4 C (99.3 F) 12/30/2018 1:36 PM NETWORK CONTRACT MANAGER Respiratory Rate 20 12/30/2018 1:36 PM NETWORK CONTRACT MANAGER Oxygen Saturation 100% 12/30/2018 1:36 PM NETWORK CONTRACT MANAGER Inhaled Oxygen Concentration - - Weight 71.4 kg (157 lb 6.4 oz) 12/30/2018 11:38 AM NETWORK CONTRACT MANAGER Height 160 cm (5' 3 ) 12/30/2018 11:38 AM NETWORK CONTRACT MANAGER Body Mass Index 27.88 12/30/2018 11:38 AM NETWORK CONTRACT MANAGER Plan of Treatment Health Maintenance Due Date Last Done Comments PNEUMOCOCCAL VACCINE 50+ YEARS (1 of 2 - PCV) 01/05/19 77 BREAST CANCER SCREENING 1999 COLORECTAL SCREENING 01/06/2004 Colorectal Cancer Screening 01/06/2004 FIT-DNA Q 3 years 01/06/2004 FIT/FOBT Q 1 year 01/06/2004 Flex Sig/CT Colonography Q 5 years 01/06/2004 ZOSTER VACCINE (1 of 2) 2009 OSTEOPOROSIS SCREENING 01/06/2024 INFLUENZA VACCINE (#1) 2024 DTAP/TDAP/TD VACCINES (2 - Td or Tdap) 10/04/2027 RSV VACCINE (60+ or ) (1 - 1-dose 75+ series) 2034 Insurance MEDICARE PART A AND B MEDICAID [place] Care Teams Airport Operations Manager Relationship Specialty Start Date End Date Nikki Coronado FNP PCP - General NURSE PRACTITIONER 05/27/14
--- OUTSIDE RECORDS SUMMARY | 2024-12-01 22:34 | XMS_ITS | Encounter Summary ---
Author Organization [facility] Address [address] [place] [address] Care Team Providers Care Chainstitch Sewing Machine Operator Name Role Phone Nikki Coronado RN REFERRAL Primary Care Provider Encounter Details Date Type Department Care Team (Late st Contact Info) Description 07/20/2014 Ancillary Orders [facility] Admitting [address] [place] [phone] Nikki Coronado FNP [address] [place] [address] Chronic knee pain (Primary Dx) Social History Tobacco Use Types Packs/Day Years Used Date Smoking Tobacco: Every Day Cigarettes 0.5 20 Smokeless Tobacco: Never Comments No Sex and Gender Information Value Date Recorded Sex Assigned at Not on file 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 No significant arthritic change or joint effusion is seen. IMPRESSION normal bilateral knee views Procedure Note Poncho Callejas MD - 07/21/2014 PROCEDURE XR BILATERAL KNEE, 3 views x2, 20 July 2014 DESCRIPTION AP, oblique, and lateral views of each knee show no acute fracture, dislocation, or deformity. No significant arthritic change or joint effusion is seen. IMPRESSION normal bilateral knee views Nikki [facility] ORDERABLES Final Result documented in this encounter Visit Diagnoses Diagnosis Chronic knee pain Pain in joint, lower leg Chronic knee pain- Primary Pain in joint, lower leg documented in this encounter Care Teams Chainstitch Sewing Machine Operator Relationship Specialty Start Date End Date Nikki Coornado FNP PCP - General NURSE PRACTITIONER 05/27/14 documented as of this encounter
--- OUTSIDE RECORDS SUMMARY | 2024-12-01 22:34 | XMS_ITS | Encounter Summary ---
Author Organization [facility] Address [address] [place] [address] Care Team Providers Care Service Associate Name Role Phone Nikki Coronado Primary Care Provider [phone] Reason for Referral * Radiology Services (Routine) - Closed Specialty Diagnoses / Procedures Referred By Anderson mckeon Referred To Contact Radiology Diagnoses Fatty (change of) liver, not elsewhere classified Procedures US ABDOMEN COMPLETE Nikki Coronado FNP [address] [place] [address] Phone: tel: fax: [facility] [address] [place] [address] Phone: tel: fax: Referral ID Status Reason Start Date Expiration Date V isits Requested Visits Authorized [id number] Closed MTN View CTS to Schedule (SGF) 09/03/2019 10/03/2020 1 1 Encounter Details Date Type Department Care Team (Latest Contact Info) Description 09/03/[address] 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 No acute sonographic findings of the abdomen. 2. Cholecystectomy. Narrative 10/24/2019 5:22 AM CDT EXAM: US ABDOMEN COMPLETE, DIAGNOSIS/REASON FOR EXAM: Fatty (change of) liver, not elsewhere classified. DATE AND TIME OF EXAM: 10/23/2019. COMPARISON: Ultrasound obtained on 05/18/2017.. TECHNIQUE: Multiplanar real-time ultrasonography of the abdomen using champagne-scale imaging, supplemented by color and spectral Doppler as needed. FINDINGS: * Liver: The liver is normal in size, contour, and echotexture. No hepatic masses are seen. Portal venous flow is hepatopedal. * Gallbladder: The gallbladder is surgically absent. * Biliary: No intrahepatic or extrahepatic biliary dilatation. The common bile duct measures 7 mm in diameter. * Spleen: The spleen is normal in size, contour, and echotexture and without focal lesions. The maximum diameter of the spleen measures 8.5 cm. * Pancreas: The partially visualized head and body of the pancreas are unremarkable. * Right kidney: The right kidney measures 9.7 cm in length. Its parenchyma is normal in echotexture. No right renal masses or renal calculi are identified. There is no right hydronephrosis. * Left kidney: The left kidney measures 9.5 cm in length. Its parenchyma is normal in echotexture. No left renal masses or renal calculi are identified. There is no left hydronephrosis. * Peritoneum: No ascites. * Imaged Aorta/IVC: The partially imaged aorta is normal in caliber. The partially imaged IVC is anechoic. Procedure Note Francesco Peck MD - 10/24/2019 EXAM: US ABDOMEN COMPLETE, DIAGNOSIS/REASON FOR EXAM: Fatty (change of) liver, not elsewhere classified. DATE AND TIME OF EXAM: 10/23/2019. COMPARISON: Ultrasound obtained on 05/18/2017.. TECHNIQUE: Multiplanar real-time ultrasonography of the abdomen using champagne-scale imaging, supplemented by color and spectral Doppler as needed. FINDINGS: * Liver: The liver is normal in size, contour, and echotexture. No hepatic masses are seen. Portal venous flow is hepatopedal. * Gallbladder: The gallbladder is surgically absent. * Biliary: No intrahepatic or extrahepatic biliary dilatation. The common bile duct measures 7 mm in diameter. * Spleen: The spleen is normal in size, contour, and echotexture and without focal lesions. The maximum diameter of the spleen measures 8.5 cm. * Pancreas: The partially visualized head and body of the pancreas are unremarkable. * Right kidney: The right kidney measures 9.7 cm in length. Its parenchyma is normal in echotexture. No right renal masses or renal calculi are identified. There is no right hydronephrosis. * Left kidney: The left kidney measures 9.5 cm in length. Its parenchyma is normal in echotexture. No left renal masses or renal calculi are identified. There is no left hydronephrosis. * Peritoneum: No ascites. * Imaged Aorta/IVC: The partially imaged aorta is normal in caliber. The partially imaged IVC is anechoic. IMPRESSION: 1. No acute sonographic findings of the abdomen. 2. Cholecystectomy. Nikki MUÑIZ US ORDERABLES Final Result documented in this encounter Visit Diagnoses Diagnosis Fatty (change of) liver, not elsewhere classified Fatty (change of) liver, not elsewhere classified documented in this encounter Care Teams Service Associate Relationship Specialty Start Date End Date Nikki Coronado FNP PCP - General NURSE PRACTITIONER 05/27/14 documented as of this encounter
--- OUTSIDE RECORDS SUMMARY | 2024-12-01 22:34 | XMS_ITS | Encounter Summary ---
Author Organization [facility] Address [address] [place] [address] Care Team Providers Care Major Gifts Manager Name Role Phone Nikki Coronado MUSIC PRODUCER Primary Care Provider [phone] Encounter Details Date Type Department Care Team (Late st Contact Info) Description 07/20/2014 Ancillary Orders [facility] Admitting [address] [place] [address] Nikki Coronado FNP [address] [place] [address] Low back pain (Primary Dx); Chronic knee pain; Knee pain Social History Tobacco Use Types Packs/Day Years Used Date Smoking Tobacco: Every Day Cigarettes 0.5 20 Smokeless Tobacco: Never Comments No Sex and Gender Information Value Date Recorded Sex Assigned at Not on file Legal Sex Female 4:[address] REGISTRAR Gender Identity Not on file Sexual Orientation Not on file documented as of this encounter Plan of Treatment Not on file documented as of this encounter Results * XR LUMBAR SPINE 2 OR 3 VW (07/20/2014 4:32 PM CDT) Anatomical Region Laterality Modality Spine Computed Radiogr aphy 07/20/2014 4:09 PM CDT Narrative 07/21/2014 9:20 AM CDT PROCEDURE XR LUMBAR SPINE, 3 views, 20 July 2014 DESCRIPTION AP and lateral lumbar spine views and collimated lateral L5-S1 projection 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 There are some small osteophytes bilaterally at L3. There is mild sclerosis of the apophyseal joints at L4-L5 more so at L5-S1. Minimal aortic atherosclerosis is noted without evidence of aneurysm. IMPRESSION 1. segmentation anomaly 2. 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 There are some small osteophytes bilaterally at L3. There is mild sclerosis of the apophyseal joints at L4-L5 more so at L5-S1. Minimal aortic atherosclerosis is noted without evidence of aneurysm. IMPRESSION 1. segmentation anomaly 2. mild osteoarthritis Nikki MUÑIZ DIAGNOST[facility]AG[facility] ORDERABLES Final Result documented in this encounter Visit Diagnoses Diagnosis Low back pain- Primary Lumbago Knee pain Pain in joint, lower leg Low back pain Lumbago documented in this encounter Care Teams Major Gifts Manager Relationship Specialty Start Date End Date Nikki Coronado FNP PCP - General NURSE PRACTITIONER 05/27/14 documented as of this encounter
--- OUTSIDE RECORDS SUMMARY | 2024-12-01 22:34 | XMS_ITS | Encounter Summary ---
Author Organization [facility] Address [address] [place] [address] Care Team Providers Care Plaster Mold Maker Name Role Phone Nikki Coronado Primary Care Provider [phone] Encounter Details Date Type Department Care Team (Latest Contact Info) Description 10/12/2017 Ancillary Orders [facility] Centralized Scheduling [address] [place] [id number] Nikki Coronado FNP [address] [place], [place] [address] Encounter for screening mammogram for malignant neoplasm of breast Social History Tobacco Use Types Packs/Day Years Used Date Smoking Tobacco: Every Day Cigarettes 0.5 20 Smokeless Tobacco: Never Comments No Sex and Gender Information Value Date Recorded Sex Assigned at Not on file 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
--- OUTSIDE RECORDS SUMMARY | 2024-12-01 22:34 | XMS_ITS | Patient Health Record ---
Author Organization [facility] Address [address] [place] [address] Care Team Providers Care Booking Clerk Name Role Phone Eliana Myrick Primary Care Provider Radha Salazar Unavailable [phone] Migration, Provider Unavailable Unavailable Peterson Lynne Unavailable [phone] Allergies Allergen (clinical drug ingredient) Drug/Non Drug Allergy documented on EMR Reaction Allergy Type Onset Date Status Substance with penicillin structure and antibacterial mechanism of action (substance) Penicillins Unknown Drug Allergy Active Results Component Value Reference Range Flag Notes zzzUrine Drug Screen (confir mation by instrument) - [id number] Reviewed date:02/14/2024 11:45:13 AM Interpretation: Performing Lab: Notes/Report: Urine Drug Screen (cup read) - [id number] Reviewed date:02/07/2024 03:52:14 PM Interpretation: Performing Lab: Notes/Report: OPI + OXY + Urine Drug Screen (cup read) - [id number] Reviewed date:04/24/2024 03:55:43 PM Interpretation: Performing Lab: Notes/Report: OPI + Urine Confirmation Panel (in strument) - [id number] Reviewed date:04/29/2024 01:57:33 PM Interpretation: Performing Lab: Notes/Report: 6-Acetylmorphine 0 <6 ng/mL N This suly t was developed and its performance characteristics determined by [facility]. It has not been cleared or approved by the U.S. Food and Drug Administration. 7-Aminoclonazepam 0 <60 ng/mL N This te st was developed and its performance characteristics determined by [facility]. It has not been cleared or approved by the U.S. Food and Drug Administration. Alprazolam 0 <60 ng/mL N This test was developed and its performance characteristics determined by [facility]. It has not been cleared or approved by the U.S. Food and Drug Administration. Amphetamine 0 <75 ng/mL N This test was developed and its performance characteristics determined by [facility]. It has not been cleared or approved by the U.S. Food and Drug Administration. aOH-Alprazolam 0 <60 ng/mL N This test was developed and its performance characteristics determined by [facility]. It has not been cleared or approved by the U.S. Food and Drug Administration. Buprenorphine 3.2 <7.5 ng/mL N This test w as developed and its performance characteristics determined by [facility]. It has not been cleared or approved by the U.S. Food and Drug Administration. Norbuprenorphine 0.0 <37.5 ng/mL N This te st was developed and its performance characteristics determined by [facility]. It has not been cleared or approved by the U.S. Food and Drug Administration. Carisoprodol 2 <75 ng/mL N This test wa s developed and its performance characteristics determined by [facility]. It has not been cleared or approved by the U.S. Food and Drug Administration. Codeine 0 <75 ng/mL N This test was developed and its performance characteristics determined by [facility]. It has not been cleared or approved by the U.S. Food and Drug Administration. EDDP 0 <75 ng/mL N This test was developed and its performance characteristics determined by [facility]. It has not been cleared or approved by the U.S. Food and Drug Administration. Fentanyl 0 <6 ng/mL N This test was developed and its performance characteristics determined by [facility]. It has not been cleared or approved by the U.S. Food and Drug Administration. Hydrocodone 1877 <75 ng/mL H This test was developed and its performance characteristics determined by [facility]. It has not been cleared or approved by the U.S. Food and Drug Administration. Hydromorphone 140 <75 ng/mL H This test w as developed and its performance characteristics determined by [facility]. It has not been cleared or approved by the U.S. Food and Drug Administration. Lorazepam 0 <60 ng/mL N This test was developed and its performance characteristics determined by [facility]. It has not been cleared or approved by the U.S. Food and Drug Administration. MDMA 19 <75 ng/mL N This test was developed and its performance characteristics determined by [facility]. It has not been cleared or approved by the U.S. Food and Drug Administration. Meperidine 0.0 <37.5 ng/mL N This test was developed and its performance characteristics determined by [facility]. It has not been cleared or approved by the U.S. Food and Drug Administration. Meprobamate 0 <75 ng/mL N This test was developed and its performance characteristics determined by [facility]. It has not been cleared or approved by the U.S. Food and Drug Administration. Methamphetamine 0 <75 ng/mL N This test was developed and its performance characteristics determined by [facility]. It has not been cleared or approved by the U.S. Food and Drug Administration. Methadone 0 <75 ng/mL N This test was developed and its performance characteristics determined by [facility]. It has not been cleared or approved by the U.S. Food and Drug Administration. Morphine 0 <75 ng/mL N This test was developed and its performance characteristics determined by [facility]. It has not been cleared or approved by the U.S. Food and Drug Administration. Nordiazepam 0 <60 ng/mL N This test was developed and its performance characteristics determined by [facility]. It has not been cleared or approved by the U.S. Food and Drug Administration. Norfentanyl 0 <6 ng/mL N This test was developed and its performance characteristics determined by [facility]. It has not been cleared or approved by the U.S. Food and Drug Administration. Normeperidine 0.0 <37.5 ng/mL N This test was developed and its performance characteristics determined by [facility]. It has not been cleared or approved by the U.S. Food and Drug Administration. O-desmethyltramadol 0 <75 ng/mL N This test was developed and its performance characteristics determined by [facility]. It has not been cleared or approved by the U.S. Food and Drug Administration. Oxazepam 0 <60 ng/mL N This test was developed and its performance characteristics determined by [facility]. It has not been cleared or approved by the U.S. Food and Drug Administration. Oxycodone 3.1 <37.5 ng/mL N This test was developed and its performance characteristics determined by [facility]. It has not been cleared or approved by the U.S. Food and Drug Administration. Oxymorphone 0 <75 ng/mL N This test was developed and its performance characteristics determined by [facility]. It has not been cleared or approved by the U.S. Food and Drug Administration. Phencyclidine 0.0 <7.5 ng/mL N This test w as developed and its performance characteristics determined by [facility]. It has not been cleared or approved by the U.S. Food and Drug Administration. Tapentadol 2.0 <37.5 ng/mL N This test was developed and its performance characteristics determined by [facility]. It has not been cleared or approved by the U.S. Food and Drug Administration. Temazepam 0 <60 ng/mL N This test was developed and its performance characteristics determined by [facility]. It has not been cleared or approved by the U.S. Food and Drug Administration. Tramadol 0 <75 ng/mL N This test was developed and its performance characteristics determined by [facility]. It has not been cleared or approved by the U.S. Food and Drug Administration. Norhydrocodone 511 <75 ng/mL H This test was developed and its performance characteristics determined by [facility]. It has not been cleared or approved by the U.S. Food and Drug Administration. Noroxycodone 0 <38 ng/mL N This test wa s developed and its performance characteristics determined by [facility]. It has not been cleared or approved by the U.S. Food and Drug Administration. Pregabalin >28509 <225 ng/mL > This test was developed and its performance characteristics determined by [facility]. It has not been cleared or approved by the U.S. Food and Drug Administration. Gabapentin 0 <225 ng/mL N This test was developed and its performance characteristics determined by [facility]. It has not been cleared or approved by the U.S. Food and Drug Administration. Benzoylecgonine 0.0 <37.5 ng/mL N This suly t was developed and its performance characteristics determined by [facility]. It has not been cleared or approved by the U.S. Food and Drug Administration. 4-Hydroxy Xylazine 0 <25 ng/mL N This t est was developed and its performance characteristics determined by [facility]. It has not been cleared or approved by the U.S. Food and Drug Administration. Tox Results Reviewed date:04/29/2024 02:19:52 PM Interpretation: Performing Lab: Notes/Report: Urine Drug Screen (cup read) - [id number] Reviewed date:05/22/2024 01:42:07 PM Interpretation: Performing Lab: Notes/Report: OPI + Urine Drug Screen (cup read) - [id number] Reviewed date:07/23/2024 04:10:20 PM Interpretation: Performing Lab: Notes/Report: AMP - MARCO - BUP - BZO - MDMA - OPI + PCP - OXY + MTD - MAMP - Urine Confirmation Panel (in strument) - [id number] Reviewed date:07/30/2024 02:49:56 PM Interpretation: Performing Lab: Notes/Report: 6-Acetylmorphine 0 <6 ng/mL N This suly t was developed and its performance characteristics determined by [facility]. It has not been cleared or approved by the U.S. Food and Drug Administration. 7-Aminoclonazepam 0 <60 ng/mL N This te st was developed and its performance characteristics determined by [facility]. It has not been cleared or approved by the U.S. Food and Drug Administration. Alprazolam 0 <60 ng/mL N This test was developed and its performance characteristics determined by [facility]. It has not been cleared or approved by the U.S. Food and Drug Administration. Amphetamine 0 <75 ng/mL N This test was developed and its performance characteristics determined by [facility]. It has not been cleared or approved by the U.S. Food and Drug Administration. aOH-Alprazolam 0 <60 ng/mL N This test was developed and its performance characteristics determined by [facility]. It has not been cleared or approved by the U.S. Food and Drug Administration. Buprenorphine 0.0 <7.5 ng/mL N This test w as developed and its performance characteristics determined by [facility]. It has not been cleared or approved by the U.S. Food and Drug Administration. Norbuprenorphine 0.0 <37.5 ng/mL N This te st was developed and its performance characteristics determined by [facility]. It has not been cleared or approved by the U.S. Food and Drug Administration. Carisoprodol 0 <75 ng/mL N This test wa s developed and its performance characteristics determined by [facility]. It has not been cleared or approved by the U.S. Food and Drug Administration. Codeine 0 <75 ng/mL N This test was developed and its performance characteristics determined by [facility]. It has not been cleared or approved by the U.S. Food and Drug Administration. EDDP 0 <75 ng/mL N This test was developed and its performance characteristics determined by [facility]. It has not been cleared or approved by the U.S. Food and Drug Administration. Fentanyl 0 <6 ng/mL N This test was developed and its performance characteristics determined by [facility]. It has not been cleared or approved by the U.S. Food and Drug Administration. Hydrocodone 4131 <75 ng/mL H This test was developed and its performance characteristics determined by [facility]. It has not been cleared or approved by the U.S. Food and Drug Administration. Hydromorphone 99 <75 ng/mL H This test w as developed and its performance characteristics determined by [facility]. It has not been cleared or approved by the U.S. Food and Drug Administration. Lorazepam 0 <60 ng/mL N This test was developed and its performance characteristics determined by [facility]. It has not been cleared or approved by the U.S. Food and Drug Administration. MDMA 0 <75 ng/mL N This test was developed and its performance characteristics determined by [facility]. It has not been cleared or approved by the U.S. Food and Drug Administration. Meperidine 0.0 <37.5 ng/mL N This test was developed and its performance characteristics determined by [facility]. It has not been cleared or approved by the U.S. Food and Drug Administration. Meprobamate 0 <75 ng/mL N This test was developed and its performance characteristics determined by [facility]. It has not been cleared or approved by the U.S. Food and Drug Administration. Methamphetamine 36 <75 ng/mL N This test was developed and its performance characteristics determined by [facility]. It has not been cleared or approved by the U.S. Food and Drug Administration. Methadone 0 <75 ng/mL N This test was developed and its performance characteristics determined by [facility]. It has not been cleared or approved by the U.S. Food and Drug Administration. Morphine 0 <75 ng/mL N This test was developed and its performance characteristics determined by [facility]. It has not been cleared or approved by the U.S. Food and Drug Administration. Nordiazepam 0 <60 ng/mL N This test was developed and its performance characteristics determined by [facility]. It has not been cleared or approved by the U.S. Food and Drug Administration. Norfentanyl 0 <6 ng/mL N This test was developed and its performance characteristics determined by [facility]. It has not been cleared or approved by the U.S. Food and Drug Administration. Normeperidine 0.0 <37.5 ng/mL N This test was developed and its performance characteristics determined by [facility]. It has not been cleared or approved by the U.S. Food and Drug Administration. O-desmethyltramadol 0 <75 ng/mL N This test was developed and its performance characteristics determined by [facility]. It has not been cleared or approved by the U.S. Food and Drug Administration. Oxazepam 0 <60 ng/mL N This test was developed and its performance characteristics determined by [facility]. It has not been cleared or approved by the U.S. Food and Drug Administration. Oxycodone 0.0 <37.5 ng/mL N This test was developed and its performance characteristics determined by [facility]. It has not been cleared or approved by the U.S. Food and Drug Administration. Oxymorphone 0 <75 ng/mL N This test was developed and its performance characteristics determined by [facility]. It has not been cleared or approved by the U.S. Food and Drug Administration. Phencyclidine 0.0 <7.5 ng/mL N This test w as developed and its performance characteristics determined by [facility]. It has not been cleared or approved by the U.S. Food and Drug Administration. Tapentadol 0.0 <37.5 ng/mL N This test was developed and its performance characteristics determined by [facility]. It has not been cleared or approved by the U.S. Food and Drug Administration. Temazepam 0 <60 ng/mL N This test was developed and its performance characteristics determined by [facility]. It has not been cleared or approved by the U.S. Food and Drug Administration. Tramadol 0 <75 ng/mL N This test was developed and its performance characteristics determined by [facility]. It has not been cleared or approved by the U.S. Food and Drug Administration. Norhydrocodone >5000 <75 ng/mL > This test was developed and its performance characteristics determined by [facility]. It has not been cleared or approved by the U.S. Food and Drug Administration. Noroxycodone 0 <38 ng/mL N This test wa s developed and its performance characteristics determined by [facility]. It has not been cleared or approved by the U.S. Food and Drug Administration. Pregabalin >97504 <225 ng/mL > This test was developed and its performance characteristics determined by [facility]. It has not been cleared or approved by the U.S. Food and Drug Administration. Gabapentin 0 <225 ng/mL N This test was developed and its performance characteristics determined by [facility]. It has not been cleared or approved by the U.S. Food and Drug Administration. Benzoylecgonine 0.0 <37.5 ng/mL N This suly t was developed and its performance characteristics determined by [facility]. It has not been cleared or approved by the U.S. Food and Drug Administration. 4-Hydroxy Xylazine 0 <25 ng/mL N This t est was developed and its performance characteristics determined by [facility]. It has not been cleared or approved by the U.S. Food and Drug Administration. Tox Results Reviewed date:07/30/2024 02:58:10 PM Interpretation: Performing Lab: Notes/Report: Urine Drug Screen (cup read) - [id number] Reviewed date:09/18/2024 03:52:05 PM Interpretation: Performing Lab: Notes/Report: AMP - MARCO - BUP - BZO - MDMA - OPI - PCP - OXY - MTD - MAMP - Urine Drug Screen (cup read) - [id number] Reviewed date:11/13/2024 04:14:15 PM Interpretation: Performing Lab: Notes/Report: OPI + OXY + Urine Confirmation Panel (in strument) - [id number] Reviewed date:11/18/2024 12:40:08 PM Interpretation: Performing Lab: Notes/Report: 6-Acetylmorphine 0 <6 ng/mL N This suly t was developed and its performance characteristics determined by [facility]. It has not been cleared or approved by the U.S. Food and Drug Administration. 7-Aminoclonazepam 0 <60 ng/mL N This te st was developed and its performance characteristics determined by [facility]. It has not been cleared or approved by the U.S. Food and Drug Administration. Alprazolam 0 <60 ng/mL N This test was developed and its performance characteristics determined by [facility]. It has not been cleared or approved by the U.S. Food and Drug Administration. Amphetamine 0 <75 ng/mL N This test was developed and its performance characteristics determined by [facility]. It has not been cleared or approved by the U.S. Food and Drug Administration. aOH-Alprazolam 0 <60 ng/mL N This test was developed and its performance characteristics determined by [facility]. It has not been cleared or approved by the U.S. Food and Drug Administration. Buprenorphine 0.0 <7.5 ng/mL N This test w as developed and its performance characteristics determined by [facility]. It has not been cleared or approved by the U.S. Food and Drug Administration. Norbuprenorphine 0.0 <37.5 ng/mL N This te st was developed and its performance characteristics determined by [facility]. It has not been cleared or approved by the U.S. Food and Drug Administration. Carisoprodol 0 <75 ng/mL N This test wa s developed and its performance characteristics determined by [facility]. It has not been cleared or approved by the U.S. Food and Drug Administration. Codeine 0 <75 ng/mL N This test was developed and its performance characteristics determined by [facility]. It has not been cleared or approved by the U.S. Food and Drug Administration. EDDP 0 <75 ng/mL N This test was developed and its performance characteristics determined by [facility]. It has not been cleared or approved by the U.S. Food and Drug Administration. Fentanyl 0 <6 ng/mL N This test was developed and its performance characteristics determined by [facility]. It has not been cleared or approved by the U.S. Food and Drug Administration. Hydrocodone 496 <75 ng/mL H This test was developed and its performance characteristics determined by [facility]. It has not been cleared or approved by the U.S. Food and Drug Administration. Hydromorphone 22 <75 ng/mL N This test w as developed and its performance characteristics determined by [facility]. It has not been cleared or approved by the U.S. Food and Drug Administration. Lorazepam 0 <60 ng/mL N This test was developed and its performance characteristics determined by [facility]. It has not been cleared or approved by the U.S. Food and Drug Administration. MDMA 0 <75 ng/mL N This test was developed and its performance characteristics determined by [facility]. It has not been cleared or approved by the U.S. Food and Drug Administration. Meperidine 0.0 <37.5 ng/mL N This test was developed and its performance characteristics determined by [facility]. It has not been cleared or approved by the U.S. Food and Drug Administration. Meprobamate 0 <75 ng/mL N This test was developed and its performance characteristics determined by [facility]. It has not been cleared or approved by the U.S. Food and Drug Administration. Methamphetamine 0 <75 ng/mL N This test was developed and its performance characteristics determined by [facility]. It has not been cleared or approved by the U.S. Food and Drug Administration. Methadone 0 <75 ng/mL N This test was developed and its performance characteristics determined by [facility]. It has not been cleared or approved by the U.S. Food and Drug Administration. Morphine 0 <75 ng/mL N This test was developed and its performance characteristics determined by [facility]. It has not been cleared or approved by the U.S. Food and Drug Administration. Nordiazepam 0 <60 ng/mL N This test was developed and its performance characteristics determined by [facility]. It has not been cleared or approved by the U.S. Food and Drug Administration. Norfentanyl 0 <6 ng/mL N This test was developed and its performance characteristics determined by [facility]. It has not been cleared or approved by the U.S. Food and Drug Administration. Normeperidine 0.0 <37.5 ng/mL N This test was developed and its performance characteristics determined by [facility]. It has not been cleared or approved by the U.S. Food and Drug Administration. O-desmethyltramadol 0 <75 ng/mL N This test was developed and its performance characteristics determined by [facility]. It has not been cleared or approved by the U.S. Food and Drug Administration. Oxazepam 0 <60 ng/mL N This test was developed and its performance characteristics determined by [facility]. It has not been cleared or approved by the U.S. Food and Drug Administration. Oxycodone 0.0 <37.5 ng/mL N This test was developed and its performance characteristics determined by [facility]. It has not been cleared or approved by the U.S. Food and Drug Administration. Oxymorphone 0 <75 ng/mL N This test was developed and its performance characteristics determined by [facility]. It has not been cleared or approved by the U.S. Food and Drug Administration. Phencyclidine 0.0 <7.5 ng/mL N This test w as developed and its performance characteristics determined by [facility]. It has not been cleared or approved by the U.S. Food and Drug Administration. Tapentadol 0.0 <37.5 ng/mL N This test was developed and its performance characteristics determined by [facility]. It has not been cleared or approved by the U.S. Food and Drug Administration. Temazepam 0 <60 ng/mL N This test was developed and its performance characteristics determined by [facility] [facility]. It has not been cleared or approved by the U.S. Food and Drug Administration. Tramadol 0 <75 ng/mL N This test was developed and its performance characteristics determined by [facility]. It has not been cleared or approved by the U.S. Food and Drug Administration. Norhydrocodone 1654 <75 ng/mL H This test was developed and its performance characteristics determined by [facility]. It has not been cleared or approved by the U.S. Food and Drug Administration. Noroxycodone 0 <38 ng/mL N This test wa s developed and its performance characteristics determined by [facility]. It has not been cleared or approved by the U.S. Food and Drug Administration. Pregabalin >50037 <225 ng/mL > This test was developed and its performance characteristics determined by [facility]. It has not been cleared or approved by the U.S. Food and Drug Administration. Gabapentin 0 <225 ng/mL N This test was developed and its performance characteristics determined by [facility]. It has not been cleared or approved by the U.S. Food and Drug Administration. Benzoylecgonine 0.0 <37.5 ng/mL N This suly t was developed and its performance characteristics determined by [facility]. It has not been cleared or approved by the U.S. Food and Drug Administration. 4-Hydroxy Xylazine 0 <25 ng/mL N This t est was developed and its performance characteristics determined by [facility]. It has not been cleared or approved by the U.S. Food and Drug Administration. Tox Results Reviewed date:11/18/2024 01:16:02 PM Interpretation: Performing Lab: Notes/Report: Reason For Referral No Information Medications Medication SIG (Take, Route, Frequency, Duration) Notes Start Date End Date Status Lipitor *Pick strength-form from [facility] for eRX* Active HYDROcodone-Acetami nophen 10-325 MG Tablet 1 tablet Orally every 6 hrs; Duration: 30 days As needed Do not exceed 4 per day Fill on 12/21/2024 11/13/2024 01/20/2025 Active Lyrica *Pick strength-form from [facility] for eRX* Active PriLOSEC *Pick strength-form from [facility] for eRX* Active Robaxin *Pick strength-form from [facility] for eRX* Active HYDROcodone-Acetami nophen 10-325 MG Tablet 1 tablet Orally every 6 hrs; Duration: 30 days As needed Do not exceed 4 per day Fill on 11/21/2024 11/13/2024 12/21/2024 Active ropinirole *Reorder from [facility] for eRx and Interaction Alerts* Active Trulance *Pick strength-form from [facility] for eRX* Active Ozempic (0.25 or 0.5 MG/DOSE) 2 MG/3ML Solution Pen-injector as directed Subcutaneous once a week Active ARIPiprazole *Pick strength-form from [facility] for eRX* Active HYDROcodone-Acetami nophen *Pick strength-form from [facility] for eRX* Active Social History Social History Additional Details Category Social Info Options Details Migrated Social History Migrated Social History Alcoholic beverages? - No, Currently on disability? - Yes, Marital Status - single, Nonprescription drug use? - No, Participation in detoxification or rehabilitation - No, Smoked in the past? - Yes, Smoking - 1/2 PPD, Smoking status (MU) - Current everyday smoker, Working currently? - No Problems Problem Type SNOMED Code ICD Code Onset Dates Problem Status W/U Status Risk Notes Problem Chronic pain syndrome (730668170) Chronic pain syndrome (G89.4) 08/15/19 24 Active confirmed Problem Lumbosacral spondylosis without myelopathy (50753287) Other spondylosis with radiculopathy, lumbosacral region (M47.27) 08/15/19 Active confirmed Problem Degeneration of lumbar intervertebral disc (73510218) Other intervertebral disc degeneration, lumbar region (M51.36) 08/15/19 Active confirmed Problem Post-laminectomy syndrome (55579667) Postlaminectomy syndrome, not elsewhere classified (M96.1) 08/15/19 Active confirmed Problem Abnormal gait (57961387) Unspecified abnormalities of gait and mobility (R26.9) 08/15/19 Active confirmed Problem High risk drug monitoring status (277290453) 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) 08/15/19 Active confirmed Vital Signs Height-cm 157.48 cm 11/13/2024 Weight-kg 82.55 kg 11/13/2024 Height 62.00 in 11/13/2024 Weight 182 lbs 11/13/2024 BMI 33.28 kg/m2 11/13/2024 Encounters Encounter Location Date Provider Diagnosis Formerly [facility] [address] [address] 12/05/2023 Peterson Lynne [facility] [address] [address] 02/07/2024 Radha Fitzpatrick Chronic pain syndrom e G89.4 ; Degeneration of intervertebral disc of lumbar region with discogenic back pain M51.360 ; Other spondylosis with radiculopathy, lumbosacral region M47.27 ; Postlaminectomy syndrome, not elsewhere classified M96.1 ; Unspecified abnormalities of gait and mobility R26.9 and group home (current) use of opiate analgesic Z79.891 Formerly [facility] [address] [address] 04/24/2024 Radha Fitzpatrick Chronic pain syndrom e G89.4 ; Degeneration of intervertebral disc of lumbar region with discogenic back pain M51.360 ; Other spondylosis with radiculopathy, lumbosacral region M47.27 ; Postlaminectomy syndrome, not elsewhere classified M96.1 ; Unspecified abnormalities of gait and mobility R26.9 and 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 Z79.891 Formerly [facility] [address] [address] 05/22/2024 Radha Fitzpatrick Chronic pain syndrom e G89.4 ; Degeneration of intervertebral disc of lumbar region with discogenic back pain M51.360 ; Unspecified abnormalities of gait and mobility R26.9 ; Other spondylosis with radiculopathy, lumbosacral region M47.27 ; Postlaminectomy syndrome, not elsewhere classified M96.1 ; 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 Z79.891 and Other intervertebral disc degeneration, lumbar region M51.36 [facility] [address] [address] 07/23/2024 Peterson Lynne Chronic pain syndrom e G89.4 ; Degeneration of intervertebral disc of lumbar region with discogenic back pain M51.360 ; Unspecified abnormalities of gait and mobility R26.9 ; Other spondylosis with radiculopathy, lumbosacral region M47.27 ; Postlaminectomy syndrome, not elsewhere classified M96.1 ; 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 Z79.891 and Other intervertebral disc degeneration, lumbar region M51.36 [facility] [address] [address] 09/18/2024 Radha Fitzpatrick Chronic pain syndrom e G89.4 ; Degeneration of intervertebral disc of lumbar region with discogenic back pain M51.360 ; Unspecified abnormalities of gait and mobility R26.9 ; Other spondylosis with radiculopathy, lumbosacral region M47.27 ; Postlaminectomy syndrome, not elsewhere classified M96.1 ; group home (current) use of opiate analgesic Z79.891 and Other intervertebral disc degeneration, lumbar region M51.36 [facility] [address] [address] 11/13/2024 Radha Fitzpatrick Chronic pain syndrom e G89.4 ; Degeneration of intervertebral disc of lumbar region with discogenic back pain M51.360 ; Unspecified abnormalities of gait and mobility R26.9 ; Other spondylosis with radiculopathy, lumbosacral region M47.27 ; Postlaminectomy syndrome, not elsewhere classified M96.1 and group home (current) use of opiate analgesic Z79.891 Migrated_Facility 0 0 12/15/2023 Provider Migration Migrated_Facility 0 0 12/16/2023 Provider Migration Formerly [facility] [address] [facility] [place] [address] 02/07/2024 Peterson [facility] [place] [address] [place] [address] 04/11/2024 Peterson [facility] [address] [facility] [address] 04/18/2024 [facility] [place] [address] [place] [facility] [place] [place] [address] 04/24/2024 Peterson [facility] [place] [address] [place] [address] 05/22/2024 Peterson [facility] [place] [address] [place] [address] 09/18/2024 Peterson Lynne Other spondylosis wi radiculopathy, lumbosacral region M47.27 [facility] [place] [address] [place] [address] 11/13/2024 Peterson Lynne Other spondylosis wi th radiculopathy, lumbosacral region M47.27 Assessments Encounter Date Diagnosis (ICD Code) Assessment Notes Treatment Notes Treatment Clinical Notes Section Notes 04/24/2024 Chronic pain syndrome (ICD-10 - G89.4) I had a nice discussion with the patient today regarding her chronic pain complaints. She states her medication is working reasonably well. She continues with a lot of vascular issues and states that she has had surgery on both of her legs. She also recently had stent placement in 1 leg and states she will be having stents placed in the other leg soon. She is on anticoagulation therapy for a while. She denies any other changes since we last seen her any untoward side effects of the medication. She will continue her medication at present level and return to clinic in 2 months to monitor for treatment effectiveness and compliance. The patient continues with chronic pain requiring treatment to help restore function and improve quality of life. Risks of opioid therapy as well as interaction of opioids with alcohol, illicit drugs, muscle relaxers, and other sedative medications are reviewed briefly with patient again today. The patient has trialed all other reasonable treatment options and uses the medication to alleviate pain in order to remain active and rest with less pain. No clinically relevant medication side effects are noted. Last UDS and [employer] PRODUCTION FINISHER reviewed today. Patient is advised that best long-term goals include increased activity, core strengthening, proper weight management, coping strategies, avoidance of painful triggers, and targeted interventional therapy. We will see the patient for routine follow up in accordance with all clinic policies. We did remind patient today of current guidelines to decrease opioid when possible. We will continue to stress nonopioid treatment. 09/18/2024 Chronic pain syndrome (ICD-10 - G89.4) The patient continues with chronic pain requiring treatment to help restore function and improve quality of life. Risks of opioid therapy as well as interaction of opioids with alcohol, illicit drugs, muscle relaxers, and other sedative medications are reviewed briefly with patient again today. The patient has trialed all other reasonable treatment options and uses the medication to alleviate pain in order to remain active and rest with less pain. No clinically relevant medication side effects are noted. Last UDS and [employer] PRODUCTION FINISHER reviewed today. Patient is advised that best long-term goals include increased activity, core strengthening, proper weight management, coping strategies, avoidance of painful triggers, and targeted interventional therapy. We will see the patient for routine follow up in accordance with all clinic policies. We did remind patient today of current guidelines to decrease opioid when possible. We will continue to stress nonopioid treatment. URINE TESTING TODAY; POINT OF SERVICE Urine drug screening will be performed today to monitor compliance with opioid therapy or to serve as a baseline screen for a patient who may be a candidate for opioid therapy in the future, pending UDS results. We will monitor with in-office testing (rapid testing) today and review the results prior to dispensing prescription, as well. Patient has been made aware of this policy. I had a nice discussion with the patient today regarding her chronic pain complaints. She continues with lower back pain as well as radicular symptoms. She states that she is unable to proceed with any interventional procedures as her administrative resident will not let her come off the Plavix. She states she may have stenting in her other leg soon and will keep us updated on this. She does feel her medications working reasonably well so she will continue that at present level. She denies any changes in her health since we last seen her any untoward side effects of the medication. I did discuss lifestyle modifications as well as a bowel regimen. She will continue her medication at present level and return to clinic in 2 months to monitor for treatment effectiveness and compliance. 09/18/2024 Other spondylosis with radiculopathy, lumbosacral region (ICD-10 - M47.27) 11/13/2024 Chronic pain syndrome (ICD-10 - G89.4) I had a nice discussion with the patient today regarding her chronic pain complaints. She continues with lower back pain as well as radicular symptoms. She continues to defer any interventional procedures right now. She does state that she recently had surgery for her peripheral artery disease but states they could not get them open. She states they are referring her to a different specialist. She will keep us updated on this. She denies any other changes since we last seen her any untoward side effects of the medication. I did discuss lifestyle modifications as well as a bowel regimen. She will continue her medication at present level and return to clinic in 2 months to monitor for treatment effectiveness and compliance. The patient continues with chronic pain requiring treatment to help restore function and improve quality of life. Risks of opioid therapy as well as interaction of opioids with alcohol, illicit drugs, muscle relaxers, and other sedative medications are reviewed briefly with patient again today. The patient has trialed all other reasonable treatment options and uses the medication to alleviate pain in order to remain active and rest with less pain. No clinically relevant medication side effects are noted. Last UDS and AR PRODUCTION FINISHER reviewed today. Patient is advised that best long-term goals include increased activity, core strengthening, proper weight management, coping strategies, avoidance of painful triggers, and targeted interventional therapy. We will see the patient for routine follow up in accordance with all clinic policies. We did remind patient today of current guidelines to decrease opioid when possible. We will continue to stress nonopioid treatment. RECOMMEND URINE TESTING TODAY Urine drug screening will be performed today to monitor compliance with opioid therapy or to serve as a baseline screen for a patient who may be a candidate for opioid therapy in the future, pending UDS results. We will monitor with in-office testing (rapid testing) today and review the results prior to dispensing prescription. All positive results will be sent for quantitative analysis to ensure accuracy and quantify amounts. Any expected positive results that return negative will also be sent for quantitative analysis. Any questionable read or any medication we cannot test for in the office confidently will be sent for quantitative analysis, as well. Patient has been made aware of this policy and agrees to abide by our urine testing policy. 11/13/2024 Degeneration of intervertebral disc of lumbar region with discogenic back pain (ICD-10 - M51.360) 11/13/2024 Other spondylosis with radiculopathy, lumbosacral region (ICD-10 - M47.27) 07/23/2024 Chronic pain syndrome (ICD-10 - G89.4) I had a nice conversation with the patient today about her chronic pain issues. She reports everything is going about the same. She denies any new problems or issues and her pills counts and drug screens remain consistent with her history. She goes to see cardiology in the coming months, and she's going to ask him if she'd be able to come off of her Plavix at any point soon. For now, we'll continue her medications unchanged and see her back in about 2 months. RECOMMEND URINE TESTING TODAY Urine drug screening will be performed today to monitor compliance with opioid therapy or to serve as a baseline screen for a patient who may be a candidate for opioid therapy in the future, pending UDS results. We will monitor with in-office testing (rapid testing) today and review the results prior to dispensing prescription. All positive results will be sent for quantitative analysis to ensure accuracy and quantify amounts. Any expected positive results that return negative will also be sent for quantitative analysis. Any questionable read or any medication we cannot test for in the office confidently will be sent for quantitative analysis, as well. Patient has been made aware of this policy and agrees to abide by our urine testing policy. 05/22/2024 Chronic pain syndrome (ICD-10 - G89.4) I had a nice discussion with the patient today regarding her chronic pain complaints. She states she is doing reasonably well on her current medication regimen. She continues with lower back pain as well as radicular symptoms but is unable to come off her anticoagulation therapy due to stent placement not long ago. She denies any changes in her health since we last seen her any untoward side effects of the medication. She will continue her medication at present level and return to clinic in 2 months to monitor for treatment effectiveness and compliance. The patient continues with chronic pain requiring treatment to help restore function and improve quality of life. Risks of opioid therapy as well as interaction of opioids with alcohol, illicit drugs, muscle relaxers, and other sedative medications are reviewed briefly with patient again today. The patient has trialed all other reasonable treatment options and uses the medication to alleviate pain in order to remain active and rest with less pain. No clinically relevant medication side effects are noted. Last UDS and AR PRODUCTION FINISHER reviewed today. Patient is advised that best long-term goals include increased activity, core strengthening, proper weight management, coping strategies, avoidance of painful triggers, and targeted interventional therapy. We will see the patient for routine follow up in accordance with all clinic policies. We did remind patient today of current guidelines to decrease opioid when possible. We will continue to stress nonopioid treatment. URINE TESTING TODAY; POINT OF SERVICE Urine drug screening will be performed today to monitor compliance with opioid therapy or to serve as a baseline screen for a patient who may be a candidate for opioid therapy in the future, pending UDS results. We will monitor with in-office testing (rapid testing) today and review the results prior to dispensing prescription, as well. Patient has been made aware of this policy. 05/22/2024 Degeneration of intervertebral disc of lumbar region with discogenic back pain (ICD-10 - M51.360) 02/07/2024 Degeneration of intervertebral disc of lumbar region with discogenic back pain (ICD-10 - M51.360) 02/07/2024 Chronic pain syndrome (ICD-10 - G89.4) I had a nice discussion with the patient today regarding her chronic pain complaints. She states she did have her vascular surgery on her left leg and will be having the vascular surgery on her right leg after [place] sometime. She continues to have a lot of lower back pain but was not approved to come off her anticoagulation therapy right now. Her medication is working reasonably well for her so we will continue that at present level. She denies any changes in her health or any untoward side effects of the medication. She will return to clinic in 2 months to monitor for treatment effectiveness and compliance. 02/07/2024 Other spondylosis with radiculopathy, lumbosacral region (ICD-10 - M47.27) 05/22/2024 Unspecified abnormalities of gait and mobility (ICD-10 - R26.9) 07/23/2024 Degeneration of intervertebral disc of lumbar region with discogenic back pain (ICD-10 - M51.360) 11/13/2024 Unspecified abnormalities of gait and mobility (ICD-10 - R26.9) 04/24/2024 Degeneration of intervertebral disc of lumbar region with discogenic back pain (ICD-10 - M51.360) 09/18/2024 Degeneration of intervertebral disc of lumbar region with discogenic back pain (ICD-10 - M51.360) 09/18/2024 Unspecified abnormalities of gait and mobility (ICD-10 - R26.9) 04/24/2024 Other spondylosis with radiculopathy, lumbosacral region (ICD-10 - M47.27) 07/23/2024 Unspecified abnormalities of gait and mobility (ICD-10 - R26.9) 05/22/2024 Other spondylosis with radiculopathy, lumbosacral region (ICD-10 - M47.27) 11/13/2024 Other spondylosis with radiculopathy, lumbosacral region (ICD-10 - M47.27) 02/07/2024 Postlaminectomy syndrome, not elsewhere classified (ICD-10 - M96.1) 02/07/2024 Unspecified abnormalities of gait and mobility (ICD-10 - R26.9) 05/22/2024 Postlaminectomy syndrome, not elsewhere classified (ICD-10 - M96.1) 11/13/2024 Postlaminectomy syndrome, not elsewhere classified (ICD-10 - M96.1) 07/23/2024 Other spondylosis with radiculopathy, lumbosacral region (ICD-10 - M47.27) 04/24/2024 Postlaminectomy syndrome, not elsewhere classified (ICD-10 - M96.1) 09/18/2024 Other spondylosis with radiculopathy, lumbosacral region (ICD-10 - M47.27) 09/18/2024 Postlaminectomy syndrome, not elsewhere classified (ICD-10 - M96.1) 04/24/2024 Unspecified abnormalities of gait and mobility (ICD-10 - R26.9) 07/23/2024 Postlaminectomy syndrome, not elsewhere classified (ICD-10 - M96.1) 11/13/2024 group home (current) use of opiate analgesic (ICD-10 - Z79.891) 05/22/2024 group home (current) use of opiate analgesic (ICD-10 - Z79.891) 02/07/2024 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 We will monitor with in-office testing (rapid testing) today and review the results prior to dispensing prescription. All positive results will be sent for quantitative analysis to ensure accuracy and quantify amounts. Any expected positive results that return negative will also be sent for quantitative analysis. Any questionable read or any medication we cannot test for in the office confidently will be sent for quantitative analysis, as well. Patient has been made aware of this policy and agrees to abide by our urine testing policy. 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 Lynen. I, Dr. Krafft, personally performed the services described in this documentation, as scribed by Rebecca Davila, and it is both accurate and complete. Plan Of Treatment Next Appt Details Provider Name:Peterson Lynne, 01/14/2025 03:40:00 PM, [address] [place], [address], Insurance Providers Payer Name Payer Address Payer Phone Subscriber Number Group Number Insured Name Patient Relationship to Insured Coverage Start Date Coverage End Date [facility] Medicare Dual Complete PPO [address] [address] [place] [id number] [phone] [id number] Aziza Katz Self - patient is the insured [place] Medicaid [address] [place] [id number] Aziza Katz Self - patient is the insured Medical (General) History Medical History History ICD Code Arthritis coronary artery disease blood clotting disorder COPD asthma acid reflux Depression abdominal pain Surgical History Surgery Date(Month/Year) bypass surgery cholecystectomy Hysterectomy
--- OUTSIDE RECORDS SUMMARY | 2024-12-01 22:34 | XMS_ITS | Encounter Summary ---
Author Organization [facility] Address [address] [place] [address] Care Team Providers Care Software Clerk Name Role Phone Nikki Coronado Primary Care Provider [phone] Reason for Referral * Outpatient Services (Routine) - Closed Specialty Diagnoses / Procedures Referred By Anderson mckeon Referred To Contact Radiology Diagnoses Elevated liver enzymes Procedures US ABDOMEN COMPLETE Nikki Coronado FNP [address] [place] [address] Phone: tel: fax: [facility] [address] [place] [address] Phone: tel: fax: Referral ID Status Reason Start Date Expiration Date V isits Requested Visits Authorized [id number] Closed [facility] View CTS to Schedule (SGF) 05/14/2017 06/14/2018 1 1 Encounter Details Date Type Department Care Team (Latest Contact Info) Description 05/14/2017 Ancillary Orders [facility] Centralized Scheduling [address] [place] [id number] Nikki Coronado FNP [address] [place] [address] Elevated liver enzymes Social History Tobacco Use Types Packs/Day Years Used Date Smoking Tobacco: Every Day Cigarettes 0.5 20 Smokeless Tobacco: Never Comments No Sex and Gender Information Value Date Recorded Sex Assigned at Not on file Legal Sex 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 US ABDOMEN COMPLETE, 05/18/2017 9:11 AM. REASON FOR EXAM: Elevated liver enzymes. COMPARISON: None. TECHNIQUE: Multiplanar real-time ultrasonography of the abdomen using champagne-scale imaging, supplemented by color and spectral Doppler as needed. FINDINGS: * Liver: There is mild nonspecific heterogeneity of the hepatic parenchymal echogenicity and mild coarsening of echotexture. The liver is normal in size. * Gallbladder: The gallbladder surgically absent. * Biliary: No intra- or extra-hepatic ductal dilatation. Common bile duct measures 8.8 mm. * Spleen: Normal size, contour, and echo texture without focal lesions. Maximal dimension = 7.8 cm. * Pancreas: Incompletely visualized; unremarkable * Kidneys: No perinephric fluid, or hydronephrosis. No focal masses are identified. Right kidney measures 10.4 cm. Left kidney measures 9.8 cm. * Peritoneum: No ascites. * Imaged Aorta/IVC: The visualized aorta and IVC are within normal limits. ++++++++++++++++++++ IMPRESSION: 1. Nonspecific and echogenicity of hepatic parenchyma and coarsening of echotexture. This can be seen in chronic liver disease such as hepatitis. 2. Dilation of the common bile duct is likely due to reservoir effect from prior cholecystectomy. Narrative Procedure Note Peterson Scott MD - 05/18/2017 IMPRESSION: Please see below. US ABDOMEN COMPLETE, 05/18/2017 9:11 AM. REASON FOR EXAM: Elevated liver enzymes. COMPARISON: None. TECHNIQUE: Multiplanar real-time ultrasonography of the abdomen using champagne-scale imaging, supplemented by color and spectral Doppler as needed. FINDINGS: * Liver: There is mild nonspecific heterogeneity of the hepatic parenchymal echogenicity and mild coarsening of echotexture. The liver is normal in size. * Gallbladder: The gallbladder surgically absent. * Biliary: No intra- or extra-hepatic ductal dilatation. Common bile duct measures 8.8 mm. * Spleen: Normal size, contour, and echo texture without focal lesions. Maximal dimension = 7.8 cm. * Pancreas: Incompletely visualized; unremarkable * Kidneys: No perinephric fluid, or hydronephrosis. No focal masses are identified. Right kidney measures 10.4 cm. Left kidney measures 9.8 cm. * Peritoneum: No ascites. * Imaged Aorta/IVC: The visualized aorta and IVC are within normal limits. ++++++++++++++++++++ IMPRESSION: 1. Nonspecific and echogenicity of hepatic parenchyma and coarsening of echotexture. This can be seen in chronic liver disease such as hepatitis. 2. Dilation of the common bile duct is likely due to reservoir effect from prior cholecystectomy. Nikki MUÑIZ US ORDERABLES Final Result documented in this encounter Visit Diagnoses Diagnosis Elevated liver enzymes Nonspecific elevation of levels of transaminase or lactic acid dehydrogenase (LDH) Elevated liver enzymes Nonspecific elevation of levels of transaminase or lactic acid dehydrogenase (LDH) documented in this encounter Care Teams Software Clerk Relationship Specialty Start Date End Date Nikki Coronado FNP PCP - General NURSE PRACTITIONER 05/27/14 documented as of this encounter
[2024-12-01 23:14] VITALS: BP 97/64; PULSE 89; RESP 16; TEMP 36.6; O2SAT 100
[2024-12-01 23:41] VITALS: BP 97/64; PULSE 89; RESP 16; TEMP 36.6; O2SAT 100
--- NOTE | 2024-12-01 23:50 | PM.HP ---
Providers/Chief Complaint Admitting Physician: Rosa Isela Pro MD Primary Care Provider: Eliana Christianson NP Chief Complaint: Abscess History of Present Illness Patient history as per the documents reviewed from the transfer center/[facility] and as per the patient Aziza Katz is a 64 year old female past medical history chronic artery disease s/p bypass, COPD on as needed inhalers, peripheral artery disease came/referred from the above mentioned transfer center due to history of spider bites with some oozing and multiple abscess points on the right lateral chest wall and 1 abscess point from the left buttocks. The patient reported having been bitten by a brown recluse spider 1 week ago and later she went to urgent care and started on antibiotics Bactrim. She spiked a fever after 1 day and was also having nausea and vomiting from 3 to 4 days which later on subsided. After that patient went to her primary care and showed her lesions. The primary care physician further guided the patient to come to ER. The lesions reported by the patient are painful and are draining. But currently there is no fever chills or any abdominal pain nausea vomiting. There are no such abscesses found in the past and no previous history of multiple abscesses. Patient did not report any recent travels. She has seen the spiders and informed that it has been taken care of in her home by bugs of breath. She lives with the brother but he did not get any spider bites. There is no lower leg swellings, joint pains any rash anywhere else in the body. No history of any autoimmune disorder illnesses in the past. No change in her urinary or bowel habits. Rest of the review of system is unremarkable. No history of current smoking or any active drug abuse reported by the patient Review of Systems General: Reports: 10 or more systems reviewed and unremarkable except in HPI and below Medications/Allergies Home Medications ?Medication ?Instructions ?Recorded ?Confirmed ?Last Taken ?Type hydrocodone 10 mg-acetaminophen 1 - 2 tab PO QID PRN Pain 03/03/19 11/12/24 10/30/24 18:00 History 325 mg tablet montelukast 10 mg tablet 10 mg PO QAM 09/27/20 11/12/24 10/30/24 08:00 History plecanatide 3 mg tablet (Trulance) 3 mg PO QAM 09/27/20 11/12/24 10/30/24 08:00 History hydroxyzine pamoate 50 mg capsule 50 mg PO QID PRN Anxiety 03/09/21 11/12/24 10/30/24 18:00 History fluticasone propionate 50 1 spray intranasal DAILY #0 grams 03/11/21 11/12/24 10/30/24 18:00 Rx mcg/actuation nasal spray,suspension furosemide 20 mg tablet (Lasix) 20 mg PO DAILY 06/08/22 11/12/24 10/27/24 08:00 History potassium gluconate 500 mg (83 mg) 1,000 mg PO PRN PRN unknown 06/08/22 11/12/24 10/27/24 08:00 History tablet quetiapine 50 mg tablet 50 mg PO DAILY 11/06/23 11/12/24 10/30/24 18:00 History ropinirole 4 mg tablet 4 mg PO DAILY 11/06/23 11/12/24 10/30/24 18:00 History pantoprazole 40 mg tablet,delayed 40 mg PO DAILY #30 tabs 12/18/23 11/12/24 10/30/24 18:00 Rx release (Protonix) clopidogrel 75 mg tablet 75 mg PO DAILY 90 days #90 tabs 03/28/24 11/12/24 10/30/24 08:00 Rx rivaroxaban 2.5 mg tablet (Xarelto) See Rx Instructions .Route 03/28/24 11/12/24 10/30/24 Rx .COMPLEX #90 tabs aspirin 81 mg tablet 81 mg PO DAILY #2 tabs 10/03/24 11/12/24 10/30/24 08:00 Rx Allergies Allergy/AdvReac Type Severity Reaction Status Date / Time duloxetine (From Cymbalta) Allergy headaches Verified 10/31/24 07:11 Penicillins Allergy respiratory Verified 10/31/24 07:11 issues PFSH Acute PFSH: Medical History (Updated 12/01/24 @ 23:57 by Rosa Isela Pro MD) Claudication PVD (peripheral vascular disease) CAD (coronary artery disease) Carotid stenosis Osteoarthritis of right knee Surgical History Hx of cholecystectomy H/O: hysterectomy H/O decompression of ulnar nerve Social History Smoking and tobacco/nicotine status: former use of tobacco/nicotine Alcohol intake: never Substance/Drug Use: never Lives independently: Yes Household members: none Housing: House Marital status: Number of children: 2 Pets and animals: Yes Pets & animals: cat(s) and dog(s) Vitals/I&O/Wt Last Vital Signs Temp 97.8 F 12/01/24 23:41 Pulse 89 12/01/24 23:41 Resp 16 12/01/24 23:41 BP 97/64 12/01/24 23:41 Pulse Ox 100 12/01/24 23:41 O2 Del Method Room Air 12/01/24 23:44 Weight last 48 hrs Weight 81.817 kg Physical Exam Narrative: General: Alert and oriented, lying comfortably without any distress. HEENT: Normocephalic, atraumatic, grossly unremarkable exam Cardio: normal rate rhythm, normal S1-S2 without any murmurs, rubs, or gallops and JVD normal Respiratory: normal vascular breathing on auscultation without any wheezes, stridor, rhonchi GI: Abdomen soft, nontender, nondistended, normoactive bowel sounds present all 4 quadrants, Neuro: intact cranial nerves motor and sensory and cerebellar/coordination function without any focal neurological deficit Behavior: Appropriate and cooperative Extremities: Adequate palpable pulses, no edema or cyanosis observed Skin: Having lateral right chest wall cellulitis with multiple pus points and oozing with redness around the skin in the lateral chest wall fold, left buttocks/lateral wall showing 1 abscess point with scab and redness around with mild oozing. A&P Assessment and plan 1. Abscess and cellulitis of gluteal region: Multiple abscess points on the lower lateral right chest wall folds And 1 abscess point on the lateral gluteal site with redness around possible and likelihood of cellulitis Wound culture wound care Cefepime started Surgery consult for further evaluation and possible I&D 2. Abscess: Wound care Wound culture Cefepime Surgery consult for further evaluation 3. PAD (peripheral artery disease): Resume home medication after reconciliation Patient reported to be on aspirin clopidogrel and also on rivaroxaban 4. CAD (coronary artery disease): Continue home medication after reconciliation Aspirin clopidogrel and rivaroxaban to reconcile and to start Did not see any statins however to wait for the reconciliation and to resume according PDMP PDMP Reviewed: Not Reviewed Attestations Medical Necessity Statement*: Aziza Katz's hospital stay will require greater than 2 midnights for multiple abscesses Time Spent in Patient Care: 16 - 35 minutes (>than 50% of time spent in counselling and/or direct pt care on unit). Other Attestations: Patient condition has been discussed at length with the patient/family, I have independently reviewed the chart labs imaging/diagnostics/EKG. the goals of care and code status with the patient/family/NOK/legal order entry representative, and documented accordingly. The patient/family has been informed about the current condition and further plan of care. Agreed with the plan of care and understood without any language barrier. Every effort was made to ensure accuracy of supervisor tumbling and rolling. Any obvious errors or omissions should be clarified with the author of the document. Coding Level of Care Code Acute Code for Chg Fwd Diagnoses Abscess and cellulitis of gluteal region L02.31; L03.317 Abscess L02.91 PAD (peripheral artery disease) I73.9 CAD (coronary artery disease) I25.10
[2024-12-01 23:59] VITALS: BP 97/64; PULSE 89; RESP 16; TEMP 36.6; O2SAT 100
[2024-12-02] VITALS (13 sets, daily range): BP systolic 70–118; BP diastolic 35–68; PULSE 65–89; RESP 16–20; TEMP 36.3–37.1; O2SAT 92–100
[2024-12-02] MEDS: cefepime 2,000 mg SDV 2000 MG IVP ×3 (00:31→16:52)
[2024-12-02] MEDS: HYDROcodone-acetaminophen 5-325 mg Tablet 1 TAB PO ×4 (00:32→16:52)
[2024-12-02 02:01] LABS: Alanine Aminotransferase 14 U/L (0-33); Albumin Level 3.6 g/dL (3.5-5.2); Alkaline Phosphatase 324 U/L (35-105); Anion Gap 17.5 (5-19); Aspartate Amino Transferase 12 U/L (0-32); Blood Urea Nitrogen 7 mg/dL (8-23); Calcium 8.7 mg/dL (8.5-10.5); Carbon Dioxide 20 mmol/L (22-29); Chloride 102 mmol/L (98-107); Creatinine Clr Calc Pharmacy 55.5925; Globulin 3.4 g/dL (1.3-4.6); Glucose 164 mg/dL (65-115); Osmolality Calculated 282 mOsm/kg (285-295); Potassium 4.5 mmol/L (3.5-5.1); Sodium 135 mmol/L (136-145); Total Protein 7.0 g/dL (6.6-8.7)
[2024-12-02 02:10] LABS: Hematocrit 28.4 % (36-47); Hemoglobin 9.00 g/dL (11.27-16.99); Mean Corpuscular HGB Conc 31.7 g/dL (30-55); Mean Corpuscular Hemoglobin 25.9 pg (27-33); Mean Corpuscular Volume 81.8 fl (85-98); Nucleated Red Blood Cells % 0 %; Platelet Count 505 10^3/cmm (157-399); Red Blood Count 3.47 10^6/uL (3.85-5.65); White Blood Count 7.18 10^3/uL (3.29-11.43)
--- NOTE | 2024-12-02 08:03 | PM.CONSULT ---
Providers/Reason For Consult Consulting Physician/Specialty*: General Surgery Reason for Consult*: Arthropod bite Attending Physician: Rosa Isela Pro MD Primary Care Provider: Eliana Christianson NP History of Present Illness History of Present Illness Aziza Katz is a 64 year old female who presents to the hospital due to multiple suspected arthropod bites on the chest and gluteal region. According to the patient she has developed cellulitis and separation from the wounds. I was consulted for evaluation for possible need for debridement. Per patient report this has been going on for about a week and has been worsening Review of Systems General: Reports: 10 or more systems reviewed and unremarkable except in HPI and below Medications/Allergies Home Medications ?Medication ?Instructions ?Recorded ?Confirmed ?Last Taken ?Type hydrocodone 10 mg-acetaminophen 1 - 2 tab PO QID PRN Pain 03/03/19 11/12/24 10/30/24 18:00 History 325 mg tablet montelukast 10 mg tablet 10 mg PO QAM 09/27/20 11/12/24 10/30/24 08:00 History plecanatide 3 mg tablet (Trulance) 3 mg PO QAM 09/27/20 11/12/24 10/30/24 08:00 History hydroxyzine pamoate 50 mg capsule 50 mg PO QID PRN Anxiety 03/09/21 11/12/24 10/30/24 18:00 History fluticasone propionate 50 1 spray intranasal DAILY #0 grams 03/11/21 11/12/24 10/30/24 18:00 Rx mcg/actuation nasal spray,suspension furosemide 20 mg tablet (Lasix) 20 mg PO DAILY 06/08/22 11/12/24 10/27/24 08:00 History potassium gluconate 500 mg (83 mg) 1,000 mg PO PRN PRN unknown 06/08/22 11/12/24 10/27/24 08:00 History tablet quetiapine 50 mg tablet 50 mg PO DAILY 11/06/23 11/12/24 10/30/24 18:00 History ropinirole 4 mg tablet 4 mg PO DAILY 11/06/23 11/12/24 10/30/24 18:00 History pantoprazole 40 mg tablet,delayed 40 mg PO DAILY #30 tabs 12/18/23 11/12/24 10/30/24 18:00 Rx release (Protonix) clopidogrel 75 mg tablet 75 mg PO DAILY 90 days #90 tabs 03/28/24 11/12/24 10/30/24 08:00 Rx rivaroxaban 2.5 mg tablet (Xarelto) See Rx Instructions .Route 03/28/24 11/12/24 10/30/24 Rx .COMPLEX #90 tabs aspirin 81 mg tablet 81 mg PO DAILY #2 tabs 10/03/24 11/12/24 10/30/24 08:00 Rx Allergies Allergy/AdvReac Type Severity Reaction Status Date / Time duloxetine (From Cymbalta) Allergy headaches Verified 10/31/24 07:11 Penicillins Allergy respiratory Verified 10/31/24 07:11 issues Current Medications Generic Name Dose Route Start Last Admin Trade Name Freq PRN Reason Stop Dose Admin Hydrocodone Bitart/Acetaminophen 1 tab 12/01/24 23:59 12/02/24 05:24 Hydrocodone-Acetaminophen 5-325 Mg Tablet PO 1 tab Q4H PRN Administration MODERATE TO SEVERE PAIN Cefepime HCl 2,000 mg 12/02/24 01:00 12/02/24 00:31 Cefepime 2,000 Mg Sdv IVP 2,000 mg Q8H LAZARO Administration Protocol Pantoprazole Sodium 40 mg 12/02/24 05:00 12/02/24 05:[address] 40 Mg Tablet PO 40 mg DAILY LAZARO Administration PFSH Acute PFSH: Medical History (Updated 12/01/24 @ 23:57 by Rosa Isela Por MD) Claudication PVD (peripheral vascular disease) CAD (coronary artery disease) Carotid stenosis Osteoarthritis of right knee Surgical History Hx of cholecystectomy H/O: hysterectomy H/O decompression of ulnar nerve Social History Smoking and tobacco/nicotine status: former use of tobacco/nicotine Alcohol intake: never Substance/Drug Use: never Lives independently: Yes Household members: none Housing: House Marital status: Number of children: 2 Pets and animals: Yes Pets & animals: cat(s) and dog(s) Vitals/I&O/Wt Last Vital Signs Temp 97.6 F 12/02/24 07:38 Pulse 66 12/02/24 07:38 Resp 18 12/02/24 07:38 BP 73/48 12/02/24 07:38 Pulse Ox 94 12/02/24 07:38 O2 Del Method Room Air 12/02/24 07:38 Weight last 48 hrs Weight 180 lb 6 oz Weight 180 lb 6 oz Physical Exam Narrative: On the right lateral chest wall there is an area of cellulitis with a central area of fluctuance which appears to be from multiple small fenestrations of the skin measuring about 2 cm. On the left lateral thigh/gluteal area there is a 1 cm area of induration with very superficial ulceration and small amount of slough. Data 12/02/24 01:25 12/02/24 01:25 Micro: Microbiology 12/02/24 01:29 Blood Culture - Preliminary Blood SPECIMEN COLLECTED 12/02/24 01: Blood Culture - Preliminary Blood SPECIMEN COLLECTED A&P Assessment and plan 1. Abscess and cellulitis of gluteal region: 2. Abscess: Plan: After complete history physical examination and review of all available clinical data I agree with the patient need for debridement, patient will likely require incision and drainage and washout of the right chest wall wound and superficial debridement of the left gluteal area. I have discussed with patient recent benefits including the risk of bleeding, infection, need for additional procedures, poor cosmetic outcome, poor wound healing and injury to adjacent structures she shows understanding wishes to proceed. Patient will be kept n.p.o. and we will proceed to the OR in the next available OR block. All other management per medical team PDMP PDMP Reviewed: Not Reviewed Coding Level of Care Code Acute Code for [facility] Diagnoses Abscess and cellulitis of gluteal region L02.31; L03.317 Abscess L02.91
--- NOTE | 2024-12-02 08:57 | PC.PHAR ---
Pt states she stopped Metformin 500mg bid. last fill on Quetiapine 25mg at hs filled 09/19/23 and Pantoprazole 40mg daily last fill 12/18/23 (removed from chart)
--- NOTE | 2024-12-02 09:15 | PC.CHAP ---
Pastoral Care Encounter/Spiritual Assessment Type of Contact [] Declined staff readiness officer visit [] Patient/Family/Request visit [] Outpatient visit [] Follow-up visit [] Physician referral [] Code/Alert [x] Routine visit [] Staff referral [] Actively dying [] Patient sleeping [] Family support [] [] Out of room [] Palliative care [] [] Receiving care in room [] Pre-surgical visit [] Trauma [] Long length of stay [] ICU visit [] Other: Relational/Emotional Strength [x] Patient feels connected with others/family/visitors/staff [x] Distress [] Loneliness/isolation [] Abandonment Spirituality of Patient [x] Person of Shahnaz [] Attends Yarsani of their Shahnaz [x] Believes in Prayer [] Reads Bible or Judaism materials [] There are Spiritual issues to be addressed Decorative Engraver Apprentice Interventions [x] Prayer [] Active listening [x] Non-anxious presence [x] Spiritual/emotional support [] Crisis/trauma care [] Spiritual counseling [] Bereavement support [] Provided bereavement packet [] Provided Bible/devotional materials [] Provided toy/stuffed animal, coloring book to patient or family member [] Provided Communion [] Anointing/[place] [] Salvation [x] Completed spiritual assessment [] Other: Impact on Illness or Injury [] Angry [] Fearful [] Anxious [] Often cries [] Exhaustion [] Unable to work [] Unable to attend buddhism [] Unable to walk/stand [] Unable to read [] Unable to drive [] Unable to eat/drink [] Unable to sleep [] Unable to be with family [] Patient intubated [] Other: Summary Time spent with patient 5 min
[2024-12-02 09:38] LABS: CRP High Sensitivity Cardiac 1.990 mg/dL (0.0-0.3)
--- NOTE | 2024-12-02 10:04 | PHA.VACGOAL ---
Vancomycin Goal - Goal Vancomycin Goal:: 10-15 mg/L Vancomycin Indication:: SSTI - Therapy Current therapy:: Cefepime Day of therpy:: Day []of [] . Actual body weight (kg): 180 lb 6 oz - Data Labs: WBC 7.18 10^3/uL (3.29-11.43) 12/02/24 01:25 RBC 3.47 10^6/uL (3.85-5.65) L 12/02/24 01:25 Hgb 9.00 g/dL (11.27-16.99) L 12/02/24 01:25 Hct 28.4 % (36-47) L 12/02/24 01:25 MCV 81.8 fl (85-98) L 12/02/24 01:25 MCH 25.9 pg (27-33) L 12/02/24 01:25 MCHC 31.7 g/dL (30-55) 12/02/24 01:25 RDW 17.4 % (12.1-15.1) H 12/02/24 01:25 Sodium 135 mmol/L (136-145) L 12/02/24 01:25 Potassium 4.5 mmol/L (3.5-5.1) 12/02/24 01:25 Chloride 102 mmol/L (98-107) 12/02/24 01:25 Carbon Dioxide 20 mmol/L (22-29) L 12/02/24 01:25 Anion Gap 17.5 (5-19) 12/02/24 01:25 BUN 7 mg/dL (8-23) L 12/02/24 01:25 Creatinine 1.0 mg/dL (0.5-0.9) H 12/02/24 01:25 GFR Calculation 55.6 mL/min (90-130) L 12/02/24 01:25 Last dialysis session:: N/A Treatment plan:: new consult Regimen:: INITIAL LOADING DOSE OF 1000 MG X 1 PER DOSING PROTOCOL MAINTENANCE DOSE OF 750 MG Q12H Follow up:: WILL CONTINUE TO MONITOR AND FOLLOW UP DAILY
[2024-12-02 10:10] LABS: HIV 1 & 2 Antigen Non-Reactive (Non-Reactiv)
[2024-12-02 10:11] LABS: Procalcitonin 0.05 ng/mL (0-0.5); Thyroid Stimulating Hormone 0.47 uIU/mL (0.27-4.20); Vitamin B12 341 pg/mL (232-1245)
[2024-12-02] MEDS: heparin 5,000 unit/mL INJ 1 mL 5000 UNIT SUBCUT ×2 (10:16→20:59)
[2024-12-02 10:18] LABS: Estmated Average Glucose 114; Hemoglobin A1C 5.6 % (4.0-6.0)
[2024-12-02 10:22] LABS: Iron 26 ug/dL (37-145); Total Iron Binding Capacity 314 mcg/dl; Unsaturated Iron Binding 288 ug/dL (112-347)
--- NOTE | 2024-12-02 13:26 | P.PN_ITS ---
Subjective 2 Subjective: Admitted overnight. On examination patient laying comfortably in bed. Did have soft blood pressures today morning though patient was asymptomatic. On examination laying comfortably in bed awaiting OR debridement later in the day. Vitals/I&O/Wt Last Vital Signs Temp 97.7 F 12/02/24 11:17 Pulse 72 12/02/24 11:17 Resp 20 H 12/02/24 11:17 BP 88/56 12/02/24 11:17 Pulse Ox 98 12/02/24 11:17 O2 Del Method Room Air 12/02/24 11:17 Weight last 48 hrs Weight 81.817 kg Weight 81.817 kg Physical Exam 2 Narrative: General: Alert and oriented, lying comfortably without any distress. HEENT: Normocephalic, atraumatic, grossly unremarkable exam Cardio: normal rate rhythm, normal S1-S2 without any murmurs, rubs, or gallops and JVD normal Respiratory: normal vascular breathing on auscultation without any wheezes, stridor, rhonchi GI: Abdomen soft, nontender, nondistended, normoactive bowel sounds present all 4 quadrants, Neuro: intact cranial nerves motor and sensory and cerebellar/coordination function without any focal neurological deficit Behavior: Appropriate and cooperative Extremities: Adequate palpable pulses, no edema or cyanosis observed Skin: Having lateral right chest wall cellulitis with multiple pus points and oozing with redness around the skin in the lateral chest wall fold, left buttocks/lateral wall showing 1 abscess point with scab and redness around with mild oozing. Data 12/03/24 04:48 12/03/24 04:48 Micro: Microbiology 12/02/24 05:45 Gram Stain - Final Back 12/02/24 01:29 Blood Culture - Preliminary Blood SPECIMEN COLLECTED 12/02/24 01:25 Blood Culture - Preliminary Blood SPECIMEN COLLECTED A&P Assessment and plan 1. Abscess and cellulitis of gluteal region: Multiple abscess points on the lower lateral right chest wall folds And 1 abscess point on the lateral gluteal site with redness around possible and likelihood of cellulitis Wound culture wound care Cefepime started Surgery consult for further evaluation and possible I&D 2. Abscess: Wound care Wound culture Cefepime Surgery consult for further evaluation 3. PAD (peripheral artery disease): Resume home medication after reconciliation Patient reported to be on aspirin clopidogrel and also on rivaroxaban 4. CAD (coronary artery disease): Continue home medication after reconciliation Aspirin clopidogrel and rivaroxaban to reconcile and to start Did not see any statins however to wait for the reconciliation and to resume according Plan: Plan for the day: Check MRSA swab. Follow-up blood cultures. OR debridement on the day. Appreciate surgical recommendations. Continue with IV cefepime. Add vancomycin. Will discontinue if MRSA swab negative. Given abscesses patient would most likely need up to 10 to 12 days of antibiotics IV versus oral depending on culture sensitivities. Restart home medications except cilostazol, clopidogrel and Xarelto. Out of bed to chair. Full code Cardiac diet postoperatively. Currently NPO. Heparin for DVT prophylaxis SCD for DVT prophylaxis PDMP PDMP Reviewed: Not Reviewed Attestations 2 Medical Necessity Statement*: Requested hospitalization for management of abscesses and cellulitis of gluteal region and right chest wall as patient requires OR I&D Diagnoses Abscess and cellulitis of gluteal region L02.31; L03.317 Abscess L02.91 PAD (peripheral artery disease) I73.9 CAD (coronary artery disease) I25.10 Associated angina: without angina [place] vs. transplanted heart: [place] heart
--- NOTE | 2024-12-02 15:48 | P.OP_ITS ---
Operative Report Date of procedure: December 02, 2024 Pre-op diagnosis: Infected arthropod wound on the right chest wall and left gluteal region Post-op diagnosis: Same Post-op findings: There was a large abscess cavity on the right chest wall measuring about 4 x 2 cm x 3 cm tracking down all the way to the chest wall fascia. On the left gluteal area there was a small 1 cm diameter wound with an underlying abscess cavity measuring 1 x 2 x 2 cm in the subcutaneous tissue. Procedure done: Washout and sharp debridement of right chest wall and left gluteal wound, punch biopsy of the right chest wall and left gluteal wound Specimens removed/disposition: Punch biopsy right chest wall, punch biopsy left gluteal wound. Wound cultures Surgeon: Luis Montalvo MD Traffic Division Commanding Officer: JAGDISH OR STaff Estimated blood loss: 5 Complications: none apparent Brief History: 64-year-old female admitted with suspected arthropod bites that had not gotten infected in the right chest wall and left gluteal region. I was consulted for possible debridement. Procedure: Patient was brought into the OR, she was given monitored anesthesia care and placed in the left lateral decubitus position. The right chest wall was prepped and draped in usual sterile fashion and timeout was conducted. The wound was already open and , I will obtain cultures. I then infiltrated the skin with local anesthesia. I used my finger to break all loculations and empty the abscess cavity. The abscess cavity was noted to track down all the way to the chest wall fascia. I used a punch biopsy to take samples from the wound edges. I then used a sharp curette to remove all devitalized tissue from the edges of the wound as well as from the base leaving healthy bleeding tissue. Hemostasis was achieved. The wound was irrigated with abundant amount of saline. The wound was then packed with half-inch iodoform packing and sterile dressing was applied. The patient was then transferred to the right lateral decubitus position the left gluteal region was prepped and draped in usual sterile fashion. Local anesthesia was infiltrated around the wound. With the help of a hemostat I was able to open the center of the wound and ambulate an underlying abscess cavity. Cultures were taken. Punch biopsy was taken from the edge of the wound. A curette was used to remove all the devitalized tissue. A small abscess cavity was noted on the subcutaneous tissue was cleared to healthy tissue. Hemostasis was achieved. The wound was irrigated and packed with quarter inch iodoform packing. A sterile dressing was applied. At the end of the procedure all counts were correct. The patient tolerated well the procedure was transferred to the PACU in stable condition.
[2024-12-02] MEDS: BUPivacaine 0.25% INJ 30 mL 20 ML INJECTION (15:59)
[2024-12-02] MEDS: lidocaine-epi 1% 20 mL INJ INJECTION (15:59)
--- NOTE | 2024-12-02 16:52 | PC.NURSE ---
Pt has multiple abrasions throughout body. When asked if they were all spider bites, pt stated she wasn't sure. She stated some could be from scratching at dry skin. Abrasions on right leg and right cheek appear closer in appearance to spider bite than a scab.
[2024-12-02 17:32] LABS: MRSA PCR OZH (swab) MRSA Detected (Not Detecte)
[2024-12-02 19:17] LABS: PCP Screen Urine Negative (Negative)
[2024-12-03] VITALS (15 sets, daily range): BP systolic 113–150; BP diastolic 59–79; PULSE 70–81; RESP 14–20; TEMP 36.5–37; O2SAT 92–98
[2024-12-03] MEDS: cefepime 2,000 mg SDV 2000 MG IVP ×3 (01:10→18:56)
[2024-12-03] MEDS: ATORVASTATIN 20 MG TABLET PO (04:02)
[2024-12-03] MEDS: venlafaxine ER (24HR) 75 mg Capsule PO (04:02)
[2024-12-03] MEDS: morphine 4 mg/mL SDV 1 mL 1 MG IVP ×3 (04:32→18:57)
[2024-12-03 05:12] LABS: Hematocrit 25.1 % (36-47); Hemoglobin 7.80 g/dL (11.27-16.99); Mean Corpuscular HGB Conc 31.1 g/dL (30-55); Mean Corpuscular Hemoglobin 25.7 pg (27-33); Mean Corpuscular Volume 82.8 fl (85-98); Nucleated Red Blood Cells % 0 %; Platelet Count 429 10^3/cmm (157-399); Red Blood Count 3.03 10^6/uL (3.85-5.65); White Blood Count 10.52 10^3/uL (3.29-11.43)
[2024-12-03 05:33] LABS: Alanine Aminotransferase 9 U/L (0-33); Albumin Level 3.0 g/dL (3.5-5.2); Alkaline Phosphatase 217 U/L (35-105); Anion Gap 12.7 (5-19); Aspartate Amino Transferase 9 U/L (0-32); Blood Urea Nitrogen 8 mg/dL (8-23); Calcium 8.3 mg/dL (8.5-10.5); Carbon Dioxide 20 mmol/L (22-29); Chloride 113 mmol/L (98-107); Creatinine Clr Calc Pharmacy 55.5925; Globulin 2.9 g/dL (1.3-4.6); Glucose 101 mg/dL (65-115); Osmolality Calculated 292 mOsm/kg (285-295); Potassium 3.7 mmol/L (3.5-5.1); Sodium 142 mmol/L (136-145); Total Protein 5.9 g/dL (6.6-8.7)
[2024-12-03 05:34] LABS: Cholesterol 110 mg/dL (0-200); HDL Cholesterol 44 mg/dL (60-100); Magnesium 1.6 mg/dL (1.7-2.3); Triglycerides 121 mg/dL (0-150); VLDL Cholestrol Calculation 24 mg/dL (0-30)
--- NOTE | 2024-12-03 05:41 | PC.NURSE ---
Patient Blood Pressure Patient was having low Blood pressures with vital cart and manuals with the Right side tried the left side Blood pressure was significantly better. Several nurses checked and all had the same outcomes. No reasons to why it was happening. pressure been good since using the left side. patient was alert and awake no notable deficits to why pressures low stated she felt fine when asked.
[2024-12-03] MEDS: heparin 5,000 unit/mL INJ 1 mL 5000 UNIT SUBCUT ×2 (09:01→20:53)
[2024-12-03 09:23] LABS: Glucose Urine UA Negative (Normal); Nitrate Urine Negative (Negative); Specific Gravity, Urine 1.010 (1.005-1.030)
[2024-12-03 09:28] LABS: Add Urine Microscopic? YES
--- NOTE | 2024-12-03 10:00 | PC.SOCIAL ---
*IMM* Patient received a copy of the important message from Medicare, initialed, dated and placed in chart.
--- NOTE | 2024-12-03 12:13 | P.PN_ITS ---
Subjective 2 Subjective: No acute events overnight. She underwent OR debridement yesterday. Tolerated the procedure well. Did have episode of hypotension postoperatively though it seems to be an error as she has significant different blood pressures in her right and left arm. Patient remained asymptomatic. States she is feeling a lot better today. Denies any nausea, vomiting, headache. Vitals/I&O/Wt Last Vital Signs Temp 98.5 F 12/03/24 11:13 Pulse 72 12/03/24 11:13 Resp 16 12/03/24 11:13 BP 120/64 12/03/24 11:13 Pulse Ox 92 12/03/24 11:13 O2 Del Method Room Air 12/03/24 11:13 O2 Flow Rate 4 12/02/24 20:00 12/02/24 12/03/24 12/03/24 22:59 06:59 14:59 Intake Total 2146.667 / 2146.667 1250 / 3396.667 400 / 400 Output Total 1060 / 1060 600 / 1660 Balance 1086.667 / 1086.667 650 / 1736.667 400 / 400 Weight last 48 hrs Weight 82.554 kg Weight 81.817 kg Weight 81.817 kg Physical Exam 2 Narrative: General: Alert and oriented, lying comfortably without any distress. HEENT: Normocephalic, atraumatic, grossly unremarkable exam Cardio: normal rate rhythm, normal S1-S2 without any murmurs, rubs, or gallops and JVD normal Respiratory: normal vascular breathing on auscultation without any wheezes, stridor, rhonchi GI: Abdomen soft, nontender, nondistended, normoactive bowel sounds present all 4 quadrants, Neuro: intact cranial nerves motor and sensory and cerebellar/coordination function without any focal neurological deficit Behavior: Appropriate and cooperative Extremities: Adequate palpable pulses, no edema or cyanosis observed Skin: Postoperative dressing in right chest wall and left gluteal region. No concern for leakage. Data 12/03/24 04:48 12/03/24 04:48 Micro: Microbiology 12/02/24 15:05 Gram Stain - Final Chest Anaerobic Culture - Preliminary 12/02/24 15:43 Gram Stain - Final Hip - #1 Anaerobic Culture - Preliminary 12/02/24 01:29 Blood Culture - Preliminary Blood NEGATIVE TO DATE 12/02/24 01:25 Blood Culture - Preliminary Blood NEGATIVE TO DATE 12/02/24 05:45 Gram Stain - Final Back A&P Assessment and plan 1. Abscess and cellulitis of gluteal region: Multiple abscess points on the lower lateral right chest wall folds And 1 abscess point on the lateral gluteal site with redness around possible and likelihood of cellulitis Wound culture wound care Cefepime started Surgery consult for further evaluation and possible I&D 2. Abscess: Wound care Wound culture Cefepime Surgery consult for further evaluation 3. PAD (peripheral artery disease): Resume home medication after reconciliation Patient reported to be on aspirin clopidogrel and also on rivaroxaban 4. CAD (coronary artery disease): Continue home medication after reconciliation Aspirin clopidogrel and rivaroxaban to reconcile and to start Did not see any statins however to wait for the reconciliation and to resume according Plan: Plan for the day: Post debridement on 12/02. Follow-up the OR cultures. MRSA swab positive. Continue with IV cefepime and vancomycin. Will plan for further antibiotics depending on culture results. Hemoglobin is below 8. Will transfuse monitor PRBC. Will continue to check blood pressure in the right arm the blood pressures are better as patient has remained asymptomatic with low blood pressures which are most likely an error. Restart cilostazol and Plavix. Will restart Xarelto from evening. Out of bed to chair. Full code Cardiac diet postoperatively. Currently NPO. Heparin for DVT prophylaxis SCD for DVT prophylaxis PDMP PDMP Reviewed: Not Reviewed Attestations 2 Medical Necessity Statement*: Requested hospitalization for management of abscesses and cellulitis of gluteal region and right chest wall post OR I&D Diagnoses Abscess and cellulitis of gluteal region L02.31; L03.317 Abscess L02.91 PAD (peripheral artery disease) I73.9 CAD (coronary artery disease) I25.10 [place] vs. transplanted heart: [place] heart Associated angina: without angina
[2024-12-03] MEDS: sodium chloride 0.9% (100 ml) 100 ML 125 ML (15:03)
--- NOTE | 2024-12-03 15:11 | P.PN_ITS ---
Subjective 2 Subjective: Postoperative day 1 after washout and debridement of right chest wall and left gluteal region wounds. Patient doing much better, no significant pain, normal white count. Vitals/I&O/Wt Last Vital Signs Temp 98.6 F 12/03/24 15:03 Pulse 73 12/03/24 15:03 Resp 16 12/03/24 15:03 BP 122/70 12/03/24 15:03 Pulse Ox 97 12/03/24 15:03 O2 Del Method Room Air 12/03/24 11:13 O2 Flow Rate 4 12/02/24 20:00 12/03/24 12/03/24 12/03/24 06:59 14:59 22:59 Intake Total 1250 / 3396.667 640 / 640 0 / 640 Output Total 600 / 1660 Balance 650 / 1736.667 640 / 640 0 / 640 Weight last 48 hrs Weight 182 lb Weight 180 lb 6 oz Weight 180 lb 6 oz Physical Exam 2 Narrative: Wound care was done, both of the wounds appear healthy no evidence of bleeding, no residual purulence packing was replaced and dressing was placed. Data 12/03/24 04:48 12/03/24 04:48 Micro: Microbiology 12/02/24 15:43 Gram Stain - Final Hip - #1 Anaerobic Culture - Preliminary Wound Culture - Preliminary Coag positive Staphylococcus 12/02/24 15:05 Gram Stain - Final Chest Anaerobic Culture - Preliminary Wound Culture - Preliminary Coag positive Staphylococcus 12/02/24 05:45 Gram Stain - Final Back Abscess Culture - Preliminary Coag positive Staphylococcus 12/02/24 01:29 Blood Culture - Preliminary Blood NEGATIVE TO DATE 12/02/24 01:25 Blood Culture - Preliminary Blood NEGATIVE TO DATE A&P Assessment and plan 1. Abscess and cellulitis of gluteal region: 2. Abscess: Plan: Excellent progression from the surgical standpoint. Patient can follow-up with wound care clinic as outpatient for dressing changes as needed. I can see her in office 2 weeks after discharge to ensure adequate healing. Otherwise all other management per medical team. Wound care instructions: Please pack the wounds daily, right chest wall: Remove packing daily and repack with half-inch iodoform packing or plain packing, cover with island dressing. Left gluteal region wound, remove packing daily, repack with quarter inch packing and cover with foam dressing for protection. PDMP PDMP Reviewed: Not Reviewed Attestations 2 Medical Necessity Statement*: per medical team Coding Level of Care Code Acute Code for Chg Fwd Diagnoses Abscess and cellulitis of gluteal region L02.31; L03.317 Abscess L02.91
--- NOTE | 2024-12-03 17:39 | PC.NURSE ---
BP at 1533 for patient is 131/68 Bp at 1633 for patient is 139/72
[2024-12-04] VITALS (8 sets, daily range): BP systolic 137–151; BP diastolic 58–82; PULSE 82–95; RESP 16–17; TEMP 36.7–37.1; O2SAT 92–93
[2024-12-04] MEDS: cefepime 2,000 mg SDV 2000 MG IVP ×2 (01:07→08:18)
[2024-12-04] MEDS: morphine 4 mg/mL SDV 1 mL 1 MG IVP ×3 (01:14→13:39)
[2024-12-04] MEDS: ATORVASTATIN 20 MG TABLET PO (05:05)
[2024-12-04] MEDS: venlafaxine ER (24HR) 75 mg Capsule PO (05:05)
[2024-12-04 05:11] LABS: Hematocrit 32.2 % (36-47); Hemoglobin 10.50 g/dL (11.27-16.99); Mean Corpuscular HGB Conc 32.6 g/dL (30-55); Mean Corpuscular Hemoglobin 26.1 pg (27-33); Mean Corpuscular Volume 80.1 fl (85-98); Nucleated Red Blood Cells % 0 %; Platelet Count 400 10^3/cmm (157-399); Red Blood Count 4.02 10^6/uL (3.85-5.65); White Blood Count 11.49 10^3/uL (3.29-11.43)
[2024-12-04 05:30] LABS: Alanine Aminotransferase 9 U/L (0-33); Albumin Level 3.1 g/dL (3.5-5.2); Alkaline Phosphatase 210 U/L (35-105); Anion Gap 16.7 (5-19); Aspartate Amino Transferase 9 U/L (0-32); Blood Urea Nitrogen 7 mg/dL (8-23); Calcium 8.2 mg/dL (8.5-10.5); Carbon Dioxide 21 mmol/L (22-29); Chloride 108 mmol/L (98-107); Creatinine Clr Calc Pharmacy 69.8169; Globulin 3.0 g/dL (1.3-4.6); Glucose 82 mg/dL (65-115); Osmolality Calculated 291 mOsm/kg (285-295); Potassium 3.7 mmol/L (3.5-5.1); Sodium 142 mmol/L (136-145); Total Protein 6.1 g/dL (6.6-8.7)
[2024-12-04 05:35] LABS: Magnesium 1.5 mg/dL (1.7-2.3)
[2024-12-04] MEDS: heparin 5,000 unit/mL INJ 1 mL 5000 UNIT SUBCUT (08:18)
--- NOTE | 2024-12-04 10:38 | P.DS_ITS ---
Discharge Providers Date of Admission: 12/01/24 22:29 Date of Discharge: December 04, 2024 Attending Provider at Admission: Rosa Isela Pro MD Attending Provider at Discharge: Avery Jo MD Consults: Surgery: Dr. Umberto Whittington Primary Care Provider: Eliana Christianson NP Diagnoses at Discharge Discharge Diagnosis 1. Abscess and cellulitis of gluteal region: 2. Abscess: 3. PAD (peripheral artery disease): 4. CAD (coronary artery disease): Reason for Visit Reason for Visit: Abscess Brief History: Per HPI Patient history as per the documents reviewed from the transfer center/[facility] and as per the patient Aziza Katz is a 64 year old female past medical history chronic artery disease s/p bypass, COPD on as needed inhalers, peripheral artery disease came/referred from the above mentioned transfer center due to history of spider bites with some oozing and multiple abscess points on the right lateral chest wall and 1 abscess point from the left buttocks. The patient reported having been bitten by a brown recluse spider 1 week ago and later she went to urgent care and started on antibiotics Bactrim. She spiked a fever after 1 day and was also having nausea and vomiting from 3 to 4 days which later on subsided. After that patient went to her primary care and showed her lesions. The primary care physician further guided the patient to come to ER. The lesions reported by the patient are painful and are draining. But currently there is no fever chills or any abdominal pain nausea vomiting. There are no such abscesses found in the past and no previous history of multiple abscesses. Patient did not report any recent travels. She has seen the spiders and informed that it has been taken care of in her home by bugs of breath. She lives with the brother but he did not get any spider bites. There is no lower leg swellings, joint pains any rash anywhere else in the body. No history of any autoimmune disorder illnesses in the past. No change in her urinary or bowel habits. Rest of the review of system is unremarkable. No history of current smoking or any active drug abuse reported by the patient Hospital Course Hospital Course Patient was admitted to the hospital further evaluation and management of multiple abscesses. Surgery was consulted and she underwent OR I&D and debridement on 12/02. During hospitalization her blood cultures remain negative, wound cultures were positive for MRSA. She has been discharged in hemodynamically stable condition on oral linezolid twice daily for 10 more days. She is to continue her wound care as described and is to follow-up with surgical team as an outpatient on set appointment. Physical Exam Narrative: General: Alert and oriented, lying comfortably without any distress. HEENT: Normocephalic, atraumatic, grossly unremarkable exam Cardio: normal rate rhythm, normal S1-S2 without any murmurs, rubs, or gallops and JVD normal Respiratory: normal vascular breathing on auscultation without any wheezes, stridor, rhonchi GI: Abdomen soft, nontender, nondistended, normoactive bowel sounds present all 4 quadrants, Neuro: intact cranial nerves motor and sensory and cerebellar/coordination function without any focal neurological deficit Behavior: Appropriate and cooperative Extremities: Adequate palpable pulses, no edema or cyanosis observed Skin: Postoperative dressing in right chest wall and left gluteal region. No concern for leakage. Discharge Data Studies Completed and Pending Pending at discharge Category Date Time Status Anaerobic Culture Routine Lab 12/02/24 15:05 Results Anaerobic Culture Routine Lab 12/02/24 15:43 Results Blood Culture Stat Lab 12/02/24 01:29 Results MAG [Magnesium] AM LABS Lab 12/05/24 04:00 Ordered Wound Culture and Gram Stain Routine Lab 12/02/24 15:05 Results Wound Culture and Gram Stain Routine Lab 12/02/24 15:43 Results Pathology: Surgical [PTH] Routine Pth 12/02/24 15:48 Received Laboratory Results WBC 11.49 10^3/uL (3.29-11.43) H 12/04/24 04:57 RBC 4.02 10^6/uL (3.85-5.65) 12/04/24 04:57 Hgb 10.50 g/dL (11.27-16.99) L 12/04/24 04:57 Hct 32.2 % (36-47) L 12/04/24 04:57 MCV 80.1 fl (85-98) L 12/04/24 04:57 MCH 26.1 pg (27-33) L 12/04/24 04:57 MCHC 32.6 g/dL (30-55) 12/04/24 04:57 RDW 16.9 % (12.1-15.1) H 12/04/24 04:57 Plt Count 400 10^3/cmm (157-399) H 12/04/24 04:57 MPV 9.5 fL (7.4-10.4) 12/04/24 04:57 Neut % (Auto) 62.5 % 12/04/24 04:57 Lymph % (Auto) 27.2 % 12/04/24 04:57 [place] % (Auto) 6.7 % 12/04/24 04:57 Eos % (Auto) 1.5 % 12/04/24 04:57 Baso % (Auto) 0.4 % 12/04/24 04:57 Neut # (Auto) 7.18 10^3/uL (1.8-7.7) 12/04/24 04:57 Lymph # (Auto) 3.1 10^3/uL (0.8-4.8) 12/04/24 04:57 [place] # (Auto) 0.8 10^3/uL (0.2-0.9) 12/04/24 04:57 Eos # (Auto) 0.2 10^3/uL (0.0-0.8) 12/04/24 04:57 Baso # (Auto) 0.1 10^3/uL (0.0-0.1) 12/04/24 04:57 Nucleated RBC % (auto) 0 % 12/04/24 04:57 Nucleated RBCs # 0.0 /100WBC 12/04/24 04:57 ESR 66 mm/hr (0-15) H 12/02/24 01:25 Sodium 142 mmol/L (136-145) 12/04/24 04:57 Potassium 3.7 mmol/L (3.5-5.1) 12/04/24 04:57 Chloride 108 mmol/L (98-107) H 12/04/24 04:57 Carbon Dioxide 21 mmol/L (22-29) L 12/04/24 04:57 Anion Gap 16.7 (5-19) 12/04/24 04:57 BUN 7 mg/dL (8-23) L 12/04/24 04:57 Creatinine 0.8 mg/dL (0.5-0.9) 12/04/24 04:57 GFR Calculation 72.0 mL/min (90-130) L 12/04/24 04:57 Glucose 82 mg/dL (65-115) 12/04/24 04:57 POC Glucose 131 mg/dL (70-110) H 12/02/24 06:12 Estimat Average Glucose 114 12/02/24 01:25 Hemoglobin A1c 5.6 % (4.0-6.0) 12/02/24 01:25 Calculated Osmolality 291 mOsm/kg (285-295) 12/04/24 04:57 Calcium 8.2 mg/dL (8.5-10.5) L 12/04/24 04:57 Magnesium 1.5 mg/dL (1.7-2.3) L 12/04/24 04:57 Iron 26 ug/dL (37-145) L 12/02/24 01:25 TIBC 314 mcg/dl 12/02/24 01:25 % Saturation 8.2 % (20-50) L 12/02/24 01:25 Unsat Iron Binding 288 ug/dL (112-347) 12/02/24 01:25 Total Bilirubin 0.3 mg/dL (0.15-1.2) 12/04/24 04:57 AST 9 U/L (0-32) 12/04/24 04:57 ALT 9 U/L (0-33) 12/04/24 04:57 Alkaline Phosphatase 210 U/L (35-105) H 12/04/24 04:57 C-React Prot High Sens 1.990 mg/dL (0.0-0.3) H 12/02/24 01:25 Total Protein 6.1 g/dL (6.6-8.7) L 12/04/24 04:57 Albumin 3.1 g/dL (3.5-5.2) L 12/04/24 04:57 Globulin 3.0 g/dL (1.3-4.6) 12/04/24 04:57 Triglycerides 121 mg/dL (0-150) 12/03/24 04:48 Cholesterol 110 mg/dL (0-200) 12/03/24 04:48 LDL Cholesterol, Calc 42 mg/dL (50-129) L 12/03/24 04:48 Total VLDL Cholesterol 24 mg/dL (0-30) 12/03/24 04:48 HDL Cholesterol 44 mg/dL (60-100) L 12/03/24 04:48 Cholesterol/HDL Ratio 2.50 mg/dL (0.0-4.40) 12/03/24 04:48 Vitamin B12 341 pg/mL (232-1245) 12/02/24 01:25 Folate 4.0 ng/mL (4.8-37.3) L 12/03/24 04:48 Procalcitonin 0.05 ng/mL (0-0.5) 12/02/24 01:25 TSH 0.47 uIU/mL (0.27-4.20) 12/02/24 01:25 Urine Color Yellow (Yellow) 12/02/24 18:30 Urine Appearance Clear (CLEAR) 12/02/24 18: Urine pH 6.5 (5-7) 12/02/24 18:30 Ur Specific [place] 1.010 (1.005-1.030) 12/02/24 18:30 Urine Protein Negative (Negative) 12/02/24 18:30 Urine Glucose (UA) Negative (Normal) 12/02/24 18:30 Urine Ketones Negative (Negative) 12/02/24 18:30 Urine Blood Negative (Negative) 12/02/24 18:30 Urine Nitrate Negative (Negative) 12/02/24 18:30 Urine Bilirubin Negative (Negative) 12/02/24 18:30 Urine Urobilinogen 0.2 mg/dL (Negative) 12/02/24 18:30 Ur Leukocyte Esterase Negative (Negative) 12/02/24 18:30 Urine RBC 0-2 /hpf (0-2) 12/02/24 18:30 Urine WBC 0-5 /hpf (0-5) 12/02/24 18:30 Ur Squamous Epith Cells 0-5 /hpf (0-5) 12/02/24 18:30 Amorphous Sediment Not Reportable 12/02/24 18:30 Urine Bacteria None seen /hpf (NONE) 12/02/24 18:30 Hyaline Casts 1.65 /lpf 12/02/24 18:30 Nasal MRSA (PCR) Mrsa detected (Not Detecte) A 12/02/24 13:15 Vancomycin Trough 18.3 ug/mL (10-15) H 12/03/24 23:27 Urine Opiates Screen Positive ng/mL (Negative) H 12/02/24 18:30 Ur Barbiturates Screen Negative ng/mL (Negative) 12/02/24 18:30 Ur Phencyclidine Scrn Negative ng/mL (Negative) 12/02/24 18:30 Ur Amphetamines Screen Negative ng/mL (Negative) 12/02/24 18:30 U Benzodiazepines Scrn Negative ng/mL (Negative) 12/02/24 18:30 Urine Cocaine Screen Negative ng/mL (Negative) 12/02/24 18:30 U Marijuana (THC) Screen Negative ng/mL (Negative) 12/02/24 18:30 HIV 1&2 Ab & HIV 1 Ag Non-reactive (Non-Reactiv) 12/02/24 01:25 HIV 1&2 Antibody Non-reactive (Non-Reactiv) 12/02/24 01:25 Blood Type A Positive 12/03/24 09:49 Rho(D) Type Rh positive 12/03/24 09:49 Antibody Screen Negative 12/03/24 09:49 Crossmatch See Detail 12/03/24 09:49 Vitals Last Vital Signs Temp 98.0 F 12/04/24 07:27 Pulse 86 12/04/24 07:27 Resp 16 12/04/24 08:16 BP 137/58 12/04/24 07:27 Pulse Ox 93 12/04/24 08:16 O2 Del Method Room Air 12/04/24 07:27 O2 Flow Rate 4 12/02/24 20:00 Discharge Plan Discharge Patient Disposition: Home Condition: Stable Prescriptions: New linezolid 600 mg tablet 600 mg PO BID 10 Days Qty: 20 0RF Continued hydrocodone-acetaminophen 10-325 mg tablet 1 - 2 tab PO QID MDD 8 tabs PRN (Reason: Pain) montelukast 10 mg tablet 10 mg PO QAM Trulance 3 mg tablet 3 mg PO QAM furosemide [Lasix] 20 mg tablet 20 mg PO DAILY PRN (Reason: sob/swelling/wt gain) hydroxyzine pamoate 50 mg capsule 50 mg PO QID PRN (Reason: Anxiety) fluticasone propionate 50 mcg/actuation spray,suspension 1 spray intranasal DAILY Qty: 0 3RF Rx Instructions: administer into each nostril ropinirole 4 mg Tablet 4 mg PO DAILY quetiapine 50 mg Tablet 50 mg PO QPM clopidogrel 75 mg Tablet 75 mg PO DAILY 90 Days Qty: 90 3RF methocarbamol 500 mg tablet 1,000 mg PO QID PRN (Reason: muscle spasms) venlafaxine 75 mg capsule,extended release 24hr 75 mg PO DAILY atorvastatin 20 mg tablet 20 mg PO DAILY cilostazol 50 mg Tablet 50 mg PO BID famotidine 40 mg tablet 40 mg PO BID potassium chloride 10 mEq tablet extended release 10 meq PO .@9AM Rx Instructions: with Lasix mupirocin 2 % ointment See Rx Instructions .ROUTE .COMPLEX Rx Instructions: APPLY A SMALL AMOUNT TO THE AFFECTED AREA BY TOPICAL ROUTE 3 TIMES PER DAY. aripiprazole 10 mg tablet 10 mg PO DAILY metoprolol tartrate 25 mg tablet 12.5 mg PO BID pregabalin 75 mg capsule 75 mg PO BEDTIME Ozempic 1 mg/dose (4 mg/3 mL) pen injector 1 mg SUBCUT Q7D pantoprazole [Protonix] 40 mg tablet,delayed release (DR/EC) 40 mg PO DAILY PRN (Reason: Acid Reflux) rivaroxaban [Xarelto] 2.5 mg tablet 2.5 mg PO BID Discontinued sulfamethoxazole-trimethoprim 800-160 mg tablet 1 tab PO Q12H Discharge Order = DC NOW: Discharge Order (Routine); Ordered 12/04/24 Ordered By: Avery Jo Referrals: Luis Montalvo MD [Physician, General Surgery] - 12/16/24 2:15 pm Referral Note: Eliana Christianson NP [Primary Care Provider, Nurse Practitioner] - 12/08/24 2:15 pm Patient Instructions: Linezolid (By mouth), MRSA (Methicillin-Resistant St aphylococcus Aureus) (GEN), Acute Wound Care (DC), Opioid Safety, Post Anesthesia Care, Patient Portal & [place] Instructions Activity Restrictions/Additional Instructions: Wound care instructions: Please pack the wounds daily, right chest wall: Remove packing daily and repack with half-inch iodoform packing or plain packing, cover with island dressing. Left gluteal region wound, remove packing daily, repack with quarter inch packing and cover with foam dressing for protection. Linezolid is the antibiotic which you are supposed to take twice daily for next 10 days. Discharge Attestations Time Spent in Discharge Care*: greater than 30 min Specific Discharge Activities: educating patient, educating and/or supporting family/caregiver, discussing with pcp/other providers, discussing with family service caseworker/social workers/dc planners, documenting/other paperwork and evaluating patient/reviewing data Status at Discharge: Cognitive status at discharge: cognitively intact , Behavioral status at discharge: cooperative , Functional status at discharge: independent ambulation , Overall status at discharge: patient is back to baseline Quality Metrics Clinical Quality Measures [ No reported AMI, CVA or VTE this stay] Coding Level of Care Code 84313 Total time (in minutes) for Discharge: 65 Diagnoses Abscess and cellulitis of gluteal region L02.31; L03.317 Abscess L02.91 PAD (peripheral artery disease) I73.9 CAD (coronary artery disease) I25.10
--- NOTE | 2024-12-04 15:23 | PC.NURSE ---
Discussed discharge with patient. Discussed new medications, stopped medications and follow up appointments. Medications brought to patients room. Patient verbalized understanding. Patient wheeled down to lobby to wait on ride.
== END 2024-12-04 14:15 | disposition home or self-care (01) | DRG 571 ==
PROVIDERS: Surgery; Admitting Provider Student in an Organized Health Care Education/Training Program; PCP Nurse Practitioner Family; Visit Provider Student in an Organized Health Care Education/Training Program
PROC: 0JB60ZZ Excision of Chest Subcutaneous Tissue and Fascia, Open Approach (ICD-10-PCS; principal; 2024-12-02 16:05)
DX: L03.313 Cellulitis of chest wall (principal); L02.31 Cutaneous abscess of buttock; L03.317 Cellulitis of buttock; L02.213 Cutaneous abscess of chest wall; I25.10 Atherosclerotic heart disease of native coronary artery without angina pectoris; J44.9 Chronic obstructive pulmonary disease, unspecified; T63.331A Toxic effect of venom of brown recluse spider, accidental (unintentional), initial encounter; B95.62 Methicillin resistant Staphylococcus aureus infection as the cause of diseases classified elsewhere; I73.9 Peripheral vascular disease, unspecified; I65.29 Occlusion and stenosis of unspecified carotid artery; M17.11 Unilateral primary osteoarthritis, right knee; I95.81 Postprocedural hypotension; Z79.891 Long term (current) use of opiate analgesic; Z79.02 Long term (current) use of antithrombotics/antiplatelets; Z79.01 Long term (current) use of anticoagulants; Z79.82 Long term (current) use of aspirin; Z87.891 Personal history of nicotine dependence
CPT/HCPCS: 36415; 36416; 36430; 80053; 80061; 80202; 80306; 81001; 82607; 82746; 82962; 83036; 83540; 83550; 83735; 84145; 84443; 85025; 85651; 86141; 86850; 86900; 86920; 87040; 87070; 87075; 87077; 87186; 87205; 87806; 88307; 96372; J0692; J1644; J2250; J2270; J2704; J3010; J3373; J3490; J7030; J7050; J9999; P9016

== ENCOUNTER → 2024-12-31 13:40 | Outpatient (BNVA) | payer MEDICARE, MEDICAID, SELFPAY | PROVIDERS: PCP Nurse Practitioner Family; Visit Provider Surgery | DX: Z09 Encounter for follow-up examination after completed treatment for conditions other than malignant neoplasm (principal) | CPT/HCPCS: 99213 ==